=== PATIENT | male | born 1945 | race Caucasian/White ===

== ENCOUNTER 2021-02-21 12:27 | Outpatient (REF) | payer MEDICARE, SELFPAY ==
--- NOTE | 2021-02-21 15:31 | MHC.AU.ANR ---
Adult Audiological Evaluation Date of Visit: 02/21/21 Reason for Appointment: Audiological evaluation due to concern for decreased hearing. Mr. Combs states that he recently had a DOT physical and did not pass the hearing portion of the evaluation, during which the test had him repeat a whispered sentence. He feels that he hears well most of the time and hasn't had much concern for his hearing. 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 Upcoming shoulder surgery. Medication List: Gabapentin, Tamsulosin, Finasteride, Omeprazole, Lisinopril Otoscopy: Right Ear: Unremarkable Left Ear: Mostly occluding cerumen, unable to view tympanic membrane. Tympanometry: Tympanometry performed due to: To determine if cerumen blockage is fully occluding canal(s) Right Ear: Normal Middle Ear System (Type A) Left Ear: Normal Middle Ear System (Type A) Hearing Evaluation: Transducer(s) Used: Circumaural Headphones Method: Conventional Audiometry Stimuli Used: Pure Tones Right Ear: Description of Hearing: Normal hearing from 250-1000 Hz, sloping to a mild to moderately severe sensorineural hearing loss from 6795-5500 Hz. Left Ear: Description of Hearing: Normal hearing from 250-1000 Hz, sloping to a mild to severe sensorineural hearing loss from 5244-6398 Hz. Speech Recognition Threshold (SRT): Method Used: Monitored Live Voice Stimuli Used: Spondee Words Right Ear: 15 dBHL Left Ear: 10 dBHL Word Discrimination: Method: Recorded Lists Word Lists Used: NU-6 Right Ear: 88% at 60 dBHL Left Ear: 50% at 60 dBHL, 88% at 70 dBHL Recommendations: Audiological re-evaluation in one year. Trial with amplification is recommended. Binaural amplification is recommended based on his type and degree of hearing loss. Recommend trial of wejjygor-kr-dco-canal (SA[place]NA[place]) style hearing aids. Patient will contact his health insurance company to inquire about hearing aid benefits. He was welcomed to return for a hearing aid consultation if he decides he would like to pursue hearing aids through our clinic. Recommend use of earwax removal drops to clear the left ear. Diagnosis: Primary Diagnosis: H90.3 Bilateral Sensorineural Hearing Loss Secondary Diagnosis: H61.22 Impacted Cerumen, Left Ear Services Performed: Services Performed: Comprehensive Audiological Evaluation (CPT 81782) Tympanometry (CPT 07907) Signature: Provider: Son Fierro, CCC-A
== END 2021-02-21 12:28 | disposition home or self-care (01) ==
LOC: HO.SH 12:27
PROVIDERS: Visit Provider Nurse Practitioner Family
DX: H90.3 Sensorineural hearing loss, bilateral (principal); H61.22 Impacted cerumen, left ear
CPT/HCPCS: 92557; 92567

== ENCOUNTER 2021-03-20 06:15 | Outpatient (REF) | payer MEDICARE, SELFPAY ==
[2021-03-20 12:01] LABS: Alanine Aminotransferase 18 U/L (0-40); Albumin Level 4.1 g/dL (3.5-5.0); Alkaline Phosphatase 79 U/L (39-117); Anion Gap 14 (12-20); Aspartate Amino Transferase 16 U/L (5-37); Bilirubin Total 0.6 mg/dL (0.0-1.0); Blood Urea Nitrogen 12 mg/dL (9-16); Calcium 9.6 mg/dL (8.4-10.2); Carbon Dioxide 29 mmol/L (22-29); Chloride 103 mmol/L (96-108); Cholesterol 189 mg/dL; Estimated Glomerular Filt Rate > 60; Glucose Fasting 93 mg/dL (60-99); HDL Cholesterol 41 mg/dL; LDL Cholesterol Calculated 85 mg/dl; Potassium 3.7 mmol/L (3.3-5.1); Sodium 142 mmol/L (135-145); Total Protein 6.8 g/dL (6.5-8.0); Triglycerides 315 mg/dL
[2021-03-20 12:27] LABS: Prostate Specific Antigen Scr 0.86 ng/mL (<0.05-4.0); TSH reflex Free T4 1.59 uIU/mL (0.32-4.0)
== END 2021-03-20 06:16 | disposition home or self-care (01) ==
LOC: HO.HMGCLDS 06:15
PROVIDERS: PCP Nurse Practitioner Family; Visit Provider Nurse Practitioner Family
DX: I10 Essential (primary) hypertension (principal); Z12.5 Encounter for screening for malignant neoplasm of prostate
CPT/HCPCS: 36415; 80053; 80061; 84153; 84443

== ENCOUNTER 2021-08-12 11:22 | Outpatient (REF) | payer MEDICARE, SELFPAY ==
[2021-08-12 12:17] LABS: Influenza A PCR NEGATIVE (Negative); Influenza B PCR NEGATIVE (Negative); Resp Syncy Virus RNA Qual PCR NEGATIVE (Negative); SARS COV2 PCR INHOUSE NEGATIVE (Negative)
== END 2021-08-12 11:23 | disposition home or self-care (01) ==
LOC: HO.LNP 11:22
PROVIDERS: Visit Provider Internal Medicine
DX: R43.9 Unspecified disturbances of smell and taste (principal); Z20.822 Contact with and (suspected) exposure to COVID-19
CPT/HCPCS: 0241U

== ENCOUNTER 2022-07-25 14:09 | Outpatient (REF) | payer MEDICARE, SELFPAY ==
[2022-07-25 16:35] LABS: MANUAL DIFF FLAG NO
[2022-07-25 16:40] LABS: Basophils Absolute Auto 0.1 X10*3/uL (0.0-0.2); Basophils Percent Auto 0.9 % (0-2); Eosinophils Absolute Auto 0.1 X10*3/uL (0.0-0.4); Eosinophils Percent Auto 1.6 % (0-4); Hematocrit 44.9 % (42.0-52.0); Hemoglobin 15.1 g/dl (14.0-18.0); Imm Gran Abs Auto 0.04 X10*3/uL (0.00-0.03); Imm Gran Pct Auto 0.5 % (0.0-0.4); Lymphocytes Absolute Auto 1.1 X10*3/uL (1.2-4.9); Lymphocytes Percent Auto 15.4 % (20-40); Mean Corpuscular HGB Conc 33.6 g/dl (31.0-36.0); Mean Corpuscular Hemoglobin 31.2 pg (27.0-33.0); Mean Corpuscular Volume 92.8 fL (80.0-98.0); Mean Platelet Volume 9.5 fL (9.4-12.4); Monocytes Absolute Auto 0.6 X10*3/uL (0.1-1.2); Monocytes Percent Auto 7.6 % (2-11); Neutrophils Absolute Auto 5.5 x10*3/uL (2.0-8.3); Platelet Count 215 X10*3/uL (160-400); Red Blood Count 4.84 X10*6/uL (4.60-5.80); Red Cell Distribution Width 13.5 % (11.0-16.0); White Blood Count 7.4 X10*3/uL (4.8-10.8)
[2022-07-25 16:41] LABS: Appearance Urine Clear; Color Urine Yellow; Glucose Urine UA Negative (Negative); Leukocyte Esterase Urine Small (1+) (Negative); Nitrite Urine Negative (Negative); Specific Gravity - Urine 1.015 (1.005-1.025); UMIC TRIGGER UACC YES; Urine Blood Negative (Negative); Urine Ketones Negative (Negative); Urine Protein Negative (Neg-Trace)
[2022-07-25 17:10] LABS: Prostate Specific Antigen Scr 2.89 ng/mL (<0.05-4.0); TSH reflex Free T4 0.88 uIU/mL (0.32-4.0)
[2022-07-25 17:21] LABS: Bacteria Urine None Seen (None Seen); Hyaline Casts Urine 0-2 /LPF (0-2); RBC Urine 0-2 /HPF (0-2); Squamous Epithelial Cell Urine 0-2 /HPF (0-2); UACC Culture Trigger YES; WBC Urine 0-5 /HPF (0-5)
== END 2022-07-25 14:10 | disposition home or self-care (01) ==
LOC: HO.HMGCLDS 14:09
PROVIDERS: PCP Nurse Practitioner Family; Visit Provider Nurse Practitioner Family
DX: Z12.5 Encounter for screening for malignant neoplasm of prostate (principal); I10 Essential (primary) hypertension
CPT/HCPCS: 36415; 81001; 84153; 84443; 85025; 87086

== ENCOUNTER 2023-06-02 12:51 | Outpatient (AMB) | payer MEDICARE, SELFPAY ==
--- NOTE | 2023-06-02 13:06 | A.OFFVIS_ITS ---
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 Morales with complaints of left hip pain. Patient reports pain has been present for quite some time and is bow unable to fully bend down. He has hx of injections that provide him with relief but would like to discuss surgery. He did have an injection given into his right hip bursa approximately 2 months ago. He states he got fairly good relief from that injection. He wishes to hold off on total hip replacement surgery for as long as possible. He has tried Tylenol and anti-inflammatory medicines which gave him minimal relief. He has also done physical therapy exercises which aggravated his pain. Allergies No Known Allergies Allergy (Verified 06/02/23 13:14) Medication List - Last Reconciled 06/02/23 by Hernan Morales MD carbidopa-levodopa 25-100 mg 1 tab PO TID cetirizine 10 mg PO DAILY 30 days donepezil 5 mg PO DAILY finasteride 5 mg PO DAILY fluticasone propionate 50 mcg/actuation sprays intranasal gabapentin 900 mg (3 x 300 mg) PO BEDTIME 30 days lisinopril 5 mg PO DAILY omega-3 acid ethyl esters 1 cap PO BID 30 days omeprazole 20 mg PO DAILY 90 days oxybutynin chloride ER 5 mg PO DAILY tamsulosin 0.4 mg PO BID [facility] Medical History Arthritis of glenohumeral joint Dementia Enlarged prostate GERD (gastroesophageal reflux disease) Hypertension Impingement syndrome, shoulder Parkinsons disease Tendinopathy of right shoulder Surgical History H/O bilateral cataract extraction H/O blepharoplasty H/O cervical discectomy H/O colonoscopy H/O esophagogastroduodenoscopy History of total knee arthroplasty S/P right knee arthroscopy Family History Father No problems noted. Mother Oral cancer Social History Housing: House Alcohol intake: current Alcohol intake frequency: does not drink Patient Tobacco Use Status: Never used Tobacco e-Cigarette/Vaping Use: Never Used Second Hand Smoke Exposure: No service: No Current occupational status: employed and retired Current occupation: [employer] Current occupational exposures/hazards: No Cognitive needs: No Hearing needs: No Vision needs: No Physical Exam Vital Signs: BMI result Body Mass Index 21.2 Const Other: Well-nourished well-developed very friendly male awake alert and oriented x3 in no acute distress Extrem Other: Bilateral lower extremity examination shows good capillary refill, no skin lesions noted, normal sensation light touch Left hip examination shows decreased range of motion when compared to his right hip, pain with range of motion, tenderness over his bursa, no overlying skin lesions Office Procedures Joint Injection/Drain Joint Injection/Drain Details: Left hip greater trochanteric bursa Prep: site was prepped using aseptic technique Injected: 40 mg of, Kenalog and 1% plain lidocaine Procedure: The patient tolerated the procedure well Coding 79284 - Large joint Procedure code (CPT) selection complete Results Reviewed Results Reviewed: X-rays of the patient's left hip taken previously show joint space narrowing, subchondral sclerosis, no acute bony abnormalities Assessment & Plan Assessment & Plan (1) Trochanteric bursitis, left hip: Code(s): M70.62 - Trochanteric bursitis, left hip Plan Mr. Combs presents with left hip pain due to degenerative joint disease as well as greater trochanteric bursitis. I had a lengthy discussion with the patient regarding the treatment options. He wishes to hold off on surgery for as long as possible. I agree with his plan. I discussed the risks and benefits of a greater trochanteric bursa cortisone injection. The patient wished to proceed with the injection. He tolerated the injection well. He will continue with exercises as tolerated. He will follow up with me on an as-needed basis should his symptoms not plateau at an acceptable level over the next few months. If he fails continued non operative treatments we will further discuss the risks and benefits of total hip replacement surgery. Feel free to call me at any time should questions regarding his orthopedic management arise. I spent 22 minutes in reviewing the patient's records and imaging studies, seeing the patient and documenting in the medical record. Orders: Orders AMB Joint Injection/Aspiration Today M70.62 - Trochanteric bursitis, left hip Coding Level of Care Code Est Pt Level 2 (50553) Diagnoses Trochanteric bursitis, left hip M70.62 CPT Codes Coding - 50360 Large joint: 45325 - Large joint ([id number])
[2023-06-02 13:15] VITALS: BMI 21.2
== END 2023-06-02 15:00 | disposition home or self-care (01) ==
PROVIDERS: PCP Nurse Practitioner Family; Visit Provider Orthopaedic Surgery
DX: M70.62 Trochanteric bursitis, left hip (principal)
CPT/HCPCS: 20610; 99204; 99214

== ENCOUNTER → 2023-06-02 12:51 | Outpatient (BNVA) | payer MEDICARE, SELFPAY | PROVIDERS: PCP Nurse Practitioner Family; Visit Provider Orthopaedic Surgery | DX: M70.62 Trochanteric bursitis, left hip (principal) | CPT/HCPCS: 20610; J3301 ==

== ENCOUNTER 2023-07-09 07:28 | Outpatient (REF) | payer MEDICARE, SELFPAY ==
--- NOTE | ~2023-07-09 | XR_ITS ---
EXAMINATION: XR HIP, LEFT CLINICAL INFORMATION: Left hip pain COMPARISON: None available. TECHNIQUE: An AP view of the pelvis and hips and frog lateral view of the left hip. FINDINGS: Mineralization is normal. There is an essentially nondisplaced oblique fracture through the neck of the left femur extending from the subcapital region to the intertrochanteric region. There is no dislocation. There is moderate hip joint space narrowing with subchondral sclerosis, mild marginal osteophyte and mild remodeling of the femoral head and acetabulum. The periarticular soft tissues appear unremarkable. XR/XR hip LT min 2V IMPRESSION: Essentially nondisplaced fracture through the neck of the left femur. Degenerative breath right is in the left hip.
== END 2023-07-09 07:29 | disposition home or self-care (01) ==
LOC: HO.HOSX 07:28
PROVIDERS: Visit Provider Orthopaedic Surgery
DX: Z13.89 Encounter for screening for other disorder (principal)
CPT/HCPCS: 73502; 99212; J3301

== ENCOUNTER 2023-07-09 13:30 | Outpatient (AMB) | payer MEDICARE, SELFPAY ==
--- NOTE | 2023-07-09 13:42 | A.OFFVIS_ITS ---
Intake Vital Signs 07/09/23 14:04 Height 6 ft Weight 156 lb BMI 21.2 Intake Visit Reasons: Ov- left hip pain Intake Note: Sreedhar 77 yr old male presents today for follow-up of his left hip pain. The patient states that his left hip pain has gotten worse over the last few years in spite of continued non operative treatments. The patient states that he fell in the grass walking from his car to the office. He was helped to his feet by another individual. The patient was able to fully weightbear on his left lower extremity with a significant amount of discomfort. The patient states that most of his pain is located within his groin. He states that his current pain is similar to his chronic pain but more intense. The patient states that he would like a cortisone injections so that he is ?able to work this Thursday?. Allergies No Known Allergies Allergy (Verified 07/09/23 13:51) Medication List - Last Reconciled 07/09/23 by Hernan Morales MD carbidopa-levodopa 25-100 mg 1 tab PO TID cetirizine 10 mg PO DAILY 30 days donepezil 5 mg PO DAILY finasteride 5 mg PO DAILY fluticasone propionate 50 mcg/actuation sprays intranasal gabapentin 900 mg (3 x 300 mg) PO BEDTIME 30 days lisinopril 5 mg PO DAILY omega-3 acid ethyl esters 1 cap PO BID 30 days omeprazole 20 mg PO DAILY 90 days oxybutynin chloride ER 5 mg PO DAILY tamsulosin 0.4 mg PO BID tramadol 50 mg PO BID PRN tramadol 50 mg PO Q12H PRN PFSH Medical History Arthritis of glenohumeral joint Dementia Enlarged prostate GERD (gastroesophageal reflux disease) Hypertension Impingement syndrome, shoulder Parkinsons disease Tendinopathy of right shoulder Surgical History H/O bilateral cataract extraction H/O blepharoplasty H/O cervical discectomy H/O colonoscopy H/O esophagogastroduodenoscopy History of total knee arthroplasty S/P right knee arthroscopy Family History Father No problems noted. Mother Oral cancer Social History Household Members: Spouse Housing: House Do you presently have visiting nurse or other home services: No Alcohol intake: current Alcohol intake frequency: holidays/special occasions only Patient Tobacco Use Status: Never used Tobacco Smoked in Last 30 Days: No e-Cigarette/Vaping Use: Never Used Second Hand Smoke Exposure: No Use of substances other than those prescribed or required for medical reasons: No Have you been hit, kicked, punched, or otherwise hurt by someone within the past year? If so, by whom?: No Do you feel safe in your current relationship?: Yes Is there a partner from a previous relationship who is making you feel unsafe now?: No Are you made to feel afraid or neglected: No Advance Directives: No Advance Directives Information Provided: No Do you have thoughts of harming others: None Do you have a plan to hurt others: No Plan Recently lost weight without trying: No How much weight loss: Not applicable Eating poorly because of decreased appetite: No Nutrition screen score: 0 Nutrition Risks: No Nutritional Risk Poor oral hygiene: No service: No Current occupational status: employed and retired Current occupation: [employer] Current occupational exposures/hazards: No Cognitive needs: No Hearing needs: No Vision needs: No Physical Exam Vital Signs: BMI result Body Mass Index 21.2 Const Other: Well-nourished well-developed very friendly male awake alert and oriented x3 in no acute distress Extrem Other: Left hip examination shows tenderness over his greater trochanteric bursa, no overlying skin lesions, moderate pain with range of motion consistent with prior examinations Results Reviewed Results Reviewed: 07/09/23 13:48 Lidocaine HCl 2 % MPF [Xylocaine 2 % MPF] 5 ml .ROUTE .STK-MED ONE 07/09/23 13:49 Triamcinolone Acetonide [Kenalog-40] 40 mg .ROUTE .STK-MED ONE My initial reading of the patient's left hip x-rays taken after his fall showed moderate to severe degenerative joint disease with no obvious fractures After the patient tried to get out of his wheelchair to leave the office and go home I took another look at his x-ray which appears to show a nondisplaced fracture of the left femoral neck with extension into the intertrochanteric reg ion Assessment & Plan Assessment & Plan (1) Left hip pain: Code(s): M25.552 - Pain in left hip (2) Trochanteric bursitis, left hip: Code(s): M70.62 - Trochanteric bursitis, left hip Plan Mr. Combs presented for routine follow-up of his left hip pain. The patient did have a fall on the grass outside of the office when walking from his car to the office. In addition to increase of his chronic left hip pain the patient also had a superficial abrasion of his left elbow. The patient denies any other injuries. Upon initial evaluation I felt that the patient's pain was due to worsening of his left hip arthritis as well as greater trochanteric bursitis. I had a lengthy discussion with the patient regarding the treatment options. The patient wished for a cortisone injection into his left hip bursa which she has gotten good relief from in the past. Thus, a left hip greater trochanteric bursa cortisone injection was performed. Following the injection the patient still had difficulty fully weight-bearing on his left lower extremity. At this point I was concerned that there might indeed be a proximal femur fracture. Upon further review of the x-rays I felt that there was a nondisplaced fracture of the patient's left femoral neck with extension into the intertrochanteric region. Thus, the patient will be sent to the emergency room. I contacted the emergency room staff and recommended that the patient get a CT scan of his left hip for further evaluation of possible fracture. The plan was discussed at length with the patient. If the patient does indeed have a proximal femur fracture he will be admitted with the plan for surgical intervention likely tomorrow. Feel free to call me at any time should questions regarding his orthopedic management arise. I spent 22 minutes in reviewing the patient's records and imaging studies, seeing the patient and documenting in the medical record. Orders: Orders XR hip LT min 2V 07/09/23 M25.552 - Pain in left hip Medications: Discontinued gabapentin 900 mg (3 x 300 mg) PO BEDTIME 30 days 90 caps 3RF Coding Level of Care Code Est Pt Level 2 (50145) Diagnoses Left hip pain M25.552 Trochanteric bursitis, left hip M70.62
[2023-07-09 14:04] VITALS: BMI 21.2
== END 2023-07-09 14:24 | disposition home or self-care (01) ==
PROVIDERS: PCP Nurse Practitioner Family; Visit Provider Orthopaedic Surgery
DX: M25.552 Pain in left hip (principal); M70.62 Trochanteric bursitis, left hip
CPT/HCPCS: 99212

== ENCOUNTER 2023-07-09 14:16 | Inpatient (IN) | payer MEDICARE, SELFPAY ==
--- NOTE | ~2023-07-09 | XR_ITS ---
EXAMINATION: XR KNEE, LEFT CLINICAL INFORMATION: Pain status-post fall. COMPARISON: None available. TECHNIQUE: AP and lateral views of the left knee. FINDINGS: Bony alignment and mineralization are normal. The lateral and medial joint space compartments are well-maintained. There is chondrocalcinosis. There is marked narrowing of the patellofemoral compartment. A small joint effusion is suspected. Towards the posterior intercondylar region, a 2.0 x 1.2 x 1.3 cm calcific density is seen, possibly a bone island or an adherent loose body. There is no fracture or dislocation. No foreign body is seen. XR/XR knee LT 2V IMPRESSION: 1. There is marked degenerative change of the patellofemoral compartment. 2. A small joint effusion is suspected. 3. There is chondrocalcinosis, which can be associated with CPPD. 4. There is no fracture or dislocation. 5. At the posterior intercondylar region, a 2.0 cm calcified density is seen, possibly a bone island or adherent loose body.
--- NOTE | ~2023-07-09 | FL_ITS ---
EXAMINATION: XR FLUOROSCOPY WITH IMAGES CLINICAL INFORMATION: Left hip fracture COMPARISON: Previous x-ray from yesterday TECHNIQUE: Fluoroscopy Supervised By: Dr. Omega Acosta. Fluoroscopy Time: 0.6 minutes. Cumulative Dose: 12.8 mGy. DAP: 0.2 mgy/sq m Images: 5. FINDINGS: Images demonstrate an intramedullary anat and compression/lag screw and distal cortical screw transfixing the left femoral fracture. Alignment is anatomic. There is arthritis of the left hip joint. FL/FL guidance in OR IMPRESSION: Fluoroscopy guidance for ORIF of left hip fracture.
--- NOTE | ~2023-07-09 | CT_ITS ---
EXAMINATION: CT HIP WITHOUT CONTRAST, LEFT CLINICAL INFORMATION: Left hip pain. Question fracture. Fall. COMPARISON: CT dated 08/25/2017 TECHNIQUE: Multidetector volumetric imaging was obtained through the left hip without contrast material. Multiplanar reformatted images were submitted in coronal and sagittal planes. This CT examination was performed using dose optimization techniques as appropriate, variously including the following: *Automated exposure control *Adjustment of mA and/or kV according to patient size (this includes techniques or standardized protocols for targeted exams where dose is matched to indication/reason for exam; i.e. extremities or head) *Use of iterative reconstruction technique DLP: 186 mGy-cm FINDINGS: There is a mildly comminuted fracture at the left femoral neck which is primarily basicervical in location with extension into the intertrochanteric regions as well. The fracture line extends into the lesser trochanter, though the lesser trochanter remains appropriately situated relative to the remainder of the proximal femur. There is a nondisplaced trabecular component of the fracture extending into the greater trochanter without significant cortical breaks at the greater trochanter. There is impaction along the posterior cortex of the femoral neck in the basicervical region. A nondisplaced sagittally oriented fracture line extends through the medial cortex of the femoral neck. Slight apex anterior angulation is evident at the femoral neck component of the fracture. There is moderate to severe osteoarthritis the left hip with nonuniform cephalad joint space narrowing, talar cartilage loss, marginal osteophytes, and cortical irregularity. Mild osteoarthritis is also present in the left SI joint. Imaged portion of the left innominate bone is intact. The proximal femoral diaphysis is normal in appearance without fracture or osseous lesions. There is a small left hip joint effusion. Lipohemarthrosis extends into the iliopsoas bursa. Surrounding fat stranding is noted at the left hip. No significant hematomas are identified. Calcific atherosclerosis is present in the left iliac and femoral arteries. There is central gland hypertrophy at the prostate with dystrophic calcifications. Diverticulosis is present at the sigmoid. CT/CT hip LT wo IV con IMPRESSION: 1. Mildly comminuted, basicervical fracture of the left femoral neck with intertrochanteric extension. 2. Moderate to severe osteoarthritis in the left hip.
[2023-07-09 14:35] VITALS: BP 145/86; PULSE 66; RESP 16; TEMP 36.8; O2SAT 99; BMI 20.7
--- NOTE | 2023-07-09 14:38 | ED.GENADULT ---
HPI - General Adult General Chief complaint: Fall Stated complaint: fall Time Seen by Provider: 07/09/23 14:49 Source: patient Mode of arrival: wheelchair Limitations: no limitations History of Present Illness HPI narrative: 77 yo male with history of dementia, HTN, HLD, RBBB, PVC's, BPH, phimosis s/p elective circumcision in 2012, arthritis s/p right knee replacement, GERD, and Parkinson's disease who presents to the ER from Orthpedic office for evaluation and treatment of a hip fracture. He tripped and fell on his way into the office today. He was going for evaluation of ongoing pain in the left hip he thought was muscular. He was recently treated with a cortisone injection in the hip in May which helped his pain. He is a poor historian. He does not know his medical problems or which medications he takes. He denies any chest pain, dizziness, SOB before the fall today. He feels well at rest and has significant pain in the left hip and pelvis with any movement. MD complaint: left hip pain Onset (ago): week(s) Location: left and lower extremity Radiation: non-radiation Severity: moderate Pain Consistency: intermittent Relieving factors: immobilization and rest Exacerbating factors: movement Associated symptoms: denies other symptoms Treatments prior to arrival: none Related Data Home Medications Medication Instructions Recorded Confirmed tamsulosin 0.4 mg capsule 0.4 mg PO BID 03/18/21 07/09/23 carbidopa 25 mg-levodopa 100 mg 1 tab PO TID 06/19/21 07/09/23 tablet donepezil 5 mg tablet 5 mg PO DAILY 01/16/22 07/09/23 oxybutynin chloride 5 mg 5 mg PO DAILY 01/16/22 07/09/23 tablet,extended release 24 hr gabapentin 300 mg capsule 300 mg PO BEDTIME 07/09/23 Previous Rx's Medication Instructions Recorded lisinopril 5 mg tablet 5 mg PO DAILY #90 tabs 04/03/23 omeprazole 20 mg capsule,delayed 20 mg PO DAILY 90 days #90 caps 04/15/23 release tramadol 50 mg tablet 50 mg PO Q12H PRN pain #60 tabs 06/26/23 Allergies Allergy/AdvReac Type Severity Reaction Status Date / Time No Known Allergies Allergy Verified 07/09/23 13:51 Review of Systems Review of Systems: Yes all other systems are reviewed and are negative FORMERLY [facility], [facility] Past Medical History Medical History Arthritis of glenohumeral joint Dementia Enlarged prostate GERD (gastroesophageal reflux disease) Hypertension Impingement syndrome, shoulder Parkinsons disease Tendinopathy of right shoulder Surgical History H/O bilateral cataract extraction H/O blepharoplasty H/O cervical discectomy H/O colonoscopy H/O esophagogastroduodenoscopy History of total knee arthroplasty S/P right knee arthroscopy Family History Family History Father No problems noted. Mother Oral cancer Social History Social History Household Members: Spouse Housing: House Do you presently have visiting nurse or other home services: No Alcohol intake: current Alcohol intake frequency: does not drink Patient Tobacco Use Status: Never used Tobacco Smoked in Last 30 Days: No e-Cigarette/Vaping Use: Never Used Second Hand Smoke Exposure: No Use of substances other than those prescribed or required for medical reasons: No Currently Displaying Signs/Symptoms of Drug Intoxication Withdrawal: No Have you been hit, kicked, punched, or otherwise hurt by someone within the past year? If so, by whom?: No Do you feel safe in your current relationship?: Yes Is there a partner from a previous relationship who is making you feel unsafe now?: No Are you made to feel afraid or neglected: No Are you DNR?: No Advance Directives: No Advance Directives Information Provided: No Advance Directives on File: No Do you have thoughts of harming others: None Do you have a plan to hurt others: No Plan Recently lost weight without trying: No How much weight loss: Not applicable Eating poorly because of decreased appetite: No Nutrition screen score: 0 Nutrition Risks: No Nutritional Risk Poor oral hygiene: No service: No Current occupational status: employed and retired Current occupation: [employer] Current occupational exposures/hazards: No Cognitive needs: No Hearing needs: No Vision needs: No Physical Exam ED Vital Signs: Vital Signs - 24 hr 07/09/23 14:35 08/31/23 16:20 Temperature 98.3 F 98.1 F Pulse Rate 66 63 Respiratory Rate 16 12 Blood Pressure 145/86 H 153/74 H Pulse Oximetry 99 99 Oxygen Delivery Method Room Air Room Air BMI result Body Mass Index 20.7 Appearance: Alert. Oriented X3. No acute distress. Head: normocephalic, atraumatic. Eyes: Pupils equal, round and reactive to light. ENT: Pharynx normal. No tonsillar swelling or exudate. Neck: Normal inspection. Neck supple. CVS: Normal heart rate and rhythm. Pulses normal. Respiratory: No respiratory distress. Breath sounds normal. Abdomen: Soft and nontender. +BS x4 Skin: Skin warm and dry. Normal skin color. Normal skin turgor. No rashes. Extremities: Bilateral resting hand tremor. Superficial abrasion to the left forearm. Full ROM of the left elbow and shoulder. No lower extremity edema. Both legs in slightly flexion position at the hip and knees. left hip and groin are tender to palpation. no shortening or external rotation of the left leg. Neuro/psych: Oriented X 3. Tremulous. No motor deficit. No sensory deficit. CN II-XII intact. Normal speech Course Course Course Narrative: RME: 77 yold brought to the ED for evaluation of left hip possibel fracture. rafa fell on way near ortho clinic with no head trauma. Xray confimed left hip fracture as per CHELLY Whiting and recommend admission to medicine. Reevaluation(s) Reevaluation #1: pain improved w/ oxycodone awaiting CT scan to be admitted to medicine Time: 16:29 Medications Administered Generic Name Dose Route Start Last Admin Trade Name Priti PRN Reason Stop Dose Admin Acetaminophen 650 mg 07/09/23 17:14 07/13/23 16:32 Acetaminophen 325 Mg Tablet PO 325 mg Q6H PRN Administration Pain, Mild (Pain Scale 1-3) Carbidopa/Levodopa 1 tab 07/09/23 21:00 07/13/23 15:51 Carbidopa/Levodopa 25/100 Tablet PO 1 tab TID RICKIE Administration Docusate Sodium 100 mg 07/09/23 21:00 07/13/23 08:10 Docusate Sodium 100 Mg Capsule PO 100 mg BID RICKIE Administration Donepezil HCl 5 mg 07/10/23 09:00 07/13/23 08:09 Donepezil Hcl 5 Mg Tablet PO 5 mg DAILY RICKIE Administration Enoxaparin Sodium 40 mg 07/11/23 10:00 07/13/23 10:47 Enoxaparin Sodium 40 Mg/0.4 Ml Syringe SUBCUT 40 mg Q24H RICKIE Administration Fentanyl 50 mcg 07/10/23 13:41 07/10/23 17:03 Fentanyl Citrate/Pf 100 Mcg/2 Ml Vial IVPUSH 25 mcg Q5M PRN Administration Pain, Severe (Pain Scale 7-10) Protocol Lisinopril 5 mg 07/10/23 09:00 07/13/23 08:09 Lisinopril 5 Mg Tablet PO 5 mg DAILY RICKIE Administration Protocol Morphine Sulfate 2 mg 07/09/23 17:14 07/10/23 12:07 Morphine Sulfate 4 Mg/Ml Cartridge IVPUSH 2 mg Q4H PRN Administration Pain, Severe (Pain Scale 7-10) Protocol Omeprazole 20 mg 07/10/23 06:30 07/13/23 05:46 Omeprazole 20 Mg Capsule. PO 20 mg DAILY@0630 RICKIE Administration Oxybutynin Chloride 5 mg 07/10/23 09:00 07/13/23 08:09 Oxybutynin Chloride Er 5 Mg Tab.Er.24 PO 5 mg DAILY RICKIE Administration Oxycodone HCl 5 mg 07/09/23 17:14 07/13/23 16:31 Oxycodone Hcl Immed Release 5 Mg Tablet PO 5 mg Q6H PRN Administration Pain, Moderate(Pain Scale 4-6) Sodium Chloride 3 ml 07/10/23 00:00 07/13/23 19:46 0.9 % Sodium Chloride Flush 3 Ml Syringe IVFLUSH 3 ml QSHIFT RICKIE Administration Tamsulosin HCl 0.4 mg 07/09/23 21:00 07/13/23 08:09 Tamsulosin Hcl 0.4 Mg Capsule PO 0.4 mg BID RICKIE Administration Discontinued Medications Generic Name Dose Route Start Last Admin Trade Name Freq PRN Reason Stop Dose Admin Cefazolin Sodium/Dextrose 2 gm in 50 mls @ 100 mls/hr 07/10/23 09:00 07/10/23 14:00 Ancef IV 07/10/23 09:29 Not Given PREOP ONE Cefazolin Sodium/Dextrose 2 gm in 50 mls @ 100 mls/hr 07/10/23 21:00 07/10/23 22:26 Ancef IV 07/10/23 21:29 Infused ONCE@2100 RICKIE Infusion Sodium Chloride 1,000 mls @ 999 mls/hr 07/10/23 20:35 07/10/23 22:26 Ns IV 07/10/23 21:35 Infused .Q1H1M STA Infusion Oxycodone HCl 5 mg 07/09/23 14:55 07/09/23 15:21 Oxycodone Hcl Immed Release 5 Mg Tablet PO 07/09/23 14:56 5 mg ONCE ONE Administration Medical Decision Making Medical Decision Making [facility] Narrative: 77 yo male presenting for left hip pain s/p mechanical fall today outside the ortho office. XR as outpatient reviewed - Dr. Morales is recommending CT scan for further evaluation. Planning for OR tomorrow. Labs and EKG ordered for pre-op clearance and workup. Given his medical history orthopedics recommending medical admission Differential Diagnosis Differential Diagnoses: The differential diagnosis associated with the presentation includes left hip fracture, pelvic fracture, mechanical fall, cardiac arrythmia, syncope Admission/Observation Consideration of admission/observation: Escalation of care including admission/observation considered Consult Healthcare Provider Management of the patient was discussed with: Hospitalist and Regulatory Affairs Manager Angelica CRUZ from ortho Lab Data [facility] Lab Attestation statement: I reviewed the patient's lab results. 07/09/23 15:35 07/09/23 15:35 Labs: Lab Results 07/09/23 07/09/23 07/09/23 Range/Units 15:35 15:35 15:35 WBC 6.8 (4.8-10.8) X10*3/uL RBC 4.62 (4.60-5.80) X10*6/uL Hgb 14.7 (14.0-18.0) g/dl Hct 41.8 L (42.0-52.0) % MCV 90.5 (80.0-98.0) fL MCH 31.8 (27.0-33.0) pg MCHC 35.2 (31.0-36.0) g/dl RDW 13.8 (11.0-16.0) % Plt Count 248 (160-400) X10*3/uL MPV 9.0 L (9.4-12.4) fL Immature Gran % (Auto) 0.6 H (0.0-0.4) % Neut % (Auto) 78.1 H (45-73) % Lymph % (Auto) 13.2 L (20-40) % [place] % (Auto) 6.2 (2-11) % Eos % (Auto) 1.0 (0-4) % Baso % (Auto) 0.9 (0-2) % Lymph # (Auto) 0.9 L (1.2-4.9) X10*3/uL [place] # (Auto) 0.4 (0.1-1.2) X10*3/uL Eos # (Auto) 0.1 (0.0-0.4) X10*3/uL Baso # (Auto) 0.1 (0.0-0.2) X10*3/uL Abs Immat Gran (auto) 0.04 H (0.00-0.03) X10*3/uL Absolute Neuts (auto) 5.3 (2.0-8.3) x10*3/uL Absolute Nucleated RBC 0.000 (0.0-0.012) X10*3/uL Nucleated RBC % (auto) 0.0 (0.0-0.2) /100WBC PT 12.8 (11.1-13.3) SEC INR 1.1 (0.9-1.1) APTT 27.5 (26.0-36.4) SEC Sodium 139 (135-145) mmol/L Potassium 4.4 (3.3-5.1) mmol/L Chloride 105 (96-108) mmol/L Carbon Dioxide 26 (22-29) mmol/L Anion Gap 12 (12-20) BUN 16 (9-16) mg/dL Creatinine 0.79 (0.5-1.4) mg/dL Estim Creat Clear Calc 76.8 Estimated GFR > 60 Random Glucose 102 (60-115) mg/dL Calcium 9.7 (8.4-10.2) mg/dL Total Bilirubin 0.6 (0.0-1.0) mg/dL AST 20 (5-37) U/L ALT 22 (0-40) U/L Alkaline Phosphatase 69 (39-117) U/L Total Protein 6.7 (6.5-8.0) g/dL Albumin 3.9 (3.5-5.0) g/dL Independent Interpretation I performed an independent interpretation of an: Plain X-Ray Interpretation: probable fx of the left hip. no displacement or dislocation External Record Review External record reviewed: Office record, Outpatient record and Prior outpatient labs Prescription Management I considered prescription management with: Pain Medication Chronic Conditions Patient?s care impacted by: Hypertension and Other (dementia, parkinson's) Critical Care Time Critical Care Time Critical Care Time: Yes Total Critical Care Time: 35 Attestation: I have personally provided critical care time exclusive of time spent on separately billable procedures. Time includes review of lab data, radiology results, discussion with consultants, and monitoring for potential decompensation. Intervention performed as documented. Discharge Plan Discharge Clinical Impression: Closed fracture of left hip Patient Disposition: Admitted As Inpatient Interventions: Admission Worksheet (ED) Last Done: 07/09/23 18:46 Discharge Date/Time: 07/09/23 19:34
[2023-07-09] MEDS: oxyCODONE HCl Immed Release 5 MG TABLET PO ×2 (15:21→19:35)
--- NOTE | 2023-07-09 15:37 | PC.NURSE ---
This RN assumed care of patient at 1500, this RN placed 20g IV in RAC. Pt changed over into hospital gown and medicated per JAN. Per CHELLY Dominguez in ortho, patient should receive Ancef in post op, not in the ER
[2023-07-09 15:40] LABS: MANUAL DIFF FLAG NO
[2023-07-09 15:41] LABS: Basophils Absolute Auto 0.1 X10*3/uL (0.0-0.2); Basophils Percent Auto 0.9 % (0-2); Eosinophils Absolute Auto 0.1 X10*3/uL (0.0-0.4); Hematocrit 41.8 % (42.0-52.0); Hemoglobin 14.7 g/dl (14.0-18.0); Imm Gran Abs Auto 0.04 X10*3/uL (0.00-0.03); Imm Gran Pct Auto 0.6 % (0.0-0.4); Lymphocytes Absolute Auto 0.9 X10*3/uL (1.2-4.9); Lymphocytes Percent Auto 13.2 % (20-40); Mean Corpuscular HGB Conc 35.2 g/dl (31.0-36.0); Mean Corpuscular Hemoglobin 31.8 pg (27.0-33.0); Mean Corpuscular Volume 90.5 fL (80.0-98.0); Monocytes Absolute Auto 0.4 X10*3/uL (0.1-1.2); Monocytes Percent Auto 6.2 % (2-11); Neutrophils Absolute Auto 5.3 x10*3/uL (2.0-8.3); Neutrophils Percent Auto 78.1 % (45-73); Platelet Count 248 X10*3/uL (160-400); Red Blood Count 4.62 X10*6/uL (4.60-5.80); Red Cell Distribution Width 13.8 % (11.0-16.0); White Blood Count 6.8 X10*3/uL (4.8-10.8)
[2023-07-09 15:48] LABS: INTERNATIONAL NORM RATIO 1.1 (0.9-1.1); Prothrombin Time 12.8 SEC (11.1-13.3)
[2023-07-09 15:51] LABS: Partial Thromboplastin Time 27.5 SEC (26.0-36.4)
--- NOTE | 2023-07-09 16:05 | ECG_ITS ---
Test Reason : WEAKNESS Blood Pressure : / mmHG Vent. Rate : 067 BPM Atrial Rate : 069 BPM P-R Int : 142 ms QRS Dur : 090 ms QT Int : 390 ms P-R-T Axes : 050 -45 048 degrees QTc Int : 412 ms Normal sinus rhythm with sinus arrhythmia Left axis deviation Abnormal ECG When compared with ECG of 25-JUL-2020 09:20, Premature ventricular complexes are no longer Present Referred By: Noemi Key Electronically Signed By:NATE SHARIF
[2023-07-09 16:09] LABS: Alanine Aminotransferase 22 U/L (0-40); Albumin Level 3.9 g/dL (3.5-5.0); Alkaline Phosphatase 69 U/L (39-117); Anion Gap 12 (12-20); Aspartate Amino Transferase 20 U/L (5-37); Bilirubin Total 0.6 mg/dL (0.0-1.0); Blood Urea Nitrogen 16 mg/dL (9-16); Calcium 9.7 mg/dL (8.4-10.2); Carbon Dioxide 26 mmol/L (22-29); Chloride 105 mmol/L (96-108); Creatinine Clr Calc Pharmacy 76.8; Estimated Glomerular Filt Rate > 60; Glucose Random 102 mg/dL (60-115); Potassium 4.4 mmol/L (3.3-5.1); Sodium 139 mmol/L (135-145); Total Protein 6.7 g/dL (6.5-8.0)
[2023-07-09 16:20] VITALS: BP 153/74; PULSE 63; RESP 12; TEMP 36.7; O2SAT 99
--- NOTE | 2023-07-09 16:33 | PHA.MEDREC ---
Pharmacy Consult ? Medication Reconciliation Pharmacy has completed the medication reconciliation. Patient is a poor historian, confused with the medications. Patient reported he forgot his list. Called patient Meka, who was not confident in the medications either. I called pharmacy to confirmed last fill on some medications. Both reported patient is on carbidopa-levodaopa lst filled in February 2023. Patient states he takes 1 tablet of gabapentin instead of 3 however the is unsure, lasted fill september 2022. Both [facility] patient is on finasteride, called pharmacy who has no record of the medication. Patient had been filling tamsulosin instead. Rose Morales, KamranD
--- NOTE | 2023-07-09 16:44 | PM.IMHP ---
History of Present Illness Date of Service: 07/09/23 Attending physician on admission: Geoff Armando Chief Complaint: left hip pain This is a 77 yo male with history of dementia, HTN, HLD, RBBB, PVC's, BPH, arthritis s/p right knee replacement, GERD, and Parkinson's disease who presents to the ER from Orthpedic office for evaluation and treatment of a hip fracture. Patient was on his way into the office for a follow up appointment for hip pain. Unfortunately it seems he walked on the side of the walkway and tripped and fell. He denies any dizziness prior to his fall. He denies any head strike or loss of consciousness. He was able to get up and ambulate into the office with assistance. He had an outpatient x-ray which was concerning for a possible hip fracture and therefore he was sent to the emergency department for further evaluation. In the emergency department he underwent a CT scan of the left hip Review of Systems Review of Systems: Yes all other systems are reviewed and are negative Constitutional: Constitutional: Denies chills and Denies fever(s) ENT: Denies dizziness Cardiovascular: Cardiovascular: Denies chest pain Neurologic: Denies dizziness [facility] Medical History Arthritis of glenohumeral joint Dementia Enlarged prostate GERD (gastroesophageal reflux disease) Hypertension Impingement syndrome, shoulder Parkinsons disease Tendinopathy of right shoulder Family History Father No problems noted. Mother Oral cancer Surgical History H/O bilateral cataract extraction H/O blepharoplasty H/O cervical discectomy H/O colonoscopy H/O esophagogastroduodenoscopy History of total knee arthroplasty S/P right knee arthroscopy Social History Household Members: Spouse Housing: House Do you presently have visiting nurse or other home services: No Alcohol intake: current Alcohol intake frequency: does not drink Patient Tobacco Use Status: Never used Tobacco e-Cigarette/Vaping Use: Never Used Second Hand Smoke Exposure: No service: No Current occupational status: employed and retired Current occupation: [employer] Current occupational exposures/hazards: No Cognitive needs: No Hearing needs: No Vision needs: No Meds Allergies Allergy/AdvReac Type Severity Reaction Status Date / Time No Known Allergies Allergy Verified 07/09/23 13:51 Home Medications Medication Instructions Recorded Confirmed Last Taken Type tamsulosin 0.4 mg capsule 0.4 mg PO BID 03/18/21 07/09/23 Unknown History carbidopa 25 mg-levodopa 100 mg 1 tab PO TID 06/19/21 07/09/23 Unknown History tablet donepezil 5 mg tablet 5 mg PO DAILY 01/16/22 07/09/23 Unknown History oxybutynin chloride 5 mg 5 mg PO DAILY 01/16/22 07/09/23 Unknown History tablet,extended release 24 hr gabapentin 300 mg capsule 300 mg PO BEDTIME 07/09/23 Unknown History Physical Exam Vital Signs and Narrative: Vital Signs: Last Vital Signs Temp 98.1 F 07/09/23 16:20 Pulse 63 07/09/23 16:20 Resp 12 07/09/23 16:20 BP 153/74 H 07/09/23 16:20 Pulse Ox 99 07/09/23 16:20 O2 Del Method Room Air 07/09/23 16:20 BMI result Body Mass Index 20.7 Const: General: cooperative, comfortable, no acute distress, alert and awake Nutritional Appearance: average body habitus Resp: Effort & Inspection: normal respiratory effort, able to speak in complete sentences, no respiratory distress and no use of accessory muscles Cardio: Rate: regular rate Heart sounds: S1 normal heart sound present and S2 normal heart sound present GI: Inspection: No distended Palpation (GI): Soft to palpation Neuro: Other: upper extreity tremor Extrem: General: Yes no pedal edema Results Labs 07/11/23 05:30 07/11/23 05:30 Labs: Laboratory Results - last 24 hr 07/09/23 07/09/23 07/09/23 15:35 15:35 15:35 MCV 90.5 MCH 31.8 MCHC 35.2 RDW 13.8 Plt Count 248 MPV 9.0 L Immature Gran % (Auto) 0.6 H Neut % (Auto) 78.1 H Lymph % (Auto) 13.2 L [place] % (Auto) 6.2 Eos % (Auto) 1.0 Baso % (Auto) 0.9 Lymph # (Auto) 0.9 L [place] # (Auto) 0.4 Eos # (Auto) 0.1 Baso # (Auto) 0.1 Abs Immat Gran (auto) 0.04 H Absolute Neuts (auto) 5.3 Absolute Nucleated RBC 0.000 Nucleated RBC % (auto) 0.0 PT 12.8 INR 1.1 APTT 27.5 Anion Gap 12 Estim Creat Clear Calc 76.8 Estimated GFR > 60 Random Glucose 102 Calcium 9.7 Total Bilirubin 0.6 AST 20 ALT 22 Alkaline Phosphatase 69 Total Protein 6.7 Albumin 3.9 Assessment and Plan (1) Closed fracture of left hip: Status: Acute Plan this is a 77-year-old male with history of Parkinson's disease, dementia, BPH, HTN with sent by Ortho to the emergency room for evaluation of left hip pain found to have left hip fracture left hip fracture CT left hip with mildly comminuted, fracture of the left femoral neck with intertrochaneteric extension further management per orthopedic service pain control no history of ischemic heart disease or CHF but outpatient notes indicate plan for echo. no echo in system, will order echo parkinsons disease continue carbidopa-levadopa dementia, like r/t parkinsons continue donepezil HTN continue lisinopril bph/urgency continue tamsulosin, oxybutynin dvt ppx - mechanical until after procedure attending - dr. armando given acute fracture patient will likely require two midnight stay for surgical intervention Time Spent With Patient Time: Total time managing care of this patient today ____ minutes. Quality Stroke Does the patient have a stroke diagnosis?: No VTE Prior VTE?: No VTE Risk Level:: Medical - moderate - high VTE Device Contraindication: N/A - Device Ordered VTE Drug Contraindication: Treatment Not Indicated
[2023-07-09] MEDS: Morphine Sulfate 4 MG/ML CARTRIDGE 2 MG IVPUSH (17:46)
[2023-07-09 17:52] VITALS: BP 118/67; PULSE 73; RESP 15; TEMP 36.8; O2SAT 99
--- NOTE | 2023-07-09 18:03 | PC.NURSE ---
pt resting comfortably on stretcher at this time, respirations even and unlabored, skin pwd. Pt has 2, 1 inch skin tears on left elbow from fall. both cleaned and bandaged by NEVIN Ayala Pt offers no complaints to this RN at this time, provided with urinal This RN re-oriented patient to plan of care at this time. Pt requires frequent re-orientation to situation. Pt remembers that he fell but cannot remember that his hip is fractured and that he will be having surgery. Otherwise, patient is alert and oriented to person, place and time. Pt has left hip fx that is 6/10 pain at this time, medicated with 2mg morphine for pain
[2023-07-09 19:22] VITALS: BMI 19.7
[2023-07-09 19:27] VITALS: BP 137/82; PULSE 78; RESP 18; TEMP 36.4; O2SAT 99
[2023-07-09] MEDS: Tamsulosin HCL 0.4 MG CAPSULE PO (19:34)
[2023-07-09] MEDS: Docusate Sodium 100 MG CAPSULE PO (19:35)
[2023-07-09] MEDS: Carbidopa/Levodopa 25/100 TABLET 1 TAB PO (19:35)
[2023-07-09] MEDS: Acetaminophen 325 MG TABLET 650 MG PO (19:35)
[2023-07-09] MEDS: 0.9 % Sodium Chloride Flush 3 ML SYRINGE IVFLUSH (19:35)
[2023-07-09 20:55] VITALS: RESP 16
[2023-07-10] VITALS (22 sets, daily range): BP systolic 66–150; BP diastolic 49–79; PULSE 76–192; RESP 16–26; TEMP 36–37.5; O2SAT 94–100; BMI 19.7
--- NOTE | 2023-07-10 | ECG_ITS ---
Test Reason : tachycardia Blood Pressure : / mmHG Vent. Rate : 116 BPM Atrial Rate : 116 BPM P-R Int : 136 ms QRS Dur : 092 ms QT Int : 326 ms P-R-T Axes : 052 -65 071 degrees QTc Int : 453 ms Poor data quality, interpretation may be adversely affected Sinus tachycardia with Premature atrial complexes with Aberrant conduction Left anterior fascicular block Possible Lateral infarct , age undetermined Abnormal ECG When compared with ECG of 09-JUL-2023 16:34, Aberrant conduction is now Present Vent. rate has increased BY 49 BPM Borderline criteria for Lateral infarct are now Present Referred By: Zaid Wahl Electronically Signed By:
[2023-07-10] MEDS: oxyCODONE HCl Immed Release 5 MG TABLET PO ×3 (05:07→16:49)
[2023-07-10] MEDS: Omeprazole 20 MG CAPSULE.DR PO (05:08)
[2023-07-10 06:22] LABS: Hematocrit 44.2 % (42.0-52.0); Hemoglobin 15.1 g/dl (14.0-18.0); Mean Corpuscular HGB Conc 34.2 g/dl (31.0-36.0); Mean Corpuscular Hemoglobin 31.6 pg (27.0-33.0); Mean Corpuscular Volume 92.5 fL (80.0-98.0); Mean Platelet Volume 8.8 fL (9.4-12.4); Platelet Count 220 X10*3/uL (160-400); Red Blood Count 4.78 X10*6/uL (4.60-5.80); Red Cell Distribution Width 13.6 % (11.0-16.0); White Blood Count 7.1 X10*3/uL (4.8-10.8)
[2023-07-10 06:39] LABS: Anion Gap 16 (12-20); Blood Urea Nitrogen 12 mg/dL (9-16); Calcium 9.8 mg/dL (8.4-10.2); Carbon Dioxide 23 mmol/L (22-29); Chloride 102 mmol/L (96-108); Creatinine Clr Calc Pharmacy 78.9; Estimated Glomerular Filt Rate > 60; Glucose Random 101 mg/dL (60-115); Sodium 137 mmol/L (135-145)
--- NOTE | 2023-07-10 07:00 | CA_ITS ---
Transthoracic Echocardiogram Patient (Last, First, Middle): Sreedhar Combs E Gender: Male Date of : 1945 Age: 77 Procedure Date: 07/10/2023 Procedure Type: Transthoracic Echocardiogram Location: S3E Height: 182.88 cm Weight: 72.58 kg BSA: 1.94 m2 Heart Rate: bpm BP: 131 / 75 mmHg Plate Keeper: Referring MD: Fay SPAULDING Symptoms: preop eval- surgery planned for 07/10 Study Quality: Fair ECG Rhythm: Sinus Conclusions: - Normal left ventricular size and systolic function. There is mildly increased left ventricular wall thickness. The visually estimated ejection fraction is between 60-65%. - Mildly increased right ventricular cavity size. There is normal right ventricular systolic function. Findings Procedure Information Contrast agent, definity, is being given per protocol without apparent complications. Left Ventricle Normal left ventricular size and systolic function. There is mildly increased left ventricular wall thickness. The visually estimated ejection fraction is between 60-65%. There is no evidence of regional wall motion abnormalities. Diastolic function is indeterminate on the basis of available data. E/E prime ratio is between 8 and 15 consistent with indeterminate filling pressures. Right Ventricle Mildly increased right ventricular cavity size. There is normal right ventricular systolic function. Atria The left atrium was not well visualized. Aortic Valve The aortic valve was not well visualized. There is no aortic valve stenosis. There is no aortic valve regurgitation. Mitral Valve The mitral valve appears normal. There is no mitral valve regurgitation. There is no mitral valve stenosis. Pulmonic Valve The pulmonic valve is likely normal. Tricuspid Valve Normal tricuspid valve structure and function. Tricuspid regurgitation envelope is inadequate for calculation of right ventricular systolic pressure. Normal right atrial pressure. Great Vessels All visible segments of the aorta are normal in size. Venous The inferior vena cava is normal in size and collapses greater than 50% with inspiration. Pericardium/Pleural There is no evidence of pericardial effusion. Measurements 2D Linear Measurements IVSd: 1.07 0.6-0.9/0.6-1.0 cm LVIDd: 3.27 3.9-5.3/4.2-5.9 cm LVIDd Index: 1.69 2.4-3.2/2.2-3.1 cm/m2 LVIDs: 2.03 2.0-3.6 cm LVPWd: 1.16 0.7-1.1 cm Ao Root: 3.00 2.1-3.5 cm LA Diam: 4.20 2.7-3.8/3.0-4.0 cm LAIDs Index: 2.16 1.5-2.3 cm/m2 LV Mass: 136.67 67-162/88-224 g LV Mass Index: 70.45 43-95/49-115 g/m2 LVOT Diam: 2.00 3.0+(-)1.3 cm Mitral Valve MV Pk E: 0.72 MV PK A: 1.13 MV Decel Time: 206.00 E/A: 0.60 E'Lateral: 9.68 E'Medial: 6.53 E/E' Med: 11.00 E/E' Lat: 7.40 PHT: 60.00 MVA PHT: 3.67 Decel [place]: 3.48 Aortic Valve AoV Pk James: 1.55 AoV Mn James: 0.97 AoV VTI: 0.28 AoV Pk Grad: 10.00 Aov Mn Grad: 5.00 ADAM Cont.VTI: 2.66 LVOT LVOT Pk James: 1.00 LVOT Mn James: 0.66 LVOT VTI: 0.24 LVOT Pk Grad: 4.00 LVOT Mn Grad: 2.00 LVOT Diam: 2.00 LVOT Area: 3.14 Diastolic Function MV Pk E: 0.72 MV Pk A: 1.13 E/A: 0.60 E'Medial: 6.53 E/E' Med: 11.00 E' Laterial: 9.68 E/E' Lat: 7.40 Tricuspid Valve TR Pk James: 2.03 TR Pk Grad: 16.00 Great Vessels Aorta Ao Root-2D: 3.00 2.0-3.7 cm Ao Asc: 3.40 2.1-3.4 cm Updated in Other Vendor System with Status of Final Florentino Jones MD electronically signed on 07/11/2023 11:51:07 AM with status of Final
[2023-07-10] MEDS: Morphine Sulfate 4 MG/ML CARTRIDGE 2 MG IVPUSH ×2 (07:47→12:07)
[2023-07-10] MEDS: 0.9 % Sodium Chloride Flush 3 ML SYRINGE IVFLUSH ×3 (07:48→21:55)
[2023-07-10] MEDS: Donepezil HCl 5 MG TABLET PO (07:48)
[2023-07-10] MEDS: Tamsulosin HCL 0.4 MG CAPSULE PO (07:48)
[2023-07-10] MEDS: oxyBUTYnin chloride ER 5 MG TAB.ER.24 PO (07:48)
[2023-07-10] MEDS: Docusate Sodium 100 MG CAPSULE PO ×2 (07:48→21:53)
[2023-07-10] MEDS: Carbidopa/Levodopa 25/100 TABLET 1 TAB PO ×3 (07:48→21:52)
--- NOTE | 2023-07-10 11:40 | MHC.CM.PN ---
PT REPORTS HE LIVES ALONE AFTER HE AND HIS HE REPORTS HE IS INDEPENDENT WITH CARE, HAS NO DME AND NO SERVICES PT REPORTS HE DOES NOT HAVE A HCP, BUT WILL COMPLETE ONE NAMING HIS TOYA HIS AGENT PCP: [facility] DELIVERED DCP: STR-PT WOULD LIKE REHAB IN THE [place] OR [facility] REFERRALS ARE OUT, PT EVAL PENDING
--- NOTE | 2023-07-10 12:16 | HO.PM.IMPN ---
Subjective Subjective Date of Service: 07/10/23 Interval History: seen and examined this morning follow up for left hip fracture no overnight events forgetful plan for surgery today. no chest pain, sob. hip pain controlled Review of Systems Review of Systems: Yes all other systems are reviewed and are negative Constitutional Constitutional: Denies chills and Denies fever(s) ENT Ears, Nose, Mouth, and Throat: Denies dizziness Cardiovascular Cardiovascular: Denies chest pain, Denies palpitations and Denies dyspnea Respiratory Respiratory: Denies cough and Denies dyspnea Gastrointestinal Gastrointestinal: Denies abdominal pain Neurologic Neurologic: Denies dizziness Endocrine Endocrine: Denies palpitations Physical Exam Vital Signs: Vital Signs: Last Vital Signs Temp 97.2 F 07/10/23 07:19 Pulse 88 07/10/23 07:19 Resp 18 07/10/23 07:19 BP 131/75 07/10/23 07:19 Pulse Ox 100 07/10/23 07:19 O2 Del Method Room Air 07/10/23 07:19 BMI result Body Mass Index 19.7 Const: General: cooperative, comfortable, no acute distress, alert and awake Nutritional Appearance: average body habitus Resp: Effort & Inspection: normal respiratory effort, able to speak in complete sentences, no respiratory distress and no use of accessory muscles Cardio: Rate: regular rate Heart sounds: S1 normal heart sound present and S2 normal heart sound present GI: Inspection: No distended Palpation (GI): Soft to palpation Neuro: Other: upper extreity tremor Extrem: General: Yes no pedal edema Objective Data Active Medications Acetaminophen (Acetaminophen 325 Mg Tablet) 650 mg PO Q6H PRN PRN Reason: Pain, Mild (Pain Scale 1-3) Last Admin: 07/09/23 19:35 Dose: 650 mg Documented By: LIZETTEQC Carbidopa/Levodopa (Carbidopa/Levodopa 25/100 Tablet) 1 tab PO TID [facility] Last Admin: 07/10/23 07:48 Dose: 1 tab Documented By: RADHA Docusate Sodium (Docusate Sodium 100 Mg Capsule) 100 mg PO BID [facility] Last Admin: 07/10/23 07:48 Dose: 100 mg Documented By: RADHA Donepezil HCl (Donepezil Hcl 5 Mg Tablet) 5 mg PO DAILY [facility] Last Admin: 07/10/23 07:48 Dose: 5 mg Documented By: RADHA Lisinopril (Lisinopril 5 Mg Tablet) 5 mg PO DAILY [facility]; Protocol Last Admin: 07/10/23 07:45 Dose: Not Given Documented By: RADHA Non-Admin Reason: Off Unit: Surgery Morphine Sulfate (Morphine Sulfate 4 Mg/Ml Cartridge) 2 mg IVPUSH Q4H PRN; Protocol PRN Reason: Pain, Severe (Pain Scale 7-10) Last Admin: 07/10/23 12:07 Dose: 2 mg Documented By: RADHA Omeprazole (Omeprazole 20 Mg Capsule.Dr) 20 mg PO DAILY@0630 [facility] Last Admin: 07/10/23 05:08 Dose: 20 mg Documented By: OZORALB Ondansetron HCl (Ondansetron Hcl 4 Mg/2 Ml Vial) 4 mg IVPUSH Q8H PRN PRN Reason: Nausea and Vomiting Oxybutynin Chloride (Oxybutynin Chloride Er 5 Mg Tab.Er.24) 5 mg PO DAILY [facility] Last Admin: 07/10/23 07:48 Dose: 5 mg Documented By: RADHA Oxycodone HCl (Oxycodone Hcl Immed Release 5 Mg Tablet) 5 mg PO Q6H PRN PRN Reason: Pain, Moderate(Pain Scale 4-6) Last Admin: 07/10/23 11:04 Dose: 5 mg Documented By: RADHA Sodium Chloride (0.9 % Sodium Chloride Flush 3 Ml Syringe) 3 ml IVFLUSH QSHIFT [facility] Last Admin: 07/10/23 07:48 Dose: 3 ml Documented By: RADHA Tamsulosin HCl (Tamsulosin Hcl 0.4 Mg Capsule) 0.4 mg PO BID [facility] Last Admin: 07/10/23 07:48 Dose: 0.4 mg Documented By: RADHA Labs 07/10/23 06:11 07/10/23 06:11 Labs: Laboratory Results - last 24 hr 07/09/23 07/09/23 07/09/23 15:35 15:35 15:35 MCV 90.5 MCH 31.8 MCHC 35.2 RDW 13.8 Plt Count 248 MPV 9.0 L Immature Gran % (Auto) 0.6 H Neut % (Auto) 78.1 H Lymph % (Auto) 13.2 L [place] % (Auto) 6.2 Eos % (Auto) 1.0 Baso % (Auto) 0.9 Lymph # (Auto) 0.9 L [place] # (Auto) 0.4 Eos # (Auto) 0.1 Baso # (Auto) 0.1 Abs Immat Gran (auto) 0.04 H Absolute Neuts (auto) 5.3 Absolute Nucleated RBC 0.000 Nucleated RBC % (auto) 0.0 PT 12.8 INR 1.1 APTT 27.5 Anion Gap 12 Estim Creat Clear Calc 76.8 Estimated GFR > 60 Random Glucose 102 Calcium 9.7 Total Bilirubin 0.6 AST 20 ALT 22 Alkaline Phosphatase 69 Total Protein 6.7 Albumin 3.9 07/10/23 07/10/23 06:11 06:11 MCV 92.5 MCH 31.6 MCHC 34.2 RDW 13.6 Plt Count 220 MPV 8.8 L Immature Gran % (Auto) Neut % (Auto) Lymph % (Auto) R[place] % (Auto) Eos % (Auto) Baso % (Auto) Lymph # (Auto) [place] # (Auto) Eos # (Auto) Baso # (Auto) Abs Immat Gran (auto) Absolute Neuts (auto) Absolute Nucleated RBC 0.000 Nucleated RBC % (auto) 0.0 PT INR APTT Anion Gap 16 Estim Creat Clear Calc 78.9 Estimated GFR > 60 Random Glucose 101 Calcium 9.8 Total Bilirubin AST ALT Alkaline Phosphatase Total Protein Albumin Assessment and Plan (1) Closed fracture of left hip: Status: Acute Plan this is a 77-year-old male with history of Parkinson's disease, dementia, BPH, HTN with sent by Ortho to the emergency room for evaluation of left hip pain found to have left hip fracture left hip fracture CT left hip with mildly comminuted, fracture of the left femoral neck with intertrochaneteric extension further management per orthopedic service pain control no history of ischemic heart disease or CHF but outpatient notes indicate plan for echo - echo obtained, verbal report mild RV dilation. no further workup prior to planned procedure. final report pending left knee pain acute on chronic likely secondary to fall will obtain xray parkinsons disease continue carbidopa-levadopa dementia, like r/t parkinsons continue donepezil HTN blood pressure controlled continue lisinopril bph/urinary urgency continue tamsulosin, oxybutynin dvt ppx - mechanica, chemoprophylaxis after surgery attending - dr. armando given acute fracture patient will likely require two midnight stay for surgical intervention, safe disposition Time Spent With Patient Time: Total time managing care of this patient today ____ minutes. Quality Stroke Does the patient have a stroke diagnosis?: No VTE Prior VTE?: No VTE Risk Level:: Medical - moderate - high VTE Device Contraindication: N/A - Device Ordered VTE Drug Contraindication: Treatment Not Indicated
--- NOTE | 2023-07-10 13:39 | P.CONAN_ITS ---
HPI - Anesthesia Eval Consult details Narrative: Left femur fracture PMFSH Active Problems Active Problems: All Active Problems (Updated 07/09/23 @ 15:03 by CHELLY Pabon) Closed fracture of left hip (Acute) Left hip pain (Acute) Trochanteric bursitis, left hip (Acute) Screening PSA (prostate specific antigen) (Acute) PVC (premature ventricular contraction) (Acute) RBBB (Acute) Encounter for removal of sutures (Acute) Cut of hand (Acute) Upper respiratory tract infection (Acute) Discomfort of left ear (Acute) Middle ear effusion (Acute) Post-nasal drip (Acute) Left otitis media (Acute) Acute sinusitis (Acute) High triglycerides (Acute) HTN (hypertension) (Acute) Hearing loss (Acute) Short-term memory loss (Acute) Tremor of left hand (Acute) Phimosis (Acute) Past Medical History Medical History Arthritis of glenohumeral joint Dementia Enlarged prostate GERD (gastroesophageal reflux disease) Hypertension Impingement syndrome, shoulder Parkinsons disease Tendinopathy of right shoulder Family History Family History Father No problems noted. Mother Oral cancer Family history of problems with anesthesia: No Surgical History Surgical History H/O bilateral cataract extraction H/O blepharoplasty H/O cervical discectomy H/O colonoscopy H/O esophagogastroduodenoscopy History of total knee arthroplasty S/P right knee arthroscopy History of Problems with Anesthesia: No Social History Social History Household Members: Spouse Housing: House Do you presently have visiting nurse or other home services: No Alcohol intake: current Alcohol intake frequency: holidays/special occasions only Patient Tobacco Use Status: Never used Tobacco Smoked in Last 30 Days: No e-Cigarette/Vaping Use: Never Used Second Hand Smoke Exposure: No Use of substances other than those prescribed or required for medical reasons: No Currently Displaying Signs/Symptoms of Drug Intoxication Withdrawal: No Have you been hit, kicked, punched, or otherwise hurt by someone within the past year? If so, by whom?: No Do you feel safe in your current relationship?: Yes Is there a partner from a previous relationship who is making you feel unsafe now?: No Are you made to feel afraid or neglected: No Advance Directives: No Advance Directives Information Provided: No Do you have thoughts of harming others: None Do you have a plan to hurt others: No Plan Recently lost weight without trying: No How much weight loss: Not applicable Eating poorly because of decreased appetite: No Nutrition screen score: 0 Nutrition Risks: No Nutritional Risk Poor oral hygiene: No service: No Current occupational status: employed and retired Current occupation: [employer] Current occupational exposures/hazards: No Cognitive needs: No Hearing needs: No Vision needs: No Meds Allergies Allergy/AdvReac Type Severity Reaction Status Date / Time No Known Allergies Allergy Verified 07/09/23 13:51 Active Medications: Current Medications Acetaminophen (Acetaminophen 325 Mg Tablet) 650 mg PO Q6H PRN PRN Reason: Pain, Mild (Pain Scale 1-3) Last Admin: 07/09/23 19:35 Dose: 650 mg Carbidopa/Levodopa (Carbidopa/Levodopa 25/100 Tablet) 1 tab PO TID [facility] Last Admin: 07/10/23 07:48 Dose: 1 tab Docusate Sodium (Docusate Sodium 100 Mg Capsule) 100 mg PO BID [facility] Last Admin: 07/10/23 07:48 Dose: 100 mg Donepezil HCl (Donepezil Hcl 5 Mg Tablet) 5 mg PO DAILY [facility] Last Admin: 07/10/23 07:48 Dose: 5 mg Lisinopril (Lisinopril 5 Mg Tablet) 5 mg PO DAILY [facility]; Protocol Last Admin: 07/10/23 07:45 Dose: Not Given Morphine Sulfate (Morphine Sulfate 4 Mg/Ml Cartridge) 2 mg IVPUSH Q4H PRN; Protocol PRN Reason: Pain, Severe (Pain Scale 7-10) Last Admin: 07/10/23 12:07 Dose: 2 mg Omeprazole (Omeprazole 20 Mg Capsule.Dr) 20 mg PO DAILY@0630 [facility] Last Admin: 07/10/23 05:08 Dose: 20 mg Ondansetron HCl (Ondansetron Hcl 4 Mg/2 Ml Vial) 4 mg IVPUSH Q8H PRN PRN Reason: Nausea and Vomiting Oxybutynin Chloride (Oxybutynin Chloride Er 5 Mg Tab.Er.24) 5 mg PO DAILY [facility] Last Admin: 07/10/23 07:48 Dose: 5 mg Oxycodone HCl (Oxycodone Hcl Immed Release 5 Mg Tablet) 5 mg PO Q6H PRN PRN Reason: Pain, Moderate(Pain Scale 4-6) Last Admin: 07/10/23 11:04 Dose: 5 mg Sodium Chloride (0.9 % Sodium Chloride Flush 3 Ml Syringe) 3 ml IVFLUSH QSHIFT [facility] Last Admin: 07/10/23 07:48 Dose: 3 ml Tamsulosin HCl (Tamsulosin Hcl 0.4 Mg Capsule) 0.4 mg PO BID [facility] Last Admin: 07/10/23 07:48 Dose: 0.4 mg Home Medications Medication Instructions Recorded Confirmed Last Taken Type tamsulosin 0.4 mg capsule 0.4 mg PO BID 03/18/21 07/09/23 Unknown History carbidopa 25 mg-levodopa 100 mg 1 tab PO TID 06/19/21 07/09/23 Unknown History tablet donepezil 5 mg tablet 5 mg PO DAILY 01/16/22 07/09/23 Unknown History oxybutynin chloride 5 mg 5 mg PO DAILY 01/16/22 07/09/23 Unknown History tablet,extended release 24 hr gabapentin 300 mg capsule 300 mg PO BEDTIME 07/09/23 Unknown History Exam Exam Date and Time: July 10, 2023 1339 Height,Weight and Vital Signs: Height 6 ft Weight 65.9 kg Last Vital Signs Temp 97.2 F 07/10/23 07:19 Pulse 88 07/10/23 07:19 Resp 18 07/10/23 07:19 BP 131/75 07/10/23 07:19 Pulse Ox 100 07/10/23 07:19 O2 Del Method Room Air 07/10/23 07:19 Pertinent Lab Results Pertinent Lab Results: Laboratory Tests 07/09/23 07/09/23 07/09/23 15:35 15:35 15:35 WBC 6.8 RBC 4.62 Hgb 14.7 Hct 41.8 L MCV 90.5 MCH 31.8 MCHC 35.2 RDW 13.8 Plt Count 248 MPV 9.0 L Immature Gran % (Auto) 0.6 H Neut % (Auto) 78.1 H Lymph % (Auto) 13.2 L Brooks % (Auto) 6.2 Eos % (Auto) 1.0 Baso % (Auto) 0.9 Lymph # (Auto) 0.9 L Brooks # (Auto) 0.4 Eos # (Auto) 0.1 Baso # (Auto) 0.1 Abs Immat Gran (auto) 0.04 H Absolute Neuts (auto) 5.3 Absolute Nucleated RBC 0.000 Nucleated RBC % (auto) 0.0 PT 12.8 INR 1.1 APTT 27.5 Sodium 139 Potassium 4.4 Chloride 105 Carbon Dioxide 26 Anion Gap 12 BUN 16 Creatinine 0.79 Estim Creat Clear Calc 76.8 Estimated GFR > 60 Random Glucose 102 Calcium 9.7 Total Bilirubin 0.6 AST 20 ALT 22 Alkaline Phosphatase 69 Total Protein 6.7 Albumin 3.9 07/10/23 07/10/23 06:11 06:11 WBC 7.1 RBC 4.78 Hgb 15.1 Hct 44.2 MCV 92.5 MCH 31.6 MCHC 34.2 RDW 13.6 Plt Count 220 MPV 8.8 L Immature Gran % (Auto) Neut % (Auto) Lymph % (Auto) Brooks % (Auto) Eos % (Auto) Baso % (Auto) Lymph # (Auto) Brooks # (Auto) Eos # (Auto) Baso # (Auto) Abs Immat Gran (auto) Absolute Neuts (auto) Absolute Nucleated RBC 0.000 Nucleated RBC % (auto) 0.0 PT INR APTT Sodium 137 Potassium 4.0 Chloride 102 Carbon Dioxide 23 Anion Gap 16 BUN 12 Creatinine 0.73 Estim Creat Clear Calc 78.9 Estimated GFR > 60 Random Glucose 101 Calcium 9.8 Total Bilirubin AST ALT Alkaline Phosphatase Total Protein Albumin Airway Mallampati Class: II TM Dist: >3cm Neck ROM: Full Loose/Missing/Broken Teeth: No Heart: RRR Lungs: CTA Assessment and Plan Assessment Anesthesia Assessment: Anesthesia Plan Discussed and Chart Reviewed Final Anesthetic Review Family History of Problems with Anesthesia: No History of Problems with Anesthesia: No NPO: Yes ASA Class: III Final Preanesthetic Review: No Changes in Pt Med Stat, Meds/Allgs Chart Reviewed, Consent Obtained/Reviewed and Anes Risks/Benef Reviewed Patient Risk: Intermediate Procedure Risk: Intermediate Anesthetic Plan Anesthetic Plan: GA Disposition: Standard PACU
--- NOTE | 2023-07-10 14:40 | PC.NURSE ---
patient stated name and birthday, unable to state place, time or reason for being here. patient stated December 10, in a building and I'm playing hockey soon. Dr. Acosta and Dr. Saleem at bedside. surgical and anesthesia consent obtained by telephone from Meka Bunn-.
--- NOTE | 2023-07-10 16:07 | PM.OP ---
Brief Operative Note Date of Service: 07/10/23 Pre-op diagnosis: left hip fracture Post-op diagnosis: same Procedure: IMN left hip Implants: Styrkery [id number] 125 deg imn with 100 mm hip screw and 42.5 distal interlock Surgeon: Omega Acosta MD Anesthesia: GETA and local Was an Director [employer] used for this Procedure?: No Estimated blood loss (mL): 200 IV fluids (mL): 1,000 Pathology: none sent Condition: stable Disposition: PACU
--- NOTE | 2023-07-10 16:15 | PC.NURSE ---
Sequentials not used intraop--placed on pt upon arrival to PACU.
[2023-07-10] MEDS: fentaNYL citrate/PF 100 MCG/2 ML VIAL 50 MCG IVPUSH ×2 (16:51→17:03)
[2023-07-10] MEDS: 0.9 % Sodium Chloride 1,000 ML 999 ML IV (20:40)
--- NOTE | 2023-07-10 21:19 | PM.EVENT ---
Event Note Date of Service: 07/10/23 Event Note: Nurse reported that patient was hypotensive and tachycardic after left hip repair. Was mentating okay without any complaints. Administered 1 L normal saline bolus. Noted improvement in heart rate and blood pressure after crystalloid resuscitation. Obtained EKG. Continue to monitor. Time Spent With Patient Time: Total time managing care of this patient today ____ minutes.
[2023-07-10] MEDS: ceFAZolin Sodium/Dextrose,Iso 2 GM/50 ML PIGGYBACK IV (21:56)
[2023-07-11 04:00] VITALS: BP 121/70; PULSE 91; RESP 20; TEMP 36.9; O2SAT 98
[2023-07-11] MEDS: Omeprazole 20 MG CAPSULE.DR PO (05:38)
[2023-07-11] MEDS: Acetaminophen 325 MG TABLET 650 MG PO ×3 (05:38→20:25)
--- NOTE | 2023-07-11 05:48 | PC.NURSE ---
Approximately after 20:00, pt's STEEL DETAILER notified this RN about the pt's vital signs. Pt s/p L hip repair 07/10/23. Pt was hypotensive and tachycardia with BP 66/55, HR 180. Pt stated I'm tired during assessment with no other complaints. This RN notified the unit charge nurse and hospitalist MD Wahl of the pt's vital signs. MD Wahl came to pt's bedside. 1L of NS bolus and EKG was ordered per MD Wahl. MD Wahl told this RN to hold opioid pain medications & flomax. After the 1L of NS bolus, pt's vitals were: BP 102/61, HR 121. MD Wahl made aware of the new vitals. Will continue to monitor pt's vital signs.
[2023-07-11 06:24] LABS: Hematocrit 39.9 % (42.0-52.0); Hemoglobin 13.9 g/dl (14.0-18.0); Mean Corpuscular HGB Conc 34.8 g/dl (31.0-36.0); Mean Corpuscular Volume 91.7 fL (80.0-98.0); Mean Platelet Volume 9.3 fL (9.4-12.4); Platelet Count 216 X10*3/uL (160-400); Red Blood Count 4.35 X10*6/uL (4.60-5.80); Red Cell Distribution Width 13.4 % (11.0-16.0); White Blood Count 8.2 X10*3/uL (4.8-10.8)
[2023-07-11 06:35] LABS: Anion Gap 15 (12-20); Blood Urea Nitrogen 13 mg/dL (9-16); Calcium 9.1 mg/dL (8.4-10.2); Carbon Dioxide 23 mmol/L (22-29); Chloride 102 mmol/L (96-108); Creatinine Clr Calc Pharmacy 78.9; Estimated Glomerular Filt Rate > 60; Glucose Random 108 mg/dL (60-115); Potassium 4.3 mmol/L (3.3-5.1); Sodium 136 mmol/L (135-145)
[2023-07-11 07:41] VITALS: BP 125/67; PULSE 86; RESP 20; TEMP 36.2; O2SAT 97
--- NOTE | 2023-07-11 08:29 | HO.PM.IMPN ---
Subjective Subjective Date of Service: 07/11/23 Interval History: seen and examined this morning follow up for left hip fracture no overnight events forgetful Review of Systems Review of Systems: Yes all other systems are reviewed and are negative Constitutional Constitutional: Denies chills and Denies fever(s) ENT Ears, Nose, Mouth, and Throat: Denies dizziness Cardiovascular Cardiovascular: Denies chest pain, Denies palpitations and Denies dyspnea Respiratory Respiratory: Denies cough and Denies dyspnea Gastrointestinal Gastrointestinal: Denies abdominal pain Neurologic Neurologic: Denies dizziness Endocrine Endocrine: Denies palpitations Physical Exam Vital Signs: Vital Signs: Last Vital Signs Temp 97.2 F 07/11/23 07:41 Pulse 86 07/11/23 07:41 Resp 20 07/11/23 07:41 BP 125/67 07/11/23 07:41 Pulse Ox 97 07/11/23 07:41 O2 Del Method Room Air 07/11/23 07:41 O2 Flow Rate 2 07/10/23 21:50 BMI result Body Mass Index 19.7 Appearing in no acute distress lung sounds are clear to auscultation heart regular rate rhythm, clear S1, S2 positive bowel sounds, abdomen is soft, nontender neuro patient is alert x3, no focal deficits right hip surgical dressing intact Objective Data Active Medications Acetaminophen (Acetaminophen 325 Mg Tablet) 650 mg PO Q6H PRN PRN Reason: Pain, Mild (Pain Scale 1-3) Last Admin: 07/11/23 05:38 Dose: 650 mg Documented By: ELMER Carbidopa/Levodopa (Carbidopa/Levodopa 25/100 Tablet) 1 tab PO TID [facility] Last Admin: 07/10/23 21:52 Dose: 1 tab Documented By: ELMER Docusate Sodium (Docusate Sodium 100 Mg Capsule) 100 mg PO BID [facility] Last Admin: 07/10/23 21:53 Dose: 100 mg Documented By: ELMER Donepezil HCl (Donepezil Hcl 5 Mg Tablet) 5 mg PO DAILY [facility] Last Admin: 07/10/23 07:48 Dose: 5 mg Documented By: RADHA Fentanyl (Fentanyl Citrate/Pf 100 Mcg/2 Ml Vial) 50 mcg IVPUSH Q5M PRN; Protocol PRN Reason: Pain, Severe (Pain Scale 7-10) Last Admin: 07/10/23 17:03 Dose: 25 mcg Documented By: DEVIGELBrunilda Hydromorphone HCl (Hydromorphone Hcl 0.5 Mg/0.5 Ml Syringe) 0.5 mg IVPUSH Q5M PRN; Protocol PRN Reason: Pain, Severe (Pain Scale 7-10) Lisinopril (Lisinopril 5 Mg Tablet) 5 mg PO DAILY [facility]; Protocol Last Admin: 07/10/23 07:45 Dose: Not Given Documented By: RADHA Non-Admin Reason: Off Unit: Surgery Morphine Sulfate (Morphine Sulfate 4 Mg/Ml Cartridge) 2 mg IVPUSH Q4H PRN; Protocol PRN Reason: Pain, Severe (Pain Scale 7-10) Last Admin: 07/10/23 12:07 Dose: 2 mg Documented By: RADHA Omeprazole (Omeprazole 20 Mg Capsule.Dr) 20 mg PO DAILY@0630 [facility] Last Admin: 07/11/23 05:38 Dose: 20 mg Documented By: ELMER Ondansetron HCl (Ondansetron Hcl 4 Mg/2 Ml Vial) 4 mg IVPUSH Q8H PRN PRN Reason: Nausea and Vomiting Oxybutynin Chloride (Oxybutynin Chloride Er 5 Mg Tab.Er.24) 5 mg PO DAILY [facility] Last Admin: 07/10/23 07:48 Dose: 5 mg Documented By: RADHA Oxycodone HCl (Oxycodone Hcl Immed Release 5 Mg Tablet) 5 mg PO Q6H PRN PRN Reason: Pain, Moderate(Pain Scale 4-6) Last Admin: 07/10/23 16:49 Dose: 5 mg Documented By: JUAN Oxycodone HCl (Oxycodone Hcl Immed Release 5 Mg Tablet) 5 mg PO ONCE PRN PRN Reason: Pain, Severe (Pain Scale 7-10) Sodium Chloride (0.9 % Sodium Chloride Flush 3 Ml Syringe) 3 ml IVFLUSH QSHIFT [facility] Last Admin: 07/10/23 21:55 Dose: 3 ml Documented By: ELMER Tamsulosin HCl (Tamsulosin Hcl 0.4 Mg Capsule) 0.4 mg PO BID [facility] Last Admin: 07/10/23 21:53 Dose: Not Given Documented By: ELMER Non-Admin Reason: decreased BP, held med Labs 07/11/23 05:30 07/11/23 05:30 Labs: Laboratory Results - last 24 hr 07/11/23 07/11/23 05:30 05:30 MCV 91.7 MCH 32.0 MCHC 34.8 RDW 13.4 Plt Count 216 MPV 9.3 L Absolute Nucleated RBC 0.000 Nucleated RBC % (auto) 0.0 Anion Gap 15 Estim Creat Clear Calc 78.9 Estimated GFR > 60 Random Glucose 108 Calcium 9.1 D Assessment and Plan (1) Closed fracture of left hip: Status: Acute Plan 77-year-old male with history of Parkinson's disease, dementia, BPH, HTN with sent by Ortho to the emergency room for evaluation of left hip pain found to have left hip fracture Left hip fracture CT left hip with mildly comminuted, fracture of the left femoral neck with intertrochaneteric extension status post left IMN nailing Management as per Orthopedic surgery team Pain management left knee pain acute on chronic likely secondary to fall knee xray pending parkinsons disease continue carbidopa-levadopa dementia, like r/t parkinsons continue donepezil HTN blood pressure controlled continue lisinopril bph/urinary urgency continue tamsulosin, oxybutynin dvt ppx - mechanica, chemoprophylaxis after surgery attending - dr. Call continue hospitalization for treatment post hip surgery Time Spent With Patient Time: Total time managing care of this patient today ____ minutes. Quality Stroke Does the patient have a stroke diagnosis?: No VTE Prior VTE?: No VTE Risk Level:: Medical - moderate - high VTE Device Contraindication: N/A - Device Ordered VTE Drug Contraindication: Treatment Not Indicated
[2023-07-11] MEDS: 0.9 % Sodium Chloride Flush 3 ML SYRINGE IVFLUSH ×3 (09:03→23:08)
[2023-07-11] MEDS: Tamsulosin HCL 0.4 MG CAPSULE PO ×2 (09:04→20:25)
[2023-07-11] MEDS: lisinopriL 5 MG TABLET PO (09:04)
[2023-07-11] MEDS: Donepezil HCl 5 MG TABLET PO (09:04)
[2023-07-11] MEDS: Carbidopa/Levodopa 25/100 TABLET 1 TAB PO ×3 (09:04→20:25)
[2023-07-11] MEDS: oxyBUTYnin chloride ER 5 MG TAB.ER.24 PO (09:04)
[2023-07-11] MEDS: Docusate Sodium 100 MG CAPSULE PO ×2 (09:04→20:25)
[2023-07-11 09:21] VITALS: BP 125/67; PULSE 86; O2SAT 97
[2023-07-11] MEDS: Enoxaparin Sodium 40 MG/0.4 ML SYRINGE SUBCUT (10:24)
--- NOTE | 2023-07-11 10:41 | HO.POSTANES ---
Post Anesthesia Evaluation Post Anesthesia Evaluation Date of Service: 07/11/23 Vital Signs: Vital Signs Temp Pulse Resp BP Pulse Ox O2 Del Method 07/11/23 09:21 86 125/67 97 07/11/23 07:41 97.2 F 86 20 125/67 97 Room Air 07/11/23 04:00 98.4 F 91 20 121/70 98 Room Air 07/10/23 23:52 97.5 F 104 H 20 123/65 98 Room Air Anesthesia: General LMA Mental Status: Awake Pain Control: Satisfactory Nausea/Vomiting: None Hydration: Adequate Anesthesia-Related Issues: No Anes. Related Issues
[2023-07-11 13:03] VITALS: O2SAT 95
[2023-07-11] MEDS: oxyCODONE HCl Immed Release 5 MG TABLET PO ×2 (14:27→20:27)
[2023-07-11 20:00] VITALS: BP 114/62; PULSE 100; RESP 20; TEMP 36.7; O2SAT 98
--- NOTE | 2023-07-11 20:11 | P.PNOP_ITS ---
Subjective Subjective Date of Service: 07/11/23 Interval history: POD 1 s/p Lt hip IMN no overnight events resting in bed, no concerns denies cp , sob, palpitations Physical Exam Vital Signs: Vital Signs: Last Vital Signs Temp 97.2 F 07/11/23 07:41 Pulse 86 07/11/23 09:21 Resp 20 07/11/23 07:41 BP 125/67 07/11/23 09:21 Pulse Ox 95 07/11/23 13:03 O2 Del Method Room Air 07/11/23 13:03 O2 Flow Rate 2 07/10/23 21:50 BMI result Body Mass Index 19.7 Const: General: cooperative, healthy appearing and no acute distress Resp: Effort & Inspection: normal respiratory effort and able to speak in complete sentences Cardio: Rate: regular rate Peripheral pulses: Peripheral pulses 2+ throughout GI: Palpation (GI): Soft to palpation Skin: General skin exam: no rashes or lesions noted Extrem: Other: incision clean dry and intact. Valorie intact. No erythema or effusion. Calf supple nontender. Neurovascularly intact. Procedures Date of Service Date of Service: 07/11/23 Progress Note: A&P Assessment and plan (1) Closed fracture of left hip: Status: Acute Assessment and Plan: * Continue pain mgmnt * Begin lovenox for dvt ppx * begin PT /OT for LT hip IMN wbat * Dispo planning-Pending PT eval, pain mgmnt Time Spent With Patient Time: Total time managing care of this patient today ____ minutes. Quality Stroke Does the patient have a stroke diagnosis?: No VTE Prior VTE?: No VTE Risk Level:: Medical - moderate - high VTE Device Contraindication: N/A - Device Ordered VTE Drug Contraindication: Treatment Not Indicated
[2023-07-12] VITALS: BP 100/56; PULSE 89; RESP 20; TEMP 36.4; O2SAT 96
[2023-07-12 04:00] VITALS: BP 100/56; PULSE 89; RESP 20; TEMP 36.4; O2SAT 96
[2023-07-12] MEDS: Omeprazole 20 MG CAPSULE.DR PO (06:02)
[2023-07-12 07:34] VITALS: BP 111/62; PULSE 92; RESP 20; TEMP 36.5; O2SAT 99
[2023-07-12] MEDS: Enoxaparin Sodium 40 MG/0.4 ML SYRINGE SUBCUT (08:50)
[2023-07-12] MEDS: oxyBUTYnin chloride ER 5 MG TAB.ER.24 PO (08:51)
[2023-07-12] MEDS: Docusate Sodium 100 MG CAPSULE PO ×2 (08:51→21:21)
[2023-07-12] MEDS: Tamsulosin HCL 0.4 MG CAPSULE PO ×2 (08:51→21:21)
[2023-07-12] MEDS: oxyCODONE HCl Immed Release 5 MG TABLET PO (08:51)
[2023-07-12] MEDS: lisinopriL 5 MG TABLET PO (08:51)
[2023-07-12] MEDS: Carbidopa/Levodopa 25/100 TABLET 1 TAB PO ×3 (08:51→21:21)
[2023-07-12] MEDS: Donepezil HCl 5 MG TABLET PO (08:51)
[2023-07-12] MEDS: 0.9 % Sodium Chloride Flush 3 ML SYRINGE IVFLUSH ×3 (08:52→20:43)
--- NOTE | 2023-07-12 09:25 | HO.PM.IMPN ---
Subjective Subjective Date of Service: 07/12/23 Interval History: seen and examined this morning follow up for left hip fracture no overnight events forgetful Review of Systems Review of Systems: Yes all other systems are reviewed and are negative Constitutional Constitutional: Denies chills and Denies fever(s) ENT Ears, Nose, Mouth, and Throat: Denies dizziness Cardiovascular Cardiovascular: Denies chest pain, Denies palpitations and Denies dyspnea Respiratory Respiratory: Denies cough and Denies dyspnea Gastrointestinal Gastrointestinal: Denies abdominal pain Neurologic Neurologic: Denies dizziness Endocrine Endocrine: Denies palpitations Physical Exam Vital Signs: Vital Signs: Last Vital Signs Temp 97.7 F 07/12/23 07:34 Pulse 92 07/12/23 07:34 Resp 20 07/12/23 07:34 BP 111/62 07/12/23 07:34 Pulse Ox 99 07/12/23 07:34 O2 Del Method Room Air 07/12/23 07:34 O2 Flow Rate 2 07/10/23 21:50 BMI result Body Mass Index 19.7 Appearing in no acute distress lung sounds are clear to auscultation heart regular rate rhythm, clear S1, S2 positive bowel sounds, abdomen is soft, nontender neuro patient is alert x3, no focal deficits Left hip dsg intact Objective Data Active Medications Acetaminophen (Acetaminophen 325 Mg Tablet) 650 mg PO Q6H PRN PRN Reason: Pain, Mild (Pain Scale 1-3) Last Admin: 07/11/23 20:25 Dose: 650 mg Documented By: HARDY Carbidopa/Levodopa (Carbidopa/Levodopa 25/100 Tablet) 1 tab PO TID [facility] Last Admin: 07/12/23 08:51 Dose: 1 tab Documented By: LAILA Docusate Sodium (Docusate Sodium 100 Mg Capsule) 100 mg PO BID [facility] Last Admin: 07/12/23 08:51 Dose: 100 mg Documented By: LAILA Donepezil HCl (Donepezil Hcl 5 Mg Tablet) 5 mg PO DAILY [facility] Last Admin: 07/12/23 08:51 Dose: 5 mg Documented By: LAILA Enoxaparin Sodium (Enoxaparin Sodium 40 Mg/0.4 Ml Syringe) 40 mg SUBCUT Q24H [facility] Last Admin: 07/12/23 08:50 Dose: 40 mg Documented By: LAILA Fentanyl (Fentanyl Citrate/Pf 100 Mcg/2 Ml Vial) 50 mcg IVPUSH Q5M PRN; Protocol PRN Reason: Pain, Severe (Pain Scale 7-10) Last Admin: 07/10/23 17:03 Dose: 25 mcg Documented By: DANGELBrunilda Hydromorphone HCl (Hydromorphone Hcl 0.5 Mg/0.5 Ml Syringe) 0.5 mg IVPUSH Q5M PRN; Protocol PRN Reason: Pain, Severe (Pain Scale 7-10) Lisinopril (Lisinopril 5 Mg Tablet) 5 mg PO DAILY [facility]; Protocol Last Admin: 07/12/23 08:51 Dose: 5 mg Documented By: LAILA Morphine Sulfate (Morphine Sulfate 4 Mg/Ml Cartridge) 2 mg IVPUSH Q4H PRN; Protocol PRN Reason: Pain, Severe (Pain Scale 7-10) Last Admin: 07/10/23 12:07 Dose: 2 mg Documented By: RADHA Omeprazole (Omeprazole 20 Mg Capsule.Dr) 20 mg PO DAILY@0630 [facility] Last Admin: 07/12/23 06:02 Dose: 20 mg Documented By: HARDY Ondansetron HCl (Ondansetron Hcl 4 Mg/2 Ml Vial) 4 mg IVPUSH Q8H PRN PRN Reason: Nausea and Vomiting Oxybutynin Chloride (Oxybutynin Chloride Er 5 Mg Tab.Er.24) 5 mg PO DAILY [facility] Last Admin: 07/12/23 08:51 Dose: 5 mg Documented By: LAILA Oxycodone HCl (Oxycodone Hcl Immed Release 5 Mg Tablet) 5 mg PO Q6H PRN PRN Reason: Pain, Moderate(Pain Scale 4-6) Last Admin: 07/12/23 08:51 Dose: 5 mg Documented By: LAILA Oxycodone HCl (Oxycodone Hcl Immed Release 5 Mg Tablet) 5 mg PO ONCE PRN PRN Reason: Pain, Severe (Pain Scale 7-10) Sodium Chloride (0.9 % Sodium Chloride Flush 3 Ml Syringe) 3 ml IVFLUSH [facility] Last Admin: 07/12/23 08:52 Dose: 3 ml Documented By: LAILA Tamsulosin HCl (Tamsulosin Hcl 0.4 Mg Capsule) 0.4 mg PO BID [facility] Last Admin: 07/12/23 08:51 Dose: 0.4 mg Documented By: LAILA Labs 07/11/23 05:30 07/11/23 05:30 Assessment and Plan (1) Closed fracture of left hip: Status: Acute Plan 77-year-old male with history of Parkinson's disease, dementia, BPH, HTN with sent by Ortho to the emergency room for evaluation of left hip pain found to have left hip fracture Left hip fracture CT left hip with mildly comminuted, fracture of the left femoral neck with intertrochaneteric extension status post left IMN nailing Management as per Orthopedic surgery team Pain management PT rec STR left knee pain acute on chronic likely secondary to fall knee xray pending parkinsons disease continue carbidopa-levadopa dementia, like r/t parkinsons continue donepezil HTN blood pressure controlled continue lisinopril bph/urinary urgency continue tamsulosin, oxybutynin dvt ppx - mechanica, chemoprophylaxis after surgery attending - dr. Call continue hospitalization for treatment post hip surgery Time Spent With Patient Time: Total time managing care of this patient today ____ minutes. Quality Stroke Does the patient have a stroke diagnosis?: No VTE Prior VTE?: No VTE Risk Level:: Medical - moderate - high VTE Device Contraindication: N/A - Device Ordered VTE Drug Contraindication: Treatment Not Indicated
--- NOTE | 2023-07-12 10:47 | PM.PNORT ---
Subjective Subjective Date of Service: 07/12/23 Principal diagnosis: left hip fracture Interval history: No overnight events No complaints Physical Exam Vital Signs: Vital Signs: Last Vital Signs Temp 97.7 F 07/12/23 07:34 Pulse 92 07/12/23 07:34 Resp 20 07/12/23 07:34 BP 111/62 07/12/23 07:34 Pulse Ox 99 07/12/23 07:34 O2 Del Method Room Air 07/12/23 07:34 O2 Flow Rate 2 07/10/23 21:50 BMI result Body Mass Index 19.7 Extrem: Other: inc c/d/i Figin ehl/ta/gc Procedures Date of Service Date of Service: 07/12/23 Progress Note: A&P Assessment and plan (1) Closed fracture of left hip: Status: Acute Plan dvt chemo and mechanoprophylaxis po pain control PT-WBAT Dispo planning Time Spent With Patient Time: Total time managing care of this patient today _10___ minutes. Quality Stroke Does the patient have a stroke diagnosis?: No VTE Prior VTE?: No VTE Risk Level:: Medical - moderate - high VTE Device Contraindication: N/A - Device Ordered VTE Drug Contraindication: Treatment Not Indicated
[2023-07-12 15:52] VITALS: BP 107/56; PULSE 80; RESP 20; TEMP 36.2; O2SAT 99
[2023-07-12] MEDS: Acetaminophen 325 MG TABLET 650 MG PO (18:10)
[2023-07-12 20:00] VITALS: BP 103/55; PULSE 76; RESP 18; TEMP 36.6; O2SAT 97
[2023-07-12 23:31] VITALS: BP 108/54; PULSE 86; RESP 16; TEMP 36.2; O2SAT 97
[2023-07-13 03:33] VITALS: BP 118/56; PULSE 65; RESP 14; TEMP 36.3; O2SAT 99
[2023-07-13] MEDS: Omeprazole 20 MG CAPSULE.DR PO (05:46)
[2023-07-13 07:00] VITALS: BP 116/71; PULSE 73; RESP 18; TEMP 36.6; O2SAT 97
[2023-07-13] MEDS: Carbidopa/Levodopa 25/100 TABLET 1 TAB PO ×3 (08:08→21:11)
[2023-07-13] MEDS: Acetaminophen 325 MG TABLET 650 MG PO ×2 (08:08→16:32)
[2023-07-13] MEDS: lisinopriL 5 MG TABLET PO (08:09)
[2023-07-13] MEDS: oxyBUTYnin chloride ER 5 MG TAB.ER.24 PO (08:09)
[2023-07-13] MEDS: 0.9 % Sodium Chloride Flush 3 ML SYRINGE IVFLUSH ×3 (08:09→19:46)
[2023-07-13] MEDS: Tamsulosin HCL 0.4 MG CAPSULE PO ×2 (08:09→21:11)
[2023-07-13] MEDS: Donepezil HCl 5 MG TABLET PO (08:09)
[2023-07-13] MEDS: Docusate Sodium 100 MG CAPSULE PO ×2 (08:10→21:11)
[2023-07-13] MEDS: Enoxaparin Sodium 40 MG/0.4 ML SYRINGE SUBCUT (10:47)
--- NOTE | 2023-07-13 11:13 | MHC.CLN ---
F/U DIET=REGULAR-APPROPRIATE. INTAKE MOST MEALS 50-75%. DOES NOT TAKE NUTRITIONAL SUPPLEMENT AT HOME. NO NEW NUTRITION INTERVENTIONS AT THIS TIME. RD TO FOLLOW WEEKLY.
--- NOTE | 2023-07-13 11:34 | HO.PM.IMPN ---
Subjective Subjective Date of Service: 07/13/23 Interval History: seen and examined this morning follow up for left hip fracture no overnight events forgetful Review of Systems Review of Systems: Yes all other systems are reviewed and are negative Constitutional Constitutional: Denies chills and Denies fever(s) ENT Ears, Nose, Mouth, and Throat: Denies dizziness Cardiovascular Cardiovascular: Denies chest pain, Denies palpitations and Denies dyspnea Respiratory Respiratory: Denies cough and Denies dyspnea Gastrointestinal Gastrointestinal: Denies abdominal pain Neurologic Neurologic: Denies dizziness Endocrine Endocrine: Denies palpitations Physical Exam Vital Signs: Vital Signs: Last Vital Signs Temp 97.8 F 07/13/23 07:00 Pulse 73 07/13/23 07:00 Resp 18 07/13/23 07:00 BP 116/71 07/13/23 07:00 Pulse Ox 97 07/13/23 07:00 O2 Del Method Room Air 07/13/23 07:00 O2 Flow Rate 2 07/12/23 20:00 BMI result Body Mass Index 19.7 Appearing in no acute distress lung sounds are clear to auscultation heart regular rate rhythm, clear S1, S2 positive bowel sounds, abdomen is soft, nontender neuro patient is alert x3, no focal deficits Objective Data Active Medications Acetaminophen (Acetaminophen 325 Mg Tablet) 650 mg PO Q6H PRN PRN Reason: Pain, Mild (Pain Scale 1-3) Last Admin: 07/13/23 08:08 Dose: 650 mg Documented By: TROY Carbidopa/Levodopa (Carbidopa/Levodopa 25/100 Tablet) 1 tab PO TID [facility] Last Admin: 07/13/23 08:08 Dose: 1 tab Documented By: TROY Docusate Sodium (Docusate Sodium 100 Mg Capsule) 100 mg PO BID [facility] Last Admin: 07/13/23 08:10 Dose: 100 mg Documented By: TROY Donepezil HCl (Donepezil Hcl 5 Mg Tablet) 5 mg PO DAILY [facility] Last Admin: 07/13/23 08:09 Dose: 5 mg Documented By: TROY Enoxaparin Sodium (Enoxaparin Sodium 40 Mg/0.4 Ml Syringe) 40 mg SUBCUT Q24H [facility] Last Admin: 07/13/23 10:47 Dose: 40 mg Documented By: TROY Fentanyl (Fentanyl Citrate/Pf 100 Mcg/2 Ml Vial) 50 mcg IVPUSH Q5M PRN; Protocol PRN Reason: Pain, Severe (Pain Scale 7-10) Last Admin: 07/10/23 17:03 Dose: 25 mcg Documented By: DANGELL Hydromorphone HCl (Hydromorphone Hcl 0.5 Mg/0.5 Ml Syringe) 0.5 mg IVPUSH Q5M PRN; Protocol PRN Reason: Pain, Severe (Pain Scale 7-10) Lisinopril (Lisinopril 5 Mg Tablet) 5 mg PO DAILY [facility]; Protocol Last Admin: 07/13/23 08:09 Dose: 5 mg Documented By: TROY Morphine Sulfate (Morphine Sulfate 4 Mg/Ml Cartridge) 2 mg IVPUSH Q4H PRN; Protocol PRN Reason: Pain, Severe (Pain Scale 7-10) Last Admin: 07/10/23 12:07 Dose: 2 mg Documented By: RADHA Omeprazole (Omeprazole 20 Mg Capsule.Dr) 20 mg PO DAILY@0630 [facility] Last Admin: 07/13/23 05:46 Dose: 20 mg Documented By: PAIGE Ondansetron HCl (Ondansetron Hcl 4 Mg/2 Ml Vial) 4 mg IVPUSH Q8H PRN PRN Reason: Nausea and Vomiting Oxybutynin Chloride (Oxybutynin Chloride Er 5 Mg Tab.Er.24) 5 mg PO DAILY [facility] Last Admin: 07/13/23 08:09 Dose: 5 mg Documented By: TROY Oxycodone HCl (Oxycodone Hcl Immed Release 5 Mg Tablet) 5 mg PO Q6H PRN PRN Reason: Pain, Moderate(Pain Scale 4-6) Last Admin: 07/12/23 08:51 Dose: 5 mg Documented By: LAILA Oxycodone HCl (Oxycodone Hcl Immed Release 5 Mg Tablet) 5 mg PO ONCE PRN PRN Reason: Pain, Severe (Pain Scale 7-10) Sodium Chloride (0.9 % Sodium Chloride Flush 3 Ml Syringe) 3 ml IVFLUSH QSHIFT [facility] Last Admin: 07/13/23 08:09 Dose: 3 ml Documented By: TROY Tamsulosin HCl (Tamsulosin Hcl 0.4 Mg Capsule) 0.4 mg PO BID [facility] Last Admin: 07/13/23 08:09 Dose: 0.4 mg Documented By: TROY Labs 07/11/23 05:30 07/11/23 05:30 Assessment and Plan (1) Closed fracture of left hip: Status: Acute Plan 77-year-old male with history of Parkinson's disease, dementia, BPH, HTN with sent by Ortho to the emergency room for evaluation of left hip pain found to have left hip fracture Left hip fracture CT left hip with mildly comminuted, fracture of the left femoral neck with intertrochaneteric extension status post left IMN nailing Management as per Orthopedic surgery team Pain management PT rec STR left knee pain acute on chronic likely secondary to fall degenerative changes parkinsons disease continue carbidopa-levadopa dementia, like r/t parkinsons continue donepezil HTN blood pressure controlled continue lisinopril bph/urinary urgency continue tamsulosin, oxybutynin dvt ppx - mechanica, chemoprophylaxis after surgery attending - dr. Call DISPO plan for STR when bed available continue hospitalization for treatment post hip surgery Time Spent With Patient Time: Total time managing care of this patient today ____ minutes. Quality Stroke Does the patient have a stroke diagnosis?: No VTE Prior VTE?: No VTE Risk Level:: Medical - moderate - high VTE Device Contraindication: N/A - Device Ordered VTE Drug Contraindication: Treatment Not Indicated
[2023-07-13 12:00] VITALS: BP 90/51; PULSE 78; RESP 17; TEMP 36.1; O2SAT 99
--- NOTE | 2023-07-13 13:15 | MHC.CM.PN ---
Addendum entered by Lana Morris 07/13/23 16:12: IMM DELIVERED Original Note: [facility] IS OFFERING A BED FOR STR 07/14/23. PT/HCP ARE IN AGREEMENT WITH THIS PLAN. MADE AWARE. BLS TRANSPORT IS PRE-BOOKED FOR 11 AM 07/14/23 VIA [facility].
[2023-07-13 15:38] VITALS: BP 107/56; PULSE 75; RESP 20; TEMP 36.2; O2SAT 98
--- NOTE | 2023-07-13 16:22 | PM.PNORT ---
Subjective Subjective Date of Service: 07/13/23 Principal diagnosis: left hip fracture Interval history: No overnight evnts PT rec SNF Physical Exam Vital Signs: Vital Signs: Last Vital Signs Temp 97.2 F 07/13/23 15:38 Pulse 75 07/13/23 15:38 Resp 20 07/13/23 15:38 BP 107/56 L 07/13/23 15:38 Pulse Ox 98 07/13/23 15:38 O2 Del Method Room Air 07/13/23 15:38 O2 Flow Rate 2 07/12/23 20:00 BMI result Body Mass Index 19.7 Extrem: Other: inc c/d/i Firing ehl/ta/gc Procedures Date of Service Date of Service: 07/13/23 Progress Note: A&P Assessment and plan (1) Closed fracture of left hip: Status: Acute Assessment and Plan: Doing well s/p left hip IMN PT-WBAT Lovenox and SCDs SNF pending Time Spent With Patient Time: Total time managing care of this patient today __15__ minutes. Quality Stroke Does the patient have a stroke diagnosis?: No VTE Prior VTE?: No VTE Risk Level:: Medical - moderate - high VTE Device Contraindication: N/A - Device Ordered VTE Drug Contraindication: Treatment Not Indicated
[2023-07-13] MEDS: oxyCODONE HCl Immed Release 5 MG TABLET PO (16:31)
[2023-07-13 19:13] VITALS: BP 115/60; PULSE 88; RESP 18; TEMP 36.2; O2SAT 98
[2023-07-13 23:39] VITALS: BP 114/62; PULSE 83; RESP 16; TEMP 36.4; O2SAT 96
[2023-07-14] MEDS: Morphine Sulfate 4 MG/ML CARTRIDGE 2 MG IVPUSH
[2023-07-14 03:02] VITALS: BP 125/66; PULSE 61; RESP 14; TEMP 36.3; O2SAT 97
[2023-07-14] MEDS: Omeprazole 20 MG CAPSULE.DR PO (05:44)
[2023-07-14 06:50] VITALS: BP 131/63; PULSE 67; RESP 18; TEMP 36.6; O2SAT 98
[2023-07-14] MEDS: oxyBUTYnin chloride ER 5 MG TAB.ER.24 PO (07:47)
[2023-07-14] MEDS: Donepezil HCl 5 MG TABLET PO (07:47)
[2023-07-14] MEDS: Docusate Sodium 100 MG CAPSULE PO (07:47)
[2023-07-14] MEDS: Carbidopa/Levodopa 25/100 TABLET 1 TAB PO (07:48)
[2023-07-14] MEDS: 0.9 % Sodium Chloride Flush 3 ML SYRINGE IVFLUSH (07:48)
[2023-07-14] MEDS: Tamsulosin HCL 0.4 MG CAPSULE PO (07:48)
[2023-07-14] MEDS: lisinopriL 5 MG TABLET PO (07:48)
--- NOTE | 2023-07-14 08:29 | P.DS_ITS ---
DS: Providers Provider Date of Service: 07/14/23 Date of admission: 07/09/23 17:09 Primary care physician: JOSR Baptiste Consults: 07/09/23 17:52 Consult to Orthopedics Routine Consulting Provider: [facility] Reason for consultation: left hip fracture Has provider been notified: No DS: Diagnosis Discharge Diagnosis (1) Closed fracture of left hip: Status: Acute DS: Summary Hospital Course Hospital Course: This is a 77 yo male with history of dementia, HTN, HLD, RBBB, PVC's, BPH, arthritis s/p right knee replacement, GERD, and Parkinson's disease who presents to the ER from Orthpedic office for evaluation and treatment of a hip fracture. Patient was on his way into the office for a follow up appointment for hip pain. Unfortunately it seems he walked on the side of the walkway and tripped and fell. He denies any dizziness prior to his fall.? He denies any head strike or loss of consciousness.? He was able to get up and ambulate into the office with assistance.? He had an outpatient x-ray which was concerning for a possible hip fracture and therefore he was sent to the emergency department for further evaluation.? In the emergency department he underwent a CT scan of the left hip 77-year-old treated for left hip fracture is status post nailing after a fall. Surgery was unremarkable. Patient was started on Lovenox, total 4 weeks, end date August 08. Pain has been well controlled. Seen evaluated by Physical therapy with recommendation for short-term rehab. parkinsons disease continue carbidopa-levadopa dementia, like r/t parkinsons continue donepezil HTN stable blood pressures during admission. Continue lisinopril bph/urinary urgency continue tamsulosin, oxybutynin Time Spent with Patient Time attestation: Total time managing care of this patient today ____ minutes. Discharge coordination time: Greater than 30 minutes Quality: Safe Use of Opioids Does Pt have an Active Cancer Diagnosis on the Problem List?: No Quality: Stroke Does the patient have a stroke diagnosis?: No Physical Exam Vital Signs: Vital Signs: Last Vital Signs Temp 98 F 07/14/23 06:50 Pulse 67 07/14/23 06:50 Resp 18 07/14/23 06:50 BP 131/63 07/14/23 06:50 Pulse Ox 98 07/14/23 06:50 O2 Del Method Room Air 07/14/23 06:50 O2 Flow Rate 2 07/12/23 20:00 BMI result Body Mass Index 19.7 Appearing in no acute distress head is normocephalic atraumatic eyes pupils are PERRLA sclera is anicteric mouth throat mucous membranes are intact and moist neck is supple no lymphadenopathy, no JVD noted lung sounds are clear to auscultation heart regular rate rhythm, clear S1, S2 positive bowel sounds, abdomen is soft, nontender neuro patient is alert x3, no focal deficits, forgetfullness Discharge Plan Discharge Anticipated Discharge Date/Time: 07/14/23 07:08 Patient Disposition: Xfer Inpatient Rehab Fac Discharge Diagnosis: Left hip fracture IMN nailing Referrals: Declan Piedra, [employer] [Primary Care Provider] - 1 Week Discharge Medications: New enoxaparin 40 mg/0.4 mL Syringe 40 mg subcut Q24H Qty: 4 0RF oxycodone 5 mg Tablet 5 mg PO Q6H PRN (Reason: Pain, Moderate(Pain Scale 4-6)) Qty: 16 0RF Rx Instructions: Partial Fill upon patient request. Continued lisinopril 5 mg tablet 5 mg PO DAILY Qty: 90 0RF Rx Instructions: schedule next PCP appt for future refills omeprazole 20 mg capsule,delayed release(DR/EC) 20 mg PO DAILY 90 Days Qty: 90 0RF Rx Instructions: schedule PCP appt for future refills tramadol 50 mg tablet 50 mg PO Q12H PRN (Reason: pain) Qty: 60 0RF gabapentin 300 mg capsule 300 mg PO BEDTIME carbidopa-levodopa 25-100 mg tablet 1 tab PO TID tamsulosin 0.4 mg capsule 0.4 mg PO BID donepezil 5 mg tablet 5 mg PO DAILY oxybutynin chloride 5 mg tablet extended release 24hr 5 mg PO DAILY Discharge Orders: Discharge Order (Routine); Ordered 07/14/23 Ordered By: Georgina Jacob Diet: Advance to usual diet Activity on Discharge: As tolerated Stand Alone Forms: Patient Portal Discharge page Care Plan Goals: Physical therapy Health Concerns: Left hip fracture IMN nailing Plan of Treatment: Follow-up with primary care provider as needed Follow-up with Orthopedic surgery as needed Take all medications as prescribed Lovenox for total of 4 weeks, end date 08/08/2023 Assessment: See discharge summary
--- NOTE | 2023-07-14 08:51 | MHC.CM.PN ---
PT MEDICALLY CLEARED FOR D/C TO STR AT [facility] FOR BLS TRANSPORT
[2023-07-14] MEDS: Enoxaparin Sodium 40 MG/0.4 ML SYRINGE SUBCUT (10:54)
--- NOTE | 2023-07-14 16:09 | P.OP_ITS ---
Operative Note Operative Note Date of Service: 07/10/23 Narrative: Date of Service: 07/10/23 Pre-op diagnosis: left hip fracture Post-op diagnosis: same Procedure: IMN left hip Implants: [id number] 125 deg imn with 100 mm hip screw and 42.5 distal interlock Surgeon: Omega Acosta MD Anesthesia: GETA and local Was an Director Of Event Sales used for this Procedure?: No Estimated blood loss (mL): 200 IV fluids (mL): 1,000 Pathology: none sent Condition: stable Disposition: PACU Procedure in detail: Patient was brought to the operating room and prepped and draped in standard sterile fashion. Time-out was called to identify proper site procedure proper surgeon and IV antibiotics per weight were administered. She was positioned on the fracture table and a traction and slight internal rotation were performed and biplanar fluoroscopy confirmed maintained fracture reduction. I then made a stab incision proximal to the greater trochanter in using a guidewire made a entry point just lateral to the tip of the greater trochanter and placed a guidewire into the femoral metadiaphysis. I then over-reamed with 15 mm and elected to place a 180 x 11 mm nail. The nail was assembled on the back table. I then turned my attention to the hip screw where I used a guidewire and a tip apex distance of less than 1.5 measured my hip screw. I then pre drilled and placed a hip screw using biplanar fluoroscopy. Once I was satisfied with the position of the hip screw I turned my attention to the distal aspect of the nail. Using the guide a dynamic interlocking screw in standard AO technique. I then removed all I then tightened my set screw proximally and removed all extraneous instrumentation. Final biplanar radiographs were taken. I was satisfied with the position of the hardware and the fracture reduction. I think copiously irrigated closed with absorbable sutures cuate and injected 30 mL of into the area of the incisions. Traction was let down patient was placed in sterile dressing awakened from anesthesia brought to recovery room stable condition there were no known complications.
== END 2023-07-14 11:20 | DRG 482 ==
LOC: HO.ED 15:52 → HO.EDOVER 17:24 → HO.S3 18:12
PROVIDERS: Orthopaedic Surgery; Physician Assistant; Admitting Provider Physician Assistant Medical; Emergency Provider Emergency Medicine; PCP Nurse Practitioner Family; Visit Provider Nurse Practitioner Acute Care
PROC: 0QS736Z Reposition Left Upper Femur with Intramedullary Internal Fixation Device, Percutaneous Approach (ICD-10-PCS; principal; 2023-07-10 14:30)
DX: S72.092A Other fracture of head and neck of left femur, initial encounter for closed fracture (principal); W19.XXXA Unspecified fall, initial encounter; G20 Parkinson's disease; I10 Essential (primary) hypertension; F02.80 Dementia in other diseases classified elsewhere, unspecified severity, without behavioral disturbance, psychotic disturbance, mood disturbance, and anxiety; N40.1 Benign prostatic hyperplasia with lower urinary tract symptoms; R39.15 Urgency of urination; I95.81 Postprocedural hypotension; Z79.899 Other long term (current) drug therapy
CPT/HCPCS: 36415; 73502; 73560; 73700; 80048; 80053; 85025; 85027; 85610; 85730; 92950; 93005; 93306; 97116; 97163; 97166; 97530; 99212; 99285; C1713; J0131; J0690; J1650; J2250; J2270; J2405; J2795; J3010; J3301; Q9957

== ENCOUNTER 2023-07-09 17:09 | Outpatient (BNV) | payer MEDICARE, SELFPAY | END 2023-07-10 07:00 | PROVIDERS: Admitting Provider Physician Assistant Medical; Emergency Provider Emergency Medicine; PCP Nurse Practitioner Family; Visit Provider Internal Medicine Cardiovascular Disease | DX: Z01.818 Encounter for other preprocedural examination (principal); S72.002A Fracture of unspecified part of neck of left femur, initial encounter for closed fracture | CPT/HCPCS: 93306 ==

== ENCOUNTER → 2023-07-09 17:09 | Outpatient (BNV) | payer MEDICARE, SELFPAY | PROVIDERS: Admitting Provider Physician Assistant Medical; Emergency Provider Emergency Medicine; PCP Nurse Practitioner Family; Visit Provider Physician Assistant Medical | DX: S72.002A Fracture of unspecified part of neck of left femur, initial encounter for closed fracture (principal) | CPT/HCPCS: 99223; 99232; 99239 ==

== ENCOUNTER → 2023-07-09 17:09 | Outpatient (BNV) | payer MEDICARE, SELFPAY | PROVIDERS: Admitting Provider Physician Assistant Medical; Emergency Provider Emergency Medicine; PCP Nurse Practitioner Family; Visit Provider Orthopaedic Surgery | DX: S72.002A Fracture of unspecified part of neck of left femur, initial encounter for closed fracture (principal) | CPT/HCPCS: 27236; 99024 ==

== ENCOUNTER 2023-07-27 10:43 | Outpatient (REF) | payer MEDICARE, SELFPAY | END 2023-07-27 10:44 | disposition home or self-care (01) | LOC: HO.HOSX 10:43 | PROVIDERS: Visit Provider Physician Assistant | DX: Z13.89 Encounter for screening for other disorder (principal) ==

== ENCOUNTER 2023-08-06 06:03 | Outpatient (REF) | payer OTHER, MEDICARE, SELFPAY ==
--- NOTE | ~2023-08-06 | XR_ITS ---
EXAMINATION: XR HIP, LEFT WITH AP PELVIS CLINICAL INFORMATION: Pain. COMPARISON: Radiographs dated 07/09/2023. TECHNIQUE: AP and frog-leg lateral views of the left hip are submitted, together with a frontal view the pelvis. FINDINGS: There is mild bony demineralization. There is mild narrowing of the bilateral acetabular joint spaces medially. There is mild irregularity of the articular surfaces of the acetabular roofs, with subchondral sclerosis and tiny peripheral osteophytes. The femoral heads are smooth. There is intact orthopedic hardware applied to the proximal left femur, including an intramedullary anat, distal fixator screw and femoral neck compression screw. No acute fracture or dislocation is seen. The recent femoral neck fracture is now poorly visualized. The sacroiliac joints are symmetric, and the pubic symphysis is intact. The soft tissue planes are unremarkable. There are atherosclerotic calcifications. Lateral left hip skin cuate are noted. XR/XR hip LT w PEL1V IMPRESSION: 1. There is mild osteoarthritic change of the bilateral hips. 2. A recently demonstrated left femoral neck fracture is in excellent alignment and now poorly visualized. There is intact orthopedic hardware applied to the proximal left femur.
== END 2023-08-06 06:04 | disposition home or self-care (01) ==
LOC: HO.HOSX 06:03
PROVIDERS: Visit Provider Physician Assistant
DX: M70.62 Trochanteric bursitis, left hip (principal)
CPT/HCPCS: 73502

== ENCOUNTER 2023-08-06 09:12 | Outpatient (AMB) | payer MEDICARE, SELFPAY ==
--- NOTE | 2023-08-06 09:13 | A.OFFVIS_ITS ---
Intake Intake Visit Reasons: PO-s/p Lt hip IMN 07/10/23 NE Intake Note: Sreedhar a 77 year old male who presents today for a post operative left hip IMN, DOS 07/10/23 NE. Xrays updated in office. Patient reports he is doing well, he has some soreness. Allergies No Known Allergies Allergy (Verified 08/06/23 09:30) HPI PO-s/p Lt hip IMN 07/10/23 NE HPI Details 77-year-old male who returns to the [facility] today for post-op left hip IMN, 07/10/[address] Acosta. He states he has soreness in his hip but has improvement since the last visit. He is working with physical therapy as instructed. He is doing well otherwise and has no concerns today. [facility] Medical History Arthritis of glenohumeral joint Dementia Enlarged prostate GERD (gastroesophageal reflux disease) Hypertension Impingement syndrome, shoulder Parkinsons disease Tendinopathy of right shoulder Surgical History H/O cervical discectomy H/O bilateral cataract extraction History of total knee arthroplasty H/O blepharoplasty S/P right knee arthroscopy H/O esophagogastroduodenoscopy H/O colonoscopy Family History Father No problems noted. Mother Oral cancer Social History Household Members: Spouse Housing: House Do you presently have visiting nurse or other home services: No Alcohol intake: current Alcohol intake frequency: does not drink Patient Tobacco Use Status: Never used Tobacco e-Cigarette/Vaping Use: Never Used Second Hand Smoke Exposure: No service: No Current occupational status: employed and retired Current occupation: [employer] Current occupational exposures/hazards: No Cognitive needs: No Hearing needs: No Vision needs: No Review of Systems Const All systems reviewed & are unremarkable except as noted in HPI and below Physical Exam Extrem Other: Left hip: Incision clean, dry and intact. No erythema. He has no pain with ROM or hip flexion. NVI. Results Reviewed Results Reviewed: X-rays of the left hip obtained in the office today show intact intramedullary nail with stable fracture alignment. Assessment & Plan Assessment & Plan (1) Left hip pain: Code(s): M25.552 - Pain in left hip (2) Trochanteric bursitis, left hip: Code(s): M70.62 - Trochanteric bursitis, left hip Plan [place] removed today, steri strips applied. He will continue working with physical therapy and occupational therapy to regain his gait and strength along with ADLs. He will see us back in 4 weeks with new x-rays, sooner if needed. Orders: Orders XR hip LT w PEL1V Today M25.559 - Pain in unspecified hip Patient Instructions: Scribed for Karin Hood PA-C, by Hosea Leon medical records supervisor, on 08/06/2023 at 9:30 AM EST. IKarin PA-C, have personally reviewed and agree with the information entered by the scribe. Coding Level of Care Code Global (48493) Diagnoses Left hip pain M25.552 Trochanteric bursitis, left hip M70.62
== END 2023-08-06 10:08 | disposition home or self-care (01) ==
PROVIDERS: PCP Nurse Practitioner Family; Visit Provider Physician Assistant
DX: M25.552 Pain in left hip (principal); M70.62 Trochanteric bursitis, left hip
CPT/HCPCS: 99024

== ENCOUNTER 2023-09-02 12:08 | Outpatient (AMB) | payer MEDICARE, SELFPAY ==
--- NOTE | 2023-09-02 12:30 | A.OFFVIS_ITS ---
Intake Intake Visit Reasons: PO-LT hip IMn 07/10/23 w xrays Intake Note: Sreedhar a 77 year old male who presents today for a post operative left hip IMN, DOS 07/10/[address] Acosta. States he is not happy where he is doing his therapy. States he has pain and soreness in hip. Allergies No Known Allergies Allergy (Verified 09/02/23 12:37) HPI PO-LT hip IMn 07/10/23 w xrays HPI Details 77-year-old male who returns to the [facility] today for post-op left hip IMN, 07/10/23. He continues to have pain and soreness in his left hip. He states he had undergone physical therapy and is not happy with the facility as he goes for a session but the therapist is not with him the entire session. He is doing well otherwise and has no other concerns today. [facility] Medical History Arthritis of glenohumeral joint Dementia Enlarged prostate GERD (gastroesophageal reflux disease) Hypertension Impingement syndrome, shoulder Parkinsons disease Tendinopathy of right shoulder Surgical History H/O cervical discectomy H/O bilateral cataract extraction History of total knee arthroplasty H/O blepharoplasty S/P right knee arthroscopy H/O esophagogastroduodenoscopy H/O colonoscopy Family History Father No problems noted. Mother Oral cancer Social History Household Members: Spouse Housing: House Do you presently have visiting nurse or other home services: No Alcohol intake: current Alcohol intake frequency: does not drink Patient Tobacco Use Status: Never used Tobacco e-Cigarette/Vaping Use: Never Used Second Hand Smoke Exposure: No service: No Current occupational status: employed and retired Current occupation: [employer] Current occupational exposures/hazards: No Cognitive needs: No Hearing needs: No Vision needs: No Review of Systems Const All systems reviewed & are unremarkable except as noted in HPI and below Physical Exam Extrem Other: Left hip: Incision well healed. He has no pain with ROM of hip. No pain with hip flexion. NVI. Results Reviewed Results Reviewed: X-rays of the left hip obtained in the office today show intact intramedullary nail with stable fracture alignment. Assessment & Plan Assessment & Plan (1) Trochanteric bursitis, left hip: Code(s): M70.62 - Trochanteric bursitis, left hip Plan He is going to work on a home exercises program. He will increase activity as tolerated and see us back in 6 weeks with new x-rays, sooner if needed. Orders: Orders XR femur LT 2V Today M79.606 - Pain in leg, unspecified Patient Instructions: Scribed for Karin Hood PA-C, by Hosea Leon medical physics professor, on 09/02/2023 at 12:30 PM EST. IKarin PA-C, have personally reviewed and agree with the information entered by the scribe. Coding Level of Care Code Global (26756) Diagnoses Trochanteric bursitis, left hip M70.62
== END 2023-09-02 12:54 | disposition home or self-care (01) ==
PROVIDERS: PCP Nurse Practitioner Family; Visit Provider Physician Assistant
DX: M70.62 Trochanteric bursitis, left hip (principal)
CPT/HCPCS: 99024

== ENCOUNTER 2023-09-02 12:56 | Outpatient (REF) | payer MEDICARE, SELFPAY ==
--- NOTE | ~2023-09-02 | XR_ITS ---
EXAMINATION: XR FEMUR, LEFT CLINICAL INFORMATION: Pain. COMPARISON: Prior radiographs, most recently 07/29/2023; CT left hip dated 07/09/2023. TECHNIQUE: AP and lateral views of the left femur were obtained. FINDINGS: Bony alignment and mineralization are normal. There is moderate narrowing of the left acetabular joint space. There is subchondral sclerosis of the left acetabular roof. An intact intramedullary anat, fixator screw and compression screw are applied to the proximal left femur. The previously noted left femoral neck fracture is faintly redemonstrated. No hardware failure or loosening seen. There is no focal soft tissue swelling, gas or foreign body. There is right knee chondrocalcinosis. There is degenerative change of the patellofemoral compartment. A loose body is again suggested in the posterior joint space. XR/XR femur LT 2V IMPRESSION: A healing fracture is noted of the proximal left femur, in stable alignment. No hardware failure or loosening is seen.
== END 2023-09-02 12:57 | disposition home or self-care (01) ==
LOC: HO.HOSX 12:56
PROVIDERS: Visit Provider Physician Assistant
DX: Z47.89 Encounter for other orthopedic aftercare (principal); M70.62 Trochanteric bursitis, left hip
CPT/HCPCS: 73552; 99212

== ENCOUNTER 2023-09-16 12:42 | Outpatient (AMB) | payer MEDICARE, SELFPAY ==
--- NOTE | 2023-09-16 13:01 | A.OFFVIS_ITS ---
Intake Intake Visit Reasons: NewProb- LT knee pain Intake Note: Sreedhar is a 77 year old male who presents today for a evaluation of his left knee pain. Patient describes his pain as sharp in nature. He denies any fevers or chills. He has taken Tylenol and anti-inflammatory medicines which gave him only mild relief. He has had cortisone injections in the past which gave him fairly good relief. He wishes to hold off on surgery for as long as possible. Allergies No Known Allergies Allergy (Verified 09/16/23 13:16) Medication List - Last Reconciled 09/16/23 by Hernan Morales MD carbidopa-levodopa 25-100 mg 1 tab PO TID donepezil 5 mg PO DAILY enoxaparin 40 mg (0.4 mL) subcut Q24H gabapentin 300 mg PO BEDTIME levofloxacin 750 mg PO DAILY lisinopril 5 mg PO DAILY nitrofurantoin monohyd/m-cryst 100 mg (Macrobid) 100 mg PO BID omeprazole 20 mg PO DAILY 90 days oxybutynin chloride ER 5 mg PO DAILY oxycodone 5 mg PO Q6H PRN tamsulosin 0.4 mg PO BID tramadol 50 mg PO Q12H PRN PFSH Medical History Arthritis of glenohumeral joint Dementia Enlarged prostate GERD (gastroesophageal reflux disease) Hypertension Impingement syndrome, shoulder Parkinsons disease Tendinopathy of right shoulder Surgical History H/O cervical discectomy H/O bilateral cataract extraction History of total knee arthroplasty H/O blepharoplasty S/P right knee arthroscopy H/O esophagogastroduodenoscopy H/O colonoscopy Family History Father No problems noted. Mother Oral cancer Social History Household Members: Spouse Housing: House Do you presently have visiting nurse or other home services: No Alcohol intake: current Alcohol intake frequency: does not drink Patient Tobacco Use Status: Never used Tobacco e-Cigarette/Vaping Use: Never Used Second Hand Smoke Exposure: No service: No Current occupational status: employed and retired Current occupation: [employer] Current occupational exposures/hazards: No Cognitive needs: No Hearing needs: No Vision needs: No Physical Exam Const Other: Well-nourished well-developed very friendly male awake alert and oriented x3 in no acute distress Extrem Other: Bilateral lower extremity examination shows good capillary refill, no skin lesions noted, normal sensation light touch Left knee examination shows a mild effusion, crepitus with range of motion, pain with range of motion, no instability Office Procedures Joint Injection/Drain Joint Injection/Drain Primary Site: left knee Prep: site was prepped using aseptic technique Injected: 40 mg of, Kenalog and 1% plain lidocaine Procedure: The patient tolerated the procedure well Coding - Large joint Procedure code (CPT) selection complete Results Reviewed Results Reviewed: 09/16/23 13:15 Lidocaine HCl 2 % MPF [Xylocaine 2 % MPF] 5 ml .ROUTE .STK-MED ONE Triamcinolone Acetonide [Kenalog-40] 40 mg .ROUTE .STK-MED ONE X-rays of the patient's left knee show moderate to severe degenerative joint disease most significant in the patellofemoral joint, no acute bony abnormalities Assessment & Plan Assessment & Plan (1) Arthritis of left knee: Code(s): M17.12 - Unilateral primary osteoarthritis, left knee Plan: Mr. Combs presents with left knee pain due to degenerative joint disease. I had a lengthy discussion with the patient regarding the treatment options. The patient wishes to hold off on surgery for as long as possible. I agree with this plan. The risks and benefits of a left knee cortisone injection were discussed at length with the patient. The patient wished to proceed. He tolera yodit the injection well. He will continue with his home exercise program. He will follow up with me on an as-needed basis should his symptoms not plateau at an unacceptable level over the next few months. Feel free to call me at any time should questions regarding his orthopedic management arise. I spent 22 minutes in reviewing the patient's records and imaging studies, seeing the patient and documenting in the medical record. Orders: Orders AMB Joint Injection/Aspiration 09/16/23 M17.12 - Unilateral primary osteoarthritis, left knee Coding Level of Care Code Est Pt Level 2 (40894) Diagnoses Arthritis of left knee M17.12 CPT Codes Coding - 16951 Large joint: 79820 - Large joint ([id number])
== END 2023-09-16 13:39 | disposition home or self-care (01) ==
PROVIDERS: PCP Nurse Practitioner Family; Visit Provider Orthopaedic Surgery
DX: M17.12 Unilateral primary osteoarthritis, left knee (principal)
CPT/HCPCS: 20610; 99213

== ENCOUNTER → 2023-09-16 12:42 | Outpatient (BNVA) | payer MEDICARE, SELFPAY | PROVIDERS: PCP Nurse Practitioner Family; Visit Provider Orthopaedic Surgery | DX: M17.12 Unilateral primary osteoarthritis, left knee (principal) | CPT/HCPCS: 20610; 99212; J3301 ==

== ENCOUNTER 2023-09-30 11:56 | Outpatient (AMB) | payer MEDICARE, SELFPAY ==
--- NOTE | 2023-09-30 12:05 | A.OFFVIS_ITS ---
Intake Intake Visit Reasons: Right knee pain Intake Note: Sreedhar is a 77 year old male who presents today with complaints of progressively worsening right knee pain. Patient describes his pain as sharp and severe in nature. He has had cortisone injections given into both of his knees in the past. The most recent injection gave him fairly good relief in his left knee but no relief in his right knee. He has had viscosupplementation injections which gave him fairly good relief. He has tried Tylenol and anti- inflammatory medicines which gave him only mild relief. He wishes to hold off on surgery for as long as possible. He has done physical therapy which aggravated his pain. Allergies No Known Allergies Allergy (Verified 09/30/23 12:05) Medication List - Last Reconciled 09/30/23 by Hernan Morales MD carbidopa-levodopa 25-100 mg 1 tab PO TID donepezil 5 mg PO DAILY enoxaparin 40 mg (0.4 mL) subcut Q24H gabapentin 300 mg PO BEDTIME levofloxacin 750 mg PO DAILY lisinopril 5 mg PO DAILY nitrofurantoin monohyd/m-cryst 100 mg (Macrobid) 100 mg PO BID omeprazole 20 mg PO DAILY 90 days oxybutynin chloride ER 5 mg PO DAILY oxycodone 5 mg PO Q6H PRN tamsulosin 0.4 mg PO BID tramadol 50 mg PO Q12H PRN PFSH Medical History Closed fracture of left hip Impingement syndrome, shoulder Arthritis of glenohumeral joint Dementia Parkinsons disease Tendinopathy of right shoulder Hypertension GERD (gastroesophageal reflux disease) Enlarged prostate Surgical History H/O cervical discectomy H/O bilateral cataract extraction History of total knee arthroplasty H/O blepharoplasty S/P right knee arthroscopy H/O esophagogastroduodenoscopy H/O colonoscopy Family History Father No problems noted. Mother Oral cancer Household Members: Spouse Housing: House Do you presently have visiting nurse or other home services: No Alcohol intake: current Alcohol intake frequency: does not drink Patient Tobacco Use Status: Never used Tobacco e-Cigarette/Vaping Use: Never Used Second Hand Smoke Exposure: No service: No Current occupational status: employed and retired Current occupation: [employer] Current occupational exposures/hazards: No Cognitive needs: No Hearing needs: No Vision needs: No Physical Exam Const Other: Well-nourished well-developed very friendly male awake alert and oriented x3 in no acute distress Extrem Other: Bilateral lower extremity examination shows good capillary refill, no skin lesions noted, normal sensation light touch Right knee examination shows a minimal effusion, palpable crepitus with range of motion, pain with range of motion, range of motion from -3 degrees to 115 degrees, no instability Results Reviewed Results Reviewed: X-rays of the patient's right knee show joint space narrowing, subchondral sclerosis, no acute bony abnormalities Assessment & Plan Assessment & Plan (1) Arthritis of right knee: Code(s): M17.11 - Unilateral primary osteoarthritis, right knee (2) Right knee pain: Code(s): M25.561 - Pain in right knee Plan Mr. Combs presents with right knee pain due to degenerative joint disease. I had a lengthy discussion with the patient regarding the treatment options. He wishes to hold off on surgery for as long as possible. I agree with this plan. He has not gotten good relief from cortisone injections in the past. Thus, I will see whether not his insurance company will cover a viscosupplementation injection for his right knee. I will see him back once the injection is available. Feel free to call me at any time should questions regarding his orthopedic management arise. I spent 22 minutes in reviewing the patient's records and imaging studies, seeing the patient and documenting in the medical record. Coding Level of Care Code Est Pt Level 2 (59132) Diagnoses Arthritis of right knee M17.11 Right knee pain M25.561
== END 2023-09-30 13:18 | disposition home or self-care (01) ==
PROVIDERS: PCP Nurse Practitioner Family; Visit Provider Orthopaedic Surgery
DX: M17.11 Unilateral primary osteoarthritis, right knee (principal); M25.561 Pain in right knee
CPT/HCPCS: 99213

== ENCOUNTER → 2023-09-30 11:56 | Outpatient (BNVA) | payer MEDICARE, SELFPAY | PROVIDERS: PCP Nurse Practitioner Family; Visit Provider Orthopaedic Surgery | DX: M17.11 Unilateral primary osteoarthritis, right knee (principal); M25.561 Pain in right knee | CPT/HCPCS: 99212 ==

== ENCOUNTER 2023-10-11 08:58 | Emergency (ER) | payer MEDICARE, SELFPAY ==
--- NOTE | ~2023-10-11 | CT_ITS ---
Indication: Pain no injury EXAMINATION: CT brain, CT cervical spine. Axial imaging with coronal and sagittal reformatted images. Comparison is made to previous dated 07/25/2020. This CT examination was performed using dose optimization techniques as appropriate, variously including the following: *Automated exposure control *Adjustment of mA and/or kV according to patient size (this includes techniques or standardized protocols for targeted exams where dose is matched to indication/reason for exam; i.e. extremities or head) *Use of iterative reconstruction technique. Radiation dose 435 and 644. Findings; CT brain; There is no midline shift. There is no mass effect. There is no hemorrhage. The basal cisterns appear patent. The posterior fossa is grossly within normal limits. No extra-axial collection. Note is made of White matter ischemic changes and atrophy. Mild sinus disease is noted. Cervical spine; Plate and screws anterior bridging C4-C5-C6. No evidence for hardware failure. There is no acute fracture or dislocation. Degenerative changes are noted. CT/CT head/brain wo IV con IMPRESSION: Negative acute noncontrast CT of the brain. White matter ischemic change and atrophy are noted. No intrathecal contrast is given for the cervical exam. Therefore cannot adequately evaluate disc material or nerve roots or cord or canal No acute bony finding in the cervical spine. Hardware in place and there is degenerative change. If further evaluation is warranted given the history of no injury recommendation is MRI
--- NOTE | ~2023-10-11 | CT_ITS ---
Indication: Pain no injury EXAMINATION: CT brain, CT cervical spine. Axial imaging with coronal and sagittal reformatted images. Comparison is made to previous dated 07/25/2020. This CT examination was performed using dose optimization techniques as appropriate, variously including the following: *Automated exposure control *Adjustment of mA and/or kV according to patient size (this includes techniques or standardized protocols for targeted exams where dose is matched to indication/reason for exam; i.e. extremities or head) *Use of iterative reconstruction technique. Radiation dose 435 and 644. Findings; CT brain; There is no midline shift. There is no mass effect. There is no hemorrhage. The basal cisterns appear patent. The posterior fossa is grossly within normal limits. No extra-axial collection. Note is made of White matter ischemic changes and atrophy. Mild sinus disease is noted. Cervical spine; Plate and screws anterior bridging C4-C5-C6. No evidence for hardware failure. There is no acute fracture or dislocation. Degenerative changes are noted. CT/CT cervical spine wo IV con IMPRESSION: Negative acute noncontrast CT of the brain. White matter ischemic change and atrophy are noted. No intrathecal contrast is given for the cervical exam. Therefore cannot adequately evaluate disc material or nerve roots or cord or canal No acute bony finding in the cervical spine. Hardware in place and there is degenerative change. If further evaluation is warranted given the history of no injury recommendation is MRI
[2023-10-11 09:06] VITALS: BP 158/81; PULSE 74; RESP 18; TEMP 36.6; O2SAT 98; BMI 20.3
--- NOTE | 2023-10-11 09:17 | PC.NURSE ---
patient presentsw with neck pain, unable to remember how many years ago the fall was. patient states the pain is chronic and started to get worse last night.
--- NOTE | 2023-10-11 09:57 | ED_ITS ---
HPI - Neck Pain/Injury General Chief Complaint: Neck Pain/Injury Stated Complaint: Neck pain Time Seen by Provider: 10/11/23 09:10 Source: patient Mode of arrival: ambulatory Limitations: no limitations History of Present Illness HPI Narrative: This is a 78 yo male with history of parkinsons disease, ?mild memory impairment (per chart review) who presents to the ER with complaints of neck pain/stiffness worsening since yesterday. When asked how long this has been going on for the patient states 9 . After further discussion patient believes it started 09/17 with no injury or trauma. He may have had a surgery on his neck but cannot recall what surgery, when it was, or who performed it. He believes he may have had cortisone injections in his neck. He does see orthopedics but cannot recall why he has seen them or when he last saw them but he has an appt ?tomorrow. On review of the chart he has an appt 10/14 for x-rays. Patient states he drives and lives alone. He tells me has a girlfriend he eats chips with but they do not live together and he cannot recall her name. He cannot recall any of his regular medications or if he is taking anything over the counter for his neck pain. He denies any headache, fevers, chills, UE weakness/numbness/tingling. Related Data Home Medications Medication Instructions Recorded Confirmed tamsulosin 0.4 mg capsule 0.4 mg PO BID 03/18/21 09/30/23 carbidopa 25 mg-levodopa 100 mg 1 tab PO TID 06/19/21 09/30/23 tablet donepezil 5 mg tablet 5 mg PO DAILY 01/16/22 09/30/23 oxybutynin chloride 5 mg 5 mg PO DAILY 01/16/22 09/30/23 tablet,extended release 24 hr gabapentin 300 mg capsule 300 mg PO BEDTIME 07/09/23 09/30/23 levofloxacin 750 mg tablet 750 mg PO DAILY 08/06/23 09/30/23 nitrofurantoin 100 mg PO BID 08/06/23 09/30/23 monohydrate/macrocrystals 100 mg capsule (Macrobid) oxycodone 5 mg capsule 5 mg PO Q6H PRN 08/06/23 09/30/23 Previous Rx's Medication Instructions Recorded lisinopril 5 mg tablet 5 mg PO DAILY #90 tabs 04/03/23 omeprazole 20 mg capsule,delayed 20 mg PO DAILY 90 days #90 caps 04/15/23 release tramadol 50 mg tablet 50 mg PO Q12H PRN pain #60 tabs 06/26/23 enoxaparin 40 mg/0.4 mL 40 mg (0.4 mL) subcut Q24H #4 mL 07/14/23 subcutaneous syringe Allergies Allergy/AdvReac Type Severity Reaction Status Date / Time No Known Allergies Allergy Verified 10/11/23 09:05 Review of Systems 2 Review of Systems: Yes all other systems are reviewed and are negative Constitutional: Constitutional: Reports no additional constitutional complaints, Denies body ache(s), Denies chills, Denies fever(s), Denies headache(s) and Denies weakness Eyes: Eyes: Reports no additional eye complaints and Denies change in vision ENT: Reports system reviewed and no additional complaints, except as documented, Denies dizziness, Denies headache(s), Denies nasal congestion, Denies nasal discharge and Reports neck pain Cardiovascular: Cardiovascular: Reports no additional cardiovascular complaints, Denies chest pain, Denies leg edema and Denies dyspnea Respiratory: Respiratory: Reports no additional respiratory complaints, Denies cough and Denies dyspnea Gastrointestinal: Gastrointestinal: Reports no additional gastrointestinal complaints, Denies abdominal pain, Denies diarrhea, Denies nausea and Denies vomiting Genitourinary: Genitourinary: Denies urinary incontinence Musculoskeletal: Musculoskeletal: Reports no additional musculoskeletal complaints, Denies back pain, Denies arthralgias, Denies joint swelling, Reports neck pain, Denies numbness and Denies tingling Integumentary/Breasts: Skin/Breast: Reports system reviewed and no additional complaints, except as docu and Denies rash Neurologic: Reports system reviewed and no additional complaints, except as documented, Denies Abnormal speech present, Denies dizziness, Denies headache(s), Denies numbness, Denies tingling and Denies weakness PMFSH Past Medical History Attestation statement: The following information was validated with the patient. Source: old records reviewed and nursing notes reviewed Medical History Closed fracture of left hip Impingement syndrome, shoulder Arthritis of glenohumeral joint Dementia Parkinsons disease Tendinopathy of right shoulder Hypertension GERD (gastroesophageal reflux disease) Enlarged prostate Surgical History H/O cervical discectomy H/O bilateral cataract extraction History of total knee arthroplasty H/O blepharoplasty S/P right knee arthroscopy H/O esophagogastroduodenoscopy H/O colonoscopy Family History Family History Father No problems noted. Mother Oral cancer Social History Social History Household Members: Spouse Housing: House Do you presently have visiting nurse or other home services: No Alcohol intake: current Alcohol intake frequency: does not drink Patient Tobacco Use Status: Never used Tobacco Smoked in Last 30 Days: No e-Cigarette/Vaping Use: Never Used Second Hand Smoke Exposure: No Use of substances other than those prescribed or required for medical reasons: No Advance Directives: No Advance Directives Information Provided: No service: No Current occupational status: employed and retired Current occupation: [employer] Current occupational exposures/hazards: No Cognitive needs: No Hearing needs: No Vision needs: No Physical Exam 2 Vital Signs: Vital Signs: Last Vital Signs Temp 98 F 10/11/23 09:06 Pulse 74 10/11/23 09:06 Resp 18 10/11/23 09:06 BP 158/81 H 10/11/23 09:06 Pulse Ox 98 10/11/23 09:06 O2 Del Method Room Air 10/11/23 09:06 BMI result Body Mass Index 20.3 Const: General: cooperative, healthy appearing, comfortable and no acute distress Orientation/consciousness: patient oriented x3 Limitations: no limitations HEENT: Head: Yes normal to inspection Ears: hearing grossly normal bilaterally General nose exam: Normal external nose present Face and sinus: Yes normal facial exam Mouth: Normal oral and palatal mucosa present Throat: Yes posterior oropharynx normal Eyes: General: appearance normal, both eyes and all related structures P upils: Equal, round and reactive pupils present Neck: Other: Limited rotation of neck d/t pain/stiffness +TTP to bilateral soft tissue and midlin e cervical spine with no step offs or deformities Neck: Yes normal visual inspection Chest: Chest palpation & inspection: normal inspection of the chest Resp: Effort & Inspection: normal respiratory effort Auscultation: clear to auscultation bilaterally Cardio: Rate: regular rate Rhythm: regular rhythm Peripheral pulses: P eripheral pulses 2+ throughout GI: Inspection: Yes normal to inspection Palpation (GI): Soft to palpation and nontender Auscultation: normal bowel sounds Back/Spine/Pelvis: Thoracic/Lumbar Spine: thoracic and lumbar spine normal to inspection Skin: General skin exam: no rashes or lesions noted Neuro: General: patient oriented x3, moves all extremities, no focal motor deficits and normal sensation to monofilament Cranial nerves: Yes CN's II-XII intact bilaterally, Yes Equal, round and reactive pupils present, Yes Bilaterally intact EOM present, Yes Nystagmus not present, Yes Normal facial strength present and Yes Midline tongue present Cognition (Neuro): normal cognition Speech: No Abnormal speech present Gait exam (Neuro): Normal gait present Motor exam (neuro): 5/5 motor strength present throughout S ensory Exam: Normal double simultaneous stimulation for sensation Extrem: General: Yes normal to inspection Course Course Course Narrative: 1245-Placed in physician obs pending psych evaluation and disposition plan. Medications Administered Discontinued Medications Generic Name Dose Route Start Last Admin Trade Name Freq PRN Reason Stop Dose Admin Ketorolac Tromethamine 15 mg 10/11/23 09:55 10/11/23 10:32 Ketorolac Tromethamine 15 Mg/Ml Vial IM 10/11/23 09:56 15 mg ONCE ONE Administration Medical Decision Making Medical Decision Making [facility] Narrative: This is a 78 yo male with history of parkinsons disease, ?mild memory impairment (per chart review) who presents to the ER with complaints of neck pain/stiffness worsening since yesterday. When asked how long this has been going on for the patient states 9 . After further discussion patient believes it started 09/17 with no injury or trauma. He may have had a surgery on his neck but cannot recall what surgery, when it was, or who performed it. He believes he may have had cortisone injections in his neck. He does see orthopedics but cannot recall why he has seen them or when he last saw them but he has an appt ?tomorrow. On review of the chart he has an appt 10/14 for x-rays. Patient states he drives and lives alone. He tells me has a girlfriend he eats chips with but they do not live together and he cannot recall her name. He cannot recall any of his regular medications or if he is taking anything over the counter for his neck pain. He denies any headache, fevers, chills, UE weakness/numbness/tingling. While patient answers orientation questions appropriately he is quite confused and I am concerned that he is living alone and driving at this point. I am unsure if he has capacity to make his own medical decisions. I will attempt to contact his listed emergency contact to get more information but there was no answer so I left a voicemail with a call back number Will obtain labs, UA, CT head/brain. Provide analgesia Will likely need CM, may need psych for capacity determination and collateral information from family Differential Diagnosis Differential Diagnoses: The differential diagnosis associated with the presentation includes torticollis, cervical sprain/strain Low concern for cord compression, fx, malignancy dementia Admission/Observation Consideration of admission/observation: Escalation of care including admission/observation considered Patient lives alone, quite confused, has been driving, I do not feel he has capacity-plan for psychiatry evaluation to determine capacity. Consult Healthcare Provider Management of the patient was discussed with: Relief Manager Spoke to CM 10/11, 1029-pending medical eval, she will also attempt to speak to family Lab Data MDM Lab Attestation statement: I reviewed the patient's lab results. 10/11/23 10:33 10/11/23 10:33 Labs: Lab Results 10/11/23 Range/Units 10:33 WBC 8.2 (4.8-10.8) X10*3/uL RBC 4.84 (4.60-5.80) X10*6/uL Hgb 15.2 (14.0-18.0) g/dl Hct 43.9 (42.0-52.0) % MCV 90.7 (80.0-98.0) fL MCH 31.4 (27.0-33.0) pg MCHC 34.6 (31.0-36.0) g/dl RDW 13.2 (11.0-16.0) % Plt Count 179 (160-400) X10*3/uL MPV 8.9 L (9.4-12.4) fL Immature Gran % (Auto) 0.5 H (0.0-0.4) % Neut % (Auto) 77.0 H (45-73) % Lymph % (Auto) 12.9 L (20-40) % [place] % (Auto) 8.3 (2-11) % Eos % (Auto) 0.7 (0-4) % Baso % (Auto) 0.6 (0-2) % Lymph # (Auto) 1.1 L (1.2-4.9) X10*3/uL [place] # (Auto) 0.7 (0.1-1.2) X10*3/uL Eos # (Auto) 0.1 (0.0-0.4) X10*3/uL Baso # (Auto) 0.1 (0.0-0.2) X10*3/uL Abs Immat Gran (auto) 0.04 H (0.00-0.03) X10*3/uL Absolute Neuts (auto) 6.3 (2.0-8.3) x10*3/uL Absolute Nucleated RBC 0.000 (0.0-0.012) X10*3/uL Nucleated RBC % (auto) 0.0 (0.0-0.2) /100WBC Sodium 141 (135-145) mmol/L Potassium 4.0 (3.3-5.1) mmol/L Chloride 106 (96-108) mmol/L Carbon Dioxide 26 (22-29) mmol/L Anion Gap 13 (12-20) BUN 10 (9-16) mg/dL Creatinine 0.71 (0.5-1.4) mg/dL Estim Creat Clear Calc 82.5 Estimated GFR > 60 Random Glucose 100 (60-115) mg/dL Calcium 9.4 (8.4-10.2) mg/dL Total Bilirubin 0.7 (0.0-1.0) mg/dL Direct Bilirubin 0.3 (0.0-0.5) mg/dL AST 14 (5-37) U/L ALT < 5 (0-40) U/L Alkaline Phosphatase 86 (39-117) U/L Total Protein 6.6 (6.5-8.0) g/dL Albumin 3.9 (3.5-5.0) g/dL Independent Interpretation I performed an independent interpretation of an: CT Scan Interpretation: I independently reviewed the CT scan of the head and cervical spine and agree with Radiology report. Low concern of cord compression so I do not feel that patient needs an emergent MRI Radiology Impression Discussion of test interpretation with radiology: I have reviewed the radiologist's reading. Radiologist Impression: [id number] [place] [address] CT Scan Report Signed Patient: Sreedhar Combs MR#: [id number] : 1945 Acct:[id number] Age/Sex: 78 / M ADM Date: 10/11/23 Loc: HO.ED Attending Dr: Ordering Physician: Abimbola Ruiz NP Date of Service: 10/11/23 Procedure(s): CT head/brain wo IV con Accession Number(s): [id number] cc: Declan Piedra [employer]-; Abimbola Ruiz NP~ Indication: Pain no injury EXAMINATION: CT brain, CT cervical spine. Axial imaging with coronal and sagittal reformatted images. Comparison is made to previous dated 07/25/2020. This CT examination was performed using dose optimization techniques as appropriate, variously including the following: *Automated exposure control *Adjustment of mA and/or kV according to patient size (this includes techniques or standardized protocols for targeted exams where dose is matched to indication/reason for exam; i.e. extremities or head) *Use of iterative reconstruction technique. Radiation dose 435 and 644. Findings; CT brain; There is no midline shift. There is no mass effect. There is no hemorrhage. The basal cisterns appear patent. The posterior fossa is grossly within normal limits. No extra-axial collection. Note is made of White matter ischemic changes and atrophy. Mild sinus disease is noted. Cervical spine; Plate and screws anterior bridging C4-C5-C6. No evidence for hardware failure. There is no acute fracture or dislocation. Degenerative changes are noted. CT/CT head/brain wo IV con IMPRESSION: Negative acute noncontrast CT of the brain. White matter ischemic change and atrophy are noted. No intrathecal contrast is given for the cervical exam. Therefore cannot adequately evaluate disc material or nerve roots or cord or canal No acute bony finding in the cervical spine. Hardware in place and there is degenerative change. If further evaluation is warranted given the history of no injury recommendation is MRI Independent Historian Clinical information obtained from an independent historian. History obtained from or confirmed by: Other I spoke to the patient's healthcare proxy (Meka Bunn)-She reports he does live alone, she is a ex spouse but is the patients HCP. I explained that I do not feel the patient at this time has capacity to make his own medical decisions. I did explain that concerned in regards to his confusion. She shares is concerned does not feel the patient should return to his home. Therefore we will order a psych eval to determine capacity. External Record Review External record reviewed: Outpatient record Prescription Management I considered prescription management with: Pain Medication Social Determinants Patient?s care significantly limited by Social Determinants of Health including: Other Social Determinant of Health Discharge Plan Discharge Clinical Impression: Torticollis, Dementia Patient Disposition: Still a Patient Prescriptions: No Action lisinopril 5 mg tablet 5 mg PO DAILY Qty: 90 0RF Rx Instructions: schedule next PCP appt for future refills omeprazole 20 mg capsule,delayed release(DR/EC) 20 mg PO DAILY 90 Days Qty: 90 0RF Rx Instructions: schedule PCP appt for future refills tramadol 50 mg tablet 50 mg PO Q12H PRN (Reason: pain) Qty: 60 0RF gabapentin 300 mg capsule 300 mg PO BEDTIME enoxaparin 40 mg/0.4 mL Syringe 40 mg subcut Q24H Qty: 4 0RF carbidopa-levodopa 25-100 mg tablet 1 tab PO TID tamsulosin 0.4 mg capsule 0.4 mg PO BID donepezil 5 mg tablet 5 mg PO DAILY oxybutynin chloride 5 mg tablet extended release 24hr 5 mg PO DAILY levofloxacin 750 mg tablet 750 mg PO DAILY nitrofurantoin monohyd/m-cryst [Macrobid] 100 mg capsule 100 mg PO BID Rx Instructions: must administer with a meal/food oxycodone 5 mg capsule 5 mg PO Q6H PRN
[2023-10-11] MEDS: Ketorolac Tromethamine 15 MG/ML VIAL IM (10:32)
[2023-10-11 10:36] LABS: MANUAL DIFF FLAG NO
--- NOTE | 2023-10-11 10:38 | PC.NURSE ---
patient presents to ED with neck pain, patient is poor historian unable to tell us when his injury happened, all he states is 9 . patient states he lives alone, and drove to the ER today.
[2023-10-11 10:40] LABS: Basophils Absolute Auto 0.1 X10*3/uL (0.0-0.2); Basophils Percent Auto 0.6 % (0-2); Eosinophils Absolute Auto 0.1 X10*3/uL (0.0-0.4); Eosinophils Percent Auto 0.7 % (0-4); Hematocrit 43.9 % (42.0-52.0); Hemoglobin 15.2 g/dl (14.0-18.0); Imm Gran Abs Auto 0.04 X10*3/uL (0.00-0.03); Imm Gran Pct Auto 0.5 % (0.0-0.4); Lymphocytes Absolute Auto 1.1 X10*3/uL (1.2-4.9); Lymphocytes Percent Auto 12.9 % (20-40); Mean Corpuscular HGB Conc 34.6 g/dl (31.0-36.0); Mean Corpuscular Hemoglobin 31.4 pg (27.0-33.0); Mean Corpuscular Volume 90.7 fL (80.0-98.0); Mean Platelet Volume 8.9 fL (9.4-12.4); Monocytes Absolute Auto 0.7 X10*3/uL (0.1-1.2); Monocytes Percent Auto 8.3 % (2-11); Neutrophils Absolute Auto 6.3 x10*3/uL (2.0-8.3); Platelet Count 179 X10*3/uL (160-400); Red Blood Count 4.84 X10*6/uL (4.60-5.80); Red Cell Distribution Width 13.2 % (11.0-16.0); White Blood Count 8.2 X10*3/uL (4.8-10.8)
[2023-10-11 11:12] LABS: Alanine Aminotransferase < 5 U/L (0-40); Albumin Level 3.9 g/dL (3.5-5.0); Alkaline Phosphatase 86 U/L (39-117); Anion Gap 13 (12-20); Aspartate Amino Transferase 14 U/L (5-37); Bilirubin Direct 0.3 mg/dL (0.0-0.5); Bilirubin Total 0.7 mg/dL (0.0-1.0); Blood Urea Nitrogen 10 mg/dL (9-16); Calcium 9.4 mg/dL (8.4-10.2); Carbon Dioxide 26 mmol/L (22-29); Chloride 106 mmol/L (96-108); Creatinine Clr Calc Pharmacy 82.5; Estimated Glomerular Filt Rate > 60; Glucose Random 100 mg/dL (60-115); Sodium 141 mmol/L (135-145); Total Protein 6.6 g/dL (6.5-8.0)
--- NOTE | 2023-10-11 11:57 | MHC.CM.PN ---
CM CONSULT RECEIVED FROM ED PROVIDER. PT LIVES ALONE. PT IS QUITE CONFUSED WITH DIRECT QUESTION. TOLD STAFF HE DROVE HERE. HCP TOYA LUA WAS ABLE TO ASSIST WITH ASSESSMENT ([phone]) PT WAS HOSPITALIZED FOR A HIP REPAIR END OF AND SPENT TIME AT REHAB AT [facility]. HE HAS [facility] SERVICES AT HOME BUT HCP IS UNSURE IF HE HAS A VNA. PT IS CONFUSED AT TIMES AT BASELINE BUT PER HCP, NOT LIKE THIS. PROVIDER WILL CONSULT PSYCH FOR CAPACITY. +HCP ON FILE. PCP SATISH SPAULDING. CM WILL CONTINUE TO FOLLOW FOR ANY CHANGE IN PLAN OF CARE/NEEDS.
--- NOTE | 2023-10-11 15:11 | PC.NURSE ---
patient notified that he was spending the night in the ER for case management related to confusion. patient became upset stating he wanted to go home., patient educated on how driving while confused is dangerous and he has to stay the night. patient unable to remember what kind of car he drives or if he has his keys on him. patient in wheelchair being transported to overflow unit by school transportation supervisor.
--- NOTE | 2023-10-11 19:38 | PC.NURSE ---
This nurse assumed care of pt. around 15:30. Pt is lying in hospital bed, alert and disoriented. Denies pain on arrival. This nurse completed belongings list with aid Sena at bedside, requested security to collect items for safe holding (has money and wallet and car keys at bedside)- as of this time security has not collected belongings. Resting comfortably at current. Denies any other needs at this time, will continue to monitor for changes. Call davis within reach.
[2023-10-11 20:00] VITALS: BP 134/67; PULSE 108; RESP 20; TEMP 36.3; O2SAT 96
--- NOTE | 2023-10-11 21:48 | PC.NURSE ---
Assumed care of the pt at 1900. Pt is able to ambulate independently to the bathroom. Pt reporting some pain in his neck. Pt is A&Ox4, GCS 15 with warm, dry skin. Pt waiting for followup xrays.
--- NOTE | 2023-10-11 23:20 | MHC.EDTECH ---
This tech assumed care for this patient @2300. He appeared to be asleep, without distress. Rest Resp 16.
[2023-10-12 06:00] VITALS: BP 154/89; PULSE 78; RESP 17; TEMP 36.6; O2SAT 94
--- NOTE | 2023-10-12 09:41 | PHA.MEDREC ---
Pharmacy Consult ? Medication Reconciliation Pharmacy has completed the medication reconciliation.MED REC DONE FROM CLAIM HISTORY DUE TO PT MENTAL STATUS. CLAIMS ARE OLDER AND FOR SMALL AMOUNTS OF MEDICATIONS BUT PT COMPLIANCE IS QUESTIONABLE.
--- NOTE | 2023-10-12 13:47 | P.CNPS_ITS ---
History of Present Illness Date of Service: 10/12/23 Chief Complaint: Neck pain Requesting physician: Gricel Velez Discussed with referring provider: Yes Sources of Information: patient interviewed, chart reviewed and crisis/core team assessment reviewed Additional Sources of Information: Discussed with case management Darcy POE Narrative: Patient is a 78-year-old male with history of Parkinson's disease, cognitive impairment, recent hip replacement who presents to the emergency room for stiff neck. Head/neck CT unremarkable and patient medically cleared. Psychiatry consulted since patient has appeared confused and question is does he have capacity to decide to return home on his own. Patient has a healthcare proxy Munira Bunn who reports that patient is confused at baseline but seemed a little worse here in the hospital. Reportedly patient had a VNA it was coming to his house however this was discontinued for some reason about a month ago. He says that his healthcare proxy, and helps him shop for food. During this ED admission patient has been calm, friendly, cooperative and in good behavioral and impulse control. His behavior is organized and he appropriately and independently attends to ADLs. He is appropriately dressed and groomed, including a well manicured mustache. Patient says he would like to return home. He is oriented to himself, date, knows where he lives, month and date (but not the year or president). If you ask him where he is, he is able to say, describing the type of building by construction materials, but he knows he came here for stiff neck... Which he says is getting better. He says he takes his medications at home; he denies any drug or alcohol use. Patient said he is aware that he is forgetful and says he played a lot a hockey and took a number of pucks to the head. Although behaviors are organized, his thought process is tangential and will start talking about irrelevant topics. Past Psychiatric History: unknown Medical Evaluation Reviewed: Yes [facility] Medical History (Updated 10/12/23 @ 14:42 by Levi Dennison MD) Closed fracture of left hip Impingement syndrome, shoulder Arthritis of glenohumeral joint Dementia Parkinsons disease Tendinopathy of right shoulder Hypertension GERD (gastroesophageal reflux disease) Enlarged prostate Surgical History H/O cervical discectomy H/O bilateral cataract extraction History of total knee arthroplasty H/O blepharoplasty S/P right knee arthroscopy H/O esophagogastroduodenoscopy H/O colonoscopy Diagnostics Vital Signs (24Hr): Vital Signs - 24 hr 10/11/23 20:00 10/12/23 06:00 Temperature 97.3 F 97.8 F Pulse Rate 108 H 78 Respiratory Rate 20 17 Blood Pressure 134/67 154/89 H Pulse Oximetry 96 94 Oxygen Delivery Method Room Air Room Air BMI result Body Mass Index 20.3 Labs 10/11/23 10:33 10/11/23 10:33 Labs: Laboratory Results - last 48 hr 10/11/23 10:33 WBC 8.2 RBC 4.84 Hgb 15.2 Hct 43.9 MCV 90.7 MCH 31.4 MCHC 34.6 RDW 13.2 Plt Count 179 MPV 8.9 L Immature Gran % (Auto) 0.5 H Neut % (Auto) 77.0 H Lymph % (Auto) 12.9 L Hardin % (Auto) 8.3 Eos % (Auto) 0.7 Baso % (Auto) 0.6 Lymph # (Auto) 1.1 L Hardin # (Auto) 0.7 Eos # (Auto) 0.1 Baso # (Auto) 0.1 Abs Immat Gran (auto) 0.04 H Absolute Neuts (auto) 6.3 Absolute Nucleated RBC 0.000 Nucleated RBC % (auto) 0.0 Sodium 141 Potassium 4.0 Chloride 106 Carbon Dioxide 26 Anion Gap 13 BUN 10 Creatinine 0.71 Estim Creat Clear Calc 82.5 Estimated GFR > 60 Random Glucose 100 Calcium 9.4 Total Bilirubin 0.7 Direct Bilirubin 0.3 AST 14 ALT < 5 Alkaline Phosphatase 86 Total Protein 6.6 Albumin 3.9 Imaging Radiology Impressions: ITS Impressions Cervical Spine CT 10/11/23 10:10 IMPRESSION: Negative acute noncontrast CT of the brain. White matter ischemic change and atrophy are noted. No intrathecal contrast is given for the cervical exam. Therefore cannot adequately evaluate disc material or nerve roots or cord or canal No acute bony finding in the cervical spine. Hardware in place and there is degenerative change. If further evaluation is warranted given the history of no injury recommendation is MRI Head CT 10/11/23 10:10 IMPRESSION: Negative acute noncontrast CT of the brain. White matter ischemic change and atrophy are noted. No intrathecal contrast is given for the cervical exam. Therefore cannot adequately evaluate disc material or nerve roots or cord or canal No acute bony finding in the cervical spine. Hardware in place and there is degenerative change. If further evaluation is warranted given the history of no injury recommendation is MRI Mental Status Exam Mental Status Exam Narrative: Pt is alert to self; partially to situation; behavior is cooperative, friendly, calm and appropriate; patient is not in distress; dressed in casual attire, adequately groomed with well manicured mustache; mood is described as good and affect congruent; eye contact appropriate; bilateral hand tremor, however no shuffling gait observed. Speech is normal rate, volume and prosody and not pressured; no psychomotor agitation/retardation present; thought process can be goal directed but is disorganized/tangential; Thought content is on discharge home; otherwise on irrelevant past events; no paranoid or delusional ideations expressed. Patients insight and judgment impaired but per HCP close to baseline. Medications Allergies Allergies Allergy/AdvReac Type Severity Reaction Status Date / Time No Known Allergies Allergy Verified 10/11/23 09:05 Assessment & Plan Assessment & Plan (1) Parkinsons disease: Status: Acute Code(s): G20 - Parkinson's disease (2) Dementia: Status: Acute Code(s): F03.90 - Unspecified dementia, unspecified severity, without behavioral disturbance, psychotic disturbance, mood disturbance, and anxiety Assessment and Plan: r/o delirium Plan HPI: Patient is a 78-year-old male with history of Parkinson's disease, cognitive impairment, recent hip replacement who presents to the emergency room for stiff neck. Head/neck CT unremarkable and patient medically cleared. Psychiatry consulted since patient has appeared confused and question is does he have capacity to decide to return home on his own. Patient has a healthcare proxy Munira Bunn who reports that patient is confused at baseline but seemed a little worse here in the hospital. Reportedly patient had a VNA it was coming to his house however this was discontinued for some reason about a month ago. He says that his healthcare proxy, and helps him shop for food. During this ED admission patient has been calm, friendly, cooperative and in good behavioral and impulse control. His behavior is organized and he appropriately and independently attends to ADLs. He is appropriately dressed and groomed, including a well manicured mustache. Patient says he would like to return home. He is oriented to himself, date, knows where he lives, month and date (but not the year or president). If you ask him where he is, he is able to say, describing the type of building by construction materials, but he knows he came here for stiff neck. He says he takes his medications at home; he denies any drug or alcohol use. Patient said he is aware that he is forgetful and says he played a lot a hockey and took a number of pucks to the head. Although behaviors are organized, his thought process is tangential and will start talking about irrelevant topics. Impression: At this time telegraphic typewriter operator cannot say patient lacks capacity to make that decision to return home where he lives on his own. So far, from what has been communicated to telegraphic typewriter operator's via the chart and case management, patient has baseline cognitive impairment but yet has been able to live alone on his own without problem. During his time in the emergency room, patient has been calm, friendly, cooperative and in good behavioral and impulse control; is appropriately dressed and groomed even with a well manicured mustache; his behavior is organized and he appropriately and independently attends to ADLs. He is oriented to himself, date, knows where he lives. Patient clearly expresses a desire to discharge and go back to live at home. Although patient clearly has cognitive impairment, this is a part of his baseline and to telegraphic typewriter operator's knowledge it has not been a barrier to living independently. Recommend some additional workup to further rule out delirium and for case management to follow up with healthcare proxy; however pending negative results and confirmed report that patient has been able to live safely on his own, it is telegraphic typewriter operator's impression that patient retains capacity to make his own decision about returning home. PLAN: For now Assembler Fitter recommends some additional workup to rule out any delirium; that said, patient does not seem to be demonstrate any waxing/waning of attention/arousal Recommend for case management to further discuss this with patient's healthcare proxy to better understand patient's ability to live at home; also to reestablish VNA. Regarding stiff neck: -head/neck CT unremarkable -it is possible patient may have some medication side-effect as donepezil can cause muscle spasm Cognitive impairment: -at baseline he has Parkinson's disease and cognitive impairment at baseline -labs collected, including electrolytes WNL -telegraphic typewriter operator recommends to further rule out any possible delirium since healthcare proxy says patient does seem a little more confused than usual -would add ammonia level and try again to obtain UA -otherwise case management will work on reestablishing VNA to which telegraphic typewriter operator agrees it is important part of patient being able to live independently -discussed case with case management who will follow-up with healthcare proxy to better understand patient's baseline functioning at home. Total time managing care of this patient today ____ minutes. Patient educated on: diagnosis and medical condition Informed Consent: understands, does not understand and further education needed
[2023-10-12 14:00] VITALS: BP 148/89; PULSE 81; RESP 24; TEMP 36.9; O2SAT 98
--- NOTE | 2023-10-12 14:19 | MHC.CM.ED ---
Addendum entered by Darcy Ang 10/12/23 16:25: Received return telephone call from Meka. He is a friend and HCP to patient. Patient lives alone and still drives. Patient told Meka he would no longer be driving. Per Dr Ware, if medically cleared, VNA is arranged and HCP feels patient can return home, then patient has the capacity to return home. UA and ammonia level are currently pending. [facility] has been arranged for med assistance. Patient, Stephany Ackerman RN and Gricel SPAULDING aware patient will not d/c tonight. Original Note: Patient remains in ER overflow. Psych consult is pending. T/W attempted to speak with patient's HCP, Meka, via telephone at [phone]. Left message requesting return telephone call. Continue to monitor for d/c needs.
[2023-10-12 16:16] VITALS: BP 161/84; PULSE 84; RESP 16
[2023-10-12 16:34] LABS: Ammonia 28 umol/L (13-55)
[2023-10-12 18:18] VITALS: BP 127/81; PULSE 85; RESP 20; TEMP 36.2; O2SAT 95
[2023-10-12] MEDS: Gabapentin 300 MG CAPSULE PO (20:43)
[2023-10-12] MEDS: Tamsulosin HCL 0.4 MG CAPSULE PO (20:43)
[2023-10-12] MEDS: Carbidopa/Levodopa 25/100 TABLET 1 TAB PO (20:43)
[2023-10-12] MEDS: Lidocaine 4 % Patch ADH..PATCH 2 PATCH TRANSDERMA (21:07)
[2023-10-13 00:56] LABS: Appearance Urine Clear; Color Urine Yellow; Glucose Urine UA Negative (Negative); Leukocyte Esterase Urine Negative (Negative); Nitrite Urine Negative (Negative); Urine Blood Negative (Negative); Urine Ketones Negative (Negative); Urine Protein Negative (Neg-Trace)
[2023-10-13 00:57] LABS: Bacteria Urine None Seen (None Seen); Hyaline Casts Urine 0-2 /LPF (0-2); RBC Urine 0-2 /HPF (0-2); Squamous Epithelial Cell Urine 0-2 /HPF (0-2); WBC Urine 0-5 /HPF (0-5)
[2023-10-13 01:41] VITALS: BP 131/72; PULSE 62; RESP 16; TEMP 36.6; O2SAT 97
[2023-10-13 01:49] LABS: COVID-19 Test Negative (Negative); IDNOW Serial# 08D9AD1C
--- NOTE | 2023-10-13 05:47 | PC.NURSE ---
Assumed care of PT at 2300. PT sleeping quietly throughout shift with even, unlabored respirations noted. PT assisted to use urinal at 0545. Bed alarm on, bed locked in lowest position, call davis within reach. Plan of care ongoing
[2023-10-13 07:57] VITALS: BP 113/66; PULSE 82; RESP 18; TEMP 36.7; O2SAT 96
[2023-10-13] MEDS: oxyBUTYnin chloride ER 5 MG TAB.ER.24 PO (08:59)
[2023-10-13] MEDS: Tamsulosin HCL 0.4 MG CAPSULE PO (08:59)
[2023-10-13] MEDS: Carbidopa/Levodopa 25/100 TABLET 1 TAB PO (08:59)
[2023-10-13] MEDS: Donepezil HCl 5 MG TABLET PO (08:59)
--- NOTE | 2023-10-13 09:05 | PC.NURSE ---
patient awake/alert to baseline, vss, pt c/o neck discomfort, pt medicated per order, pt ate breakfast, pharmacy called for missing med, call davis within reach, will continue to monitor
[2023-10-13] MEDS: lisinopriL 5 MG TABLET PO (10:05)
--- NOTE | 2023-10-13 10:44 | MHC.CM.ED ---
Patient remains in ER overflow. UA & ammonia are negative. [facility] has been arranged for patient. Meka, patient's friend/HCP will be on site at 11am to transport patient home. Patient, Jami HAMLIN and Gricel SPAULDING aware. [facility] has been arranged for medication administration assistance. Continue to monitor for d/c needs.
--- NOTE | 2023-10-13 10:45 | PC.NURSE ---
patient alert & oriented x2, pt oob sitting in chair, ambulated with stby assist to bathroom, pt currently refusing to wear soft neck brace, call davis within reach, will continue to monitor
== END 2023-10-13 11:20 | disposition home or self-care (01) ==
PROVIDERS: Nurse Practitioner Family; Physician Assistant; Psychiatry & Neurology Psychiatry; Emergency Provider Emergency Medicine; PCP Nurse Practitioner Family
DX: M43.6 Torticollis (principal); F03.90 Unspecified dementia, unspecified severity, without behavioral disturbance, psychotic disturbance, mood disturbance, and anxiety; M54.2 Cervicalgia; I10 Essential (primary) hypertension; G20.A1 Parkinson's disease without dyskinesia, without mention of fluctuations; Z11.52 Encounter for screening for COVID-19; Z79.899 Other long term (current) drug therapy
CPT/HCPCS: 36415; 70450; 72125; 80048; 80076; 81001; 82140; 85025; 87635; 96372; 99285; J1885

== ENCOUNTER → 2023-10-11 09:13 | Outpatient (BNV) | payer MEDICARE, SELFPAY | PROVIDERS: Emergency Provider Emergency Medicine; PCP Nurse Practitioner Family; Visit Provider Psychiatry & Neurology Psychiatry | DX: F03.90 Unspecified dementia, unspecified severity, without behavioral disturbance, psychotic disturbance, mood disturbance, and anxiety (principal); G20.A1 Parkinson's disease without dyskinesia, without mention of fluctuations | CPT/HCPCS: 99283 ==

== ENCOUNTER 2023-10-29 09:21 | Outpatient (REF) | payer MEDICARE, SELFPAY | END 2023-10-29 09:22 | disposition home or self-care (01) | LOC: HO.HOSX 09:21 | PROVIDERS: PCP Nurse Practitioner Family; Visit Provider Orthopaedic Surgery | DX: S72.002D Fracture of unspecified part of neck of left femur, subsequent encounter for closed fracture with routine healing (principal); M70.62 Trochanteric bursitis, left hip; M25.561 Pain in right knee; X58.XXXD Exposure to other specified factors, subsequent encounter; Z98.890 Other specified postprocedural states; Z96.651 Presence of right artificial knee joint | CPT/HCPCS: 20610; 73502; 73562; 99212; J7318 ==

== ENCOUNTER → 2023-10-29 09:21 | Outpatient (AMB) | payer MEDICARE, SELFPAY ==
--- NOTE | 2023-10-29 09:24 | A.OFFVIS_ITS ---
Intake Intake Visit Reasons: Right knee pain Intake Note: Mr. Combs presents with complaints of intermittent discomfort in his right knee. The patient stated at his last visit that he had had cortisone injections given into his right knee. He was interested in getting a viscosupplementation injection. Upon further questioning the patient is states that he underwent right total knee replacement surgery by an orthopedic surgeon in [place] approximately 20 years ago. He does not remember that surgeon's name. He denies any fevers or chills. The patient did undergo a left knee cortisone injection approximately 1 month ago. He reports minimal discomfort in his left knee today. Allergies No Known Allergies Allergy (Verified 10/29/23 09:24) [facility] Medical History Closed fracture of left hip Impingement syndrome, shoulder Arthritis of glenohumeral joint Dementia Parkinsons disease Tendinopathy of right shoulder Hypertension GERD (gastroesophageal reflux disease) Enlarged prostate Surgical History H/O cervical discectomy H/O bilateral cataract extraction History of total knee arthroplasty H/O blepharoplasty S/P right knee arthroscopy H/O esophagogastroduodenoscopy H/O colonoscopy Family History Father No problems noted. Mother Oral cancer Social History Household Members: Spouse Housing: House Do you presently have visiting nurse or other home services: No Alcohol intake: current Alcohol intake frequency: does not drink Patient Tobacco Use Status: Never used Tobacco e-Cigarette/Vaping Use: Never Used Second Hand Smoke Exposure: No service: No Current occupational status: employed and retired Current occupation: [employer] Current occupational exposures/hazards: No Cognitive needs: No Hearing needs: No Vision needs: No Physical Exam Extrem Other: Right knee examination shows a midline incision which is well healed, no erythema, range of motion from -3 degrees to 120 degrees, his patella tracks well Results Reviewed Results Reviewed: X-rays of the patient's right knee taken today show a total knee arthroplasty in good position with no signs of loosening, no acute bony abnormalities Assessment & Plan Assessment & Plan (1) Right knee pain: Code(s): M25.561 - Pain in right knee Plan: Mr. Combs is doing well after undergoing a left knee cortisone injection 1 month ago. The patient was requesting a Durolane viscosupplementation injection to be given into his right knee because of intermittent discomfort. He has gotten good relief from viscosupplementation injections given into his left knee in the past. I discussed with the patient the fact that because of the total knee arthroplasty on his right side that he is not a candidate for an injection of any sort. The patient understands this. He will continue with his home ex ercise program. He will follow up with me on an as-needed basis should his left knee discomfort worsen in any way. Feel free to call me at any time should questions regarding his orthopedic management arise. (2) Right knee pain: Code(s): M25.561 - Pain in right knee Plan I spent 20 minutes in reviewing the patient's records and imaging studies, seeing the patient and documenting in the medical record. Orders: Orders XR knee RT 3V Today M25.561 - Pain in right knee Coding Level of Care Code Est Pt Level 2 (90089) Diagnoses Right knee pain M25.561
== END ==
PROVIDERS: PCP Nurse Practitioner Family; Visit Provider Orthopaedic Surgery
DX: M25.561 Pain in right knee (principal)
CPT/HCPCS: 99213

== ENCOUNTER 2023-10-29 09:51 | Outpatient (AMB) | payer MEDICARE, SELFPAY ==
--- NOTE | 2023-10-29 09:53 | A.OFFVIS_ITS ---
Intake Intake Visit Reasons: PO - Left hip IMN 07/10/23 [place] Intake Note: Sreedhar mcnair 78 year old male presents today for a post operative left hip IMN, DOS 07/10/23 NE. Xrays updated. Allergies No Known Allergies Allergy (Verified 10/29/23 09:24) HPI PO - Left hip IMN 07/10/23 NE HPI Details 78-year-old male who returns to the [facility] today for post-op left hip IMN, 07/10/[address] Acosta. He states he has no pain and is doing well overall. He has no other concerns today. [facility] Medical History Closed fracture of left hip Impingement syndrome, shoulder Arthritis of glenohumeral joint Dementia Parkinsons disease Tendinopathy of right shoulder Hypertension GERD (gastroesophageal reflux disease) Enlarged prostate Surgical History H/O cervical discectomy H/O bilateral cataract extraction History of total knee arthroplasty H/O blepharoplasty S/P right knee arthroscopy H/O esophagogastroduodenoscopy H/O colonoscopy Family History Father No problems noted. Mother Oral cancer Social History Household Members: Spouse Housing: House Do you presently have visiting nurse or other home services: No Alcohol intake: current Alcohol intake frequency: does not drink Patient Tobacco Use Status: Never used Tobacco e-Cigarette/Vaping Use: Never Used Second Hand Smoke Exposure: No service: No Current occupational status: employed and retired Current occupation: [employer] Current occupational exposures/hazards: No Cognitive needs: No Hearing needs: No Vision needs: No Review of Systems Const All systems reviewed & are unremarkable except as noted in HPI and below Physical Exam Extrem Other: Left hip: Incision well healed. He has no pain with ROM of hip. No pain with hip flexion. NVI. Results Reviewed Results Reviewed: X-rays of the left hip obtained in the office today show intact intramedullary nail with stable fracture alignment. Assessment & Plan Assessment & Plan (1) Trochanteric bursitis, left hip: Code(s): M70.62 - Trochanteric bursitis, left hip Plan He is going to continue working with increasing activity as tolerated. If he develops any pain or has any concerns he will contact the office, otherwise follow-up as needed. Orders: Orders XR hip LT w [id number] Today M25.559 - Pain in unspecified hip Patient Instructions: Scribed for Karin Hood PA-C, by Hosea Leon director of medical education, on 10/29/2023 at 10:00 AM EST. I, Karin Hood PA-C, have personally reviewed and agree with the information entered by the scribe. Coding Level of Care Code Global (55398) Diagnoses Trochanteric bursitis, left hip M70.62
== END 2023-10-29 11:07 | disposition home or self-care (01) ==
LOC: HO.HOS 09:51
PROVIDERS: PCP Nurse Practitioner Family; Visit Provider Physician Assistant
DX: S72.002D Fracture of unspecified part of neck of left femur, subsequent encounter for closed fracture with routine healing (principal); M25.561 Pain in right knee
CPT/HCPCS: 20610

== ENCOUNTER 2024-01-18 13:12 | Outpatient (AMB) | payer MEDICARE, SELFPAY ==
--- NOTE | 2024-01-18 13:28 | MHC.PC.OV ---
Vital Signs 01/18/24 13:34 Height 6 ft Weight 150 lb BMI 20.3 BP 128/80 Blood Pressure Location Lt brachial Position Sitting Pulse 80 Pulse Source Pulse Oximeter Pulse Oximetry (%) 95 Intake Visit Reasons: follow up resched Intake Note: pt is here for follow up Allergies No Known Allergies Allergy (Verified 01/18/24 13:36) Tobacco use date assessed: 01/18/24 Fall risk assessment: No Falls in past year Last assessed Fall Risk: 01/18/24 Dental Screening Dental Screen Date: 01/18/24 Did you have a dental visit in the last 12 months?: Yes Did you have a dental problem in the last 6 months where you did not have access to dental care?: No Was dental information given to patient?: Patient has dentist HPI follow up resched HPI Details HTN: Blood pressure is stable, managed with lisinopril 5mg. Will order labs. Denies chest pain, shortness of breath, headache, dizziness, and blurred vision. Cyst: small to left lower glute/proximal LLE. Will send cephalexin and doxy. denies any fevers, chills, drainage, spreading erythema. Pt knows to go to the walk-in with any worsening symptoms. [facility] Medical History Closed fracture of left hip Impingement syndrome, shoulder Arthritis of glenohumeral joint Dementia Parkinsons disease Tendinopathy of right shoulder Hypertension GERD (gastroesophageal reflux disease) Enlarged prostate Surgical History H/O cervical discectomy H/O bilateral cataract extraction History of total knee arthroplasty H/O blepharoplasty S/P right knee arthroscopy H/O esophagogastroduodenoscopy H/O colonoscopy Family History Father No problems noted. Mother Oral cancer Social History Household Members: Spouse Housing: House Do you presently have visiting nurse or other home services: No Alcohol intake: current Alcohol intake frequency: does not drink Patient Tobacco Use Status: Never used Tobacco e-Cigarette/Vaping Use: Never Used Second Hand Smoke Exposure: No service: No Current occupational status: employed and retired Current occupation: [employer] Current occupational exposures/hazards: No Cognitive needs: No Hearing needs: No Vision needs: No Questionnaire PHQ-9 Over the last 2 weeks, how often have you been bothered by any of the following problems? 1. Little interest or pleasure in doing things: not at all 2. Feeling down, depressed, or hopeless: not at all 3. Trouble falling or staying asleep, or sleeping too much: not at all 4. Feeling tired or having little energy: not at all 5. Poor appetite or overeating: several days 6. Feeling bad about yourself - or that you are a failure or have let yourself or your family down: not at all 7. Trouble concentrating on things, such as reading the newspaper or watching television: not at all 8. Moving or speaking so slowly that other people could have noticed. Or the opposite - being so fidgety or restless that you have been moving around a lot more than usual: not at all 9. Thoughts that you would be better off or of hurting yourself in some way: not at all Total score: 1 Depression Screening Interpretation: Negative Depression Screening Done: Yes 76109 - PHQ-9 Billing: Yes Source: Developed by Drs. Sandoval Raines, Ashley Malone, Isidro Jacobson and colleagues, with an educational earl from [employer]. Thrive Questionnaire Date Thrive assessed: 01/18/24 I am a: Patient What is your living situation today?: I have a steady place to live Within the past 12 months, did the food you bought not last and you didn't have the money to get more?: Never true Within the past 12 months, did you worry whether your food would run out before you got money to buy more?: Never true Do you have trouble paying for medicines?: No Do you have trouble getting transportation to medical appointments?: No Do you have trouble paying your heating and electricity bill?: No Do you have trouble taking care of your child, family member or friend?: No Do you have trouble with day-to-day activities such as bathing, preparing meals, shopping, managing finances, etc.?: No Are you currently unemployed and looking for a job?: No Are you interested in more education?: No Please select the resources that you would like help with: None Currently or been in a relationship where the following occur: no concerns reported THRIVE Score: 0 AUDIT C Alcohol Use Questionnaire (AUDIT-C) 1. How often do you have a drink containing alcohol?: Never 3. How often do you have six or more drinks on one occasion?: Never Total Score: 0 Score Reviewed/Action Taken: Yes YANY-7 AMB Questionnaire YANY-7 Date YANY - 7 assessed: 01/18/24 Feeling nervous, anxious, or on edge: 0 = Not at all Not being able to stop or control worryin = Not at all Worrying too much about different things: 0 = Not at all Trouble relaxin = Not at all Being so restless that it is hard to sit still: 0 = Not at all Becoming easily annoyed or irritable: 0 = Not at all Feeling afraid as if something awful might happen: 0 = Not at all Total YANY-7 score (0-4 normal; 5-9 mild; 10-14 moderate; 15-21 severe): 0 Source: Developed by Drs. Sandoval Raines, Ashley Malone, Isidro Jacobson and colleagues, with an educational earl from [employer]. YANY-7 Assessment Billing YANY-7 Assessment Tool: YANY-7 Assessment 76071 Review of Systems Const Reports as per [facility] Physical exam (Primary Care) Vital Signs: Last Vital Signs Pulse 80 01/18/24 13:34 BP 128/80 01/18/24 13:34 Pulse Ox 95 01/18/24 13:34 BMI result Body Mass Index 20.3 Tobacco/Smoking Status: Tobacco use Status Tobacco use date assessed 01/18/24 01/18/24 13:39 Patient Tobacco Use Status Never used Tobacco 01/18/24 13:30 e-Cigarette/Vaping Use Never Used 01/18/24 13:30 PHQ-9: PHQ-9 Score PHQ-9: Total score 1 01/18/24 13:53 Depression Screening Interpretation: Negative Thrive Assessment: Date of Thrive Assessment Date Thrive assessed 01/18/24 01/18/24 13:41 Currently or been in a relationship where the following occur: no concerns reported Const General: cooperative Orientation/consciousness: patient oriented x3 Resp Effort & Inspection: normal respiratory effort Auscultation: clear to auscultation bilaterally Cardio Rate: regular rate Rhythm: regular rhythm Heart sounds: S1 normal heart sound present and S2 normal heart sound present Skin Other: left lower buttocks/proximal left leg with slight induration and erythema, not warm to touch, slightly tender to touch. Neuro Other: LUE tremor, doll eyes, difficulty finding words, but does eventually grasp and communicate what he is trying to say General: patient oriented x3 Psych Other: slow to speak, scattered thoughts Appearance: grossly normal Affect: normal affect Attitude: cooperative Assessment and Plan Assessment & Plan (1) HTN (hypertension): Code(s): I10 - Essential (primary) hypertension Plan: Stable, labs ordered (2) Abscess: Code(s): L02.91 - Cutaneous abscess, unspecified Plan: Cephalexin and doxy sent (3) Screening PSA (prostate specific antigen): Code(s): Z12.5 - Encounter for screening for malignant neoplasm of prostate Plan The patient agreed to the use of a medical records secretary for this encounter. Scribed for EBONIE Min-BC by Marva Chavez medical records secretary, on 01/18/2024 at 13:45 EST. Orders: Orders Comprehensive [place]. Panel Fast Today I10 - Essential (primary) hypertension TSH reflex Free T4 Today I10 - Essential (primary) hypertension Lipid Panel Today I10 - Essential (primary) hypertension Complete Blood Count Auto Diff Today I10 - Essential (primary) hypertension UA CC w/rflx Micro + Cult Today I10 - Essential (primary) hypertension Prostate Specific Antigen Scr Today Z12.5 - Encounter for screening for malignant neoplasm of prostate Medications: New cephalexin 500 mg PO BID 14 caps 0RF 7 days doxycycline hyclate 100 mg PO BID 20 caps 0RF 10 days Coding Level of Care Code Est Pt Level 3 (94437) Diagnoses HTN (hypertension) I10 Abscess L02.91 Screening PSA (prostate specific antigen) Z12.5 Additional Codes YANY-7 Assessment Billing - YANY-7 Assessment Tool: YANY-7 Assessment 27092 ([id number])
[2024-01-18 13:34] VITALS: BP 128/80; PULSE 80; O2SAT 95; BMI 20.3
== END 2024-01-18 16:59 | disposition home or self-care (01) ==
PROVIDERS: PCP Nurse Practitioner Family; Visit Provider Nurse Practitioner Family
DX: I10 Essential (primary) hypertension (principal); L02.91 Cutaneous abscess, unspecified; Z12.5 Encounter for screening for malignant neoplasm of prostate
CPT/HCPCS: 99213

== ENCOUNTER 2024-04-06 07:57 | Outpatient (AMB) | payer MEDICARE, SELFPAY ==
[2024-04-06 08:06] VITALS: BMI 20.3
--- NOTE | 2024-04-06 08:06 | MHC.OFFVIS ---
Vital Signs 04/06/24 08:06 Height 6 ft Weight 150 lb BMI 20.3 Intake Visit Reasons: Newprob-Right hip pain, neck pain Intake Note: Sreedhar is a 78 year old male who presents with progressively worsening neck pain which radiates into his left arm as well as discomfort along the lateral aspect of his right hip. His neck pain has gotten worse over the last few years in spite of continued non operative treatments. He also reports weakness in his left upper extremity. He has done physical therapy which aggravated his pain. Has failed the last 6 weeks of conservative treatment. He does take Tylenol and ibuprofen which gave him minimal relief. He denies any right groin pain. Allergies No Known Allergies Allergy (Verified 04/06/24 08:15) Medication List - Last Reconciled 04/06/24 by Hernan Morales MD carbidopa-levodopa 25-100 mg 1 tab PO TID cephalexin 500 mg PO BID 7 days donepezil 5 mg PO DAILY doxycycline hyclate 100 mg PO BID 10 days gabapentin 300 mg PO BEDTIME lisinopril 5 mg PO DAILY oxybutynin chloride ER 5 mg PO DAILY tamsulosin 0.4 mg PO BID tramadol 50 mg PO BID PRN PFSH Medical History Closed fracture of left hip Impingement syndrome, shoulder Arthritis of glenohumeral joint Dementia Parkinsons disease Tendinopathy of right shoulder Hypertension GERD (gastroesophageal reflux disease) Enlarged prostate Surgical History H/O cervical discectomy H/O bilateral cataract extraction History of total knee arthroplasty H/O blepharoplasty S/P right knee arthroscopy H/O esophagogastroduodenoscopy H/O colonoscopy Family History Father No problems noted. Mother Oral cancer Social History Household Members: Spouse Housing: House Do you presently have visiting nurse or other home services: No Alcohol intake: current Alcohol intake frequency: does not drink Patient Tobacco Use Status: Never used Tobacco e-Cigarette/Vaping Use: Never Used Second Hand Smoke Exposure: No service: No Current occupational status: employed and retired Current occupation: [employer] Current occupational exposures/hazards: No Cognitive needs: No Hearing needs: No Vision needs: No Physical Exam Vital Signs: BMI result Body Mass Index 20.3 Const Other: Well-nourished well-developed very friendly male awake alert and oriented x3 in no acute distress Neck Other: Cervical spine examination shows limited rotation with turning to his left, full rotation when turning to his right, positive Spurling's test, pain with range of motion, left-sided paraspinal muscle tenderness, 4/5 strength with testing of his left biceps and wrist extensors when compared to 5/5 strength on his right side Extrem Other: Right hip examination shows slightly decreased range of motion when compared to his left hip, mild discomfort with range of motion, tenderness over his bursa, no overlying skin lesions Assessment & Plan Assessment & Plan (1) Neck pain: Code(s): M54.2 - Cervicalgia Category: Medical Plan Mr. Combs presents with right hip discomfort most likely due to greater trochanteric bursitis. At this point his right hip discomfort is tolerable to him. We will hold off on a cortisone injection. Sats progressively worsening cervical pain which radiates into his left arm as well as associated left arm weakness possibly due to cervical stenosis or a disc herniation thus, I will send the patient for an MRI of his cervical spine for further evaluation. I will see him back once the MRI is completed to discuss the findings and treatment options. Feel free to call me at any time should questions regarding his orthopedic management arise. I spent 21 minutes in reviewing the patient's records and imaging studies, seeing the patient and documenting in the medical record. Orders: Orders MR cervical spine wo con 04/06/24 M54.2 - Cervicalgia Coding Level of Care Code Est Pt Level 3 (14112) Diagnoses Neck pain M54.2
== END 2024-04-06 08:35 | disposition home or self-care (01) ==
PROVIDERS: PCP Nurse Practitioner Family; Visit Provider Orthopaedic Surgery
DX: M54.2 Cervicalgia (principal); M25.551 Pain in right hip
CPT/HCPCS: 99214

== ENCOUNTER → 2024-04-06 07:57 | Outpatient (BNVA) | payer MEDICARE, SELFPAY | PROVIDERS: PCP Nurse Practitioner Family; Visit Provider Orthopaedic Surgery | DX: M54.2 Cervicalgia (principal) | CPT/HCPCS: 99212 ==

== ENCOUNTER 2024-04-20 13:35 | Outpatient (AMB) | payer MEDICARE, SELFPAY ==
[2024-04-20 13:36] VITALS: BP 110/70; PULSE 73; TEMP 36.5; O2SAT 96; BMI 22.0
--- NOTE | 2024-04-20 13:36 | AM.OFFWIN_ITS ---
Intake Vital Signs 04/20/24 13:36 Height 6 ft Weight 162 lb BMI 22.0 BP 110/70 Blood Pressure Location Lt brachial Position Sitting Pulse 73 Pulse Source Pulse Oximeter Temp 97.7 F Temp Source Temporal Artery Scan Pulse Oximetry (%) 96 Oxygen Delivery Method Room Air Intake Visit Reasons: EP Glass in hand/cut Intake Note: pt is here today for glass in hand started today Patient Tobacco Use Status: Never used Tobacco Allergies No Known Allergies Allergy (Verified 04/20/24 13:39) Do you need a note to return to daycare/school/sports/work: No HPI HPI Comments History of Present Illness Details Patient is a 78-year-old male who states he got something in his right base of his thumb this morning. He states he has not sure what it is, it could be glass but he did get a new hockey-stick that he was messing around with so it could be debris from the hockey-stick. He does not recall his last tetanus shot. He states the area is irritated and he can feel a bump under the skin. [facility] Medical History Closed fracture of left hip Impingement syndrome, shoulder Arthritis of glenohumeral joint Dementia Parkinsons disease Tendinopathy of right shoulder Hypertension GERD (gastroesophageal reflux disease) Enlarged prostate Surgical History H/O cervical discectomy H/O bilateral cataract extraction History of total knee arthroplasty H/O blepharoplasty S/P right knee arthroscopy H/O esophagogastroduodenoscopy H/O colonoscopy Family History Father No problems noted. Mother Oral cancer Social History Household Members: Spouse Housing: House Do you presently have visiting nurse or other home services: No Alcohol intake: current Alcohol intake frequency: does not drink Patient Tobacco Use Status: Never used Tobacco e-Cigarette/Vaping Use: Never Used Second Hand Smoke Exposure: No service: No Current occupational status: employed and retired Current occupation: [employer] Current occupational exposures/hazards: No Cognitive needs: No Hearing needs: No Vision needs: No Review of Systems Const All systems reviewed & are unremarkable except as noted in HPI and below Physical Exam Vital Signs: Last Vital Signs Temp 97.7 F 04/20/24 13:36 Pulse 73 04/20/24 13:36 BP 110/70 04/20/24 13:36 Pulse Ox 96 04/20/24 13:36 Oxygen Delivery Method Room Air 04/20/24 13:36 BMI result Body Mass Index 22.0 Const General: cooperative, healthy appearing, comfortable, no acute distress and well developed Orientation/consciousness: patient oriented x3 Limitations: no limitations HEENT Head: Yes normal to inspection Eyes General: appearance normal, both eyes and all related structures Neck Neck: Yes normal visual inspection and Yes full ROM Neuro General: patient oriented x3 Extrem Right upper extremity: Extremity exam: right hand (thenar area/base of thumb, pinpoint puncture wound w/palpable pinpoint bump) Details: normal capillary refill, neuromotor exam normal, tendon exam normal, tenderness Location: of the thumb Location: at the thenar eminence and foreign body (not visible); no unusual warmth, no swelling, no abrasions and no ecchymosis Assessment & Plan Assessment & Plan (1) Puncture wound: Code(s): T14.8XXA - Other injury of unspecified body region, initial encounter Plan: Irrigated area, attempted to remove foreign body using sterile supplies/procedure but unable to remove, cleaned and applied bandage, small amount of bleeding controlled, Gave Tdap in office, x-ray showed no foreign body. Advised in severity small bump and if there is something in there, it will likely work its way out, in the meanwhile I will send a referral to Orthopedics for the hand surgeon. He can cancel if he does not need it/object works its way out. Plan see above Orders: Orders TDaP Immunization Today T14.8XXA - Other injury of unspecified body region, initial encounter XR hand RT 2V Today T14.8XXA - Other injury of unspecified body region, initial encounter Referrals Orthopedics Referral T14.8XXA - Other injury of unspecified body region, initial encounter Coding Level of Care Code Est Pt Level 4 (69603) Diagnoses Puncture wound T14.8XXA
== END 2024-04-20 15:22 | disposition home or self-care (01) ==
PROVIDERS: PCP Nurse Practitioner Family; Visit Provider Physician Assistant
DX: T14.8XXA Other injury of unspecified body region, initial encounter (principal)
CPT/HCPCS: 90471; 90715; 99214

== ENCOUNTER 2024-04-20 14:07 | Outpatient (REF) | payer MEDICARE, SELFPAY ==
--- NOTE | ~2024-04-20 | XR_ITS ---
EXAMINATION: XR HAND, RIGHT CLINICAL INFORMATION: T14.8XXA - Other injury of unspecified body region, initial encounter COMPARISON: None available. TECHNIQUE: PA, lateral, and oblique views of the right hand. FINDINGS: Status post second, third, and fourth MCP arthroplasty with lucent components. No periprosthetic fractures or significant loosening. There is mild to moderate osteoarthritis of the thumb MCP and interphalangeal joints with nonuniform joint space narrowing and marginal osteophytes. Additional multifocal osteoarthritis is present in the interphalangeal joints, most pronounced at the small finger PIP joint. More mild osteoarthritis is present at the first CMC and triscaphe joints. No erosions. No fracture or malalignment. Bone mineralization is normal. Atherosclerotic calcifications are noted at the wrist. XR/XR hand RT 2V IMPRESSION: 1. Status post second, third, and fourth MCP arthroplasty without evidence of complications. 2. 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 3. No acute fracture or malalignment.
== END 2024-04-20 14:08 | disposition home or self-care (01) ==
LOC: HO.HMGCX 14:07
PROVIDERS: PCP Nurse Practitioner Family; Visit Provider Physician Assistant
DX: T14.8XXA Other injury of unspecified body region, initial encounter (principal)
CPT/HCPCS: 73120

== ENCOUNTER 2024-04-22 10:06 | Outpatient (AMB) | payer MEDICARE, SELFPAY ==
[2024-04-22 10:07] VITALS: BP 110/66; PULSE 70; TEMP 36.5; O2SAT 98; BMI 22.0
--- NOTE | 2024-04-22 10:07 | MHC.OFFWIV ---
Intake Vital Signs 04/22/24 10:07 Height 6 ft Weight 162 lb BMI 22.0 BP 110/66 Blood Pressure Location Lt brachial Position Sitting Pulse 70 Pulse Source Pulse Oximeter Temp 97.7 F Temp Source Temporal Artery Scan Pulse Oximetry (%) 98 Oxygen Delivery Method Room Air Intake Visit Reasons: Right Ear Pain Intake Note: pt is her today for rt ear pin started yesterday Patient Tobacco Use Status: Never used Tobacco Allergies No Known Allergies Allergy (Verified 04/22/24 10:10) Do you need a note to return to daycare/school/sports/work: No HPI HPI Comments History of Present Illness Details This is a 78-year-old male who presented to the walk-in clinic complaining of right-sided neck stiffness for the past 9 months. Patient states he slipped and fell approximately 9 ago and has been right-sided neck pain/stiffness since then. He denies any numbness/weakness/paresthesias of his right upper extremity. He otherwise feels well. [facility] Medical History Closed fracture of left hip Impingement syndrome, shoulder Arthritis of glenohumeral joint Dementia Parkinsons disease Tendinopathy of right shoulder Hypertension GERD (gastroesophageal reflux disease) Enlarged prostate Surgical History H/O cervical discectomy H/O bilateral cataract extraction History of total knee arthroplasty H/O blepharoplasty S/P right knee arthroscopy H/O esophagogastroduodenoscopy H/O colonoscopy Family History Father No problems noted. Mother Oral cancer Social History Household Members: Spouse Housing: House Do you presently have visiting nurse or other home services: No Alcohol intake: current Alcohol intake frequency: does not drink Patient Tobacco Use Status: Never used Tobacco e-Cigarette/Vaping Use: Never Used Second Hand Smoke Exposure: No service: No Current occupational status: employed and retired Current occupation: [employer] Current occupational exposures/hazards: No Cognitive needs: No Hearing needs: No Vision needs: No Review of Systems Const All systems reviewed & are unremarkable except as noted in HPI and below Reports no additional complaints Eyes Reports no additional complaints ENT Reports no additional complaints Card Reports no additional complaints Resp Reports no additional complaints GI Reports no additional complaints Reports no additional complaints Musc Reports no additional complaints Skin/Breast Reports system reviewed and no additional complaints, except as documented Neuro Reports no additional complaints Psych Reports no additional complaints Endo Reports no additional complaints Rich/Lymph Reports no additional complaints Aller/Immun Reports no additional complaints Physical Exam Vital Signs: Last Vital Signs Temp 97.7 F 04/22/24 10:07 Pulse 70 04/22/24 10:07 BP 110/66 04/22/24 10:07 Pulse Ox 98 04/22/24 10:07 Oxygen Delivery Method Room Air 04/22/24 10:07 BMI result Body Mass Index 22.0 Const Other: Vital signs reviewed. Constitutional: Non-toxic appearing. No acute distress. Well-developed and well-nourished. HEENT: Normocephalic and atraumatic. Decreased range of motion of the neck with lateral rotation to the left/right as well as flexion/extension. No cervical spinous process tenderness to palpation. Skin: Warm and dry. No rashes or lesions noted. Neck: Full and painless range of motion. No cervical lymphadenopathy. Cardio: Regular rate. No lower extremity edema. Pulmonary: No respiratory distress. No accessory muscle usage. Musculoskeletal: Normal range of motion in joints throughout the body. No deformity or other signs of injury. Neuro: Alert and oriented x4. Cranial nerves 2-12 grossly intact. No focal deficits appreciated. Psych: Normal mood and affect. Assessment & Plan Assessment & Plan (1) Neck pain: Code(s): M54.2 - Cervicalgia Plan This is a 78-year-old male who presented to the walk-in clinic complaining of persistent right-sided neck pain/stiffness following a fall that occurred 9 months ago. History and physical most consistent with cervicalgia. No signs or symptoms of cervical radiculopathy. No red flag symptoms. Patient was given a referral for physical therapy. He was also given a prescription for p.o. methocarbamol 500 mg at bedtime as needed for muscle spasms. Recommended supportive management such as acetaminophen/ibuprofen as long as he has no medical contraindications as well as [id number] lidocaine patches and heat to the area. Patient was advised to follow-up here or proceed to the emergency room if he were to develop radicular symptoms. Patient verbalizes understanding and he is in agreement with the plan. Orders: Orders PT Evaluation and Treatment Today S13.9XXA - Sprain of joints and ligaments of unspecified parts of neck, initial encounter Medications: New methocarbamol 500 mg PO BEDTIME PRN 10 tabs 0RF muscle spasm Coding Level of Care Code Est Pt Level 3 (85341) Diagnoses Neck pain M54.2
== END 2024-04-22 10:57 | disposition home or self-care (01) ==
PROVIDERS: PCP Nurse Practitioner Family; Visit Provider Physician Assistant Medical
DX: M54.2 Cervicalgia (principal)
CPT/HCPCS: 99213

== ENCOUNTER 2024-05-03 11:46 | Outpatient (AMB) | payer MEDICARE, SELFPAY ==
--- NOTE | 2024-05-03 11:51 | AM.OFFWIN_ITS ---
Intake Vital Signs 05/03/24 11:52 Height 6 ft Weight 159 lb BMI 21.6 BP 110/80 Blood Pressure Location Lt brachial Position Sitting Pulse 68 Pulse Source Pulse Oximeter Pulse Oximetry (%) 98 Oxygen Delivery Method Room Air Intake Visit Reasons: EP Back injury due to fall at a game Intake Note: Patient here for lower back pain due to a fall at a game. Patient Tobacco Use Status: Never used Tobacco Allergies No Known Allergies Allergy (Verified 05/03/24 14:17) Do you need a note to return to daycare/school/sports/work: No HPI HPI Comments History of Present Illness Details 78-year-old male who presents today comp laining of right-sided low back pain. He states he was playing ice hockey this morning and fell and hurt his back. The patient was disoriented of time and place. Interview of the patient revealed flight of ideas, confabulation and continued disorientation. He has had ER visits in the past for dementia. [facility] Medical History Closed fracture of left hip Impingement syndrome, shoulder Arthritis of glenohumeral joint Dementia Parkinsons disease Tendinopathy of right shoulder Hypertension GERD (gastroesophageal reflux disease) Enlarged prostate Surgical History H/O cervical discectomy H/O bilateral cataract extraction History of total knee arthroplasty H/O blepharoplasty S/P right knee arthroscopy H/O esophagogastroduodenoscopy H/O colonoscopy Family History Father No problems noted. Mother Oral cancer Social History Household Members: Spouse Housing: House Do you presently have visiting nurse or other home services: No Alcohol intake: current Alcohol intake frequency: does not drink Patient Tobacco Use Status: Never used Tobacco e-Cigarette/Vaping Use: Never Used Second Hand Smoke Exposure: No Advance Directives: Yes Advance Directives on File: Yes Advance Directives Date on File: 07/15/23 Do you have a plan to hurt others: No Plan service: No Current occupational status: employed and retired Current occupation: [employer] Current occupational exposures/hazards: No Cognitive needs: No Hearing needs: No Vision needs: No Review of Systems Musc Reports back pain Physical Exam Vital Signs: Last Vital Signs Pulse 68 05/03/24 11:52 BP 110/80 05/03/24 11:52 Pulse Ox 98 05/03/24 11:52 Oxygen Delivery Method Room Air 05/03/24 11:52 BMI result Body Mass Index 21.6 Back/Spine/Pelvis Thoracic/Lumbar Spine: thoracic and lumbar spine normal to inspection, bend over test abnormal and paraspinal muscle tenderness Psych Appearance: well kempt Mental Status: other (Disoriented to time and place) Speech and movement: Normal speech and movement present and Psychomotor agitation in speech present Affect: Anxious affect present Thought process: Circumstantial thought process present, Confabulating thought process present, Flight of ideas present, Illogical thought process present, Loose association thought process present and Perseverating thought process present Insight: Poor insight present (Psych) Judgement: Poor judgement present (Psych) Results AMB Urinalysis, Automated UA Leukoctes 15 Dejon/uL Last Edit by Adalid Pedraza [facility] on 05/03/24 13:0 1 UA Nitrite Negative Last Edit by Adalid Pedraza [facility] on 05/03/24 13:01 UA Urobilinogen 1 mg/dL Last Edit by Adalid Pedraza [facility] on 05/03/24 13: 01 UA Protein 15 mg/dL Last Edit by Adalid Pedraza [facility] on 05/03/24 13:01 UA pH 5.5 Last Edit by Adalid Pedraza [facility] on 05/03/24 13:01 UA Blood 0 Kunal/uL Last Edit by Adalid Pedraza [facility] on 05/03/24 13:01 UA Specific Jeffrey 1.030 Last Edit by Adalid Pedraza [facility] on 05/03/24 13:01 UA Ketone Positive Last Edit by Adalid Pedraza [facility] on 05/03/24 13:01 UA Bilirubin 2 mg/dL Last Edit by Adalid Pedraza [facility] on 05/03/24 13:01 UA Glucose 0 mg/dL Last Edit by Adalid Pedraza [facility] on 05/03/24 13:01 Results Reviewed Results Reviewed: Laboratory Last Values Urine pH (Auto) 5.5 05/03/24 13:00 Specific Jeffrey (Auto) 1.030 05/03/24 13:00 Urine Protein (Auto) 15 mg/dL 05/03/24 13:00 Glucose (UA)(Auto) 0 mg/dL 05/03/24 13:00 Urine Ketones (Auto) Positive 05/03/24 13:00 Urine Blood (Auto) 0 Kunal/uL 05/03/24 13:00 Urine Nitrite (Auto) Negative 05/03/24 13:00 Urine Bilirubin (Auto) 2 mg/dL 05/03/24 13:00 Urine Urobilinogen (Auto) 1 mg/dL 05/03/24 13:00 Leukocyte Esterase (Auto) 15 Dejon/uL 05/03/24 13:00 Assessment & Plan Assessment & Plan (1) Back pain: Code(s): M54.9 - Dorsalgia, unspecified (2) Disorientation: Code(s): R41.0 - Disorientation, unspecified Plan: The patient was sent via EMS to the emergency room for evaluation of his disor ientation. He was refusing to go and paperwork for section 12 was filled out to bring him to the hospital. This patient was discussed with Dr. Fields who is in full agreement of the evaluation and plan. Plan See plan Orders: Orders XR lumbar spine 2-3V 05/03/24 M54.9 - Dorsalgia, unspecified AMB Urinalysis Automated 05/03/24 Z13.9 - Encounter for screening, unspecified Coding Level of Care Code Est Pt Level 4 (91429) Diagnoses Back pain M54.9 Disorientation R41.0 Time Spent (min) 60
[2024-05-03 11:52] VITALS: BP 110/80; PULSE 68; O2SAT 98; BMI 21.6
== END 2024-05-03 13:38 | disposition home or self-care (01) ==
PROVIDERS: PCP Nurse Practitioner Family; Visit Provider Physician Assistant Medical
DX: M54.9 Dorsalgia, unspecified (principal)
CPT/HCPCS: 81003; 99214

== ENCOUNTER 2024-05-03 12:11 | Outpatient (REF) | payer MEDICARE, SELFPAY ==
--- NOTE | ~2024-05-03 | XR_ITS ---
EXAMINATION: XR LUMBOSACRAL SPINE CLINICAL INFORMATION: Low back pain COMPARISON: Radiographs 04/27/2009. Lumbar spine MRI 07/28/2016 TECHNIQUE: Three views of the lumbosacral spine. 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 Prominent facet arthrosis of L5-S1. Normal alignment and lumbar lordosis with slight scoliotic curvature of the thoracolumbar junction. Mild to moderate multilevel degenerative disc disease which has progressed since the MRI, particularly at L3-L4. No acute osseous abnormality. XR/XR lumbar spine 2-3V IMPRESSION: 1. 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 2. Mild to moderate multilevel degenerative disc disease which has progressed since the MRI in 2015. No acute osseous abnormality.
== END 2024-05-03 12:12 | disposition home or self-care (01) ==
LOC: HO.HMGCX 12:11
PROVIDERS: PCP Nurse Practitioner Family; Visit Provider Physician Assistant Medical
DX: Z13.89 Encounter for screening for other disorder (principal)
CPT/HCPCS: 72100

== ENCOUNTER 2024-05-03 13:49 | Inpatient (IN) | payer MEDICARE, SELFPAY ==
--- NOTE | ~2024-05-03 | CT_ITS ---
EXAMINATION: CT HEAD WITHOUT CONTRAST CLINICAL INFORMATION: Altered mental status COMPARISON: CT head from 10/11/2023 TECHNIQUE: Contiguous axial imaging was performed from the skull base to vertex without intravenous administration of contrast. This CT examination was performed using dose optimization techniques as appropriate, variously including the following: *Automated exposure control *Adjustment of mA and/or kV according to patient size (this includes techniques or standardized protocols for targeted exams where dose is matched to indication/reason for exam; i.e. extremities or head) *Use of iterative reconstruction technique DLP: 597 mGy-cm FINDINGS: There is no evidence of acute intracranial hemorrhage or territorial infarction. Chronic white matter small vessel ischemic changes. Cerebral atrophy. No abnormal mass effect or midline shift is seen. Modi to white matter differentiation is well preserved. No extra-axial fluid collections are identified. The ventricles are normal in size. There is no abnormal attenuation within the brain parenchyma. The osseous structures and soft tissues are normal. The mastoid air cells and visualized portions of the paranasal sinuses are well aerated. CT/CT head/brain wo IV con IMPRESSION: 1. No acute intracranial pathology. 2. Chronic white matter small vessel ischemic changes.
--- NOTE | ~2024-05-03 | XR_ITS ---
EXAMINATION: XR ABDOMEN KUB CLINICAL INDICATION: Abd pain, anorexia COMPARISON: None available. TECHNIQUE: AP view of the abdomen. FINDINGS: The bowel gas pattern is normal with no evidence of ileus or obstruction. No unusual soft tissue calcifications are noted. Degenerative disease in the lumbar spine. Bilateral degenerative disease of the hips. Left femoral fixation. XR/XR KUB IMPRESSION: Nonobstructive bowel gas pattern. Electronically signed by: Jailene Bassett MD 07/10/2024 02:05 PM EDT
--- NOTE | ~2024-05-03 | XR_ITS ---
EXAMINATION: XR CHEST CLINICAL INFORMATION: Anorexia COMPARISON: Chest x-ray on 05/03/2024 TECHNIQUE: Frontal view of the chest was obtained. FINDINGS: The cardiac silhouette is normal. There is mild diffuse bronchial wall thickening. There are no areas of consolidation. There are no pleural effusions or pneumothoraces. The bones and soft tissues are unremarkable for the patient's age. XR/XR chest 1V IMPRESSION: Bronchial wall thickening may be infectious and/or inflammatory in etiology. Electronically signed by: Jailene Bassett MD 07/10/2024 02:22 PM EDT
--- NOTE | ~2024-05-03 | XR_ITS ---
EXAMINATION: XR CHEST CLINICAL INFORMATION: Altered mental status COMPARISON: 05/31/2008 TECHNIQUE: Frontal view of the chest was obtained. FINDINGS: Heart, mediastinum and vascularity within normal limits. Low lung volumes with mild basilar atelectasis. Sclerotic density left humeral head likely bone island. XR/XR chest 1V IMPRESSION: Low lung volumes with atelectasis.
[2024-05-03 13:53] VITALS: BP 132/70; PULSE 85; O2SAT 96
--- NOTE | 2024-05-03 14:06 | ED_ITS ---
HPI - Altered Mental Status General Chief Complaint: Altered Mental Status Stated Complaint: FALL,BACK PAIN,SEC 12 FOR AMS PER EMS Time Seen by Provider: 05/03/24 14:05 Source: patient Mode of arrival: ambulatory Limitations: no limitations History of Present Illness ED Provider: Teagan Perales PA-C HPI narrative: This is a 78-year-old male, with a history of dementia, Parkinson's disease, RBBB, hypertension, who presents emergency department from [facility] on section 12 as patient refused to come via EMS. Per EMS note, patient drove to the office for an appointment after playing hockey this morning for right low back pain. The staff there reports patient with increased altered mental status. Upon my initial assessment, patient with word salad thought process with tangential speech, stating accidental hockey, and how a place. He is alert and oriented to self only, and eventually was able to report that he is currently at [facility]. He has no current pain or complaints and would like to be discharged. HPI otherwise limited secondary to clinical status. Unclear what his baseline mentation is. MD complaint: altered mental status and confusion Related Data Home Medications ?Medication ?Instructions ?Recorded ?Confirmed donepezil 5 mg tablet 5 mg PO BEDTIME 01/16/22 05/04/24 Previous Rx's ?Medication ?Instructions ?Recorded lisinopril 5 mg tablet 5 mg PO DAILY #90 tabs 03/28/24 Allergies Allergy/AdvReac Type Severity Reaction Status Date / Time No Known Allergies Allergy Verified 05/03/24 14:17 Review of Systems 2 Review of Systems: Yes all other systems are reviewed and are negative Constitutional: Constitutional: Reports as per HPI COUNT INCLUDES THE [facility] Past Medical History Attestation statement: The following information was validated with the patient. Medical History Closed fracture of left hip Impingement syndrome, shoulder Arthritis of glenohumeral joint Dementia Parkinsons disease Tendinopathy of right shoulder Hypertension GERD (gastroesophageal reflux disease) Enlarged prostate Surgical History H/O cervical discectomy H/O bilateral cataract extraction History of total knee arthroplasty H/O blepharoplasty S/P right knee arthroscopy H/O esophagogastroduodenoscopy H/O colonoscopy Family History Family History Father No problems noted. Mother Oral cancer Social History Social History Household Members: Spouse Housing: House Do you presently have visiting nurse or other home services: No Alcohol intake: current Alcohol intake frequency: does not drink Patient Tobacco Use Status: Never used Tobacco e-Cigarette/Vaping Use: Never Used Second Hand Smoke Exposure: No Advance Directives: Yes Advance Directives on File: Yes Advance Directives Date on File: 07/15/23 Do you have a plan to hurt others: No Plan service: No Current occupational status: employed and retired Current occupation: [employer] Current occupational exposures/hazards: No Cognitive needs: No Hearing needs: No Vision needs: No Physical Exam ED Vital Signs: Vital Signs - 24 hr 05/03/24 17:17 05/03/24 18:31 05/03/24 21:36 Temperature 97.5 F Pulse Rate 58 58 60 Respiratory Rate 16 12 17 Blood Pressure 151/87 H 162/83 H 141/71 H Pulse Oximetry 98 97 98 Oxygen Delivery Method Room Air Room Air Room Air 05/04/24 05:16 05/04/24 08:40 05/04/24 09:01 Temperature 98.7 F Pulse Rate 58 61 Respiratory Rate 17 Blood Pressure 140/90 H 157/83 H Pulse Oximetry 99 Oxygen Delivery Method Room Air 05/04/24 14:00 Temperature 98.6 F Pulse Rate 86 Respiratory Rate 17 Blood Pressure 150/90 H Pulse Oximetry 95 Oxygen Delivery Method Room Air BMI result Body Mass Index 25.0 Const General: cooperative, comfortable and no acute distress Orientation/consciousness: oriented to person and oriented to place Limitations: no limitations HENPA Head: Yes normal to inspection, Yes normocephalic and Yes atraumatic Ears: hearing grossly normal bilaterally General nose exam: Normal external nose present Face and sinus: Yes normal facial exam Mouth: Normal oral and palatal mucosa present, oropharynx normal and moist mucous membranes Throat: Yes posterior oropharynx normal Eyes General: appearance normal, both eyes and all related structures Eyelids: Yes eyelids normal Conjunctivae: conjunctivae normal Sclerae: sclerae normal EOM: EOMs intact bilaterally Neck Neck: Yes normal visual inspection, Yes full ROM, Yes no lymphadenopathy and Yes no meningeal signs Lymphatic: no lymphadenopathy noted Chest Chest palpation & inspection: normal inspection of the chest Resp Effort & Inspection: normal respiratory effort and able to speak in complete sentences Auscultation: clear to auscultation bilaterally, no crackles, no rales, no rhonchi and no wheezes Cardio Rate: regular rate Rhythm: regular rhythm Heart sounds: S1 normal heart sound present and S2 normal heart sound present GI Inspection: Yes normal to inspection Skin General skin exam: no rashes or lesions noted Trauma: no lacerations or abrasions Wounds: no wounds Neuro General: oriented to person, oriented to place, no meningeal signs and no focal motor deficits Cranial nerves: Yes CN's II-XII intact bilaterally Motor exam (neuro): 5/5 motor strength present throughout, Pronator motor function not present and Tremors during motor activity present Extrem General: Yes normal to inspection Right upper extremity: normal to inspection Left upper extremity: normal to inspection Right lower extremity: normal to inspection Left lower extremity: normal to inspection Psych Appearance: well kempt Speech and movement: Normal speech and movement present Affect: normal affect Attitude: cooperative Thought process: Confabulating thought process present, Flight of ideas present, Loose association thought process present, Tangential thought process present and Word salad present (speech) Thought content: Normal thought content present Insight: Poor insight present (Psych) Judgement: Poor judgement present (Psych) NIH Stroke Scale Internal: Initial- Upon Arrival Time: 13:05 Level of Consciousness: Alert Level of Consciousness Questions: Answers both questions correctly Level of Consciousness Commands: Performs both tasks correctly Best Gaze: Normal Visual: No visual loss Facial Palsy: Normal Motor Arm (Right): No drift Motor Arm (Left): No drift Motor Leg (Right): No drift Motor Leg (Left): No drift Limb Ataxia: Absent Sensory: Normal Best Language: No aphasia Dysarthia: Normal Extinction and Inattention: No abnormality Score: 0 Course Reevaluation(s) Reevaluation #1: CT head shows chronic white matter small-vessel ischemic changes, no acute intracranial pathology. Urine with trace leuk esterases, does not appear to be profoundly infected. Awaiting chest x-ray. It is unclear what his mental status baseline is therefore I called his healthcare proxy, left voicemail to return phone call to obtain more information regarding patient. Chest x-ray showing bilateral atelectasis and low volumes, no consolidation seen. Time: 16:45 Reevaluation #2: Spoke to Meka Bunn, friend, who states that she has not been in contact with him for over 3 months. She states that he does have episodes where he does have good days and bad days, stating that there is some days he is very confused and other times that he is not so confused. She states that this is an ongoing issue for him but states that she has not spoke with him in over 3 months in his unsure if he has more confused than his baseline. And states that patient does not have any friends or family nearby, and lives alone. Given that patient does not have a support system locally without any individuals to check in on him I believe it is appropriate to repeat a psychiatric evaluation for capacity. Sign-out given to my colleague, Mac Stafford DNP, pending psych consult, PT/CM. Time: 17:01 Reevaluation #3: 05/04/2024 1634 - physician observation continued. Pending psychiatric consult for ? Capacity. Case management following patient. Patient not requiring any physical therapy services at this time. We will continue to closely monitor pending disposition Medications Administered Generic Name Dose Route Start Last Admin Trade Name Freq PRN Reason Stop Dose Admin Lisinopril 5 mg 05/04/24 09:00 05/04/24 09:01 Lisinopril 5 Mg Tablet PO 5 mg DAILY RICKIE Administration Protocol Medical Decision Making Medical Decision Making [facility] Narrative: This is a 78-year-old male, with a history of dementia, who presents emergency department from [facility] on section 12 due to refusal of EMS transport, with concerns of altered mental status. On arrival, vital signs within normal limits. He is nontoxic-appearing. He is alert and oriented times 2. It did take him several moments to figure out where he was however was able to state [place] emergency room. Patient is feeling well and is confused why he is here. During my assessment, patient is confused, unable to have normal thought process, persevering on hockey. He is pleasantly confused. No focal deficits on examination. NIH score of 0. Upon chart review, patient presented in October this similar presentation, on the noted says that patient is forgetful and has played a lot of hockey, behaviors are organized however his thought process is tangential and will start talking about irrelevant topics. This is similar to the presentation that he is having today. During the assessment by Psychiatry he has a desire to be discharged back home, and it has not been a barrier to living independently with all of his cognitive impairments. Plan: Labs, EKG, chest x-ray, UA Differential Diagnosis Differential Diagnoses: The differential diagnosis associated with the presentation includes Delirium, UTI, encephalopathy, pneumonia, viral syndrome, electrolyte derangement Admission/Observation Consideration of admission/observation: Escalation of care including admission/observation considered Lab Data MDM Lab Attestation statement: I reviewed the patient's lab results. Patient has no leukocytosis, H&H within normal limits, chemistry within normal limits. Negative viral panel 05/03/24 14:42 05/03/24 14:42 Labs: Lab Results 05/03/24 05/03/24 05/03/24 Range/Units 14:42 14:43 15:37 WBC 7.4 (4.8-10.8) X10*3/uL RBC 5.09 (4.60-5.80) X10*6/uL Hgb 15.8 (14.0-18.0) g/dl Hct 44.5 (42.0-52.0) % MCV 87.4 (80.0-98.0) fL MCH 31.0 (27.0-33.0) pg MCHC 35.5 (31.0-36.0) g/dl RDW 13.4 (11.0-16.0) % Plt Count 228 D (160-400) X10*3/uL MPV 8.6 L (9.4-12.4) fL Immature Gran % (Auto) 0.4 (0.0-0.4) % Neut % (Auto) 78.1 H (45-73) % Lymph % (Auto) 12.7 L (20-40) % Jasper % (Auto) 6.9 (2-11) % Eos % (Auto) 1.1 (0-4) % Baso % (Auto) 0.8 (0-2) % Lymph # (Auto) 0.9 L (1.2-4.9) X10*3/uL Jasper # (Auto) 0.5 (0.1-1.2) X10*3/uL Eos # (Auto) 0.1 (0.0-0.4) X10*3/uL Baso # (Auto) 0.1 (0.0-0.2) X10*3/uL Abs Immat Gran (auto) 0.03 (0.00-0.03) X10*3/uL Absolute Neuts (auto) 5.8 (2.0-8.3) x10*3/uL Absolute Nucleated RBC 0.000 (0.0-0.012) X10*3/uL Nucleated RBC % (auto) 0.0 (0.0-0.2) /100WBC PT 13.6 H (11.1-13.3) SEC INR 1.1 (0.9-1.1) APTT 30.5 (26.0-36.8) SEC Sodium 143 (135-145) mmol/L Potassium 3.8 (3.3-5.1) mmol/L Chloride 106 (96-108) mmol/L Carbon Dioxide 29 (22-29) mmol/L Anion Gap 12 (12-20) BUN 12 (9-16) mg/dL Creatinine 0.84 (0.5-1.4) mg/dL Estim Creat Clear Calc 70.1 Estimated GFR > 60 Random Glucose 104 (60-115) mg/dL Lactic Acid 0.7 (0.5-2.0) mmol/L Calcium 9.7 (8.4-10.2) mg/dL Magnesium 2.0 (1.6-2.6) mg/dL Total Bilirubin 1.0 (0.0-1.0) mg/dL Direct Bilirubin 0.4 (0.0-0.5) mg/dL AST 18 (5-37) U/L ALT 7 (0-40) U/L Alkaline Phosphatase 108 (39-117) U/L Troponin I High Sens 5.8 (<3.5-35.0) ng/L Total Protein 7.1 (6.5-8.0) g/dL Albumin 4.1 (3.5-5.0) g/dL Lipase 25 (8-78) U/L Urine Color Dark Yellow Urine Appearance Clear Urine pH 5.5 (5.0-9.0) Ur Specific [place] >= 1.030 H (1.005-1.025) Urine Protein Trace (Neg-Trace) mg/dL Urine Glucose (UA) Negative (Negative) mg/dL Urine Ketones 15 (Negative) mg/dL Urine Blood Negative (Negative) Urine Nitrite Negative (Negative) Ur Leukocyte Esterase Trace H (Negative) Urine RBC 0-2 (0-2) /HPF Urine WBC 0-5 (0-5) /HPF Ur Squamous Epith Cells 0-2 (0-2) /HPF Urine Bacteria None Seen (None Seen) Hyaline Casts 0-2 (0-2) /LPF Ethyl Alcohol < 10 mg/dL Influenza Type A (PCR) NEGATIVE (Negative) Influenza Type B (PCR) NEGATIVE (Negative) RSV RNA Qual (PCR) NEGATIVE (Negative) SARS-CoV-2 RNA (RT-PCR) NEGATIVE (Negative) Independent Interpretation I performed an independent interpretation of an: EKG Interpretation: Normal sinus rhythm at a ventricular rate of 66 beats per minute, [place] interval 154, QT QTC 402/421, no ST elevation or depression. Radiology Impression Discussion of test interpretation with radiology: I have reviewed the radiologist's reading. Radiologist Impression: XR/XR chest 1V IMPRESSION: Low lung volumes with atelectasis. Dictated By: Kavita Sandoval MD CT/CT head/brain wo IV con IMPRESSION: 1. No acute intracranial pathology. 2. Chronic white matter small vessel ischemic changes. External Record Review External record reviewed: Outpatient record and Primary care record Of recent primary care visits, it was noted that patient was alert and oriented x3. Chronic Conditions Patient?s care impacted by: Other (Dementia) Discharge Plan Discharge Clinical Impression: Dementia Prescriptions: No Action lisinopril 5 mg tablet 5 mg PO DAILY Qty: 90 1RF donepezil 5 mg tablet 5 mg PO BEDTIME Print Language: [place]ese
[2024-05-03 14:13] VITALS: BP 136/69; PULSE 72; RESP 16; TEMP 36.6; O2SAT 98; BMI 25.1
--- NOTE | 2024-05-03 14:24 | ECG_ITS ---
Test Reason : AMS Blood Pressure : / mmHG Vent. Rate : 066 BPM Atrial Rate : 066 BPM P-R Int : 154 ms QRS Dur : 102 ms QT Int : 402 ms P-R-T Axes : 037 -46 027 degrees QTc Int : 421 ms Normal sinus rhythm Left axis deviation Abnormal ECG When compared with ECG of 10-JUL-2023 21:06, Premature ventricular complexes are no longer Present Vent. rate has decreased BY 50 BPM Borderline criteria for Lateral infarct are no longer Present Referred By: Teagan Perales Electronically Signed By:ALEXIS BOSS MD
[2024-05-03 14:47] VITALS: BMI 25.0
[2024-05-03 14:49] LABS: MANUAL DIFF FLAG NO
[2024-05-03 14:50] LABS: Basophils Absolute Auto 0.1 X10*3/uL (0.0-0.2); Basophils Percent Auto 0.8 % (0-2); Eosinophils Absolute Auto 0.1 X10*3/uL (0.0-0.4); Eosinophils Percent Auto 1.1 % (0-4); Hematocrit 44.5 % (42.0-52.0); Hemoglobin 15.8 g/dl (14.0-18.0); Imm Gran Abs Auto 0.03 X10*3/uL (0.00-0.03); Imm Gran Pct Auto 0.4 % (0.0-0.4); Lymphocytes Absolute Auto 0.9 X10*3/uL (1.2-4.9); Lymphocytes Percent Auto 12.7 % (20-40); Mean Corpuscular HGB Conc 35.5 g/dl (31.0-36.0); Mean Corpuscular Volume 87.4 fL (80.0-98.0); Mean Platelet Volume 8.6 fL (9.4-12.4); Monocytes Absolute Auto 0.5 X10*3/uL (0.1-1.2); Monocytes Percent Auto 6.9 % (2-11); Neutrophils Absolute Auto 5.8 x10*3/uL (2.0-8.3); Neutrophils Percent Auto 78.1 % (45-73); Platelet Count 228 X10*3/uL (160-400); Red Blood Count 5.09 X10*6/uL (4.60-5.80); Red Cell Distribution Width 13.4 % (11.0-16.0); White Blood Count 7.4 X10*3/uL (4.8-10.8)
[2024-05-03 14:57] LABS: INTERNATIONAL NORM RATIO 1.1 (0.9-1.1); Prothrombin Time 13.6 SEC (11.1-13.3)
[2024-05-03 15:00] LABS: Partial Thromboplastin Time 30.5 SEC (26.0-36.8)
[2024-05-03 15:02] LABS: Lactic Acid 0.7 mmol/L (0.5-2.0)
[2024-05-03 15:04] LABS: Ethanol < 10 mg/dL
[2024-05-03 15:06] LABS: Alanine Aminotransferase 7 U/L (0-40); Albumin Level 4.1 g/dL (3.5-5.0); Alkaline Phosphatase 108 U/L (39-117); Anion Gap 12 (12-20); Aspartate Amino Transferase 18 U/L (5-37); Bilirubin Direct 0.4 mg/dL (0.0-0.5); Blood Urea Nitrogen 12 mg/dL (9-16); Calcium 9.7 mg/dL (8.4-10.2); Carbon Dioxide 29 mmol/L (22-29); Chloride 106 mmol/L (96-108); Creatinine Clr Calc Pharmacy 70.1; Estimated Glomerular Filt Rate > 60; Glucose Random 104 mg/dL (60-115); Lipase 25 U/L (8-78); Potassium 3.8 mmol/L (3.3-5.1); Sodium 143 mmol/L (135-145); Total Protein 7.1 g/dL (6.5-8.0)
[2024-05-03 15:13] LABS: Troponin-I High Sensitivity 5.8 ng/L (<3.5-35.0)
[2024-05-03 15:48] LABS: Influenza A PCR NEGATIVE (Negative); Influenza B PCR NEGATIVE (Negative); Resp Syncy Virus RNA Qual PCR NEGATIVE (Negative); SARS COV2 PCR INHOUSE NEGATIVE (Negative)
[2024-05-03 15:50] LABS: Appearance Urine Clear; Color Urine Dark Yellow; Glucose Urine UA Negative (Negative); Leukocyte Esterase Urine Trace (Negative); Nitrite Urine Negative (Negative); PH 5.5 (5.0-9.0); Specific Gravity - Urine >= 1.030 (1.005-1.025); UMIC TRIGGER UACC YES; Urine Blood Negative (Negative); Urine Ketones 15 mg/dL (Negative); Urine Protein Trace mg/dL (Neg-Trace)
[2024-05-03 15:59] LABS: Bacteria Urine None Seen (None Seen); Hyaline Casts Urine 0-2 /LPF (0-2); RBC Urine 0-2 /HPF (0-2); Squamous Epithelial Cell Urine 0-2 /HPF (0-2); WBC Urine 0-5 /HPF (0-5)
--- NOTE | 2024-05-03 16:13 | PC.NURSE ---
HCP Meka called/ no answer / message with call back number left.
[2024-05-03 17:17] VITALS: BP 151/87; PULSE 58; RESP 16; O2SAT 98
--- NOTE | 2024-05-03 18:24 | MHC.CM.ED ---
CM met with patient at the request of Teagan SPAULDING. Pt lives alone. Uses no DME/services. Drives. Feels that he is independent. Knows his address and his doctor. HCP is on file. Ex- Meka Bunn is his HCP([phone]). According to CHELLY, she has not had contact with him in over 3 months. According to notes, patient has good and bad days. Pt is insistant that he plays hockey, cannot tell me the name of the hockey rink or who he plays with. Doubt that patient is currently playing hockey. Pt has parkinsons, dementia, hypertension, GERD, RBBB and enlarged prostate. Pt is very pleasant and chatty. Speaking with random speech, word searching, very confused at times. Word salad. Pt feels he is very independent and feels safe at home. Pt still drives, but admits he probably should not, because of how others drive, not his driving ability. PT and psych consults pending. CM will follow for discharge planning once pending consults are completed.
[2024-05-03 18:31] VITALS: BP 162/83; PULSE 58; RESP 12; O2SAT 97
[2024-05-03 21:36] VITALS: BP 141/71; PULSE 60; RESP 17; TEMP 36.4; O2SAT 98
--- NOTE | 2024-05-04 02:30 | PC.NURSE ---
Dr. Tavarez informed of patient's heart rate 45-50 while asleep, back to 60-70 when awake, no new orders at this time.
--- NOTE | 2024-05-04 02:50 | PC.NURSE ---
Assumed care of patient at 23:00. Patient resting comfortably in a stretcher bed, eyes closed, RR 16, even chest wall rise and fall. Plan of care ongoing.
[2024-05-04 05:16] VITALS: BP 140/90; PULSE 58; RESP 17; TEMP 37.1; O2SAT 99
--- NOTE | 2024-05-04 06:06 | PC.NURSE ---
Patient is awake, oriented to self only, calm and cooperative. Patient denies any pain at present. VSS, HR 67. Patient resting in a hospital bed, watching TV, call davis in reach, plan of care ongoing.
[2024-05-04 08:40] VITALS: PULSE 61
--- NOTE | 2024-05-04 08:40 | PC.NURSE ---
med rec completed off of pharmacy last filled, provider notified.
[2024-05-04 09:01] VITALS: BP 157/83
[2024-05-04] MEDS: lisinopriL 5 MG TABLET PO (09:01)
--- NOTE | 2024-05-04 09:11 | PC.NURSE ---
RN-RN report given to Overflow, plan to transport pt when room is clean and available.
--- NOTE | 2024-05-04 10:13 | MHC.CM.ED ---
Patient remains in ER. Physical therapy eval completed. No skills indicated. Psych consult for capacity is still pending. Continue to monitor for d/c needs.
--- NOTE | 2024-05-04 13:07 | MHC.EDTECH ---
Patient states he wants to go home. Patient also refusing any food and liquids.
--- NOTE | 2024-05-04 13:59 | MHC.CLN ---
Assisted patient to the bathroom. Patient was quite unsteady but did well when I held his arm. Pt reported left knee pain; Inez bear.
[2024-05-04 14:00] VITALS: BP 150/90; PULSE 86; RESP 17; TEMP 37; O2SAT 95
[2024-05-04 19:30] VITALS: BP 142/72; PULSE 72; RESP 16; TEMP 36.9; O2SAT 98
[2024-05-04] MEDS: Donepezil HCl 5 MG TABLET PO (20:42)
--- NOTE | 2024-05-04 23:43 | PC.NURSE ---
Assumed care of patient at 1900. Patient is alert to himself only. vss, assisted patient oob, pt used bedside urinal. Bedtime medication administered per jan. Patient reported some pain to left knee and requested an ice pack. Ice provided to patient. No additional complaints at this time. Call davis within reach.
[2024-05-05 06:16] VITALS: BP 127/58; PULSE 70; RESP 17; TEMP 36.8; O2SAT 98
--- NOTE | 2024-05-05 06:42 | PC.NURSE ---
patient Ax1 (self only), expressed confusion to time, place and situation many times, speech is clear but not not concise. reports pain to the knee, given ice pack which he reports relieves symptoms. awaiting psych and PT consults.
--- NOTE | 2024-05-05 06:45 | PC.NURSE ---
Addendum entered by Jonnathan Rodriguez RN 05/05/24 06:47: note charted for the incorrect patient, disregard... see previous note from CB for proper documentation on patient. Original Note: Ax1-2, BP elevated, all other vitals stable, slept through the nigh. when woken for vitals and med pass patient expressed no pain and was cooperative with care.
[2024-05-05 08:53] VITALS: BP 127/56
[2024-05-05] MEDS: lisinopriL 5 MG TABLET PO (08:53)
--- NOTE | 2024-05-05 12:41 | MHC.CM.ED ---
Patient remains in ER overflow. Psych consult for capacity is still pending. Continue to monitor for d/c needs.
[2024-05-05 14:00] VITALS: BP 126/68; PULSE 78; RESP 12; TEMP 37.5; O2SAT 96
--- NOTE | 2024-05-05 16:56 | PM.PSYCN ---
History of Present Illness Date of Service: 05/05/24 Chief Complaint: FALL,BACK PAIN,SEC 12 FOR AMS PER EMS Reason for Consult: capacity Discussed with referring provider: Yes Sources of Information: patient interviewed, chart reviewed and crisis/core team assessment reviewed HPI Narrative: Mr. Combs is a 78 year-old male with hx of dementia who was brought via EMS after he presented to one of his providers stating that he was playing hockey. Pt lives alone and has minimal supports in the community. In the ED, cbc without leukocytosis. CMP without electrolytes abnormalities. BUN 12, Cr. 0.84, creatinine clearace 70.1. UA dark urine, elevated specific gravity, trace of leukocytosis. no culture done. Head CT no acute finding but atrophy and microvascular changes. In the ED, pt presents as pleasant. He is constantly asking staff that he has to go to a hockey game. He is pleasant on approach. He is not able to tell where he is. He does not know the year or the month. His speech is notable for expressive and receptive aphasia. He denies any concerns. He thanks this typewriter assembly and parts inspector for coming again- we have never met before. He is unable to tell this typewriter assembly and parts inspector his medical conditions nor what medications he is on. No overt psychosis or delusional content. But he is to some extend confabulating. Past Psychiatric History: unknown [facility] Medical History Closed fracture of left hip Impingement syndrome, shoulder Arthritis of glenohumeral joint Dementia Parkinsons disease Tendinopathy of right shoulder Hypertension GERD (gastroesophageal reflux disease) Enlarged prostate Surgical History H/O cervical discectomy H/O bilateral cataract extraction History of total knee arthroplasty H/O blepharoplasty S/P right knee arthroscopy H/O esophagogastroduodenoscopy H/O colonoscopy Diagnostics Vital Signs (24Hr): Vital Signs - 24 hr 05/04/24 19:30 05/05/24 06:16 05/05/24 08:53 Temperature 98.4 F 98.2 F Pulse Rate 72 70 Respiratory Rate 16 17 Blood Pressure 142/72 H 127/58 L 127/56 L Pulse Oximetry 98 98 Oxygen Delivery Method Room Air Room Air 05/05/24 14:00 Temperature 99.5 F Pulse Rate 78 Respiratory Rate 12 Blood Pressure 126/68 Pulse Oximetry 96 Oxygen Delivery Method Room Air BMI result Body Mass Index 25.0 Labs 05/03/24 14:42 05/03/24 14:42 Imaging Radiology Impressions: ITS Impressions Head CT 05/03/24 15:19 IMPRESSION: 1. No acute intracranial pathology. 2. Chronic white matter small vessel ischemic changes. Chest X-Ray 05/03/24 15:27 IMPRESSION: Low lung volumes with atelectasis. Mental Status Exam Mental Status Exam Narrative: Appearance: wearing hospital gown, fair hygiene, in NAD behavior: pleasant Psychomotor: no agitation or retardation noted Speech: mumbles at times, regular rate/rhythm, spontaneous TP: severe expressive and receptive aphasia TC: wanting to go play hockey Mood: good Affect: congruent SI: no signs HI: no signs VH/AH: no overt signs Delusions: no overt signs Insight/judgment: severely impaired x 2. Memory/cog: alert, not oriented to place, month, situation, year. severe cognitive impairments. 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 Combs is a 78 year-old male with a hx of dementia. He was sent after he presented to a provider in the community reporting he was playing hockey. In the ED, pt not oriented to place, situation, month, year. Medical work up mostly unremarkable. His attention is fair- but suspect his impairments in orientation, language, ability to retain information are related to his advancing dementia and not an acute and transit change in mental status. Based on the pattern of cognitive and memory impairments that he presents with- most remarkably his severe receptive and expressive aphasia along with severe impairments in orientation, that he has Alzheimer. But also note that his head CT shows atrophy and microvascular changes which he could have combination of AD and vascular type. Pt does not show understanding of his medical conditions, not ability to appreciate risks versus benefits of accepting or rejecting treatment. He does NOT have capacity to make medical decisions and his capacity is NOT expected to be regained. PLAN 1. Pt does not have capacity to make medical decisions- recommend MD invoke HCP. Total time managing care of this patient today ____ minutes.
--- NOTE | 2024-05-05 19:38 | PC.NURSE ---
Addendum entered by Jocelyn Billingsley RN 05/05/24 21:03: Patient is alert, oriented only to self. Confused, impulsive at times. In-room camera and bed alarm, safety measures in place. Speech is clear but pt is vague, pt responds with inappropriate answers to assessment questions or rambles about unrelated topics. MAEE. +perrla. Follows basic commands. Patient reoriented, repositioned, and blanket provided. Per report patient seen by psych; awaiting formal psych note re: pt capacity at this time. VSS. +pp/cms. Breathing is even and unlabored without distress. Tolerated med without issue. Urinal at bedside, staff assists with. Call davis within reach and educated on use. Hourly purposeful rounding enacted. Original Note: Assumed care of patient at 19:00. Patient remains in ED overflow. Pharmacy notified of scheduled donepezil not stocked in pyxis, comic writer requested to be delivered.
[2024-05-05 19:52] VITALS: BP 142/66; PULSE 107; RESP 17; TEMP 37.2; O2SAT 98
[2024-05-05] MEDS: Donepezil HCl 5 MG TABLET PO (20:06)
[2024-05-05 20:34] VITALS: PULSE 67
[2024-05-05 23:55] VITALS: RESP 14
--- NOTE | 2024-05-06 04:20 | MHC.EDTECH ---
pt was assisted with the urinal and voided 100ml
[2024-05-06 04:49] VITALS: BP 157/70; PULSE 70; RESP 17; TEMP 37; O2SAT 98
[2024-05-06 08:47] VITALS: BP 157/70
[2024-05-06] MEDS: lisinopriL 5 MG TABLET PO (08:47)
--- NOTE | 2024-05-06 13:50 | MHC.CM.ED ---
wildlife conservation officer Echo Jacobs evaluated patient for capacity. Pt does NOT have capacity to make medical decisions and requested provider invoke the HCP. Dr Mathews aware and has invoked the HCP. CM spoke with HCP, ex- Meka Bunn ([phone]) and she is willing to be the invoked HCP and make medical decisions. She does not want to make and financial decisions. Meka is aware that the hospital will petition the court for a conservator to handle financial matters and that that person will apply for . She is aware that the patient will need to pay for LTC. Meka does not think the patient has funds, however he owns his home and a car. Meka is aware that this is a process that can take a month or more. Kendra Maradiaga- [employer]er aware. No LTC referrals made at this time pending MH application completion. AGUSTO met with Juan Antonio to discuss psych evaluation. Juan Antonio does not appear to understand that he does not have capacity to make medical decisions. He is aware that Meka will be making decisions and that he cannot go home. He is aware that he will need to live in a LTC facility, as his dementia has progressed to the level that he can not care for himself. Juan Antonio responded by talking about his car and a car dealership. He is very confused.
[2024-05-06 14:00] VITALS: BP 159/85; PULSE 77; RESP 17; TEMP 36.2; O2SAT 98
--- NOTE | 2024-05-06 18:37 | MHC.EDTECH ---
pt ate 75% of his dinner
[2024-05-06] MEDS: Donepezil HCl 5 MG TABLET PO (20:52)
[2024-05-06 21:40] VITALS: BP 106/63; PULSE 78; RESP 16; TEMP 36.2; O2SAT 95
--- NOTE | 2024-05-07 03:50 | PC.NURSE ---
Assumed care of patient at 1900. Patient A&O to self only. Confused but redirectable. Patient able to take pills whole. Resting comfortably at present time. Safety measures in place, bed alarm on , telesitter at bedside.
[2024-05-07 06:00] VITALS: BP 117/69; PULSE 75; RESP 17; TEMP 36.8; O2SAT 97
[2024-05-07 08:28] VITALS: BP 124/70; PULSE 76; RESP 14; TEMP 37; O2SAT 97
[2024-05-07] MEDS: lisinopriL 5 MG TABLET PO (08:32)
--- NOTE | 2024-05-07 09:16 | PC.NURSE ---
Addendum entered by Randa Anand RN 05/07/24 17:19: Pt had two bites of dinner and refused rest of meal, stated he ate enough at lunch. Addendum entered by Randa Anand RN 05/07/24 14:50: Pt required 2 person assist to bedside commode to have BM. Very unsteady on feet. Significant weakness to left leg. Original Note: Assumed care of pt at approx 0700. Alert, oriented to self only. Confused and impulsive at times. Pt reoriented as needed, Medicated pt per JAN, med compliant. Refused breakfast, stated he wasn't hungry. Pt c/o neck pain - hot pack applied to area, pt states improvement. Pt MAYER independently, although tremulous at baseline and requires assistance with urinal. Pt repositioned for comfort. VSS. Call davis within reach, safety measures in place.
[2024-05-07 12:44] VITALS: BP 108/66; PULSE 96; RESP 14; TEMP 36.8; O2SAT 98
[2024-05-07 20:40] VITALS: BP 108/60; PULSE 86; RESP 16; TEMP 37.1; O2SAT 95
[2024-05-07] MEDS: Donepezil HCl 5 MG TABLET PO (20:54)
--- NOTE | 2024-05-08 04:35 | PC.NURSE ---
Pt alert to self. He can be impulsive though he is redirectable. 1:1 sitter bedside. He uses the urinal w/1 assist. He did have some c/o pain in his left knee and/or neck. He was given ice and warm packs and stated they helped. Call davis withing reach. Safety maintained throughout shift.
[2024-05-08 05:02] VITALS: BP 159/80; PULSE 94; RESP 18; TEMP 36; O2SAT 96
[2024-05-08 07:38] VITALS: BP 128/67; PULSE 73; RESP 16; O2SAT 97
--- NOTE | 2024-05-08 08:02 | MHC.EDTECH ---
07:55 Pt was cleaned up and boosted in bed and breakfast was given.
[2024-05-08] MEDS: lisinopriL 5 MG TABLET PO (08:22)
[2024-05-08 12:00] VITALS: BP 137/63; PULSE 76; RESP 16; TEMP 37.1; O2SAT 98
[2024-05-08] MEDS: Acetaminophen 325 MG TABLET 650 MG PO (13:07)
--- NOTE | 2024-05-08 13:08 | PC.NURSE ---
patient medicated with prn tylenol fr headache, patient takes meds whole with water
--- NOTE | 2024-05-08 16:00 | MHC.EDTECH ---
This pct assumed care of patient at 1500 ,Patient was assisted with urinal void 300 ml .
[2024-05-08 19:14] VITALS: BP 105/63; PULSE 76; RESP 16; TEMP 36.5; O2SAT 97
--- NOTE | 2024-05-08 19:18 | MHC.EDTECH ---
Patient was set up with dinner ,ate 10 % of meal drank 120 ml juice ,After dinner Patient was assisted to bedside commode with 2 asst ,had small bowel movement ,sponge bath given , clean gown on ,and bedding change ,warm blanket and vitals taken ,Patient resting quietly in bed .
[2024-05-08] MEDS: Donepezil HCl 5 MG TABLET PO (20:20)
[2024-05-09 06:00] VITALS: BP 129/77; PULSE 76; RESP 17; TEMP 36.4; O2SAT 94
--- NOTE | 2024-05-09 08:52 | MHC.CM.PN ---
PT AWAITING CONSERVATOR FOR [facility] APPLICATION HCP INVOKED. REFERRALS WILL BE MADE ONCE MH IS PENDING
[2024-05-09] MEDS: lisinopriL 5 MG TABLET PO (09:17)
--- NOTE | 2024-05-09 10:13 | PC.NURSE ---
this RN resumed care of pt at 0645. pt alert and oriented to self only. pt seems to be pleasantly confused. pt unaware on why he's here. pt hyperfixated on the fact that he was playing hockey prior to coming into ED. pt telling this staff writer that he needs to leave soon because he has a hockey game in [place]. attempts to reorient pt were made. morning medication administered whole w/ water. no difficulties in swallowing noted. pt able to use urinal independently in bed. ate 75% of breakfast. pt calm/cooperative throughout this staff writer's shift. 1:1 sitter bedside/camera in place/bed alarm turned on for safety precautions. pt turned/repositioned. resting comfortably in no apparent distress. no sob/wob noted. respirations even/unlabored. per psych notes - HCP invoked. guardianship pending. plan of care ongoing. call davis placed within reach.
--- NOTE | 2024-05-09 12:17 | PC.NURSE ---
Assumed care of this patient at 1100, patient continues to be confused, easily redirectable, 2A to stand to commode w/ walker, unsteady on feet.
[2024-05-09 14:00] VITALS: BP 126/84; PULSE 79; RESP 17; TEMP 36.8; O2SAT 97
--- NOTE | 2024-05-09 16:47 | PC.NURSE ---
Attempted to get patient up to wash up with sitter and EDT, patient adamantly refused. Will attempt again later.
[2024-05-09 21:00] VITALS: BP 127/68; PULSE 85; RESP 18; TEMP 37.1; O2SAT 97
--- NOTE | 2024-05-09 21:36 | PC.NURSE ---
Patient continues in ED overflow as pt/cm/phys obs. VSS. Pt has hx dementia, A&Ox1. Speaks clearly but most verbal responses are inappropriate for questions being asked. Does know his name and states he was born on the but unable to state month. Attempts made to reorient. Patient remains impulsive, making frequent attempts to get OOB. 1:1 [address] in place. Breathing is even and unlabored without distress. VSS. Denies pain. Assisted with urinal, cyu. Has hx BPH. Pt's scheduled donepezil is not stocked in the unit pyxis; requested from pharmacy x2. Will administer when delivered. Patient is resting in bed watching TV at this time. No distress noted. Bed alarm on and safety measures continue.
[2024-05-09] MEDS: Donepezil HCl 5 MG TABLET PO (22:37)
[2024-05-10 05:01] VITALS: BP 126/70; PULSE 78; RESP 18; TEMP 36.4; O2SAT 97
--- NOTE | 2024-05-10 07:17 | PC.NURSE ---
Assumed care at 0700, pt sleeping at this time. 1:1 sitter at bedside. Pt allowed to sleep. Breathing even and unlabored.
[2024-05-10 08:57] VITALS: BP 107/55
[2024-05-10] MEDS: lisinopriL 5 MG TABLET PO (08:57)
--- NOTE | 2024-05-10 09:30 | PC.NURSE ---
Pt alert and oriented to self, breathing even and unlabored. Denies pain when asked, rambles. 1:[address], needs redirection at times. Tolerated morning meds, no issues swallowing. Ate little breakfast.
--- NOTE | 2024-05-10 12:27 | PC.NURSE ---
Pt ate his entire lunch. Had a BM at this time on commode.
--- NOTE | 2024-05-10 13:10 | MHC.CM.ED ---
Patient remains in ER overflow. HCP has been invoked. Will need conservator for [facility] application. Per AGUSTO Gardner Digital Product Specialist, paperwork sent to hospital patternmaker all around to start process. Continue to monitor for d/c needs.
[2024-05-10 14:00] VITALS: BP 126/63; PULSE 71; RESP 17; TEMP 36; O2SAT 98
[2024-05-10] MEDS: Acetaminophen 325 MG TABLET 650 MG PO (20:05)
[2024-05-10] MEDS: Donepezil HCl 5 MG TABLET PO (20:06)
--- NOTE | 2024-05-10 20:48 | PC.NURSE ---
Addendum entered by Jocelyn Morton RN 05/11/24 05:37: patient awake to use urinal, voided 150cc with RN assistance - patient has a large hoop piercing through scrotum. call davis within reach. Addendum entered by Jocelyn Morton RN 05/11/24 02:36: patient sleeping, did not disturb. call davis at bedside. sitter remains at bedside- provider still has not read tigerconnect or reached out. Addendum entered by Jocelyn Morton RN 05/11/24 00:13: RN still has not heard back from covering Provider. Patient remains asleep, did not wake for vital signs as patient was agitated and aggressive earlier in shift. call davis within reach, sitter remains at bedside. Addendum entered by Jocelyn Morton RN 05/10/24 23:06: continued to not hear back from provider. provider notified that patient is now asleep and to disregard message. Addendum entered by Jocelyn Morton RN 05/10/24 22:42: two hours and still no response from overflow covering provider, Nata Stafford. confirmed with ED Charge that this was provider covering the shift. patient is now asleep and has calmed down for now. sitter remains at bedside with VMT camera. call davis in reach. Addendum entered by Jocelyn Morton RN 05/10/24 21:49: One hour- still no response from Provider. Addendum entered by Jocelyn Morton RN 05/10/24 21:26: see head to toe assessment. still no response from Provider, Nata Stafford. Patient continues with agitation/aggression. Call davis in reach. Addendum entered by Jocelyn Morton RN 05/10/24 21:19: patient continues to be agitated/aggressive with staff. Patient redirectable at times. No response from Provider, Nata Stafford. Original Note: pt becoming agitated and aggressive, getting in staff (sitter) face. Provider Nata Stafford notified [facility] at 20:48 that patient is becoming agitated and aggressive with staff. RN requesting a PRN to help calm the patient. Awaiting new orders/response from provider at this time.
--- NOTE | 2024-05-10 20:51 | MHC.EDTECH ---
at this time thew pt became slightly agitated, cursing and attempted to get out of bed without assistance, and verbally abusive towards BOUBACAR cochran aware, video monitoring continues to be active
--- NOTE | 2024-05-10 22:19 | MHC.EDTECH ---
at this time did not complete 2200 VS r/t pt sleeping and previously having an episode of agitation 1 hour prior to falling asleep.
[2024-05-10 23:51] VITALS: RESP 16
--- NOTE | 2024-05-10 23:54 | MHC.EDTECH ---
This tech took over care of patient at 2300,hourly rounds completed,vitals per RN will be taken when patient wakes up,camera in place and a 1-1 sitter at bedside for safety.
[2024-05-11 01:27] VITALS: BP 132/68; PULSE 83; RESP 18; TEMP 36.8; O2SAT 97
--- NOTE | 2024-05-11 01:28 | MHC.EDTECH ---
Patient used the urinal,250MLS of yellow urine,patient was incot. of a small amount of urine,rojas-care given and bed linen changed,warm blanket given, vitals were taken,call davis in reach,camera in place and 1-1 sitter at bedside for safety.
--- NOTE | 2024-05-11 03:47 | MHC.EDTECH ---
Hourly rounds completed,patient is resting comfortably,camera in place and 1-1 sitter at bedside for safety
[2024-05-11 05:58] VITALS: BP 116/64; PULSE 63; RESP 18; TEMP 36.7; O2SAT 96
--- NOTE | 2024-05-11 06:00 | MHC.EDTECH ---
Hourly rounds and vitals completed,patient in bed watching TV,1:1 sitter/camera at bedside for safety.
--- NOTE | 2024-05-11 06:50 | MHC.EDTECH ---
Patient urinated 200MLS in urinal,patient spilled the urinal,rojas-care and linen was changed.
--- NOTE | 2024-05-11 08:03 | MHC.EDTECH ---
Patient given breakfast. ate 70% of his breakfast.
[2024-05-11 09:30] VITALS: BP 126/66
[2024-05-11] MEDS: lisinopriL 5 MG TABLET PO (09:30)
[2024-05-11 09:34] VITALS: BP 126/66; PULSE 77; RESP 16; TEMP 36.4; O2SAT 96
[2024-05-11] MEDS: Acetaminophen 325 MG TABLET 650 MG PO ×2 (09:36→18:36)
--- NOTE | 2024-05-11 12:06 | MHC.EDTECH ---
patient given lunch. eating at this time.
--- NOTE | 2024-05-11 16:49 | MHC.CM.ED ---
Pt has been approved for social admission by Yousif Ackerman. Remote from discharge. Needs conservator and LTC. HCP invoked. HCP is Meka Bunn ([phone]). She is his ex-.Primary RN and provider aware. Dr. Sanchez is the hospitalist.
--- NOTE | 2024-05-11 17:38 | P.HPHOSP_ITS ---
History of Present Illness Date of Service: 05/11/24 Attending physician on admission: Elvis Sanchez Chief Complaint: ams 78-year-old male, with a history of dementia, Parkinson's disease, RBBB, hypertension presented to [facility] via EMS after presening to [facility] confused on section (he had refused transport) has been boarding in overflow while awaiting LTC placement and will be admitted to hospitalist service for social admit. On exam, the patient demonstrates tangential speech and flight of ideas, talking of cars and then playing hockey, not making much sense nor following commands consistently. He is not answering questions appropriately but does deny complaints. He is sitting in recliner watching television. There does not appear to be any acute medical concerns. On arrival on 05/03, hematology studies and chemistries unremarkable. UA unremarkable, CXR unremarkable except for low lung volumes and atelectasis. Head CT negative for acute intracranial abnormality, but shows chronic small vessel ischemic changes. Health care proxy (, Meka) has been invoked and patient needs conservator and LTC. Review of Systems 2 Review of Systems: Yes Unobtainable due to mental status [facility] Medical History Closed fracture of left hip Impingement syndrome, shoulder Arthritis of glenohumeral joint Dementia Parkinsons disease Tendinopathy of right shoulder Hypertension GERD (gastroesophageal reflux disease) Enlarged prostate Family History Father No problems noted. Mother Oral cancer Surgical History H/O cervical discectomy H/O bilateral cataract extraction History of total knee arthroplasty H/O blepharoplasty S/P right knee arthroscopy H/O esophagogastroduodenoscopy H/O colonoscopy Social History Household Members: Spouse Housing: House Do you presently have visiting nurse or other home services: No Alcohol intake: current Alcohol intake frequency: does not drink Patient Tobacco Use Status: Never used Tobacco e-Cigarette/Vaping Use: Never Used Second Hand Smoke Exposure: No Advance Directives: Yes Advance Directives on File: Yes Advance Directives Date on File: 07/15/23 Do you have a plan to hurt others: No Plan service: No Current occupational status: employed and retired Current occupation: [employer] Current occupational exposures/hazards: No Cognitive needs: No Hearing needs: No Vision needs: No Meds Allergies Allergy/AdvReac Type Severity Reaction Status Date / Time No Known Allergies Allergy Verified 05/03/24 14:17 Active Medications: Current Medications Acetaminophen (Acetaminophen 325 Mg Tablet) 650 mg PO Q4H PRN PRN Reason: Pain, Mild (Pain Scale 1-3) Last Admin: 05/11/24 09:36 Dose: 650 mg Donepezil HCl (Donepezil Hcl 5 Mg Tablet) 5 mg PO BEDTIME [facility] Last Admin: 05/10/24 20:06 Dose: 5 mg Lisinopril (Lisinopril 5 Mg Tablet) 5 mg PO DAILY [facility]ICK[facility]; Protocol Last Admin: 05/11/24 09:30 Dose: 5 mg Home Medications ?Medication ?Instructions ?Recorded ?Confirmed ?Last Taken ?Type donepezil 5 mg tablet 5 mg PO BEDTIME 01/16/22 05/04/24 Unknown History Physical Exam 2 Vital Signs and Narrative: Vital Signs: Last Vital Signs Temp 97.6 F 05/11/24 09:34 Pulse 77 05/11/24 09:34 Resp 16 05/11/24 09:34 BP 126/66 05/11/24 09:34 Pulse Ox 96 05/11/24 09:34 O2 Del Method Room Air 05/11/24 09:34 BMI result Body Mass Index 25.0 Constitutional - Awake and Alert, No apparent distress Eyes - PERRLA, EOMI Cardiovascular - S1S2, RRR, No edema Respiratory - Normal lung expansion, Normal respiratory effort, No respiratory distress, CTA bilaterally Gastrointestinal - NT / ND; +BS; No rebound or guarding Extremities - no calf tenderness bilaterally, no swelling Skin - Warm/Dry Neurological - Alert & oriented to self only, tangential thought process/flight of ideas, difficulty following commands but CN II-XII in tact with multiple redirection attempts, 5/5 strength BUE and BLE Results Labs 05/03/24 14:42 05/03/24 14:42 Assessment and Plan (1) 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: Status: Acute Plan 78-year-old male, with a history of dementia, Parkinson's disease, RBBB, hypertension presented to [facility] via EMS after presening to [facility] confused on section (he had refused transport) has been boarding in overflow while awaiting LTC placement and will be admitted to hospitalist service for social admit. #Alzheimers dementia/Parkinsons -no acute medical issues. Social admit while awaiting conservator and LTC placement -HCP invoked- ex- Meka Bunn [phone] (aware of admission). Confirmed DNR/DNI- will need MOST form completed -continue donepazil -regular diet #HTN -continue lisinopril No acute medical issues at this time. Recommend checking labs every few days. CBC and BMP ordered for tomorrow DVT prophylaxis- lovenox DNR/DNI Need for inpt stay at least 2 midnights- Awaiting placement to LTC and conservator- social admit Quality Stroke Does the patient have a stroke diagnosis?: No VTE Prior VTE?: No VTE Risk Level:: Medical - moderate - high VTE Device Contraindication: Treatment Not Indicated VTE Drug Contraindication: N/A - Med Ordered
[2024-05-11 18:11] VITALS: BP 107/70; PULSE 84; RESP 20; TEMP 36.7; O2SAT 97
--- NOTE | 2024-05-11 18:20 | PC.NURSE ---
assumed care of patient at 11am. Pt alert and oriented to self, vaguely to [place]. VSS, He needs frequent redirection. Pt c/o mild H/A this evening and asked for APAP. awaiting new wristband. Pt ambulated several times with walker and 1 assist/chair behind. No s/s distress. awaiting admission, plan of care progressing.
[2024-05-11] MEDS: Enoxaparin Sodium 40 MG/0.4 ML SYRINGE SUBCUT (18:36)
--- NOTE | 2024-05-11 19:12 | MHC.EDTECH ---
Patient walked 4 times with walker and 1 assist
--- NOTE | 2024-05-11 19:13 | MHC.EDTECH ---
Patient had total bed change
--- NOTE | 2024-05-11 19:15 | PHA.MEDREC ---
Pharmacy Consult ? Medication Reconciliation Pharmacy has reviewed the medication reconciliation completed by Yuly.
[2024-05-11] MEDS: Melatonin 3 MG TABLET 6 MG PO (20:08)
[2024-05-11] MEDS: Donepezil HCl 5 MG TABLET PO (20:08)
[2024-05-11 20:11] VITALS: BP 107/70; PULSE 84; RESP 16; TEMP 36.5; O2SAT 97
[2024-05-12 00:05] VITALS: BMI 24.4
[2024-05-12 00:06] VITALS: BP 122/70; PULSE 74; RESP 14; TEMP 36.4; O2SAT 95
--- NOTE | 2024-05-12 00:21 | PC.NURSE ---
pt arrived from overflow pretending asleep, pt refusing to answer questions/talk or move at this time. assessment completed with mostly pt unable/refusing or with report from previous rn or sitter at bed side from overflow. bed alarm placed, sitter at bed side, camera in room, will cont to monitor
[2024-05-12 06:13] LABS: MANUAL DIFF FLAG NO
[2024-05-12 06:17] LABS: Basophils Absolute Auto 0.1 X10*3/uL (0.0-0.2); Basophils Percent Auto 1.4 % (0-2); Eosinophils Absolute Auto 0.2 X10*3/uL (0.0-0.4); Eosinophils Percent Auto 2.7 % (0-4); Hematocrit 45.1 % (42.0-52.0); Hemoglobin 15.5 g/dl (14.0-18.0); Imm Gran Abs Auto 0.04 X10*3/uL (0.00-0.03); Imm Gran Pct Auto 0.6 % (0.0-0.4); Lymphocytes Absolute Auto 1.6 X10*3/uL (1.2-4.9); Lymphocytes Percent Auto 25.1 % (20-40); Mean Corpuscular HGB Conc 34.4 g/dl (31.0-36.0); Mean Corpuscular Hemoglobin 30.5 pg (27.0-33.0); Mean Corpuscular Volume 88.6 fL (80.0-98.0); Mean Platelet Volume 8.7 fL (9.4-12.4); Monocytes Absolute Auto 0.5 X10*3/uL (0.1-1.2); Monocytes Percent Auto 7.2 % (2-11); Neutrophils Absolute Auto 3.9 x10*3/uL (2.0-8.3); Platelet Count 415 X10*3/uL (160-400); Red Blood Count 5.09 X10*6/uL (4.60-5.80); Red Cell Distribution Width 12.7 % (11.0-16.0); White Blood Count 6.2 X10*3/uL (4.8-10.8)
[2024-05-12 06:28] LABS: Anion Gap 14 (12-20); Blood Urea Nitrogen 17 mg/dL (9-16); Calcium 10.2 mg/dL (8.4-10.2); Carbon Dioxide 27 mmol/L (22-29); Chloride 103 mmol/L (96-108); Creatinine Clr Calc Pharmacy 81.8; Estimated Glomerular Filt Rate > 60; Glucose Random 107 mg/dL (60-115); Potassium 3.9 mmol/L (3.3-5.1); Sodium 140 mmol/L (135-145)
[2024-05-12 08:00] VITALS: BP 118/74; PULSE 62; RESP 16; TEMP 36.1; O2SAT 96
[2024-05-12] MEDS: lisinopriL 5 MG TABLET PO (08:08)
--- NOTE | 2024-05-12 09:39 | HO.PM.IMPN ---
Subjective Subjective Date of Service: 05/12/24 Interval History: confused but no physical complaints Review of Systems Review of Systems: Yes Unobtainable due to mental status Physical Exam Vital Signs: Vital Signs: Last Vital Signs Temp 97 F 05/12/24 08:00 Pulse 62 05/12/24 08:00 Resp 16 05/12/24 08:00 BP 118/74 05/12/24 08:00 Pulse Ox 96 05/12/24 08:00 O2 Del Method Room Air 05/12/24 08:00 BMI result Body Mass Index 24.4 Gen: in no acute distress HEENT: sclera anicteric, moist mucus membranes Neck: supple Lungs: clear to auscultation bilaterally Heart: regular rate and rhythm, no murmurs Abd: soft, non-tender, non-distended Ext: no edema Skin: warm/well-perfused Neuro: alert and oriented to self/place but not date or situation Psych: impaired insight Objective Data Active Medications Acetaminophen (Acetaminophen 325 Mg Tablet) 650 mg PO Q4H PRN PRN Reason: Pain, Mild (Pain Scale 1-3) Last Admin: 05/11/24 18:36 Dose: 650 mg Documented By: SONA Calcium Carbonate (Calcium Carbonate 750 Mg Tab.Chew) 750 mg PO Q4H PRN PRN Reason: Heartburn Donepezil HCl (Donepezil Hcl 5 Mg Tablet) 5 mg PO BEDTIME [facility] Last Admin: 05/11/24 20:08 Dose: 5 mg Documented By: TIMOTHY Enoxaparin Sodium (Enoxaparin Sodium 40 Mg/0.4 Ml Syringe) 40 mg SUBCUT Q24H [facility] Last Admin: 05/11/24 18:36 Dose: 40 mg Documented By: SONA Lisinopril (Lisinopril 5 Mg Tablet) 5 mg PO DAILY [facility]; Protocol Last Admin: 05/12/24 08:08 Dose: 5 mg Documented By: COTEMA Magnesium Hydroxide (Milk Of Magnesia 30 Ml Oral.Susp) 30 ml PO DAILY PRN PRN Reason: Constipation Melatonin (Melatonin 3 Mg Tablet) 6 mg PO BEDTIME PRN PRN Reason: Insomnia Last Admin: 05/11/24 20:08 Dose: 6 mg Documented By: TIMOTHY Labs 05/12/24 06:00 05/12/24 06:00 Labs: Laboratory Results - last 24 hr 05/12/24 06:00 MCV 88.6 MCH 30.5 MCHC 34.4 RDW 12.7 Plt Count 415 H D MPV 8.7 L Immature Gran % (Auto) 0.6 H Neut % (Auto) 63.0 Lymph % (Auto) 25.1 [place] % (Auto) 7.2 Eos % (Auto) 2.7 Baso % (Auto) 1.4 Lymph # (Auto) 1.6 [place] # (Auto) 0.5 Eos # (Auto) 0.2 Baso # (Auto) 0.1 Abs Immat Gran (auto) 0.04 H Absolute Neuts (auto) 3.9 Absolute Nucleated RBC 0.000 Nucleated RBC % (auto) 0.0 Anion Gap 14 Estim Creat Clear Calc 81.8 Estimated GFR > 60 Random Glucose 107 Calcium 10.2 Assessment and Plan (1) 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: Status: Acute Assessment and Plan: d2 78yo M with dementia, Parkinson disease, RBBB, HTN sent in from [facility] due to confusion, sent in to [facility] ED on Section 12 on 05/03/24, was awaiting LTC placement in ED overflow then admitted to hospitalist service 05/12/24 to facilitate placement Alzheimer + Parkinson dementia - continue donepezil - HCP invoked [ex- Meka Bunn [phone]], DNR/DNI HTN - continue lisinopril VTE ppx - LMWH Total time managing care of this patient today: 25 minutes. Quality Stroke Does the patient have a stroke diagnosis?: No VTE Prior VTE?: No VTE Risk Level:: Medical - moderate - high VTE Device Contraindication: Treatment Not Indicated VTE Drug Contraindication: N/A - Med Ordered
--- NOTE | 2024-05-12 10:11 | MHC.CM.PN ---
Patient made I/P and moved to room 385. HCP Meka aware. IMM verbally delivered to HCP via telephone @ [phone]. Copy left at bedside per request. Patient w/ dx dementia, determined to NOT have capacity. HCP invoked 05/05. Continue to await court hearing for conservatorship. Will need [facility] and LTC placement. Per previous notes patient may own a home and a car. CM will continue to follow.
[2024-05-12 15:33] VITALS: BP 125/67; PULSE 77; RESP 18; TEMP 37; O2SAT 96
[2024-05-12] MEDS: Enoxaparin Sodium 40 MG/0.4 ML SYRINGE SUBCUT (18:01)
[2024-05-12] MEDS: Melatonin 3 MG TABLET 6 MG PO (19:24)
[2024-05-12] MEDS: Acetaminophen 325 MG TABLET 650 MG PO (19:24)
[2024-05-12] MEDS: Donepezil HCl 5 MG TABLET PO (19:24)
[2024-05-12 19:50] VITALS: BP 147/75; PULSE 82; RESP 18; TEMP 36.5; O2SAT 97
[2024-05-13] MEDS: OLANZapine 10 MG VIAL 5 MG IM (00:56)
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
[2024-05-13 07:24] VITALS: BP 165/77; PULSE 65; RESP 17; TEMP 36; O2SAT 98
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
[2024-05-13] MEDS: Acetaminophen 325 MG TABLET 650 MG PO ×2 (11:28→21:14)
--- NOTE | 2024-05-13 11:33 | MHC.CM.PN ---
PT AWAITING CONSERVATOR APPOINTMENT FOR [employer] [facility] AND SUBSEQUENT LTC PLACEMENT
[2024-05-13 16:00] VITALS: BP 121/62; PULSE 73; RESP 18; TEMP 36.6; O2SAT 96
--- NOTE | 2024-05-13 16:19 | PM.PSYCN ---
History of Present Illness Date of Service: 05/13/2024 Chief Complaint: Social admit,awaiting LTC placement Reason for Consult: overnight was violent/running down halls/got IM Zyprexa Requesting physician: Elvis Sanchez Discussed with referring provider: Yes Sources of Information: patient interviewed and chart reviewed HPI Narrative: Patient is a 78 year old male with hx of dementia, Parkinson disease, RBBB, HTN; sent in from [facility] due to confusion, sent in to [facility] on Section 12 on 05/03/24, was awaiting LTC placement in ED overflow then admitted to hospitalist service 05/12/24 to facilitate placement. Psychiatric consult placed for: overnight was violent/running down halls/got IM Zyprexa. Consulted for medication management. During psychiatric assessment, pt is alert but not oriented to time, place or situation. Pt is unable to maintain logical conversation and answers questions inappropriately. He denies any concerns. No overt psychosis or delusional content. Patient presented pleasant during assessment, however nursing staff reported pt become irritable during the night and threatened staff. Past Psychiatric History: unknown Medical Evaluation Reviewed: Yes Review of Systems Constitutional: Reports as per HPI Eyes: Reports as per HPI Reports as per HPI Cardiovascular: Reports as per HPI Respiratory: Reports as per HPI Gastrointestinal: Reports as per HPI Genitourinary: Reports as per HPI Musculoskeletal: Reports as per HPI Skin/Breast: Reports as per HPI Reports as per HPI Psychiatric: Reports as per HPI Endocrine: Reports as per HPI Hematologic/Lymphatic: Reports as per HPI Allergic/Immunologic: Reports as per HPI [facility] Medical History Closed fracture of left hip Impingement syndrome, shoulder Arthritis of glenohumeral joint Dementia Parkinsons disease Tendinopathy of right shoulder Hypertension GERD (gastroesophageal reflux disease) Enlarged prostate Surgical History H/O cervical discectomy H/O bilateral cataract extraction History of total knee arthroplasty H/O blepharoplasty S/P right knee arthroscopy H/O esophagogastroduodenoscopy H/O colonoscopy Family History: unknown Substance History: unknown Trauma History: unknown Diagnostics Vital Signs (24Hr): Vital Signs - 24 hr 05/12/24 19:50 05/13/24 07:24 05/13/24 16:00 Temperature 97.7 F 96.8 F 97.9 F Pulse Rate 82 65 73 Respiratory Rate 18 17 18 Blood Pressure 147/75 H 165/77 H 121/62 Pulse Oximetry 97 98 96 Oxygen Delivery Method Room Air Room Air Room Air BMI result Body Mass Index 24.4 Labs 05/12/24 06:00 05/12/24 06:00 Labs: Laboratory Results - last 48 hr 05/12/24 06:00 WBC 6.2 RBC 5.09 Hgb 15.5 Hct 45.1 MCV 88.6 MCH 30.5 MCHC 34.4 RDW 12.7 Plt Count 415 H D MPV 8.7 L Immature Gran % (Auto) 0.6 H Neut % (Auto) 63.0 Lymph % (Auto) 25.1 [place] % (Auto) 7.2 Eos % (Auto) 2.7 Baso % (Auto) 1.4 Lymph # (Auto) 1.6 [place] # (Auto) 0.5 Eos # (Auto) 0.2 Baso # (Auto) 0.1 Abs Immat Gran (auto) 0.04 H Absolute Neuts (auto) 3.9 Absolute Nucleated RBC 0.000 Nucleated RBC % (auto) 0.0 Sodium 140 Potassium 3.9 Chloride 103 Carbon Dioxide 27 Anion Gap 14 BUN 17 H Creatinine 0.72 Estim Creat Clear Calc 81.8 Estimated GFR > 60 Random Glucose 107 Calcium 10.2 Imaging Radiology Impressions: ITS Impressions Head CT 05/03/24 15:19 IMPRESSION: 1. No acute intracranial pathology. 2. Chronic white matter small vessel ischemic changes. Chest X-Ray 05/03/24 15:27 IMPRESSION: Low lung volumes with atelectasis. Mental Status Exam Mental Status Exam Patient Appearance: Appropriate Patient Orientation: Person Level of Consciousness: Awake and Alert Patient Behavior: Cooperative and Confused Mood Description: Calm Affect Description: Calm Speech Pattern: Mumbled Hallucinations: None Thought Process: Confusion Judgement: Poor Medications Medications Current Medications Acetaminophen (Acetaminophen 325 Mg Tablet) 650 mg PO Q4H PRN PRN Reason: Pain, Mild (Pain Scale 1-3) Last Admin: 05/13/24 11:28 Dose: 650 mg Calcium Carbonate (Calcium Carbonate 750 Mg Tab.Chew) 750 mg PO Q4H PRN PRN Reason: Heartburn Donepezil HCl (Donepezil Hcl 5 Mg Tablet) 5 mg PO BEDTIME [facility] Last Admin: 05/12/24 19:24 Dose: 5 mg Enoxaparin Sodium (Enoxaparin Sodium 40 Mg/0.4 Ml Syringe) 40 mg SUBCUT Q24H [facility] Last Admin: 05/12/24 18:01 Dose: 40 mg Lisinopril (Lisinopril 5 Mg Tablet) 5 mg PO DAILY [facility]; Protocol Last Admin: 05/13/24 08:50 Dose: Not Given Lorazepam (Lorazepam 2 Mg/Ml Vial) 1 mg IVPUSH ONCE PRN PRN Reason: anxiety/restlessness Magnesium Hydroxide (Milk Of Magnesia 30 Ml Oral.Susp) 30 ml PO DAILY PRN PRN Reason: Constipation Melatonin (Melatonin 3 Mg Tablet) 6 mg PO BEDTIME PRN PRN Reason: Insomnia Last Admin: 05/12/24 19:24 Dose: 6 mg Allergies Allergies Allergy/AdvReac Type Severity Reaction Status Date / Time No Known Allergies Allergy Verified 05/03/24 14:17 Assessment & Plan Assessment & Plan (1) Dementia: Status: Acute Code(s): F03.90 - Unspecified dementia, unspecified severity, without behavioral disturbance, psychotic disturbance, mood disturbance, and anxiety Plan Patient is a 78 year old male with hx of dementia, Parkinson disease, RBBB, HTN; sent in from [facility] due to confusion, sent in to [facility] on Section 12 on 05/03/24, was awaiting LTC placement in ED overflow then admitted to hospitalist service 05/12/24 to facilitate placement. Consulted for medication management. During psychiatric assessment, pt is alert but not oriented to time, place or situation. Pt is unable to maintain logical conversation and answers questions inappropriately. He denies any concerns. No overt psychosis or delusional content. Patient presented pleasant during assessment, however nursing staff reported pt become irritable during the night and threatened staff. Recommendation: Start: Zyprexa 2.5mg PO 1700 Zyprexa 2.5 PO bedtime Total time managing care of this patient today _30___ minutes. Patient educated on: other (unable d/t mental status)
[2024-05-13] MEDS: OLANZapine 2.5 MG TABLET PO ×2 (17:48→21:15)
--- NOTE | 2024-05-13 17:53 | PC.NURSE ---
Patient alert and oriented to self only. Patient calm and cooperative today. Takes medication whole with water. Patient gets out of bed without ringing call davis and set off alarms but patient has been easily redirectable back to bed. Walks to the bathroom with walker. Patient ate dinner without difficulty. Chair alarm on, camera in room. No sitter at bedside.
[2024-05-13 20:00] VITALS: BP 105/57; PULSE 66; RESP 16; TEMP 36.7; O2SAT 95
[2024-05-13] MEDS: Melatonin 3 MG TABLET 6 MG PO (21:14)
[2024-05-13] MEDS: Donepezil HCl 5 MG TABLET PO (21:15)
[2024-05-14 03:56] VITALS: BP 118/73; PULSE 76; RESP 18; TEMP 36.2; O2SAT 98
[2024-05-14 07:51] VITALS: BP 138/66; PULSE 61; RESP 16; TEMP 36.1; O2SAT 99
[2024-05-14] MEDS: lisinopriL 5 MG TABLET PO (08:10)
--- NOTE | 2024-05-14 09:56 | HO.PM.IMPN ---
Subjective Subjective Date of Service: 05/14/24 Interval History: no behavioral issues overnight Review of Systems Review of Systems: Yes Unobtainable due to mental status Physical Exam Vital Signs: Vital Signs: Last Vital Signs Temp 96.9 F 05/14/24 07:51 Pulse 61 05/14/24 07:51 Resp 16 05/14/24 07:51 BP 138/66 05/14/24 07:51 Pulse Ox 99 05/14/24 07:51 O2 Del Method Room Air 05/14/24 07:51 BMI result Body Mass Index 24.4 Gen: in no acute distress HEENT: sclera anicteric, moist mucus membranes Neck: supple Lungs: clear to auscultation bilaterally Heart: regular rate and rhythm, no murmurs Abd: soft, non-tender, non-distended Ext: no edema Skin: warm/well-perfused Neuro: alert, oriented to self, rest tremor, tangential/irrelevant speech Psych: impaired insight Objective Data Active Medications Acetaminophen (Acetaminophen 325 Mg Tablet) 650 mg PO Q4H PRN PRN Reason: Pain, Mild (Pain Scale 1-3) Last Admin: 05/13/24 21:14 Dose: 650 mg Documented By: ELMER Calcium Carbonate (Calcium Carbonate 750 Mg Tab.Chew) 750 mg PO Q4H PRN PRN Reason: Heartburn Donepezil HCl (Donepezil Hcl 5 Mg Tablet) 5 mg PO BEDTIME [facility] Last Admin: 05/13/24 21:15 Dose: 5 mg Documented By: ELMER Enoxaparin Sodium (Enoxaparin Sodium 40 Mg/0.4 Ml Syringe) 40 mg SUBCUT Q24H [facility] Last Admin: 05/13/24 17:08 Dose: Not Given Documented By: COTNEO Non-Admin Reason: Patient Refused Lisinopril (Lisinopril 5 Mg Tablet) 5 mg PO DAILY [facility]; Protocol Last Admin: 05/14/24 08:10 Dose: 5 mg Documented By: RANJIT Lorazepam (Lorazepam 2 Mg/Ml Vial) 1 mg IVPUSH ONCE PRN PRN Reason: anxiety/restlessness Magnesium Hydroxide (Milk Of Magnesia 30 Ml Oral.Susp) 30 ml PO DAILY PRN PRN Reason: Constipation Melatonin (Melatonin 3 Mg Tablet) 6 mg PO BEDTIME PRN PRN Reason: Insomnia Last Admin: 05/13/24 21:14 Dose: 6 mg Documented By: ELMER Olanzapine (Olanzapine 2.5 Mg Tablet) 2.5 mg PO BEDTIME [facility] Last Admin: 05/13/24 21:15 Dose: 2.5 mg Documented By: ELMER Olanzapine (Olanzapine 2.5 Mg Tablet) 2.5 mg PO DAILY@1700 [facility] Last Admin: 05/13/24 17:48 Dose: 2.5 mg Documented By: ADALID Labs 05/12/24 06:00 05/12/24 06:00 Assessment and Plan (1) 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: Status: Acute Assessment and Plan: d4 78yo M with dementia, Parkinson disease, RBBB, HTN sent in from [facility] due to confusion, sent in to [facility] ED on Section 12 on 05/03/24, was awaiting LTC placement in ED overflow then admitted to hospitalist service 05/12/24 to facilitate placement 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 Quality Stroke Does the patient have a stroke diagnosis?: No VTE Prior VTE?: No VTE Risk Level:: Medical - moderate - high VTE Device Contraindication: Treatment Not Indicated VTE Drug Contraindication: N/A - Med Ordered
[2024-05-14] MEDS: OLANZapine 2.5 MG TABLET PO ×2 (16:18→20:28)
[2024-05-14 19:52] VITALS: BP 133/63; PULSE 75; RESP 18; TEMP 36.7; O2SAT 94
[2024-05-14] MEDS: Donepezil HCl 5 MG TABLET PO (20:28)
[2024-05-15 03:38] VITALS: BP 163/75; PULSE 54; RESP 16; TEMP 36.1; O2SAT 98
[2024-05-15 07:54] VITALS: BP 145/70; PULSE 60; RESP 16; TEMP 36.3; O2SAT 98
[2024-05-15] MEDS: lisinopriL 5 MG TABLET PO (08:42)
--- NOTE | 2024-05-15 09:04 | HO.PM.IMPN ---
Subjective Subjective Date of Service: 05/15/24 Interval History: no behavioral issues Review of Systems Review of Systems: Yes all other systems are reviewed and are negative Physical Exam Vital Signs: Vital Signs: Last Vital Signs Temp 97.3 F 05/15/24 07:54 Pulse 60 05/15/24 07:54 Resp 16 05/15/24 07:54 BP 145/70 H 05/15/24 07:54 Pulse Ox 98 05/15/24 07:54 O2 Del Method Room Air 05/15/24 07:54 BMI result Body Mass Index 24.4 Gen: in no acute distress HEENT: sclera anicteric, moist mucus membranes Neck: supple Lungs: clear to auscultation bilaterally Heart: regular rate and rhythm, no murmurs Abd: soft, non-tender, non-distended Ext: no edema Skin: warm/well-perfused Neuro: alert, oriented to self, rest tremor, tangential/irrelevant speech Psych: impaired insight Objective Data Active Medications Acetaminophen (Acetaminophen 325 Mg Tablet) 650 mg PO Q4H PRN PRN Reason: Pain, Mild (Pain Scale 1-3) Last Admin: 05/13/24 21:14 Dose: 650 mg Documented By: ELMER Calcium Carbonate (Calcium Carbonate 750 Mg Tab.Chew) 750 mg PO Q4H PRN PRN Reason: Heartburn Donepezil HCl (Donepezil Hcl 5 Mg Tablet) 5 mg PO BEDTIME [facility] Last Admin: 05/14/24 20:28 Dose: 5 mg Documented By: GEOVANNY Enoxaparin Sodium (Enoxaparin Sodium 40 Mg/0.4 Ml Syringe) 40 mg SUBCUT Q24H [facility] Last Admin: 05/14/24 17:37 Dose: Not Given Documented By: RANJIT Non-Admin Reason: Patient Refused Lisinopril (Lisinopril 5 Mg Tablet) 5 mg PO DAILY [facility]; Protocol Last Admin: 05/15/24 08:42 Dose: 5 mg Documented By: RANJIT Lorazepam (Lorazepam 2 Mg/Ml Vial) 1 mg IVPUSH ONCE PRN PRN Reason: anxiety/restlessness Magnesium Hydroxide (Milk Of Magnesia 30 Ml Oral.Susp) 30 ml PO DAILY PRN PRN Reason: Constipation Melatonin (Melatonin 3 Mg Tablet) 6 mg PO BEDTIME PRN PRN Reason: Insomnia Last Admin: 05/13/24 21:14 Dose: 6 mg Documented By: ELMER Olanzapine (Olanzapine 2.5 Mg Tablet) 2.5 mg PO BEDTIME [facility] Last Admin: 05/14/24 20:28 Dose: 2.5 mg Documented By: GEOVANNY Olanzapine (Olanzapine 2.5 Mg Tablet) 2.5 mg PO DAILY@1700 [facility] Last Admin: 05/14/24 16:18 Dose: 2.5 mg Documented By: RANJIT Labs 05/12/24 06:00 05/12/24 06:00 Assessment and Plan (1) 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: Status: Acute Assessment and Plan: d5 78yo M with dementia, Parkinson disease, RBBB, HTN sent in from [facility] due to confusion, sent in to [facility] ED on Section 12 on 05/03/24, was awaiting LTC placement in ED overflow then admitted to hospitalist service 05/12/24 to facilitate placement 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 Quality Stroke Does the patient have a stroke diagnosis?: No VTE Prior VTE?: No VTE Risk Level:: Medical - moderate - high VTE Device Contraindication: Treatment Not Indicated VTE Drug Contraindication: N/A - Med Ordered
[2024-05-15 15:21] VITALS: BP 102/60; PULSE 64; RESP 16; TEMP 36.5; O2SAT 96
[2024-05-15] MEDS: OLANZapine 2.5 MG TABLET PO ×2 (16:54→20:00)
[2024-05-15 18:56] VITALS: BP 135/80; PULSE 70; RESP 16; TEMP 36.2; O2SAT 98
[2024-05-15] MEDS: Melatonin 3 MG TABLET 6 MG PO (20:00)
[2024-05-15] MEDS: Donepezil HCl 5 MG TABLET PO (20:00)
--- NOTE | 2024-05-16 03:21 | PC.NURSE ---
0400 vital signs not done, patient calm and asleep and resting after period of restlessness, did not disturb.
[2024-05-16] MEDS: Acetaminophen 325 MG TABLET 650 MG PO (05:37)
[2024-05-16 07:51] VITALS: BP 167/74; PULSE 54; RESP 16; TEMP 36.5; O2SAT 100
[2024-05-16 09:39] VITALS: BP 167/74
[2024-05-16] MEDS: lisinopriL 5 MG TABLET PO (09:39)
--- NOTE | 2024-05-16 12:56 | P.PNIM_ITS ---
Subjective Subjective Date of Service: 05/16/24 Interval History: Being followed for placement, no acute issues overnight. Patient offers no complaints. Review of Systems All other system reviewed and negative. Physical Exam 2 Vital Signs: Vital Signs: Last Vital Signs Temp 97.7 F 05/16/24 07:51 Pulse 54 05/16/24 07:51 Resp 16 05/16/24 07:51 BP 167/74 H 05/16/24 09:39 Pulse Ox 100 05/16/24 07:51 O2 Del Method Room Air 05/16/24 07:51 BMI result Body Mass Index 24.4 Const: Other: Gen: in no acute distress HEENT: sclera anicteric, No JVD Lungs: clear to auscultation bilaterally Heart: regular rate and rhythm, no murmurs Abd: soft, non-tender, non-distended Ext: no edema Skin: warm/well-perfused Neuro: alert, oriented to self,irrelevant speech Psych: impaired insight Objective Data Active Medications Acetaminophen (Acetaminophen 325 Mg Tablet) 650 mg PO Q4H PRN PRN Reason: Pain, Mild (Pain Scale 1-3) Last Admin: 05/16/24 05:37 Dose: 650 mg Documented By: GEOVANNY Calcium Carbonate (Calcium Carbonate 750 Mg Tab.Chew) 750 mg PO Q4H PRN PRN Reason: Heartburn Donepezil HCl (Donepezil Hcl 5 Mg Tablet) 5 mg PO BEDTIME [facility] Last Admin: 05/15/24 20:00 Dose: 5 mg Documented By: GEOVANNY Enoxaparin Sodium (Enoxaparin Sodium 40 Mg/0.4 Ml Syringe) 40 mg SUBCUT Q24H [facility] Last Admin: 05/15/24 17:57 Dose: Not Given Documented By: RANJIT Non-Admin Reason: Patient Refused Lisinopril (Lisinopril 5 Mg Tablet) 5 mg PO DAILY [facility]; Protocol Last Admin: 05/16/24 09:39 Dose: 5 mg Documented By: TROY Lorazepam (Lorazepam 2 Mg/Ml Vial) 1 mg IVPUSH ONCE PRN PRN Reason: anxiety/restlessness Magnesium Hydroxide (Milk Of Magnesia 30 Ml Oral.Susp) 30 ml PO DAILY PRN PRN Reason: Constipation Melatonin (Melatonin 3 Mg Tablet) 6 mg PO BEDTIME PRN PRN Reason: Insomnia Last Admin: 05/15/24 20:00 Dose: 6 mg Documented By: GEOVANNY Olanzapine (Olanzapine 2.5 Mg Tablet) 2.5 mg PO BEDTIME [facility] Last Admin: 05/15/24 20:00 Dose: 2.5 mg Documented By: GEOVANNY Olanzapine (Olanzapine 2.5 Mg Tablet) 2.5 mg PO DAILY@1700 [facility] Last Admin: 05/15/24 16:54 Dose: 2.5 mg Documented By: RANJIT Labs 05/12/24 06:00 05/12/24 06:00 Assessment and Plan (1) 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: Status: Acute Assessment and Plan: 78yo M with dementia, Parkinson disease, RBBB, HTN sent in from [facility] due to confusion, sent in to [facility] ED on Section 12 on 05/03/24, was awaiting LTC placement in ED overflow then admitted to hospitalist service 05/12/24 to facilitate placement 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 Quality Stroke Does the patient have a stroke diagnosis?: No VTE Prior VTE?: No VTE Risk Level:: Medical - moderate - high VTE Device Contraindication: Treatment Not Indicated VTE Drug Contraindication: N/A - Med Ordered
--- NOTE | 2024-05-16 13:49 | MHC.CM.PN ---
EMR REVIEWED, PT W/DEMENTIA, HCP INVOKED AND IS EX- TOYA [phone], PER CM DIRECTOR AWAITING FOR CHAWLA FROM PROPOSED CONSERVATOR LUCY CASTRO ESQ, CM WILL NEED LTC PLACEMENT, CM WLL CONT TO FOLLOW.
[2024-05-16 15:31] VITALS: BP 104/59; PULSE 67; RESP 18; TEMP 36.4; O2SAT 95
[2024-05-16] MEDS: OLANZapine 2.5 MG TABLET PO ×2 (16:55→22:12)
[2024-05-16] MEDS: Enoxaparin Sodium 40 MG/0.4 ML SYRINGE SUBCUT (16:56)
[2024-05-16 19:09] VITALS: BP 113/56; PULSE 73; RESP 18; TEMP 36.2; O2SAT 95
[2024-05-16] MEDS: Melatonin 3 MG TABLET 6 MG PO (22:12)
[2024-05-16] MEDS: Donepezil HCl 5 MG TABLET PO (22:12)
[2024-05-17 03:32] VITALS: BP 118/68; PULSE 64; RESP 18; TEMP 35.9; O2SAT 97
[2024-05-17 07:50] VITALS: BP 159/77; PULSE 81; RESP 16; O2SAT 95
[2024-05-17] MEDS: lisinopriL 5 MG TABLET PO (08:38)
--- NOTE | 2024-05-17 13:33 | P.PNIM_ITS ---
Subjective Subjective Date of Service: 05/17/24 Interval History: Being followed for placement. No acute events overnight, no behavioral issues , tolerating diet. Review of Systems All other system are reviewed and are negative Physical Exam 2 Vital Signs: Vital Signs: Last Vital Signs Temp 96.6 F L 05/17/24 03:32 Pulse 81 05/17/24 07:50 Resp 16 05/17/24 07:50 BP 159/77 H 05/17/24 07:50 Pulse Ox 95 05/17/24 07:50 O2 Del Method Room Air 05/17/24 07:50 BMI result Body Mass Index 24.4 Const: Other: Gen: in no acute distress HEENT: sclera anicteric, moist mucus membranes Neck: supple Lungs: clear to auscultation bilaterally Heart: regular rate and rhythm, no murmurs Abd: soft, non-tender, non-distended Ext: no edema Skin: warm/well-perfused Neuro: alert, oriented to self, rest tremor, tangential/irrelevant speech Psych: impaired insight Objective Data Active Medications Acetaminophen (Acetaminophen 325 Mg Tablet) 650 mg PO Q4H PRN PRN Reason: Pain, Mild (Pain Scale 1-3) Last Admin: 05/16/24 05:37 Dose: 650 mg Documented By: GEOVANNY Calcium Carbonate (Calcium Carbonate 750 Mg Tab.Chew) 750 mg PO Q4H PRN PRN Reason: Heartburn Donepezil HCl (Donepezil Hcl 5 Mg Tablet) 5 mg PO BEDTIME [facility] Last Admin: 05/16/24 22:12 Dose: 5 mg Documented By: MAYITO Enoxaparin Sodium (Enoxaparin Sodium 40 Mg/0.4 Ml Syringe) 40 mg SUBCUT Q24H [facility] Last Admin: 05/16/24 16:56 Dose: 40 mg Documented By: TROY Lisinopril (Lisinopril 5 Mg Tablet) 5 mg PO DAILY [facility]; Protocol Last Admin: 05/17/24 08:38 Dose: 5 mg Documented By: CHRISTINA Lorazepam (Lorazepam 2 Mg/Ml Vial) 1 mg IVPUSH ONCE PRN PRN Reason: anxiety/restlessness Magnesium Hydroxide (Milk Of Magnesia 30 Ml Oral.Susp) 30 ml PO DAILY PRN PRN Reason: Constipation Melatonin (Melatonin 3 Mg Tablet) 6 mg PO BEDTIME PRN PRN Reason: Insomnia Last Admin: 05/16/24 22:12 Dose: 6 mg Documented By: MAYITO Olanzapine (Olanzapine 2.5 Mg Tablet) 2.5 mg PO BEDTIME [facility] Last Admin: 05/16/24 22:12 Dose: 2.5 mg Documented By: MAYITO Olanzapine (Olanzapine 2.5 Mg Tablet) 2.5 mg PO DAILY@1700 [facility] Last Admin: 05/16/24 16:55 Dose: 2.5 mg Documented By: TROY Labs 05/12/24 06:00 05/12/24 06:00 Assessment and Plan (1) 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: Status: Acute Assessment and Plan: 78yo M with dementia, Parkinson disease, RBBB, HTN sent in from [facility] due to confusion, sent in to [facility] ED on Section 12 on 05/03/24, was awaiting LTC placement in ED overflow then admitted to hospitalist service 05/12/24 to facilitate placement 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 Quality Stroke Does the patient have a stroke diagnosis?: No VTE Prior VTE?: No VTE Risk Level:: Medical - moderate - high VTE Device Contraindication: Treatment Not Indicated VTE Drug Contraindication: N/A - Med Ordered
[2024-05-17 15:59] VITALS: BP 111/56; PULSE 68; RESP 14; TEMP 36.7; O2SAT 96
[2024-05-17] MEDS: Enoxaparin Sodium 40 MG/0.4 ML SYRINGE SUBCUT (16:15)
[2024-05-17] MEDS: OLANZapine 2.5 MG TABLET PO ×2 (16:15→20:06)
[2024-05-17 19:03] VITALS: BP 104/57; PULSE 73; RESP 18; TEMP 36.4; O2SAT 95
[2024-05-17] MEDS: Donepezil HCl 5 MG TABLET PO (20:05)
[2024-05-17] MEDS: Melatonin 3 MG TABLET 6 MG PO (21:45)
[2024-05-18 04:00] VITALS: BP 109/59; PULSE 56; RESP 18; TEMP 36.2; O2SAT 96
[2024-05-18 07:59] VITALS: BP 136/62; PULSE 50; RESP 16; TEMP 36.8; O2SAT 98
[2024-05-18] MEDS: lisinopriL 5 MG TABLET PO (08:17)
--- NOTE | 2024-05-18 09:24 | MHC.CM.PN ---
Patient from home alone DX Dementia. HCP invoked, X- Meka. Patient will need a [facility] application and LTC placement. The court date for conservator hearing is still pending. CM will follow for placement.
--- NOTE | 2024-05-18 11:28 | HO.PM.IMPN ---
Subjective Subjective Date of Service: 05/18/24 Interval History: Being followed for placement. No acute events overnight, patient offers no acute complaints tolerating diet verbalizing but not making sense. Review of Systems All other system are reviewed and are negative. Physical Exam Vital Signs: Vital Signs: Last Vital Signs Temp 98.2 F 05/18/24 07:59 Pulse 50 05/18/24 07:59 Resp 16 05/18/24 07:59 BP 136/62 05/18/24 07:59 Pulse Ox 98 05/18/24 07:59 O2 Del Method Room Air 05/18/24 07:59 BMI result Body Mass Index 24.4 Const: Other: Gen: in no acute distress HEENT: sclera anicteric, moist mucus membranes Neck: supple Lungs: clear to auscultation bilaterally Heart: regular rate and rhythm, no murmurs Abd: soft, non-tender, non-distended Ext: no edema Skin: warm/well-perfused Neuro: alert, oriented to self, rest tremor, tangential/irrelevant speech Psych: impaired insight Objective Data Active Medications Acetaminophen (Acetaminophen 325 Mg Tablet) 650 mg PO Q4H PRN PRN Reason: Pain, Mild (Pain Scale 1-3) Last Admin: 05/16/24 05:37 Dose: 650 mg Documented By: GEOVANNY Calcium Carbonate (Calcium Carbonate 750 Mg Tab.Chew) 750 mg PO Q4H PRN PRN Reason: Heartburn Donepezil HCl (Donepezil Hcl 5 Mg Tablet) 5 mg PO BEDTIME REPLACED BY [facility] Last Admin: 05/17/24 20:05 Dose: 5 mg Documented By: MAYITO Enoxaparin Sodium (Enoxaparin Sodium 40 Mg/0.4 Ml Syringe) 40 mg SUBCUT Q24H [facility]PL[facility] Last Admin: 05/17/24 16:15 Dose: 40 mg Documented By: CHRISTINA Lisinopril (Lisinopril 5 Mg Tablet) 5 mg PO DAILY [facility]; Protocol Last Admin: 05/18/24 08:17 Dose: 5 mg Documented By: COTEMA Magnesium Hydroxide (Milk Of Magnesia 30 Ml Oral.Susp) 30 ml PO DAILY PRN PRN Reason: Constipation Melatonin (Melatonin 3 Mg Tablet) 6 mg PO BEDTIME PRN PRN Reason: Insomnia Last Admin: 05/17/24 21:45 Dose: 6 mg Documented By: MAYITO Olanzapine (Olanzapine 2.5 Mg Tablet) 2.5 mg PO BEDTIME [facility] Last Admin: 05/17/24 20:06 Dose: 2.5 mg Documented By: MAYITO Olanzapine (Olanzapine 2.5 Mg Tablet) 2.5 mg PO DAILY@1700 [facility] Last Admin: 05/17/24 16:15 Dose: 2.5 mg Documented By: BASSAMIT Labs 05/12/24 06:00 05/12/24 06:00 Assessment and Plan (1) 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: Status: Acute Assessment and Plan: 78yo M with dementia, Parkinson disease, RBBB, HTN sent in from [facility] due to confusion, sent in to [facility] ED on Section 12 on 05/03/24, was awaiting LTC placement in ED overflow then admitted to hospitalist service 05/12/24 to facilitate placement 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 Quality Stroke Does the patient have a stroke diagnosis?: No VTE Prior VTE?: No VTE Risk Level:: Medical - moderate - high VTE Device Contraindication: Treatment Not Indicated VTE Drug Contraindication: N/A - Med Ordered
[2024-05-18 15:33] VITALS: BP 99/61; PULSE 77; RESP 18; TEMP 36.8; O2SAT 97
[2024-05-18] MEDS: Enoxaparin Sodium 40 MG/0.4 ML SYRINGE SUBCUT (16:59)
[2024-05-18] MEDS: OLANZapine 2.5 MG TABLET PO ×2 (16:59→20:13)
[2024-05-18 19:50] VITALS: BP 116/56; PULSE 87; RESP 16; TEMP 36.6; O2SAT 97
[2024-05-18] MEDS: Donepezil HCl 5 MG TABLET PO (20:13)
[2024-05-19 03:42] VITALS: BP 167/72; PULSE 64; RESP 18; TEMP 36.7; O2SAT 95
[2024-05-19 08:00] VITALS: BP 155/72; PULSE 62; RESP 16; TEMP 36.7; O2SAT 99
[2024-05-19] MEDS: lisinopriL 5 MG TABLET PO (08:32)
--- NOTE | 2024-05-19 12:56 | HO.PM.IMPN ---
Subjective Subjective Date of Service: 05/19/24 Interval History: Being followed for placement Offers no acute complaints, tolerating diet, no behavioral issues. Review of Systems All other system reviewed and are negative. Physical Exam Vital Signs: Vital Signs: Last Vital Signs Temp 98.0 F 05/19/24 08:00 Pulse 62 05/19/24 08:00 Resp 16 05/19/24 08:00 BP 155/72 H 05/19/24 08:00 Pulse Ox 99 05/19/24 08:00 O2 Del Method Room Air 05/19/24 08:00 BMI result Body Mass Index 24.4 Const: Other: Gen: in no acute distress HEENT: sclera anicteric, moist mucus membranes Neck: supple Lungs: clear to auscultation bilaterally Heart: regular rate and rhythm, no murmurs Abd: soft, non-tender, non-distended Ext: no edema Skin: warm/well-perfused Neuro: alert, oriented to self, tangential/irrelevant speech Psych: impaired insight Objective Data Active Medications Acetaminophen (Acetaminophen 325 Mg Tablet) 650 mg PO Q4H PRN PRN Reason: Pain, Mild (Pain Scale 1-3) Last Admin: 05/16/24 05:37 Dose: 650 mg Documented By: GEOVANNY Calcium Carbonate (Calcium Carbonate 750 Mg Tab.Chew) 750 mg PO Q4H PRN PRN Reason: Heartburn Donepezil HCl (Donepezil Hcl 5 Mg Tablet) 5 mg PO BEDTIME [facility] Last Admin: 05/18/24 20:13 Dose: 5 mg Documented By: BECK Enoxaparin Sodium (Enoxaparin Sodium 40 Mg/0.4 Ml Syringe) 40 mg SUBCUT Q24H [facility] Last Admin: 05/18/24 16:59 Dose: 40 mg Documented By: COTEMA Lisinopril (Lisinopril 5 Mg Tablet) 5 mg PO DAILY [facility]; Protocol Last Admin: 05/19/24 08:32 Dose: 5 mg Documented By: FISH Magnesium Hydroxide (Milk Of Magnesia 30 Ml Oral.Susp) 30 ml PO DAILY PRN PRN Reason: Constipation Melatonin (Melatonin 3 Mg Tablet) 6 mg PO BEDTIME PRN PRN Reason: Insomnia Last Admin: 05/17/24 21:45 Dose: 6 mg Documented By: LYSZ Olanzapine (Olanzapine 2.5 Mg Tablet) 2.5 mg PO BEDTIME [facility] Last Admin: 05/18/24 20:13 Dose: 2.5 mg Documented By: BECK Olanzapine (Olanzapine 2.5 Mg Tablet) 2.5 mg PO DAILY@1700 [facility] Last Admin: 05/18/24 16:59 Dose: 2.5 mg Documented By: ADALID Labs 05/12/24 06:00 05/12/24 06:00 Assessment and Plan (1) 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: Status: Acute Assessment and Plan: 78yo M with dementia, Parkinson disease, RBBB, HTN sent in from [facility] due to confusion, sent in to [facility] ED on Section 12 on 05/03/24, was awaiting LTC placement in ED overflow then admitted to hospitalist service 05/12/24 to facilitate placement 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 Quality Stroke Does the patient have a stroke diagnosis?: No VTE Prior VTE?: No VTE Risk Level:: Medical - moderate - high VTE Device Contraindication: Treatment Not Indicated VTE Drug Contraindication: N/A - Med Ordered
[2024-05-19 15:11] VITALS: BP 118/66; PULSE 70; RESP 18; TEMP 36.8; O2SAT 97
[2024-05-19] MEDS: OLANZapine 2.5 MG TABLET PO ×2 (16:54→20:25)
[2024-05-19] MEDS: Enoxaparin Sodium 40 MG/0.4 ML SYRINGE SUBCUT (16:54)
--- NOTE | 2024-05-19 17:18 | PC.NURSE ---
Pt calm and cooperative today, 1 assit with adls, no c/o pain, pt awaiting placement. Continue to assist with needs and safety.
[2024-05-19 19:09] VITALS: BP 126/91; PULSE 82; RESP 18; TEMP 37.1; O2SAT 96
[2024-05-19] MEDS: Donepezil HCl 5 MG TABLET PO (20:25)
[2024-05-20 03:49] VITALS: BP 114/63; PULSE 53; RESP 16; TEMP 36.4; O2SAT 96
[2024-05-20] MEDS: lisinopriL 5 MG TABLET PO (08:31)
[2024-05-20 09:15] VITALS: BP 130/64; PULSE 77; RESP 18; TEMP 36.4; O2SAT 98
--- NOTE | 2024-05-20 11:09 | MHC.CM.PN ---
Awaiting conservator hearing, no court date scheduled at this time. CM will continue to follow.
--- NOTE | 2024-05-20 12:02 | P.PNIM_ITS ---
Subjective Subjective Date of Service: 05/20/24 Interval History: Being followed for placement, offers no acute complaints tolerating diet no acute events overnight. Review of Systems All other system reviewed and are negative. Physical Exam 2 Vital Signs: Vital Signs: Last Vital Signs Temp 97.6 F 05/20/24 09:15 Pulse 77 05/20/24 09:15 Resp 18 05/20/24 09:15 BP 130/64 05/20/24 09:15 Pulse Ox 98 05/20/24 09:15 O2 Del Method Room Air 05/20/24 09:15 BMI result Body Mass Index 24.4 Const: Other: Gen: in no acute distress HEENT: sclera anicteric, moist mucus membranes Neck: supple Lungs: clear to auscultation bilaterally Heart: regular rate and rhythm, no murmurs Abd: soft, non-tender, non-distended Ext: no edema Skin: warm/well-perfused Neuro: alert, oriented to self, tangential/irrelevant speech Psych: impaired insight Objective Data Active Medications Acetaminophen (Acetaminophen 325 Mg Tablet) 650 mg PO Q4H PRN PRN Reason: Pain, Mild (Pain Scale 1-3) Last Admin: 05/16/24 05:37 Dose: 650 mg Documented By: GEOVANNY Calcium Carbonate (Calcium Carbonate 750 Mg Tab.Chew) 750 mg PO Q4H PRN PRN Reason: Heartburn Donepezil HCl (Donepezil Hcl 5 Mg Tablet) 5 mg PO BEDTIME [facility] Last Admin: 05/19/24 20:25 Dose: 5 mg Documented By: BECK Enoxaparin Sodium (Enoxaparin Sodium 40 Mg/0.4 Ml Syringe) 40 mg SUBCUT Q24H [facility] Last Admin: 05/19/24 16:54 Dose: 40 mg Documented By: FISH Lisinopril (Lisinopril 5 Mg Tablet) 5 mg PO DAILY [facility]; Protocol Last Admin: 05/20/24 08:31 Dose: 5 mg Documented By: GRAZIC Magnesium Hydroxide (Milk Of Magnesia 30 Ml Oral.Susp) 30 ml PO DAILY PRN PRN Reason: Constipation Melatonin (Melatonin 3 Mg Tablet) 6 mg PO BEDTIME PRN PRN Reason: Insomnia Last Admin: 05/17/24 21:45 Dose: 6 mg Documented By: LYSZ Olanzapine (Olanzapine 2.5 Mg Tablet) 2.5 mg PO BEDTIME [facility] Last Admin: 05/19/24 20:25 Dose: 2.5 mg Documented By: BECK Olanzapine (Olanzapine 2.5 Mg Tablet) 2.5 mg PO DAILY@1700 [facility] Last Admin: 05/19/24 16:54 Dose: 2.5 mg Documented By: FISH Labs 05/12/24 06:00 05/12/24 06:00 Assessment and Plan (1) 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: Status: Acute Assessment and Plan: 78yo M with dementia, Parkinson disease, RBBB, HTN sent in from [facility] due to confusion, sent in [place] [facility] [place] Section 12 on 05/03/24, was awaiting LTC placement in ED overflow then admitted to hospitalist service 05/12/24 to facilitate placement 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 Quality Stroke Does the patient have a stroke diagnosis?: No VTE Prior VTE?: No VTE Risk Level:: Medical - moderate - high VTE Device Contraindication: Treatment Not Indicated VTE Drug Contraindication: N/A - Med Ordered
[2024-05-20 15:12] VITALS: BP 141/68; PULSE 75; RESP 18; TEMP 37.1; O2SAT 98
[2024-05-20] MEDS: Enoxaparin Sodium 40 MG/0.4 ML SYRINGE SUBCUT (17:12)
[2024-05-20] MEDS: OLANZapine 2.5 MG TABLET PO ×2 (17:12→20:37)
[2024-05-20 19:17] VITALS: BP 124/70; PULSE 71; RESP 18; TEMP 36.9; O2SAT 96
[2024-05-20] MEDS: Melatonin 3 MG TABLET 6 MG PO (20:37)
[2024-05-20] MEDS: Acetaminophen 325 MG TABLET 650 MG PO (20:37)
[2024-05-20] MEDS: Donepezil HCl 5 MG TABLET PO (20:37)
[2024-05-21 04:00] VITALS: BP 156/72; PULSE 50; RESP 14; TEMP 36.4; O2SAT 99
[2024-05-21 07:37] VITALS: BP 160/67; PULSE 57; RESP 18; TEMP 36.5; O2SAT 97
[2024-05-21] MEDS: lisinopriL 5 MG TABLET PO (08:09)
--- NOTE | 2024-05-21 11:54 | HO.PM.IMPN ---
Subjective Subjective Date of Service: 05/21/24 Interval History: Seen and examined this morning Follow-up for placement No overnight events No specific complaints Review of Systems Review of Systems: Yes all other systems are reviewed and are negative Cardiovascular Cardiovascular: Denies chest pain Physical Exam Vital Signs: Vital Signs: Last Vital Signs Temp 97.7 F 05/21/24 07:37 Pulse 57 05/21/24 07:37 Resp 18 05/21/24 07:37 BP 160/67 H 05/21/24 07:37 Pulse Ox 97 05/21/24 07:37 O2 Del Method Room Air 05/21/24 07:37 BMI result Body Mass Index 24.4 Const: General: cooperative, comfortable, no acute distress, alert and awake Nutritional Appearance: average body habitus Orientation/consciousness: oriented to person Resp: Effort & Inspection: normal respiratory effort, able to speak in complete sentences, no respiratory distress and no use of accessory muscles GI: Palpation (GI): Soft to palpation Neuro: General: oriented to person Extrem: Other: LUE resting tremor Psych: Other: impair insight Objective Data Active Medications Acetaminophen (Acetaminophen 325 Mg Tablet) 650 mg PO Q4H PRN PRN Reason: Pain, Mild (Pain Scale 1-3) Last Admin: 05/20/24 20:37 Dose: 650 mg Documented By: MAYITO Calcium Carbonate (Calcium Carbonate 750 Mg Tab.Chew) 750 mg PO Q4H PRN PRN Reason: Heartburn Donepezil HCl (Donepezil Hcl 5 Mg Tablet) 5 mg PO BEDTIME [facility] Last Admin: 05/20/24 20:37 Dose: 5 mg Documented By: MAYITO Enoxaparin Sodium (Enoxaparin Sodium 40 Mg/0.4 Ml Syringe) 40 mg SUBCUT Q24H [facility] Last Admin: 05/20/24 17:12 Dose: 40 mg Documented By: JARETT Lisinopril (Lisinopril 5 Mg Tablet) 5 mg PO DAILY [facility]; Protocol Last Admin: 05/21/24 08:09 Dose: 5 mg Documented By: RAI Magnesium Hydroxide (Milk Of Magnesia 30 Ml Oral.Susp) 30 ml PO DAILY PRN PRN Reason: Constipation Melatonin (Melatonin 3 Mg Tablet) 6 mg PO BEDTIME PRN PRN Reason: Insomnia Last Admin: 05/20/24 20:37 Dose: 6 mg Documented By: MAYITO Olanzapine (Olanzapine 2.5 Mg Tablet) 2.5 mg PO BEDTIME [facility] Last Admin: 05/20/24 20:37 Dose: 2.5 mg Documented By: MAYITO Olanzapine (Olanzapine 2.5 Mg Tablet) 2.5 mg PO DAILY@1700 [facility] Last Admin: 05/20/24 17:12 Dose: 2.5 mg Documented By: NICKIC Labs 05/12/24 06:00 05/12/24 06:00 Assessment and Plan (1) 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: Status: Acute Assessment and Plan: 78yo M with dementia, Parkinson disease, RBBB, HTN sent in from [facility] due to confusion, sent [place] [facility] [place] Section 12 on 05/03/24, was awaiting LTC placement in ED overflow then admitted to hospitalist service 05/12/24 to facilitate placement 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
[2024-05-21 15:24] VITALS: BP 115/56; PULSE 80; RESP 18; TEMP 37; O2SAT 96
[2024-05-21] MEDS: OLANZapine 2.5 MG TABLET PO ×2 (17:02→21:34)
[2024-05-21] MEDS: Enoxaparin Sodium 40 MG/0.4 ML SYRINGE SUBCUT (17:02)
[2024-05-21 19:32] VITALS: BP 125/64; PULSE 76; RESP 18; TEMP 36.6; O2SAT 96
[2024-05-21] MEDS: Melatonin 3 MG TABLET 6 MG PO (21:34)
[2024-05-21] MEDS: Donepezil HCl 5 MG TABLET PO (21:34)
[2024-05-22 03:48] VITALS: BP 101/63; PULSE 55; RESP 18; O2SAT 96
[2024-05-22 07:24] VITALS: BP 154/64; PULSE 52; RESP 16; TEMP 36.6; O2SAT 99
[2024-05-22] MEDS: lisinopriL 5 MG TABLET PO (07:47)
--- NOTE | 2024-05-22 12:40 | P.PNIM_ITS ---
Subjective Subjective Date of Service: 05/22/24 Interval History: Seen and examined this morning Follow-up for placement No overnight events No specific complaints this morning, patient observed sitting up in chair eating breakfast. Review of Systems Review of Systems: Yes all other systems are reviewed and are negative Cardiovascular Cardiovascular: Denies chest pain and Denies dyspnea Respiratory Respiratory: Denies dyspnea Physical Exam 2 Vital Signs: Vital Signs: Last Vital Signs Temp 97.9 F 05/22/24 07:24 Pulse 52 05/22/24 07:24 Resp 16 05/22/24 07:24 BP 154/64 H 05/22/24 07:24 Pulse Ox 99 05/22/24 07:24 O2 Del Method Room Air 05/22/24 07:24 BMI result Body Mass Index 24.4 Const: General: cooperative, comfortable, no acute distress, alert and awake Nutritional Appearance: average body habitus Orientation/consciousness: o riented to person Resp: Effort & Inspection: normal respiratory effort, able to speak in complete sentences, no respiratory distress and no use of accessory muscles GI: Palpation (GI): Soft to palpation Neuro: General: oriented to person Extrem: Other: LUE resting tremor Psych: Other: impair insight Objective Data Active Medications Acetaminophen (Acetaminophen 325 Mg Tablet) 650 mg PO Q4H PRN PRN Reason: Pain, Mild (Pain Scale 1-3) Last Admin: 05/20/24 20:37 Dose: 650 mg Documented By: MAYITO Calcium Carbonate (Calcium Carbonate 750 Mg Tab.Chew) 750 mg PO Q4H PRN PRN Reason: Heartburn Donepezil HCl (Donepezil Hcl 5 Mg Tablet) 5 mg PO BEDTIME [facility] Last Admin: 05/21/24 21:34 Dose: 5 mg Documented By: PERLA Enoxaparin Sodium (Enoxaparin Sodium 40 Mg/0.4 Ml Syringe) 40 mg SUBCUT Q24H [facility] Last Admin: 05/21/24 17:02 Dose: 40 mg Documented By: RAI Lisinopril (Lisinopril 5 Mg Tablet) 5 mg PO DAILY [facility]; Protocol Last Admin: 05/22/24 07:47 Dose: 5 mg Documented By: COTEMA Magnesium Hydroxide (Milk Of Magnesia 30 Ml Oral.Susp) 30 ml PO DAILY PRN PRN Reason: Constipation Melatonin (Melatonin 3 Mg Tablet) 6 mg PO BEDTIME PRN PRN Reason: Insomnia Last Admin: 05/21/24 21:34 Dose: 6 mg Documented By: PERLA Olanzapine (Olanzapine 2.5 Mg Tablet) 2.5 mg PO BEDTIME [facility] Last Admin: 05/21/24 21:34 Dose: 2.5 mg Documented By: PERLA Olanzapine (Olanzapine 2.5 Mg Tablet) 2.5 mg PO DAILY@1700 [facility] Last Admin: 05/21/24 17:02 Dose: 2.5 mg Documented By: RAI Labs 05/12/24 06:00 05/12/24 06:00 Assessment and Plan (1) 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
[2024-05-22 15:14] VITALS: BP 110/64; PULSE 80; RESP 18; TEMP 36.6; O2SAT 97
[2024-05-22] MEDS: Enoxaparin Sodium 40 MG/0.4 ML SYRINGE SUBCUT (17:23)
[2024-05-22] MEDS: OLANZapine 2.5 MG TABLET PO ×2 (17:23→20:43)
[2024-05-22 19:03] VITALS: BP 109/59; PULSE 79; RESP 18; TEMP 36.8; O2SAT 96
[2024-05-22] MEDS: Donepezil HCl 5 MG TABLET PO (20:42)
[2024-05-23 03:07] VITALS: BP 118/63; PULSE 59; RESP 16; TEMP 36.9; O2SAT 98
[2024-05-23 07:27] VITALS: BP 124/60; PULSE 74; RESP 16; TEMP 36.3; O2SAT 97
[2024-05-23] MEDS: lisinopriL 5 MG TABLET PO (08:17)
[2024-05-23 08:57] LABS: Hematocrit 44.9 % (42.0-52.0); Hemoglobin 15.1 g/dl (14.0-18.0); Mean Corpuscular HGB Conc 33.6 g/dl (31.0-36.0); Mean Corpuscular Hemoglobin 30.5 pg (27.0-33.0); Mean Corpuscular Volume 90.7 fL (80.0-98.0); Mean Platelet Volume 9.1 fL (9.4-12.4); Platelet Count 285 X10*3/uL (160-400); Red Blood Count 4.95 X10*6/uL (4.60-5.80); Red Cell Distribution Width 13.2 % (11.0-16.0)
[2024-05-23 09:10] LABS: Anion Gap 14 (12-20); Blood Urea Nitrogen 11 mg/dL (9-16); Calcium 9.2 mg/dL (8.4-10.2); Carbon Dioxide 23 mmol/L (22-29); Chloride 107 mmol/L (96-108); Creatinine Clr Calc Pharmacy 85.3; Estimated Glomerular Filt Rate > 60; Glucose Random 97 mg/dL (60-115); Potassium 4.3 mmol/L (3.3-5.1); Sodium 140 mmol/L (135-145)
--- NOTE | 2024-05-23 09:19 | HO.PM.IMPN ---
Subjective Subjective Date of Service: 05/23/24 Interval History: Seen and examined this morning Follow-up for placement No overnight events No specific complaints this morning, patient observed sitting up in chair eating breakfast. Review of Systems Review of Systems: Yes all other systems are reviewed and are negative Cardiovascular Cardiovascular: Denies chest pain and Denies dyspnea Respiratory Respiratory: Denies dyspnea Physical Exam Vital Signs: Vital Signs: Last Vital Signs Temp 97.3 F 05/23/24 07:27 Pulse 74 05/23/24 07:27 Resp 16 05/23/24 07:27 BP 124/60 05/23/24 07:27 Pulse Ox 97 05/23/24 07:27 O2 Del Method Room Air 05/23/24 07:27 BMI result Body Mass Index 24.4 Appearing in no acute distress lung sounds are clear to auscultation heart regular rate rhythm, clear S1, S2 positive bowel sounds, abdomen is soft, nontender neuro patient is alert, confused Objective Data Active Medications Acetaminophen (Acetaminophen 325 Mg Tablet) 650 mg PO Q4H PRN PRN Reason: Pain, Mild (Pain Scale 1-3) Last Admin: 05/20/24 20:37 Dose: 650 mg Documented By: MAYITO Calcium Carbonate (Calcium Carbonate 750 Mg Tab.Chew) 750 mg PO Q4H PRN PRN Reason: Heartburn Donepezil HCl (Donepezil Hcl 5 Mg Tablet) 5 mg PO BEDTIME [facility] Last Admin: 05/22/24 20:42 Dose: 5 mg Documented By: HOWARD Enoxaparin Sodium (Enoxaparin Sodium 40 Mg/0.4 Ml Syringe) 40 mg SUBCUT Q24H [facility] Last Admin: 05/22/24 17:23 Dose: 40 mg Documented By: TESSY Lisinopril (Lisinopril 5 Mg Tablet) 5 mg PO DAILY [facility]; Protocol Last Admin: 05/23/24 08:17 Dose: 5 mg Documented By: GRAZSANIA Magnesium Hydroxide (Milk Of Magnesia 30 Ml Oral.Susp) 30 ml PO DAILY PRN PRN Reason: Constipation Melatonin (Melatonin 3 Mg Tablet) 6 mg PO BEDTIME PRN PRN Reason: Insomnia Last Admin: 05/21/24 21:34 Dose: 6 mg Documented By: NAUMOC Olanzapine (Olanzapine 2.5 Mg Tablet) 2.5 mg PO BEDTIME [facility] Last Admin: 05/22/24 20:43 Dose: 2.5 mg Documented By: HOWARD Olanzapine (Olanzapine 2.5 Mg Tablet) 2.5 mg PO DAILY@1700 [facility] Last Admin: 05/22/24 17:23 Dose: 2.5 mg Documented By: MARCINM Labs 05/23/24 08:03 05/23/24 08:03 Labs: Laboratory Results - last 24 hr 05/23/24 08:03 MCV 90.7 MCH 30.5 MCHC 33.6 RDW 13.2 Plt Count 285 D MPV 9.1 L Absolute Nucleated RBC 0.000 Nucleated RBC % (auto) 0.0 Anion Gap 14 Estim Creat Clear Calc 85.3 Estimated GFR > 60 Random Glucose 97 Calcium 9.2 D Assessment and Plan (1) 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: Status: Acute Assessment and Plan: 78yo M with dementia, Parkinson disease, RBBB, HTN sent in from [facility] due to confusion, sent in to [facility] ED on Section 12 on 05/03/24, was awaiting LTC placement in ED overflow then admitted to hospitalist service 05/12/24 to facilitate placement 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 Govea Quality Stroke Does the patient have a stroke diagnosis?: No VTE Prior VTE?: No VTE Risk Level:: Medical - moderate - high VTE Device Contraindication: Treatment Not Indicated VTE Drug Contraindication: N/A - Med Ordered
--- NOTE | 2024-05-23 14:59 | MHC.CM.PN ---
dc plan pending court date for a conservator plan remains ltc
[2024-05-23 15:19] VITALS: BP 114/74; PULSE 84; RESP 17; TEMP 36.4; O2SAT 97
[2024-05-23] MEDS: OLANZapine 2.5 MG TABLET PO ×2 (17:00→19:55)
[2024-05-23] MEDS: Enoxaparin Sodium 40 MG/0.4 ML SYRINGE SUBCUT (17:00)
[2024-05-23 19:10] VITALS: BP 127/67; PULSE 81; RESP 18; TEMP 36.6; O2SAT 97
[2024-05-23] MEDS: Donepezil HCl 5 MG TABLET PO (19:55)
[2024-05-24] MEDS: Acetaminophen 325 MG TABLET 650 MG PO (02:00)
[2024-05-24 03:01] VITALS: BP 114/68; PULSE 89; RESP 16; TEMP 36.7; O2SAT 94
[2024-05-24 06:53] VITALS: BP 152/74; PULSE 72; RESP 18; TEMP 36.6; O2SAT 98
--- NOTE | 2024-05-24 09:10 | P.PNIM_ITS ---
Subjective Subjective Date of Service: 05/24/24 Interval History: Seen and examined this morning Follow-up for placement No overnight events No specific complaints this morning, patient observed sitting up in chair eating breakfast. Review of Systems Review of Systems: Yes all other systems are reviewed and are negative Cardiovascular Cardiovascular: Denies chest pain and Denies dyspnea Respiratory Respiratory: Denies dyspnea Physical Exam 2 Vital Signs: Vital Signs: Last Vital Signs Temp 97.9 F 05/24/24 06:53 Pulse 72 05/24/24 06:53 Resp 18 05/24/24 06:53 BP 152/74 H 05/24/24 06:53 Pulse Ox 98 05/24/24 06:53 O2 Del Method Room Air 05/24/24 06:53 BMI result Body Mass Index 24.4 Appearing in no acute distress lung sounds are clear to auscultation heart regular rate rhythm, clear S1, S2 positive bowel sounds, abdomen is soft, nontender neuro patient is alert, confused Objective Data Active Medications Acetaminophen (Acetaminophen 325 Mg Tablet) 650 mg PO Q4H PRN PRN Reason: Pain, Mild (Pain Scale 1-3) Last Admin: 05/24/24 02:00 Dose: 650 mg Documented By: BECK Calcium Carbonate (Calcium Carbonate 750 Mg Tab.Chew) 750 mg PO Q4H PRN PRN Reason: Heartburn Donepezil HCl (Donepezil Hcl 5 Mg Tablet) 5 mg PO BEDTIME [facility] Last Admin: 05/23/24 19:55 Dose: 5 mg Documented By: BECK Enoxaparin Sodium (Enoxaparin Sodium 40 Mg/0.4 Ml Syringe) 40 mg SUBCUT Q24H [facility] Last Admin: 05/23/24 17:00 Dose: 40 mg Documented By: JARETT Lisinopril (Lisinopril 5 Mg Tablet) 5 mg PO DAILY [facility]; Protocol Last Admin: 05/23/24 08:17 Dose: 5 mg Documented By: JARETT Magnesium Hydroxide (Milk Of Magnesia 30 Ml Oral.Susp) 30 ml PO DAILY PRN PRN Reason: Constipation Melatonin (Melatonin 3 Mg Tablet) 6 mg PO BEDTIME PRN PRN Reason: Insomnia Last Admin: 05/21/24 21:34 Dose: 6 mg Documented By: PERLA Olanzapine (Olanzapine 2.5 Mg Tablet) 2.5 mg PO BEDTIME [facility] Last Admin: 05/23/24 19:55 Dose: 2.5 mg Documented By: BECK Olanzapine (Olanzapine 2.5 Mg Tablet) 2.5 mg PO DAILY@1700 [facility] Last Admin: 05/23/24 17:00 Dose: 2.5 mg Documented By: JARETT Labs 05/23/24 08:03 05/23/24 08:03 Labs: Laboratory Results - last 24 hr 05/23/24 08:03 Anion Gap 14 Estim Creat Clear Calc 85.3 Estimated GFR > 60 Random Glucose 97 Calcium 9.2 D Assessment and Plan (1) 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 Govea Placement Quality Stroke Does the patient have a stroke diagnosis?: No VTE Prior VTE?: No VTE Risk Level:: Medical - moderate - high VTE Device Contraindication: Treatment Not Indicated VTE Drug Contraindication: N/A - Med Ordered
[2024-05-24] MEDS: lisinopriL 5 MG TABLET PO (09:27)
--- NOTE | 2024-05-24 11:39 | MHC.CM.PN ---
PT SERVED W/COURT DOCUMENTS FOR [facility] 05/27/24 AT 8:30AM, CM WILL CONT TO FOLLOW FOR MH JORJE/LTC PLACEMENT.
[2024-05-24 15:50] VITALS: BP 88/50; PULSE 83; RESP 18; TEMP 36.6; O2SAT 96
[2024-05-24] MEDS: Enoxaparin Sodium 40 MG/0.4 ML SYRINGE SUBCUT (17:21)
[2024-05-24] MEDS: OLANZapine 2.5 MG TABLET PO ×2 (17:23→21:17)
[2024-05-24 17:25] VITALS: BP 102/63; RESP 89
--- NOTE | 2024-05-24 17:47 | PC.NURSE ---
Pt with cloudy urine in toilet. Pt with no c/o burning and afebrile. Dr. Call notified. Nursing asked to monitor pt. No new orders at this time.
[2024-05-24 19:46] VITALS: BP 120/60; PULSE 93; RESP 18; TEMP 37; O2SAT 96
[2024-05-24] MEDS: Donepezil HCl 5 MG TABLET PO (21:17)
[2024-05-24] MEDS: Melatonin 3 MG TABLET 6 MG PO (21:17)
[2024-05-25 03:30] VITALS: BP 101/55; PULSE 69; RESP 16; TEMP 36.5; O2SAT 97
[2024-05-25 06:49] VITALS: BP 116/59; PULSE 57; RESP 16; TEMP 36.6; O2SAT 98
[2024-05-25] MEDS: lisinopriL 5 MG TABLET PO (08:56)
--- NOTE | 2024-05-25 10:29 | MHC.CM.PN ---
PLAN REMAINS 05/27/24 [facility]. PATIENT WILL NEED LTC PLACEMENT THAT IS POTENTIAL FOR LTC FUNDING THROUGH . CASE MANAGEMENT FOLLOWING FOR APPROPRIATE TIME TO START THE REFERRAL PROCESS.
--- NOTE | 2024-05-25 11:36 | HO.PM.IMPN ---
Subjective Subjective Date of Service: 05/25/24 Interval History: Being followed for placement No acute complaints, tolerating diet, no behavioral issues. Review of Systems All other system are reviewed and are negative Physical Exam Vital Signs: Vital Signs: Last Vital Signs Temp 98 F 05/25/24 06:49 Pulse 57 05/25/24 06:49 Resp 16 05/25/24 06:49 BP 116/59 L 05/25/24 06:49 Pulse Ox 98 05/25/24 06:49 O2 Del Method Room Air 05/25/24 06:49 BMI result Body Mass Index 24.4 Const: Other: Gen: in no acute distress HEENT: sclera anicteric, moist mucus membranes Neck: supple Lungs: clear to auscultation bilaterally Heart: regular rate and rhythm, no murmurs Abd: soft, non-tender, non-distended Ext: no edema Skin: warm/well-perfused Neuro: alert, oriented to self, tangential/irrelevant speech Psych: impaired insight Objective Data Active Medications Acetaminophen (Acetaminophen 325 Mg Tablet) 650 mg PO Q4H PRN PRN Reason: Pain, Mild (Pain Scale 1-3) Last Admin: 05/24/24 02:00 Dose: 650 mg Documented By: BECK Calcium Carbonate (Calcium Carbonate 750 Mg Tab.Chew) 750 mg PO Q4H PRN PRN Reason: Heartburn Donepezil HCl (Donepezil Hcl 5 Mg Tablet) 5 mg PO BEDTIME [facility] Last Admin: 05/24/24 21:17 Dose: 5 mg Documented By: GEOVANNY Enoxaparin Sodium (Enoxaparin Sodium 40 Mg/0.4 Ml Syringe) 40 mg SUBCUT Q24H [facility] Last Admin: 05/24/24 17:21 Dose: 40 mg Documented By: JARETT Lisinopril (Lisinopril 5 Mg Tablet) 5 mg PO DAILY [facility]; Protocol Last Admin: 05/25/24 08:56 Dose: 5 mg Documented By: BOOM Magnesium Hydroxide (Milk Of Magnesia 30 Ml Oral.Susp) 30 ml PO DAILY PRN PRN Reason: Constipation Melatonin (Melatonin 3 Mg Tablet) 6 mg PO BEDTIME PRN PRN Reason: Insomnia Last Admin: 05/24/24 21:17 Dose: 6 mg Documented By: GEOVANNY Olanzapine (Olanzapine 2.5 Mg Tablet) 2.5 mg PO BEDTIME [facility] Last Admin: 05/24/24 21:17 Dose: 2.5 mg Documented By: GEOVANNY Olanzapine (Olanzapine 2.5 Mg Tablet) 2.5 mg PO DAILY@1700 [facility] Last Admin: 05/24/24 17:23 Dose: 2.5 mg Documented By: JARETT Labs 05/23/24 08:03 05/23/24 08:03 Assessment and Plan (1) 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: Status: Acute Assessment and Plan: 78yo M with dementia, Parkinson disease, RBBB, HTN sent in from [facility] due to confusion, sent in to [facility] [place] on Section 12 on 05/03/24, was awaiting LTC placement in ED overflow then admitted to hospitalist service 05/12/24 to facilitate placement 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
[2024-05-25 15:40] VITALS: BP 107/57; PULSE 75; RESP 18; TEMP 37; O2SAT 98
[2024-05-25] MEDS: Enoxaparin Sodium 40 MG/0.4 ML SYRINGE SUBCUT (17:41)
[2024-05-25] MEDS: OLANZapine 2.5 MG TABLET PO ×2 (17:41→19:25)
[2024-05-25 19:13] VITALS: BP 121/66; PULSE 92; RESP 18; TEMP 37.2; O2SAT 92
[2024-05-25] MEDS: Melatonin 3 MG TABLET 6 MG PO (19:25)
[2024-05-25] MEDS: Donepezil HCl 5 MG TABLET PO (19:25)
[2024-05-25] MEDS: Acetaminophen 325 MG TABLET 650 MG PO (19:26)
[2024-05-26 02:24] VITALS: BP 122/59; PULSE 73; RESP 18; TEMP 36.8; O2SAT 96
[2024-05-26 07:20] VITALS: BP 92/51; PULSE 54; RESP 14; TEMP 36.8; O2SAT 96
[2024-05-26] MEDS: lisinopriL 5 MG TABLET PO (08:44)
[2024-05-26 08:45] VITALS: BP 110/60
--- NOTE | 2024-05-26 11:21 | P.PNIM_ITS ---
Subjective Subjective Date of Service: 05/26/24 Interval History: Being followed for placement. Resting comfortably, no complaints, no acute events overnight. Review of Systems All other system reviewed and are negative Physical Exam 2 Vital Signs: Vital Signs: Last Vital Signs Temp 98.2 F 05/26/24 07:20 Pulse 54 05/26/24 07:20 Resp 14 05/26/24 07:20 BP 110/60 05/26/24 08:45 Pulse Ox 96 05/26/24 07:20 O2 Del Method Room Air 05/26/24 07:20 O2 Flow Rate 94 05/25/24 19:13 BMI result Body Mass Index 24.4 Const: Other: Gen: in no acute distress Neck: No JVD Lungs: clear to auscultation bilaterally Heart: regular rate and rhythm, no murmurs Abd: soft, non-tender, non-distended Ext: no edema Skin: warm/well-perfused Neuro: alert, oriented to self, tangential/irrelevant speech Psych: impaired insight Objective Data Active Medications Acetaminophen (Acetaminophen 325 Mg Tablet) 650 mg PO Q4H PRN PRN Reason: Pain, Mild (Pain Scale 1-3) Last Admin: 05/25/24 19:26 Dose: 650 mg Documented By: VERA Calcium Carbonate (Calcium Carbonate 750 Mg Tab.Chew) 750 mg PO Q4H PRN PRN Reason: Heartburn Donepezil HCl (Donepezil Hcl 5 Mg Tablet) 5 mg PO BEDTIME [facility] Last Admin: 05/25/24 19:25 Dose: 5 mg Documented By: VERA Enoxaparin Sodium (Enoxaparin Sodium 40 Mg/0.4 Ml Syringe) 40 mg SUBCUT Q24H [facility] Last Admin: 05/25/24 17:41 Dose: 40 mg Documented By: BOOM Lisinopril (Lisinopril 5 Mg Tablet) 5 mg PO DAILY [facility]; Protocol Last Admin: 05/26/24 08:44 Dose: 5 mg Documented By: GUANAKO Magnesium Hydroxide (Milk Of Magnesia 30 Ml Oral.Susp) 30 ml PO DAILY PRN PRN Reason: Constipation Melatonin (Melatonin 3 Mg Tablet) 6 mg PO BEDTIME PRN PRN Reason: Insomnia Last Admin: 05/25/24 19:25 Dose: 6 mg Documented By: VERA Olanzapine (Olanzapine 2.5 Mg Tablet) 2.5 mg PO BEDTIME [facility] Last Admin: 05/25/24 19:25 Dose: 2.5 mg Documented By: VERA Olanzapine (Olanzapine 2.5 Mg Tablet) 2.5 mg PO DAILY@1700 [facility] Last Admin: 05/25/24 17:41 Dose: 2.5 mg Documented By: BOOM Labs 05/23/24 08:03 05/23/24 08:03 Assessment and Plan (1) 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: Status: Acute Assessment and Plan: 78yo M with dementia, Parkinson disease, RBBB, HTN sent in from [facility] due to confusion, sent in to [facility] ED on Section 12 on 05/03/24, was awaiting LTC placement in ED overflow then admitted to hospitalist service 05/12/24 to facilitate placement 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
[2024-05-26 15:01] VITALS: BP 121/59; PULSE 99; RESP 18; TEMP 36.1; O2SAT 96
[2024-05-26] MEDS: OLANZapine 2.5 MG TABLET PO ×2 (17:12→19:37)
[2024-05-26] MEDS: Enoxaparin Sodium 40 MG/0.4 ML SYRINGE SUBCUT (17:13)
[2024-05-26 19:36] VITALS: BP 115/56; PULSE 74; RESP 18; TEMP 36.2; O2SAT 97
[2024-05-26] MEDS: Melatonin 3 MG TABLET 6 MG PO (19:36)
[2024-05-26] MEDS: Acetaminophen 325 MG TABLET 650 MG PO (19:36)
[2024-05-26] MEDS: Donepezil HCl 5 MG TABLET PO (19:37)
[2024-05-27 03:16] VITALS: BP 114/61; PULSE 58; RESP 16; TEMP 36.2; O2SAT 97
[2024-05-27 08:00] VITALS: BP 130/69; PULSE 59; RESP 16; TEMP 36.4; O2SAT 99
[2024-05-27] MEDS: lisinopriL 5 MG TABLET PO (08:20)
--- NOTE | 2024-05-27 08:39 | MHC.CM.PN ---
PT AWAITING LTC PLACEMENT [facility] SCHEDULED FOR TODAY REFERRALS WILL BE BROADCAST ONCE CONSERVATOR IS IN PLACE
[2024-05-27] MEDS: Acetaminophen 325 MG TABLET 650 MG PO ×2 (11:48→20:09)
--- NOTE | 2024-05-27 11:49 | P.PNIM_ITS ---
Subjective Subjective Date of Service: 05/27/24 Interval History: Being followed for placement. Patient offers no acute complaints, tolerating diet, no behavioral issues. No acute events overnight Review of Systems All other systems are reviewed and are negative. Physical Exam 2 Vital Signs: Vital Signs: Last Vital Signs Temp 97.5 F 05/27/24 08:00 Pulse 59 05/27/24 08:00 Resp 16 05/27/24 08:00 BP 130/69 05/27/24 08:00 Pulse Ox 99 05/27/24 08:00 O2 Del Method Room Air 05/27/24 08:00 O2 Flow Rate 94 05/25/24 19:13 BMI result Body Mass Index 24.4 Const: Other: Gen: in no acute distress Neck: No JVD Lungs: clear to auscultation bilaterally Heart: regular rate and rhythm, no murmurs Abd: soft, non-tender, non-distended Ext: no edema Skin: warm/well-perfused Neuro: alert, oriented to self, tangential/irrelevant speech Psych: impaired insight Objective Data Active Medications Acetaminophen (Acetaminophen 325 Mg Tablet) 650 mg PO Q4H PRN PRN Reason: Pain, Mild (Pain Scale 1-3) Last Admin: 05/27/24 11:48 Dose: 650 mg Documented By: COTEMA Calcium Carbonate (Calcium Carbonate 750 Mg Tab.Chew) 750 mg PO Q4H PRN PRN Reason: Heartburn Donepezil HCl (Donepezil Hcl 5 Mg Tablet) 5 mg PO BEDTIME [facility] Last Admin: 05/26/24 19:37 Dose: 5 mg Documented By: VERA Enoxaparin Sodium (Enoxaparin Sodium 40 Mg/0.4 Ml Syringe) 40 mg SUBCUT Q24H [facility] Last Admin: 05/26/24 17:13 Dose: 40 mg Documented By: DABGina Lisinopril (Lisinopril 5 Mg Tablet) 5 mg PO DAILY [facility]; Protocol Last Admin: 05/27/24 08:20 Dose: 5 mg Documented By: ARDHA Magnesium Hydroxide (Milk Of Magnesia 30 Ml Oral.Susp) 30 ml PO DAILY PRN PRN Reason: Constipation Melatonin (Melatonin 3 Mg Tablet) 6 mg PO BEDTIME PRN PRN Reason: Insomnia Last Admin: 05/26/24 19:36 Dose: 6 mg Documented By: VERA Olanzapine (Olanzapine 2.5 Mg Tablet) 2.5 mg PO BEDTIME [facility] Last Admin: 05/26/24 19:37 Dose: 2.5 mg Documented By: VERA Olanzapine (Olanzapine 2.5 Mg Tablet) 2.5 mg PO DAILY@1700 [facility] Last Admin: 05/26/24 17:12 Dose: 2.5 mg Documented By: GUANAKO Labs 05/23/24 08:03 05/23/24 08:03 Assessment and Plan (1) 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: Status: Acute Assessment and Plan: 78yo M with dementia, Parkinson disease, RBBB, HTN sent in from [facility] due to confusion, sent in to [facility] ED on Section 12 on 05/03/24, was awaiting LTC placement in ED overflow then admitted to hospitalist service 05/12/24 to facilitate placement 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
[2024-05-27 15:22] VITALS: BP 118/59; PULSE 69; RESP 18; TEMP 36.4; O2SAT 93
[2024-05-27] MEDS: Enoxaparin Sodium 40 MG/0.4 ML SYRINGE SUBCUT (16:47)
[2024-05-27] MEDS: OLANZapine 2.5 MG TABLET PO ×2 (16:47→20:09)
[2024-05-27 19:03] VITALS: BP 131/61; PULSE 85; RESP 18; TEMP 36.2; O2SAT 100
[2024-05-27] MEDS: Melatonin 3 MG TABLET 6 MG PO (20:09)
[2024-05-27] MEDS: Donepezil HCl 5 MG TABLET PO (20:09)
[2024-05-28 03:32] VITALS: BP 111/59; PULSE 67; RESP 18; TEMP 36.5; O2SAT 99
[2024-05-28 08:00] VITALS: BP 116/58; PULSE 70; RESP 18; TEMP 36.4; O2SAT 99
[2024-05-28 09:08] VITALS: BP 137/64
[2024-05-28] MEDS: lisinopriL 5 MG TABLET PO (09:08)
--- NOTE | 2024-05-28 09:35 | HO.PM.IMPN ---
Subjective Subjective Date of Service: 05/28/24 Interval History: Being followed for placement No acute events overnight, no behavioral issues, tolerating diet, offers no acute complaints. Review of Systems All other system reviewed and are negative. Physical Exam Vital Signs: Vital Signs: Last Vital Signs Temp 97.6 F 05/28/24 08:00 Pulse 70 05/28/24 08:00 Resp 18 05/28/24 08:00 BP 137/64 05/28/24 09:08 Pulse Ox 99 05/28/24 08:00 O2 Del Method Room Air 05/28/24 08:00 O2 Flow Rate 94 05/25/24 19:13 BMI result Body Mass Index 24.4 Const: Other: Gen: in no acute distress Neck: No JVD Lungs: clear to auscultation bilaterally Heart: regular rate and rhythm, no murmurs Abd: soft, non-tender, non-distended Ext: no edema Skin: warm/well-perfused Neuro: alert, oriented to self, tangential/irrelevant speech Psych: impaired insight Objective Data Active Medications Acetaminophen (Acetaminophen 325 Mg Tablet) 650 mg PO Q4H PRN PRN Reason: Pain, Mild (Pain Scale 1-3) Last Admin: 05/27/24 20:09 Dose: 650 mg Documented By: ADALID Calcium Carbonate (Calcium Carbonate 750 Mg Tab.Chew) 750 mg PO Q4H PRN PRN Reason: Heartburn Donepezil HCl (Donepezil Hcl 5 Mg Tablet) 5 mg PO BEDTIME [facility] Last Admin: 05/27/24 20:09 Dose: 5 mg Documented By: ADALID Enoxaparin Sodium (Enoxaparin Sodium 40 Mg/0.4 Ml Syringe) 40 mg SUBCUT Q24H [facility] Last Admin: 05/27/24 16:47 Dose: 40 mg Documented By: RADHA Lisinopril (Lisinopril 5 Mg Tablet) 5 mg PO DAILY [facility]; Protocol Last Admin: 05/28/24 09:08 Dose: 5 mg Documented By: CAROLYN Magnesium Hydroxide (Milk Of Magnesia 30 Ml Oral.Susp) 30 ml PO DAILY PRN PRN Reason: Constipation Melatonin (Melatonin 3 Mg Tablet) 6 mg PO BEDTIME PRN PRN Reason: Insomnia Last Admin: 05/27/24 20:09 Dose: 6 mg Documented By: HO.COTEMA Olanzapine (Olanzapine 2.5 Mg Tablet) 2.5 mg PO BEDTIME [facility] Last Admin: 05/27/24 20:09 Dose: 2.5 mg Documented By: COTEMA Olanzapine (Olanzapine 2.5 Mg Tablet) 2.5 mg PO DAILY@1700 [facility] Last Admin: 05/27/24 16:47 Dose: 2.5 mg Documented By: NEALOS Labs 05/23/24 08:03 05/23/24 08:03 Assessment and Plan (1) 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: Status: Acute Assessment and Plan: 78yo M with dementia, Parkinson disease, RBBB, HTN sent in from [facility] due to confusion, sent in to [facility] ED on Section 12 on 05/03/24, was awaiting LTC placement in ED overflow then admitted to hospitalist service 05/12/24 to facilitate placement 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
[2024-05-28 15:58] VITALS: BP 106/22; PULSE 82; RESP 16; TEMP 36.5; O2SAT 96
[2024-05-28] MEDS: OLANZapine 2.5 MG TABLET PO ×2 (17:36→19:14)
[2024-05-28] MEDS: Enoxaparin Sodium 40 MG/0.4 ML SYRINGE SUBCUT (17:36)
[2024-05-28 19:13] VITALS: BP 124/76; PULSE 93; RESP 18; TEMP 36.5; O2SAT 97
[2024-05-28] MEDS: Donepezil HCl 5 MG TABLET PO (19:13)
[2024-05-28] MEDS: Melatonin 3 MG TABLET 6 MG PO (19:14)
[2024-05-29 02:54] VITALS: BP 135/71; PULSE 65; RESP 17; TEMP 36.8; O2SAT 98
[2024-05-29 07:23] VITALS: BP 137/64; PULSE 61; RESP 16; TEMP 36.4; O2SAT 99
[2024-05-29] MEDS: lisinopriL 5 MG TABLET PO (08:00)
--- NOTE | 2024-05-29 08:59 | P.PNIM_ITS ---
Subjective Subjective Date of Service: 05/29/24 Interval History: Being followed for placement. Offers no acute complaints, tolerating diet vital stable no acute issues overnight. Review of Systems All other systems are reviewed and are negative. Physical Exam 2 Vital Signs: Vital Signs: Last Vital Signs Temp 97.5 F 05/29/24 07:23 Pulse 61 05/29/24 07:23 Resp 16 05/29/24 07:23 BP 137/64 05/29/24 07:23 Pulse Ox 99 05/29/24 07:23 O2 Del Method Room Air 05/29/24 07:23 O2 Flow Rate 94 05/25/24 19:13 BMI result Body Mass Index 24.4 Const: Other: Gen: in no acute distress Neck: No JVD Lungs: clear to auscultation bilaterally Heart: regular rate and rhythm, no murmurs Abd: soft, non-tender, non-distended Ext: no edema Skin: warm/well-perfused Neuro: alert, oriented to self, tangential/irrelevant speech Psych: impaired insight Objective Data Active Medications Acetaminophen (Acetaminophen 325 Mg Tablet) 650 mg PO Q4H PRN PRN Reason: Pain, Mild (Pain Scale 1-3) Last Admin: 05/27/24 20:09 Dose: 650 mg Documented By: COTNEO Calcium Carbonate (Calcium Carbonate 750 Mg Tab.Chew) 750 mg PO Q4H PRN PRN Reason: Heartburn Donepezil HCl (Donepezil Hcl 5 Mg Tablet) 5 mg PO BEDTIME [facility] Last Admin: 05/28/24 19:13 Dose: 5 mg Documented By: VERA Enoxaparin Sodium (Enoxaparin Sodium 40 Mg/0.4 Ml Syringe) 40 mg SUBCUT Q24H [facility] Last Admin: 05/28/24 17:36 Dose: 40 mg Documented By: CAROLYN Lisinopril (Lisinopril 5 Mg Tablet) 5 mg PO DAILY [facility]; Protocol Last Admin: 05/29/24 08:00 Dose: 5 mg Documented By: CAROLYN Magnesium Hydroxide (Milk Of Magnesia 30 Ml Oral.Susp) 30 ml PO DAILY PRN PRN Reason: Constipation Melatonin (Melatonin 3 Mg Tablet) 6 mg PO BEDTIME PRN PRN Reason: Insomnia Last Admin: 05/28/24 19:14 Dose: 6 mg Documented By: VERA Olanzapine (Olanzapine 2.5 Mg Tablet) 2.5 mg PO BEDTIME [facility] Last Admin: 05/28/24 19:14 Dose: 2.5 mg Documented By: VERA Olanzapine (Olanzapine 2.5 Mg Tablet) 2.5 mg PO DAILY@1700 [facility] Last Admin: 05/28/24 17:36 Dose: 2.5 mg Documented By: CAROLYN Labs 05/23/24 08:03 05/23/24 08:03 Assessment and Plan (1) 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: Status: Acute Assessment and Plan: 78yo M with dementia, Parkinson disease, RBBB, HTN sent in from 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
[2024-05-29] MEDS: Acetaminophen 325 MG TABLET 650 MG PO (12:44)
[2024-05-29 15:37] VITALS: BP 112/60; PULSE 85; RESP 18; TEMP 36.8; O2SAT 99
[2024-05-29] MEDS: Enoxaparin Sodium 40 MG/0.4 ML SYRINGE SUBCUT (17:15)
[2024-05-29] MEDS: OLANZapine 2.5 MG TABLET PO ×2 (17:15→19:32)
[2024-05-29 19:16] VITALS: BP 141/65; PULSE 87; RESP 18; TEMP 36.9; O2SAT 99
[2024-05-29] MEDS: Donepezil HCl 5 MG TABLET PO (19:32)
[2024-05-29] MEDS: Melatonin 3 MG TABLET 6 MG PO (19:32)
[2024-05-30 04:00] VITALS: BP 139/67; PULSE 56; RESP 16; TEMP 36; O2SAT 99
[2024-05-30 07:37] VITALS: BP 143/67; PULSE 52; RESP 16; TEMP 36.4; O2SAT 99
[2024-05-30] MEDS: lisinopriL 5 MG TABLET PO (08:27)
--- NOTE | 2024-05-30 09:19 | HO.PM.IMPN ---
Subjective Subjective Date of Service: 05/30/24 Interval History: Being followed for placement No acute complaints, tolerating diet, no behavioral issues. Review of Systems All other system are reviewed and are negative Physical Exam Vital Signs: Vital Signs: Last Vital Signs Temp 97.6 F 05/30/24 07:37 Pulse 52 05/30/24 07:37 Resp 16 05/30/24 07:37 BP 143/67 H 05/30/24 07:37 Pulse Ox 99 05/30/24 07:37 O2 Del Method Room Air 05/30/24 07:37 O2 Flow Rate 94 05/25/24 19:13 BMI result Body Mass Index 24.4 Const: Other: Gen: in no acute distress Neck: No JVD Lungs: clear to auscultation bilaterally Heart: regular rate and rhythm, no murmurs Abd: soft, non-tender, non-distended Ext: no edema Skin: warm/well-perfused Neuro: alert, oriented to self, tangential/irrelevant speech Psych: impaired insight Objective Data Active Medications Acetaminophen (Acetaminophen 325 Mg Tablet) 650 mg PO Q4H PRN PRN Reason: Pain, Mild (Pain Scale 1-3) Last Admin: 05/29/24 12:44 Dose: 650 mg Documented By: CAROLYN Calcium Carbonate (Calcium Carbonate 750 Mg Tab.Chew) 750 mg PO Q4H PRN PRN Reason: Heartburn Donepezil HCl (Donepezil Hcl 5 Mg Tablet) 5 mg PO BEDTIME [facility] Last Admin: 05/29/24 19:32 Dose: 5 mg Documented By: BECKIE Enoxaparin Sodium (Enoxaparin Sodium 40 Mg/0.4 Ml Syringe) 40 mg SUBCUT Q24H [facility] Last Admin: 05/29/24 17:15 Dose: 40 mg Documented By: CAROLYN Lisinopril (Lisinopril 5 Mg Tablet) 5 mg PO DAILY [facility]; Protocol Last Admin: 05/30/24 08:27 Dose: 5 mg Documented By: ROBERTO Magnesium Hydroxide (Milk Of Magnesia 30 Ml Oral.Susp) 30 ml PO DAILY PRN PRN Reason: Constipation Melatonin (Melatonin 3 Mg Tablet) 6 mg PO BEDTIME PRN PRN Reason: Insomnia Last Admin: 05/29/24 19:32 Dose: 6 mg Documented By: HO.CASTILM Olanzapine (Olanzapine 2.5 Mg Tablet) 2.5 mg PO BEDTIME [facility] Last Admin: 05/29/24 19:32 Dose: 2.5 mg Documented By: AIDENILShai Olanzapine (Olanzapine 2.5 Mg Tablet) 2.5 mg PO DAILY@1700 [facility] Last Admin: 05/29/24 17:15 Dose: 2.5 mg Documented By: CAROLYN Labs 05/23/24 08:03 05/23/24 08:03 Assessment and Plan (1) 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: Status: Acute Assessment and Plan: 78yo M with dementia, Parkinson disease, RBBB, HTN sent in from [facility] due to confusion, sent in to [facility] ED on Section 12 on 05/03/24, was awaiting LTC placement in ED overflow then admitted to hospitalist service 05/12/24 to facilitate placement 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
--- NOTE | 2024-05-30 10:22 | MHC.CM.PN ---
PT AWAITING [facility] FOR LTC PLACEMENT BROAD REFERRAL PLACED, AWAITING BED OFFERS
[2024-05-30 15:32] VITALS: BP 109/59; PULSE 68; RESP 18; TEMP 37.1; O2SAT 97
[2024-05-30] MEDS: Enoxaparin Sodium 40 MG/0.4 ML SYRINGE SUBCUT (17:28)
[2024-05-30] MEDS: OLANZapine 2.5 MG TABLET PO ×2 (17:29→19:26)
[2024-05-30 18:50] VITALS: BP 122/58; PULSE 72; RESP 18; TEMP 36.8; O2SAT 98
[2024-05-30] MEDS: Donepezil HCl 5 MG TABLET PO (19:25)
[2024-05-30] MEDS: Acetaminophen 325 MG TABLET 650 MG PO (19:25)
[2024-05-30] MEDS: Melatonin 3 MG TABLET 6 MG PO (19:25)
[2024-05-31 03:32] VITALS: BP 118/58; PULSE 72; RESP 16; TEMP 36.2; O2SAT 99
[2024-05-31 07:47] VITALS: BP 134/65; PULSE 51; RESP 12; TEMP 37; O2SAT 98
--- NOTE | 2024-05-31 08:42 | HO.PM.IMPN ---
Subjective Subjective Date of Service: 05/31/24 Interval History: Being followed for placement. Offers no acute complaints, tolerating diet, no behavioral issues, no acute events. Review of Systems All other systems are reviewed and are negative. Physical Exam Vital Signs: Vital Signs: Last Vital Signs Temp 98.6 F 05/31/24 07:47 Pulse 51 05/31/24 07:47 Resp 12 05/31/24 07:47 BP 134/65 05/31/24 07:47 Pulse Ox 98 05/31/24 07:47 O2 Del Method Room Air 05/31/24 07:47 O2 Flow Rate 94 05/25/24 19:13 BMI result Body Mass Index 24.4 Const: Other: Gen: in no acute distress Neck: No JVD Lungs: clear to auscultation bilaterally Heart: regular rate and rhythm, no murmurs Abd: soft, non-tender, non-distended Ext: no edema Skin: warm/well-perfused Neuro: alert, oriented to self, tangential/irrelevant speech Psych: impaired insight Objective Data Active Medications Acetaminophen (Acetaminophen 325 Mg Tablet) 650 mg PO Q4H PRN PRN Reason: Pain, Mild (Pain Scale 1-3) Last Admin: 05/30/24 19:25 Dose: 650 mg Documented By: VERA Calcium Carbonate (Calcium Carbonate 750 Mg Tab.Chew) 750 mg PO Q4H PRN PRN Reason: Heartburn Donepezil HCl (Donepezil Hcl 5 Mg Tablet) 5 mg PO BEDTIME [facility] Last Admin: 05/30/24 19:25 Dose: 5 mg Documented By: VERA Enoxaparin Sodium (Enoxaparin Sodium 40 Mg/0.4 Ml Syringe) 40 mg SUBCUT Q24H [facility] Last Admin: 05/30/24 17:28 Dose: 40 mg Documented By: ROBERTO Lisinopril (Lisinopril 5 Mg Tablet) 5 mg PO DAILY [facility]; Protocol Last Admin: 05/30/24 08:27 Dose: 5 mg Documented By: ROBERTO Magnesium Hydroxide (Milk Of Magnesia 30 Ml Oral.Susp) 30 ml PO DAILY PRN PRN Reason: Constipation Melatonin (Melatonin 3 Mg Tablet) 6 mg PO BEDTIME PRN PRN Reason: Insomnia Last Admin: 05/30/24 19:25 Dose: 6 mg Documented By: VERA Olanzapine (Olanzapine 2.5 Mg Tablet) 2.5 mg PO BEDTIME [facility] Last Admin: 05/30/24 19:26 Dose: 2.5 mg Documented By: VERA Olanzapine (Olanzapine 2.5 Mg Tablet) 2.5 mg PO DAILY@1700 [facility] Last Admin: 05/30/24 17:29 Dose: 2.5 mg Documented By: ROBERTO Labs 05/23/24 08:03 05/23/24 08:03 Assessment and Plan (1) 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: Status: Acute Assessment and Plan: 78yo M with dementia, Parkinson disease, RBBB, HTN sent in from [facility] due to confusion, sent in to [facility] ED on Section 12 on 05/03/24, was awaiting LTC placement in ED overflow then admitted to hospitalist service 05/12/24 to facilitate placement 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
[2024-05-31] MEDS: lisinopriL 5 MG TABLET PO (09:03)
[2024-05-31 15:31] VITALS: BP 106/61; PULSE 71; RESP 16; TEMP 36.7; O2SAT 99
[2024-05-31] MEDS: Enoxaparin Sodium 40 MG/0.4 ML SYRINGE SUBCUT (17:17)
[2024-05-31] MEDS: OLANZapine 2.5 MG TABLET PO ×2 (17:17→21:17)
[2024-05-31 19:15] VITALS: BP 118/66; PULSE 65; RESP 16; TEMP 36.7; O2SAT 97
[2024-05-31] MEDS: Donepezil HCl 5 MG TABLET PO (21:17)
[2024-06-01 04:00] VITALS: BP 117/56; PULSE 54; RESP 16; TEMP 36; O2SAT 97
[2024-06-01 08:31] VITALS: BP 145/78; PULSE 61; RESP 12; TEMP 36.4; O2SAT 97
[2024-06-01] MEDS: lisinopriL 5 MG TABLET PO (08:57)
--- NOTE | 2024-06-01 14:53 | MHC.CM.PN ---
AWAITING [facility]SERV[facility]OR[facility]/FINANCIALS THEN LTC PLACEMENT. CM WILL CONTINUE TO FOLLOW FOR PLAN
[2024-06-01 16:30] VITALS: BP 142/87; PULSE 83; RESP 18; TEMP 36.6; O2SAT 96
--- NOTE | 2024-06-01 16:36 | P.PNIM_ITS ---
Subjective Subjective Date of Service: 06/01/24 Interval History: Being followed for placement. Review of Systems Offers no acute complaints, tolerating diet, no behavioral issues, no acute events. no other c/o. Physical Exam 2 Vital Signs: Vital Signs: Last Vital Signs Temp 97.8 F 06/01/24 16:30 Pulse 83 06/01/24 16:30 Resp 18 06/01/24 16:30 BP 142/87 H 06/01/24 16:30 Pulse Ox 96 06/01/24 16:30 O2 Del Method Room Air 06/01/24 16:30 O2 Flow Rate 94 05/25/24 19:13 BMI result Body Mass Index 24.4 Gen: in no acute distress Lungs: clear to auscultation bilaterally Heart: regular rate and rhythm. Abd: soft, non-tender, non-distended Ext: no edema Skin: warm/well-perfused Neuro: alert, oriented to self. Psych: impaired insight Objective Data Active Medications Acetaminophen (Acetaminophen 325 Mg Tablet) 650 mg PO Q4H PRN PRN Reason: Pain, Mild (Pain Scale 1-3) Last Admin: 05/30/24 19:25 Dose: 650 mg Documented By: VERA Calcium Carbonate (Calcium Carbonate 750 Mg Tab.Chew) 750 mg PO Q4H PRN PRN Reason: Heartburn Donepezil HCl (Donepezil Hcl 5 Mg Tablet) 5 mg PO BEDTIME [facility] Last Admin: 05/31/24 21:17 Dose: 5 mg Documented By: BROShahbaz Enoxaparin Sodium (Enoxaparin Sodium 40 Mg/0.4 Ml Syringe) 40 mg SUBCUT Q24H [facility] Last Admin: 05/31/24 17:17 Dose: 40 mg Documented By: PRINCE Lisinopril (Lisinopril 5 Mg Tablet) 5 mg PO DAILY [facility]; Protocol Last Admin: 06/01/24 08:57 Dose: 5 mg Documented By: CAROLYN Magnesium Hydroxide (Milk Of Magnesia 30 Ml Oral.Susp) 30 ml PO DAILY PRN PRN Reason: Constipation Melatonin (Melatonin 3 Mg Tablet) 6 mg PO BEDTIME PRN PRN Reason: Insomnia Last Admin: 05/30/24 19:25 Dose: 6 mg Documented By: VERA Olanzapine (Olanzapine 2.5 Mg Tablet) 2.5 mg PO BEDTIME [facility] Last Admin: 05/31/24 21:17 Dose: 2.5 mg Documented By: PRINCE Olanzapine (Olanzapine 2.5 Mg Tablet) 2.5 mg PO DAILY@1700 [facility] Last Admin: 05/31/24 17:17 Dose: 2.5 mg Documented By: PRINCE Labs 05/23/24 08:03 05/23/24 08:03 Assessment and Plan (1) 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: Status: Acute Plan 78yo M with dementia, Parkinson disease, RBBB, HTN sent in from [facility] due to confusion, sent in to [facility] ED on Section 12 on 05/03/24, was awaiting LTC placement in ED overflow then admitted to hospitalist service 05/12/24 to facilitate placement 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
[2024-06-01] MEDS: OLANZapine 2.5 MG TABLET PO ×2 (17:37→20:10)
[2024-06-01] MEDS: Enoxaparin Sodium 40 MG/0.4 ML SYRINGE SUBCUT (17:39)
[2024-06-01] MEDS: Milk of Magnesia 30 ML ORAL.SUSP PO (17:47)
[2024-06-01 19:47] VITALS: BP 111/79; PULSE 66; RESP 16; TEMP 36.3; O2SAT 96
[2024-06-01] MEDS: Donepezil HCl 5 MG TABLET PO (20:11)
[2024-06-02 04:00] VITALS: BP 131/96; PULSE 55; RESP 16; TEMP 36.1; O2SAT 99
[2024-06-02 08:00] VITALS: BP 125/87; PULSE 80; RESP 14; TEMP 36.2; O2SAT 100
[2024-06-02] MEDS: lisinopriL 5 MG TABLET PO (08:59)
--- NOTE | 2024-06-02 13:24 | HO.PM.IMPN ---
Subjective Subjective Date of Service: 06/02/24 Interval History: followed for placement. Review of Systems Offers no acute complaints, tolerating diet, no behavioral issues, no acute events. no other c/o. Physical Exam Vital Signs: Vital Signs: Last Vital Signs Temp 97.2 F 06/02/24 08:00 Pulse 80 06/02/24 08:00 Resp 14 06/02/24 08:00 BP 125/87 06/02/24 08:00 Pulse Ox 100 06/02/24 08:00 O2 Del Method Room Air 06/02/24 08:00 O2 Flow Rate 94 05/25/24 19:13 BMI result Body Mass Index 24.4 Gen: in no acute distress Lungs: clear to auscultation bilaterally Heart: regular rate and rhythm. Abd: soft, non-tender, non-distended Ext: no edema Skin: warm/well-perfused Neuro: alert, oriented to self. Psych: impaired insight Objective Data Active Medications Acetaminophen (Acetaminophen 325 Mg Tablet) 650 mg PO Q4H PRN PRN Reason: Pain, Mild (Pain Scale 1-3) Last Admin: 05/30/24 19:25 Dose: 650 mg Documented By: VERA Calcium Carbonate (Calcium Carbonate 750 Mg Tab.Chew) 750 mg PO Q4H PRN PRN Reason: Heartburn Donepezil HCl (Donepezil Hcl 5 Mg Tablet) 5 mg PO BEDTIME [facility] Last Admin: 06/01/24 20:11 Dose: 5 mg Documented By: BECK Enoxaparin Sodium (Enoxaparin Sodium 40 Mg/0.4 Ml Syringe) 40 mg SUBCUT Q24H [facility] Last Admin: 06/01/24 17:39 Dose: 40 mg Documented By: ADALID Lisinopril (Lisinopril 5 Mg Tablet) 5 mg PO DAILY [facility]; Protocol Last Admin: 06/02/24 08:59 Dose: 5 mg Documented By: BOOM Magnesium Hydroxide (Milk Of Magnesia 30 Ml Oral.Susp) 30 ml PO DAILY PRN PRN Reason: Constipation Last Admin: 06/01/24 17:47 Dose: 30 ml Documented By: ADALID Melatonin (Melatonin 3 Mg Tablet) 6 mg PO BEDTIME PRN PRN Reason: Insomnia Last Admin: 05/30/24 19:25 Dose: 6 mg Documented By: VERA Olanzapine (Olanzapine 2.5 Mg Tablet) 2.5 mg PO BEDTIME [facility] Last Admin: 06/01/24 20:10 Dose: 2.5 mg Documented By: BECK Olanzapine (Olanzapine 2.5 Mg Tablet) 2.5 mg PO DAILY@1700 [facility] Last Admin: 06/01/24 17:37 Dose: 2.5 mg Documented By: ADALID Labs 05/23/24 08:03 05/23/24 08:03 Assessment and Plan (1) 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: Status: Acute Plan 78yo M with dementia, Parkinson disease, RBBB, HTN sent in from [facility] due to confusion, sent in to [facility] ED on Section 12 on 05/03/24, was awaiting LTC placement in ED overflow then admitted to hospitalist service 05/12/24 to facilitate placement 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
[2024-06-02 16:00] VITALS: BP 126/65; PULSE 60; RESP 12; TEMP 36.3; O2SAT 98
[2024-06-02] MEDS: Enoxaparin Sodium 40 MG/0.4 ML SYRINGE SUBCUT (17:14)
[2024-06-02] MEDS: OLANZapine 2.5 MG TABLET PO ×2 (17:14→20:17)
[2024-06-02 19:15] VITALS: BP 109/65; PULSE 69; RESP 18; TEMP 36.6; O2SAT 97
[2024-06-02] MEDS: Donepezil HCl 5 MG TABLET PO (20:16)
[2024-06-03 03:10] VITALS: BP 122/65; PULSE 51; RESP 16; TEMP 36.1; O2SAT 99
[2024-06-03 07:37] VITALS: BP 129/71; PULSE 65; RESP 14; TEMP 36.3; O2SAT 99
[2024-06-03 08:49] VITALS: BP 129/71
[2024-06-03] MEDS: lisinopriL 5 MG TABLET PO (08:49)
--- NOTE | 2024-06-03 14:16 | MHC.CM.PN ---
EMR REVIEWED, PT AWAITING MH/LTC PLACEMENT, [facility] HEARING 05/27, CM AWAITING COURT DOCUMENT, NO DC AT THIS TIME, CM WILL CONT TO FOLLOW DC NEEDS.
[2024-06-03 15:41] VITALS: BP 126/62; PULSE 75; RESP 12; TEMP 36.3; O2SAT 96
--- NOTE | 2024-06-03 15:48 | HO.PM.IMPN ---
Subjective Subjective Date of Service: 06/03/24 Interval History: followed for placement. Review of Systems no acute complaints, tolerating diet, no behavioral issues, no acute events. no other c/o. Physical Exam Vital Signs: Vital Signs: Last Vital Signs Temp 97.3 F 06/03/24 15:41 Pulse 75 06/03/24 15:41 Resp 12 06/03/24 15:41 BP 126/62 06/03/24 15:41 Pulse Ox 96 06/03/24 15:41 O2 Del Method Room Air 06/03/24 15:41 O2 Flow Rate 94 05/25/24 19:13 BMI result Body Mass Index 24.4 Gen: in no acute distress Lungs: clear to auscultation bilaterally Heart: regular rate and rhythm. Abd: soft, non-tender, non-distended Ext: no edema Skin: warm/well-perfused Neuro: alert, oriented to self. Psych: impaired insight Objective Data Active Medications Acetaminophen (Acetaminophen 325 Mg Tablet) 650 mg PO Q4H PRN PRN Reason: Pain, Mild (Pain Scale 1-3) Last Admin: 05/30/24 19:25 Dose: 650 mg Documented By: VERA Calcium Carbonate (Calcium Carbonate 750 Mg Tab.Chew) 750 mg PO Q4H PRN PRN Reason: Heartburn Donepezil HCl (Donepezil Hcl 5 Mg Tablet) 5 mg PO BEDTIME [facility] Last Admin: 06/02/24 20:16 Dose: 5 mg Documented By: BECK Enoxaparin Sodium (Enoxaparin Sodium 40 Mg/0.4 Ml Syringe) 40 mg SUBCUT Q24H [facility] Last Admin: 06/02/24 17:14 Dose: 40 mg Documented By: BOOM Lisinopril (Lisinopril 5 Mg Tablet) 5 mg PO DAILY [facility]; Protocol Last Admin: 06/03/24 08:49 Dose: 5 mg Documented By: BOOM Magnesium Hydroxide (Milk Of Magnesia 30 Ml Oral.Susp) 30 ml PO DAILY PRN PRN Reason: Constipation Last Admin: 06/01/24 17:47 Dose: 30 ml Documented By: COTNEO Melatonin (Melatonin 3 Mg Tablet) 6 mg PO BEDTIME PRN PRN Reason: Insomnia Last Admin: 05/30/24 19:25 Dose: 6 mg Documented By: VERA Olanzapine (Olanzapine 2.5 Mg Tablet) 2.5 mg PO BEDTIME [facility] Last Admin: 06/02/24 20:17 Dose: 2.5 mg Documented By: BECK Olanzapine (Olanzapine 2.5 Mg Tablet) 2.5 mg PO DAILY@1700 [facility] Last Admin: 06/02/24 17:14 Dose: 2.5 mg Documented By: BOOM Labs 05/23/24 08:03 05/23/24 08:03 Assessment and Plan (1) 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: Status: Acute Plan 78yo M with dementia, Parkinson disease, RBBB, HTN sent in from [facility] due to confusion, sent in [place] [facility] [place] on Section 12 on 05/03/24, was awaiting LTC placement in ED overflow then admitted to hospitalist service 05/12/24 to facilitate placement 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
[2024-06-03] MEDS: OLANZapine 2.5 MG TABLET PO ×2 (16:58→19:39)
[2024-06-03] MEDS: Enoxaparin Sodium 40 MG/0.4 ML SYRINGE SUBCUT (16:58)
[2024-06-03 19:21] VITALS: BP 115/59; PULSE 79; RESP 16; TEMP 36.6; O2SAT 99
[2024-06-03] MEDS: Donepezil HCl 5 MG TABLET PO (19:39)
[2024-06-04 03:11] VITALS: BP 116/62; PULSE 54; RESP 14; TEMP 36.6; O2SAT 97
[2024-06-04 07:51] VITALS: BP 138/73; PULSE 65; RESP 18; TEMP 36.1; O2SAT 99
[2024-06-04 08:27] VITALS: BP 138/73
[2024-06-04] MEDS: lisinopriL 5 MG TABLET PO (08:27)
--- NOTE | 2024-06-04 12:01 | P.PNIM_ITS ---
Subjective Subjective Date of Service: 06/04/24 Interval History: followed for placement. Review of Systems no acute complaints, tolerating diet, no behavioral issues, no acute events. no other c/o. Physical Exam 2 Vital Signs: Vital Signs: Last Vital Signs Temp 97 F 06/04/24 07:51 Pulse 65 06/04/24 07:51 Resp 18 06/04/24 07:51 BP 138/73 06/04/24 08:27 Pulse Ox 99 06/04/24 07:51 O2 Del Method Room Air 06/04/24 07:51 O2 Flow Rate 94 05/25/24 19:13 BMI result Body Mass Index 24.4 Gen: in no acute distress Lungs: clear to auscultation bilaterally Heart: regular rate and rhythm. Abd: soft, non-tender, non-distended Ext: no edema Skin: warm/well-perfused Neuro: alert, oriented to self. Psych: impaired insigh Objective Data Active Medications Acetaminophen (Acetaminophen 325 Mg Tablet) 650 mg PO Q4H PRN PRN Reason: Pain, Mild (Pain Scale 1-3) Last Admin: 05/30/24 19:25 Dose: 650 mg Documented By: VERA Calcium Carbonate (Calcium Carbonate 750 Mg Tab.Chew) 750 mg PO Q4H PRN PRN Reason: Heartburn Donepezil HCl (Donepezil Hcl 5 Mg Tablet) 5 mg PO BEDTIME [facility] Last Admin: 06/03/24 19:39 Dose: 5 mg Documented By: HUSSAIN Enoxaparin Sodium (Enoxaparin Sodium 40 Mg/0.4 Ml Syringe) 40 mg SUBCUT Q24H [facility] Last Admin: 06/03/24 16:58 Dose: 40 mg Documented By: HUSSAIN Lisinopril (Lisinopril 5 Mg Tablet) 5 mg PO DAILY [facility]; Protocol Last Admin: 06/04/24 08:27 Dose: 5 mg Documented By: TESSY Magnesium Hydroxide (Milk Of Magnesia 30 Ml Oral.Susp) 30 ml PO DAILY PRN PRN Reason: Constipation Last Admin: 06/01/24 17:47 Dose: 30 ml Documented By: COTEMA Melatonin (Melatonin 3 Mg Tablet) 6 mg PO BEDTIME PRN PRN Reason: Insomnia Last Admin: 05/30/24 19:25 Dose: 6 mg Documented By: VERA Olanzapine (Olanzapine 2.5 Mg Tablet) 2.5 mg PO BEDTIME [facility] Last Admin: 06/03/24 19:39 Dose: 2.5 mg Documented By: HUSSAIN Olanzapine (Olanzapine 2.5 Mg Tablet) 2.5 mg PO DAILY@1700 [facility] Last Admin: 06/03/24 16:58 Dose: 2.5 mg Documented By: HUSSAIN Labs 05/23/24 08:03 05/23/24 08:03 Assessment and Plan (1) 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: Status: Acute Plan 78yo M with dementia, Parkinson disease, RBBB, HTN sent in from [facility] due to confusion, sent in to [facility] ED on Section 12 on 05/03/24, was awaiting LTC placement in ED overflow then admitted to hospitalist service 05/12/24 to facilitate placement 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
[2024-06-04 16:02] VITALS: BP 129/77; PULSE 69; RESP 12; TEMP 36.2; O2SAT 98
[2024-06-04] MEDS: OLANZapine 2.5 MG TABLET PO ×2 (16:36→20:01)
[2024-06-04] MEDS: Enoxaparin Sodium 40 MG/0.4 ML SYRINGE SUBCUT (16:36)
[2024-06-04 18:56] VITALS: BP 114/57; PULSE 69; RESP 18; TEMP 36.6; O2SAT 97
[2024-06-04] MEDS: Donepezil HCl 5 MG TABLET PO (20:01)
[2024-06-05 04:00] VITALS: BP 121/57; PULSE 62; RESP 16; TEMP 36.3; O2SAT 97
[2024-06-05 07:25] VITALS: BP 155/72; PULSE 65; RESP 16; TEMP 36.1; O2SAT 98
[2024-06-05 08:16] VITALS: BP 155/72
[2024-06-05] MEDS: lisinopriL 5 MG TABLET PO (08:16)
--- NOTE | 2024-06-05 11:21 | P.PNIM_ITS ---
Subjective Subjective Date of Service: 06/05/24 Interval History: followed for placement Review of Systems no acute complaints, tolerating diet, no behavioral issues, no acute events. no other c/o. Physical Exam 2 Vital Signs: Vital Signs: Last Vital Signs Temp 97.0 F 06/05/24 07:25 Pulse 65 06/05/24 07:25 Resp 16 06/05/24 07:25 BP 155/72 H 06/05/24 08:16 Pulse Ox 98 06/05/24 07:25 O2 Del Method Room Air 06/05/24 07:25 O2 Flow Rate 94 05/25/24 19:13 BMI result Body Mass Index 24.4 Gen: in no acute distress Lungs: clear to auscultation bilaterally Heart: regular rate and rhythm. Abd: soft, non-tender, non-distended Ext: no edema Skin: warm/well-perfused Neuro: alert, oriented to self. Psych: impaired insigh Objective Data Active Medications Acetaminophen (Acetaminophen 325 Mg Tablet) 650 mg PO Q4H PRN PRN Reason: Pain, Mild (Pain Scale 1-3) Last Admin: 05/30/24 19:25 Dose: 650 mg Documented By: VERA Calcium Carbonate (Calcium Carbonate 750 Mg Tab.Chew) 750 mg PO Q4H PRN PRN Reason: Heartburn Donepezil HCl (Donepezil Hcl 5 Mg Tablet) 5 mg PO BEDTIME [facility] Last Admin: 06/04/24 20:01 Dose: 5 mg Documented By: JIM Enoxaparin Sodium (Enoxaparin Sodium 40 Mg/0.4 Ml Syringe) 40 mg SUBCUT Q24H [facility] Last Admin: 06/04/24 16:36 Dose: 40 mg Documented By: TESSY Lisinopril (Lisinopril 5 Mg Tablet) 5 mg PO DAILY [facility]; Protocol Last Admin: 06/05/24 08:16 Dose: 5 mg Documented By: TESSY Magnesium Hydroxide (Milk Of Magnesia 30 Ml Oral.Susp) 30 ml PO DAILY PRN PRN Reason: Constipation Last Admin: 06/01/24 17:47 Dose: 30 ml Documented By: COTEMA Melatonin (Melatonin 3 Mg Tablet) 6 mg PO BEDTIME PRN PRN Reason: Insomnia Last Admin: 05/30/24 19:25 Dose: 6 mg Documented By: VERA Olanzapine (Olanzapine 2.5 Mg Tablet) 2.5 mg PO BEDTIME [facility] Last Admin: 06/04/24 20:01 Dose: 2.5 mg Documented By: JIM Olanzapine (Olanzapine 2.5 Mg Tablet) 2.5 mg PO DAILY@1700 [facility] Last Admin: 06/04/24 16:36 Dose: 2.5 mg Documented By: MARCINM Labs 05/23/24 08:03 05/23/24 08:03 Assessment and Plan (1) 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: Status: Acute Plan 78yo M with dementia, Parkinson disease, RBBB, HTN sent in from [facility] due to confusion, sent in to [facility] ED on Section 12 on 05/03/24, was awaiting LTC placement in ED overflow then admitted to hospitalist service 05/12/24 to facilitate placement 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
[2024-06-05 15:06] VITALS: BP 138/60; PULSE 76; RESP 18; TEMP 36.3; O2SAT 99
[2024-06-05] MEDS: Enoxaparin Sodium 40 MG/0.4 ML SYRINGE SUBCUT (16:09)
[2024-06-05] MEDS: OLANZapine 2.5 MG TABLET PO ×2 (16:09→21:14)
[2024-06-05 19:14] VITALS: BP 133/63; PULSE 70; RESP 18; TEMP 36.8; O2SAT 98
[2024-06-05] MEDS: Donepezil HCl 5 MG TABLET PO (21:14)
[2024-06-06 03:22] VITALS: BP 123/76; PULSE 71; RESP 18; TEMP 36.1; O2SAT 97
[2024-06-06 07:32] VITALS: BP 141/66; PULSE 55; RESP 14; TEMP 36.3; O2SAT 99
[2024-06-06] MEDS: lisinopriL 5 MG TABLET PO (08:04)
--- NOTE | 2024-06-06 10:49 | HO.PM.IMPN ---
Subjective Subjective Date of Service: 06/06/24 Interval History: followed for placement Review of Systems no acute complaints, tolerating diet, no behavioral issues, no acute events. no other c/o. Physical Exam Vital Signs: Vital Signs: Last Vital Signs Temp 97.3 F 06/06/24 07:32 Pulse 55 06/06/24 07:32 Resp 14 06/06/24 07:32 BP 141/66 H 06/06/24 07:32 Pulse Ox 99 06/06/24 07:32 O2 Del Method Room Air 06/06/24 03:22 O2 Flow Rate 94 05/25/24 19:13 BMI result Body Mass Index 24.4 Gen: in no acute distress Lungs: clear to auscultation bilaterally Heart: regular rate and rhythm. Abd: soft, non-tender, non-distended Ext: no edema Skin: warm/well-perfused Neuro: alert, oriented to self. Psych: impaired insight Objective Data Active Medications Acetaminophen (Acetaminophen 325 Mg Tablet) 650 mg PO Q4H PRN PRN Reason: Pain, Mild (Pain Scale 1-3) Last Admin: 05/30/24 19:25 Dose: 650 mg Documented By: VERA Calcium Carbonate (Calcium Carbonate 750 Mg Tab.Chew) 750 mg PO Q4H PRN PRN Reason: Heartburn Donepezil HCl (Donepezil Hcl 5 Mg Tablet) 5 mg PO BEDTIME [facility] Last Admin: 06/05/24 21:14 Dose: 5 mg Documented By: ELMER Enoxaparin Sodium (Enoxaparin Sodium 40 Mg/0.4 Ml Syringe) 40 mg SUBCUT Q24H [facility] Last Admin: 06/05/24 16:09 Dose: 40 mg Documented By: TESSY Lisinopril (Lisinopril 5 Mg Tablet) 5 mg PO DAILY [facility]; Protocol Last Admin: 06/06/24 08:04 Dose: 5 mg Documented By: FIHS Magnesium Hydroxide (Milk Of Magnesia 30 Ml Oral.Susp) 30 ml PO DAILY PRN PRN Reason: Constipation Last Admin: 06/01/24 17:47 Dose: 30 ml Documented By: COTEMA Melatonin (Melatonin 3 Mg Tablet) 6 mg PO BEDTIME PRN PRN Reason: Insomnia Last Admin: 05/30/24 19:25 Dose: 6 mg Documented By: VERA Olanzapine (Olanzapine 2.5 Mg Tablet) 2.5 mg PO BEDTIME [facility] Last Admin: 06/05/24 21:14 Dose: 2.5 mg Documented By: ELMER Olanzapine (Olanzapine 2.5 Mg Tablet) 2.5 mg PO DAILY@1700 [facility] Last Admin: 06/05/24 16:09 Dose: 2.5 mg Documented By: TESSY Labs 05/23/24 08:03 05/23/24 08:03 Assessment and Plan (1) 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: Status: Acute Plan 78yo M with dementia, Parkinson disease, RBBB, HTN sent in from [facility] due to confusion, sent in to [facility] ED on Section 12 on 05/03/24, was awaiting LTC placement in ED overflow then admitted to hospitalist service 05/12/24 to facilitate placement 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
[2024-06-06 16:00] VITALS: BP 132/76; PULSE 65; RESP 14; TEMP 36.5; O2SAT 98
[2024-06-06] MEDS: OLANZapine 2.5 MG TABLET PO ×2 (17:02→20:00)
[2024-06-06] MEDS: Enoxaparin Sodium 40 MG/0.4 ML SYRINGE SUBCUT (17:02)
[2024-06-06 19:13] VITALS: BP 132/60; PULSE 74; RESP 17; TEMP 36.7; O2SAT 98
[2024-06-06] MEDS: Donepezil HCl 5 MG TABLET PO (20:01)
[2024-06-07 03:04] VITALS: BP 119/58; PULSE 60; RESP 16; TEMP 36.2; O2SAT 97
[2024-06-07] MEDS: Acetaminophen 325 MG TABLET 650 MG PO (04:35)
[2024-06-07 06:37] LABS: Hematocrit 40.1 % (42.0-52.0); Mean Corpuscular HGB Conc 34.9 g/dl (31.0-36.0); Mean Corpuscular Hemoglobin 31.1 pg (27.0-33.0); Mean Corpuscular Volume 89.1 fL (80.0-98.0); Mean Platelet Volume 9.2 fL (9.4-12.4); Platelet Count 205 X10*3/uL (160-400); Red Cell Distribution Width 13.4 % (11.0-16.0); White Blood Count 5.5 X10*3/uL (4.8-10.8)
[2024-06-07 06:54] LABS: Anion Gap 12 (12-20); Blood Urea Nitrogen 16 mg/dL (9-16); Calcium 9.7 mg/dL (8.4-10.2); Carbon Dioxide 26 mmol/L (22-29); Chloride 106 mmol/L (96-108); Creatinine Clr Calc Pharmacy 73.6; Estimated Glomerular Filt Rate > 60; Glucose Random 101 mg/dL (60-115); Potassium 3.5 mmol/L (3.3-5.1); Sodium 140 mmol/L (135-145)
[2024-06-07 07:56] VITALS: BP 131/96; PULSE 56; RESP 16; TEMP 36.6; O2SAT 99
--- NOTE | 2024-06-07 08:28 | HO.PM.IMPN ---
Subjective Subjective Date of Service: 06/07/24 Interval History: f/u on dementia and need for placement no new issues Review of Systems Physical Exam Vital Signs: Vital Signs: Last Vital Signs Temp 97.8 F 06/07/24 07:56 Pulse 56 06/07/24 07:56 Resp 16 06/07/24 07:56 BP 131/96 H 06/07/24 07:56 Pulse Ox 99 06/07/24 07:56 O2 Del Method Room Air 06/07/24 07:56 O2 Flow Rate 94 05/25/24 19:13 BMI result Body Mass Index 24.4 Gen: in no acute distress Lungs: clear to auscultation bilaterally Heart: regular rate and rhythm. Abd: soft, non-tender, non-distended Ext: no edema Skin: warm/well-perfused Neuro: alert, oriented to self. Psych: impaired insight Objective Data Active Medications Acetaminophen (Acetaminophen 325 Mg Tablet) 650 mg PO Q4H PRN PRN Reason: Pain, Mild (Pain Scale 1-3) Last Admin: 06/07/24 04:35 Dose: 650 mg Documented By: ELMER Calcium Carbonate (Calcium Carbonate 750 Mg Tab.Chew) 750 mg PO Q4H PRN PRN Reason: Heartburn Donepezil HCl (Donepezil Hcl 5 Mg Tablet) 5 mg PO BEDTIME [facility] Last Admin: 06/06/24 20:01 Dose: 5 mg Documented By: ELMER Enoxaparin Sodium (Enoxaparin Sodium 40 Mg/0.4 Ml Syringe) 40 mg SUBCUT Q24H [facility] Last Admin: 06/06/24 17:02 Dose: 40 mg Documented By: FISH Lisinopril (Lisinopril 5 Mg Tablet) 5 mg PO DAILY [facility]; Protocol Last Admin: 06/06/24 08:04 Dose: 5 mg Documented By: FISH Magnesium Hydroxide (Milk Of Magnesia 30 Ml Oral.Susp) 30 ml PO DAILY PRN PRN Reason: Constipation Last Admin: 06/01/24 17:47 Dose: 30 ml Documented By: COTEMA Melatonin (Melatonin 3 Mg Tablet) 6 mg PO BEDTIME PRN PRN Reason: Insomnia Last Admin: 05/30/24 19:25 Dose: 6 mg Documented By: LIZETTEQC Olanzapine (Olanzapine 2.5 Mg Tablet) 2.5 mg PO BEDTIME [facility] Last Admin: 06/06/24 20:00 Dose: 2.5 mg Documented By: ELMER Olanzapine (Olanzapine 2.5 Mg Tablet) 2.5 mg PO DAILY@1700 [facility] Last Admin: 06/06/24 17:02 Dose: 2.5 mg Documented By: FISH Labs 06/07/24 05:46 06/07/24 05:46 Labs: Laboratory Results - last 24 hr 06/07/24 05:46 MCV 89.1 MCH 31.1 MCHC 34.9 RDW 13.4 Plt Count 205 D MPV 9.2 L Absolute Nucleated RBC 0.000 Nucleated RBC % (auto) 0.0 Anion Gap 12 Estim Creat Clear Calc 73.6 Estimated GFR > 60 Random Glucose 101 Calcium 9.7 Assessment and Plan (1) 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: Status: Acute Plan 78yo M with dementia, Parkinson disease, RBBB, HTN sent in from [facility] due to confusion, sent in to [facility] ED on Section 12 on 05/03/24, was awaiting LTC placement in ED overflow then admitted to hospitalist service 05/12/24 to facilitate placement 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
[2024-06-07] MEDS: lisinopriL 5 MG TABLET PO (08:48)
[2024-06-07 15:52] VITALS: BP 103/62; PULSE 60; RESP 18; TEMP 36.7; O2SAT 97
[2024-06-07] MEDS: OLANZapine 2.5 MG TABLET PO ×2 (17:16→20:55)
[2024-06-07] MEDS: Enoxaparin Sodium 40 MG/0.4 ML SYRINGE SUBCUT (17:16)
[2024-06-07 19:10] VITALS: BP 120/67; PULSE 76; RESP 18; TEMP 36.6; O2SAT 97
[2024-06-07] MEDS: Donepezil HCl 5 MG TABLET PO (20:55)
[2024-06-08 03:07] VITALS: BP 111/56; PULSE 53; RESP 16; TEMP 36.4; O2SAT 96
[2024-06-08 06:48] VITALS: BP 134/60; PULSE 61; RESP 16; TEMP 36.6; O2SAT 95
--- NOTE | 2024-06-08 07:00 | P.PNIM_ITS ---
Subjective Subjective Date of Service: 06/09/24 Interval History: f/u on dementia and need for placement Seen and examined, this morning, awake alert, no new issues Review of Systems Physical Exam 2 Vital Signs: Vital Signs: Last Vital Signs Temp 98 F 06/08/24 06:48 Pulse 61 06/08/24 06:48 Resp 16 06/08/24 06:48 BP 134/60 06/08/24 06:48 Pulse Ox 95 06/08/24 06:48 O2 Del Method Room Air 06/08/24 06:48 O2 Flow Rate 94 05/25/24 19:13 BMI result Body Mass Index 24.4 Gen: in no acute distress Lungs: clear to auscultation bilaterally Heart: regular rate and rhythm. Abd: soft, non-tender, non-distended Ext: no edema Skin: warm/well-perfused Neuro: alert, oriented to self. Psych: impaired insight Objective Data Active Medications Acetaminophen (Acetaminophen 325 Mg Tablet) 650 mg PO Q4H PRN PRN Reason: Pain, Mild (Pain Scale 1-3) Last Admin: 06/07/24 04:35 Dose: 650 mg Documented By: ELMER Calcium Carbonate (Calcium Carbonate 750 Mg Tab.Chew) 750 mg PO Q4H PRN PRN Reason: Heartburn Donepezil HCl (Donepezil Hcl 5 Mg Tablet) 5 mg PO BEDTIME [facility] Last Admin: 06/07/24 20:55 Dose: 5 mg Documented By: EZIO Enoxaparin Sodium (Enoxaparin Sodium 40 Mg/0.4 Ml Syringe) 40 mg SUBCUT Q24H [facility] Last Admin: 06/07/24 17:16 Dose: 40 mg Documented By: JARETT Lisinopril (Lisinopril 5 Mg Tablet) 5 mg PO DAILY [facility]; Protocol Last Admin: 06/07/24 08:48 Dose: 5 mg Documented By: JARETT Magnesium Hydroxide (Milk Of Magnesia 30 Ml Oral.Susp) 30 ml PO DAILY PRN PRN Reason: Constipation Last Admin: 06/01/24 17:47 Dose: 30 ml Documented By: COTEMA Melatonin (Melatonin 3 Mg Tablet) 6 mg PO BEDTIME PRN PRN Reason: Insomnia Last Admin: 05/30/24 19:25 Dose: 6 mg Documented By: LIZETTEQC Olanzapine (Olanzapine 2.5 Mg Tablet) 2.5 mg PO BEDTIME [facility] Last Admin: 06/07/24 20:55 Dose: 2.5 mg Documented By: EZIO Olanzapine (Olanzapine 2.5 Mg Tablet) 2.5 mg PO DAILY@1700 [facility] Last Admin: 06/07/24 17:16 Dose: 2.5 mg Documented By: JARETT Labs 06/07/24 05:46 06/07/24 05:46 Assessment and Plan (1) 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: Status: Acute Plan 78yo M with dementia, Parkinson disease, RBBB, HTN sent in from [facility] due to confusion, sent in to [facility] ED on Section 12 on 05/03/24, was awaiting LTC placement in ED overflow then admitted to hospitalist service 05/12/24 to facilitate placement 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 need for inpt: Placement Quality Stroke Does the patient have a stroke diagnosis?: No VTE Prior VTE?: No VTE Risk Level:: Medical - moderate - high VTE Device Contraindication: Treatment Not Indicated VTE Drug Contraindication: N/A - Med Ordered
[2024-06-08 08:53] VITALS: BP 134/60
[2024-06-08] MEDS: lisinopriL 5 MG TABLET PO (08:53)
[2024-06-08 15:00] VITALS: BP 111/57; PULSE 66; RESP 18; TEMP 36.4; O2SAT 98
--- NOTE | 2024-06-08 15:02 | MHC.CM.PN ---
Spoke with patients conservator, Karin Butcher Esq. She stated that she has not received the official documents. She stated that she plans to assess the financials; which once the documents have been received. She will apply for if he is qualifies. DP LTC via S
[2024-06-08] MEDS: OLANZapine 2.5 MG TABLET PO ×2 (16:29→20:07)
[2024-06-08] MEDS: Milk of Magnesia 30 ML ORAL.SUSP PO (16:29)
[2024-06-08] MEDS: Enoxaparin Sodium 40 MG/0.4 ML SYRINGE SUBCUT (16:29)
[2024-06-08 19:01] VITALS: BP 137/70; PULSE 100; RESP 16; TEMP 36.3; O2SAT 93
[2024-06-08] MEDS: Melatonin 3 MG TABLET 6 MG PO (20:07)
[2024-06-08] MEDS: Donepezil HCl 5 MG TABLET PO (20:07)
[2024-06-09 03:36] VITALS: BP 132/59; PULSE 60; RESP 16; TEMP 36.2; O2SAT 98
[2024-06-09 07:33] VITALS: BP 117/59; PULSE 59; RESP 16; TEMP 36.6; O2SAT 98
--- NOTE | 2024-06-09 08:39 | HO.PM.IMPN ---
Subjective Subjective Date of Service: 06/09/24 Interval History: f/u on dementia and need for placement Seen and examined, this morning, awake alert, no behavior issues reported, calm cooperative Review of Systems Physical Exam Vital Signs: Vital Signs: Last Vital Signs Temp 97.8 F 06/09/24 07:33 Pulse 59 06/09/24 07:33 Resp 16 06/09/24 07:33 BP 117/59 L 06/09/24 07:33 Pulse Ox 98 06/09/24 07:33 O2 Del Method Room Air 06/09/24 07:33 O2 Flow Rate 94 05/25/24 19:13 BMI result Body Mass Index 24.4 Gen: in no acute distress Lungs: clear to auscultation bilaterally Heart: regular rate and rhythm. Abd: soft, non-tender, non-distended Ext: no edema Skin: warm/well-perfused Neuro: alert, oriented to self. Psych: impaired insight Objective Data Active Medications Acetaminophen (Acetaminophen 325 Mg Tablet) 650 mg PO Q4H PRN PRN Reason: Pain, Mild (Pain Scale 1-3) Last Admin: 06/07/24 04:35 Dose: 650 mg Documented By: ELMER Calcium Carbonate (Calcium Carbonate 750 Mg Tab.Chew) 750 mg PO Q4H PRN PRN Reason: Heartburn Donepezil HCl (Donepezil Hcl 5 Mg Tablet) 5 mg PO BEDTIME [facility] Last Admin: 06/08/24 20:07 Dose: 5 mg Documented By: VERA Enoxaparin Sodium (Enoxaparin Sodium 40 Mg/0.4 Ml Syringe) 40 mg SUBCUT Q24H [facility] Last Admin: 06/08/24 16:29 Dose: 40 mg Documented By: TESSY Lisinopril (Lisinopril 5 Mg Tablet) 5 mg PO DAILY [facility]; Protocol Last Admin: 06/08/24 08:53 Dose: 5 mg Documented By: TESSY Magnesium Hydroxide (Milk Of Magnesia 30 Ml Oral.Susp) 30 ml PO DAILY PRN PRN Reason: Constipation Last Admin: 06/08/24 16:29 Dose: 30 ml Documented By: TESSY Melatonin (Melatonin 3 Mg Tablet) 6 mg PO BEDTIME PRN PRN Reason: Insomnia Last Admin: 06/08/24 20:07 Dose: 6 mg Documented By: VERA Olanzapine (Olanzapine 2.5 Mg Tablet) 2.5 mg PO BEDTIME [facility] Last Admin: 06/08/24 20:07 Dose: 2.5 mg Documented By: VERA Olanzapine (Olanzapine 2.5 Mg Tablet) 2.5 mg PO DAILY@1700 [facility] Last Admin: 06/08/24 16:29 Dose: 2.5 mg Documented By: TESSY Labs 06/07/24 05:46 06/07/24 05:46 Assessment and Plan (1) 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: Status: Acute Plan 78yo M with dementia, Parkinson disease, RBBB, HTN sent from [facility] [place] Section 12 on 05/03/24 with confusion, was awaiting LTC placement in ED overflow with difficulty and so was admitted on 05/12/24 for placement 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
[2024-06-09 09:35] VITALS: BP 117/59
[2024-06-09] MEDS: lisinopriL 5 MG TABLET PO (09:35)
[2024-06-09 15:04] VITALS: BP 101/65; PULSE 97; RESP 18; TEMP 36.4; O2SAT 94
[2024-06-09] MEDS: Enoxaparin Sodium 40 MG/0.4 ML SYRINGE SUBCUT (16:08)
[2024-06-09] MEDS: OLANZapine 2.5 MG TABLET PO ×2 (16:08→20:09)
[2024-06-09 19:14] VITALS: BP 131/61; PULSE 74; RESP 18; TEMP 36.5; O2SAT 97
[2024-06-09] MEDS: Donepezil HCl 5 MG TABLET PO (20:09)
[2024-06-09] MEDS: Melatonin 3 MG TABLET 6 MG PO (20:09)
[2024-06-10 03:03] VITALS: BP 128/59; PULSE 59; RESP 16; TEMP 36; O2SAT 97
[2024-06-10 07:56] VITALS: BP 137/64; PULSE 70; RESP 18; TEMP 36.6; O2SAT 98
[2024-06-10] MEDS: lisinopriL 5 MG TABLET PO (08:30)
--- NOTE | 2024-06-10 11:24 | HO.PM.IMPN ---
Subjective Subjective Date of Service: 06/10/24 Interval History: f/u on dementia and need for placement No new issues Review of Systems Physical Exam Vital Signs: Vital Signs: Last Vital Signs Temp 98 F 06/10/24 07:56 Pulse 70 06/10/24 07:56 Resp 18 06/10/24 07:56 BP 137/64 06/10/24 07:56 Pulse Ox 98 06/10/24 07:56 O2 Del Method Room Air 06/10/24 07:56 O2 Flow Rate 94 05/25/24 19:13 BMI result Body Mass Index 24.4 Objective Data Active Medications Acetaminophen (Acetaminophen 325 Mg Tablet) 650 mg PO Q4H PRN PRN Reason: Pain, Mild (Pain Scale 1-3) Last Admin: 06/07/24 04:35 Dose: 650 mg Documented By: ELMER Calcium Carbonate (Calcium Carbonate 750 Mg Tab.Chew) 750 mg PO Q4H PRN PRN Reason: Heartburn Donepezil HCl (Donepezil Hcl 5 Mg Tablet) 5 mg PO BEDTIME [facility] Last Admin: 06/09/24 20:09 Dose: 5 mg Documented By: MARIAA Enoxaparin Sodium (Enoxaparin Sodium 40 Mg/0.4 Ml Syringe) 40 mg SUBCUT Q24H [facility] Last Admin: 06/09/24 16:08 Dose: 40 mg Documented By: TESSY Lisinopril (Lisinopril 5 Mg Tablet) 5 mg PO DAILY [facility]; Protocol Last Admin: 06/10/24 08:30 Dose: 5 mg Documented By: COTEMA Magnesium Hydroxide (Milk Of Magnesia 30 Ml Oral.Susp) 30 ml PO DAILY PRN PRN Reason: Constipation Last Admin: 06/08/24 16:29 Dose: 30 ml Documented By: TESSY Melatonin (Melatonin 3 Mg Tablet) 6 mg PO BEDTIME PRN PRN Reason: Insomnia Last Admin: 06/09/24 20:09 Dose: 6 mg Documented By: MARIAA Olanzapine (Olanzapine 2.5 Mg Tablet) 2.5 mg PO BEDTIME [facility] Last Admin: 06/09/24 20:09 Dose: 2.5 mg Documented By: MARIAA Olanzapine (Olanzapine 2.5 Mg Tablet) 2.5 mg PO DAILY@1700 [facility] Last Admin: 06/09/24 16:08 Dose: 2.5 mg Documented By: TESSY Labs 06/07/24 05:46 06/07/24 05:46 Assessment and Plan (1) 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: Status: Acute Plan 78yo M with dementia, Parkinson disease, RBBB, HTN sent from [facility] [place] [facility] [place] 12 on 05/03/24 with confusion, was awaiting LTC placement in ED overflow with difficulty and so was admitted on 05/12/24 for placement 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
--- NOTE | 2024-06-10 11:49 | MHC.CM.PN ---
PT AWAITING LTC PLACEMENT CONSERVATOR CURRENTLY COLLECTING DOCUMENTS TO ASSESS PTS FINANICAL MEANS AND APPLY FOR [employer]
[2024-06-10] MEDS: Acetaminophen 325 MG TABLET 650 MG PO (12:17)
[2024-06-10 15:52] VITALS: BP 112/59; PULSE 69; RESP 18; TEMP 36.1; O2SAT 99
[2024-06-10] MEDS: Enoxaparin Sodium 40 MG/0.4 ML SYRINGE SUBCUT (18:05)
[2024-06-10] MEDS: OLANZapine 2.5 MG TABLET PO ×2 (18:05→20:00)
[2024-06-10 19:15] VITALS: BP 121/62; PULSE 68; RESP 18; TEMP 36.3; O2SAT 97
[2024-06-10] MEDS: Donepezil HCl 5 MG TABLET PO (20:00)
[2024-06-11 03:33] VITALS: BP 116/60; PULSE 65; RESP 16; TEMP 36.2; O2SAT 98
[2024-06-11 07:02] VITALS: BP 126/62; PULSE 56; RESP 17; TEMP 36.6; O2SAT 98
[2024-06-11] MEDS: lisinopriL 5 MG TABLET PO (08:07)
--- NOTE | 2024-06-11 09:24 | HO.PM.IMPN ---
Subjective Subjective Date of Service: 06/11/24 Interval History: f/u on dementia and need for placement No new issues overnight, awake, alert, copperative Review of Systems Physical Exam Vital Signs: Vital Signs: Last Vital Signs Temp 98 F 06/11/24 07:02 Pulse 56 06/11/24 07:02 Resp 17 06/11/24 07:02 BP 126/62 06/11/24 07:02 Pulse Ox 98 06/11/24 07:02 O2 Del Method Room Air 06/11/24 07:02 O2 Flow Rate 94 05/25/24 19:13 BMI result Body Mass Index 24.4 Gen: in no acute distress Lungs: clear to auscultation bilaterally Heart: regular rate and rhythm. Abd: soft, non-tender, non-distended Ext: no edema Skin: warm/well-perfused Neuro: alert, oriented to self. Psych: impaired insight Objective Data Active Medications Acetaminophen (Acetaminophen 325 Mg Tablet) 650 mg PO Q4H PRN PRN Reason: Pain, Mild (Pain Scale 1-3) Last Admin: 06/10/24 12:17 Dose: 650 mg Documented By: COTEMA Calcium Carbonate (Calcium Carbonate 750 Mg Tab.Chew) 750 mg PO Q4H PRN PRN Reason: Heartburn Donepezil HCl (Donepezil Hcl 5 Mg Tablet) 5 mg PO BEDTIME [facility] Last Admin: 06/10/24 20:00 Dose: 5 mg Documented By: CARLA Enoxaparin Sodium (Enoxaparin Sodium 40 Mg/0.4 Ml Syringe) 40 mg SUBCUT Q24H [facility] Last Admin: 06/10/24 18:05 Dose: 40 mg Documented By: HUSSAIN Lisinopril (Lisinopril 5 Mg Tablet) 5 mg PO DAILY [facility]; Protocol Last Admin: 06/11/24 08:07 Dose: 5 mg Documented By: GRAZIC Magnesium Hydroxide (Milk Of Magnesia 30 Ml Oral.Susp) 30 ml PO DAILY PRN PRN Reason: Constipation Last Admin: 06/08/24 16:29 Dose: 30 ml Documented By: TESSY Melatonin (Melatonin 3 Mg Tablet) 6 mg PO BEDTIME PRN PRN Reason: Insomnia Last Admin: 06/09/24 20:09 Dose: 6 mg Documented By: MARIAA Olanzapine (Olanzapine 2.5 Mg Tablet) 2.5 mg PO BEDTIME [facility] Last Admin: 06/10/24 20:00 Dose: 2.5 mg Documented By: CARLA Olanzapine (Olanzapine 2.5 Mg Tablet) 2.5 mg PO DAILY@1700 [facility] Last Admin: 06/10/24 18:05 Dose: 2.5 mg Documented By: HUSSAIN Labs 06/07/24 05:46 06/07/24 05:46 Assessment and Plan (1) 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: Status: Acute Plan 78yo M with dementia, Parkinson disease, RBBB, HTN sent [place] [facility] [place] [facility] [place] on 05/03/24 with confusion, was awaiting LTC placement in ED overflow with difficulty and so was admitted on 05/12/24 for placement essentially no change in care 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
[2024-06-11 15:47] VITALS: BP 135/66; PULSE 62; RESP 18; TEMP 36.6; O2SAT 96
[2024-06-11] MEDS: Enoxaparin Sodium 40 MG/0.4 ML SYRINGE SUBCUT (17:08)
[2024-06-11] MEDS: OLANZapine 2.5 MG TABLET PO ×2 (17:08→19:12)
[2024-06-11] MEDS: Donepezil HCl 5 MG TABLET PO (19:12)
[2024-06-11 19:45] VITALS: BP 113/56; PULSE 75; RESP 18; TEMP 36.6; O2SAT 98
[2024-06-12 03:31] VITALS: BP 112/63; PULSE 58; RESP 18; TEMP 36.1; O2SAT 96
[2024-06-12 06:49] VITALS: BP 141/63; PULSE 59; RESP 16; TEMP 36.6; O2SAT 98
[2024-06-12] MEDS: lisinopriL 5 MG TABLET PO (08:55)
--- NOTE | 2024-06-12 09:33 | HO.PM.IMPN ---
Subjective Subjective Date of Service: 06/12/24 Interval History: f/u on dementia and need for placement No new issues reported, Review of Systems Physical Exam Vital Signs: Vital Signs: Last Vital Signs Temp 98 F 06/12/24 06:49 Pulse 59 06/12/24 06:49 Resp 16 06/12/24 06:49 BP 141/63 H 06/12/24 06:49 Pulse Ox 98 06/12/24 06:49 O2 Del Method Room Air 06/12/24 06:49 O2 Flow Rate 94 05/25/24 19:13 BMI result Body Mass Index 24.4 Gen: in no acute distress Lungs: clear to auscultation bilaterally Heart: regular rate and rhythm. Abd: soft, non-tender, non-distended Ext: no edema Skin: warm/well-perfused Neuro: alert, oriented to self. Psych: impaired insight Objective Data Active Medications Acetaminophen (Acetaminophen 325 Mg Tablet) 650 mg PO Q4H PRN PRN Reason: Pain, Mild (Pain Scale 1-3) Last Admin: 06/10/24 12:17 Dose: 650 mg Documented By: COTNEO Calcium Carbonate (Calcium Carbonate 750 Mg Tab.Chew) 750 mg PO Q4H PRN PRN Reason: Heartburn Donepezil HCl (Donepezil Hcl 5 Mg Tablet) 5 mg PO BEDTIME [facility] Last Admin: 06/11/24 19:12 Dose: 5 mg Documented By: HUSSAIN Enoxaparin Sodium (Enoxaparin Sodium 40 Mg/0.4 Ml Syringe) 40 mg SUBCUT Q24H [facility] Last Admin: 06/11/24 17:08 Dose: 40 mg Documented By: JARETT Lisinopril (Lisinopril 5 Mg Tablet) 5 mg PO DAILY [facility]; Protocol Last Admin: 06/12/24 08:55 Dose: 5 mg Documented By: JARETT Magnesium Hydroxide (Milk Of Magnesia 30 Ml Oral.Susp) 30 ml PO DAILY PRN PRN Reason: Constipation Last Admin: 06/08/24 16:29 Dose: 30 ml Documented By: TESSY Melatonin (Melatonin 3 Mg Tablet) 6 mg PO BEDTIME PRN PRN Reason: Insomnia Last Admin: 06/09/24 20:09 Dose: 6 mg Documented By: MARIAA Olanzapine (Olanzapine 2.5 Mg Tablet) 2.5 mg PO BEDTIME [facility] Last Admin: 06/11/24 19:12 Dose: 2.5 mg Documented By: HUSSAIN Olanzapine (Olanzapine 2.5 Mg Tablet) 2.5 mg PO DAILY@1700 [facility] Last Admin: 06/11/24 17:08 Dose: 2.5 mg Documented By: JARETT Labs 06/07/24 05:46 06/07/24 05:46 Assessment and Plan (1) 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: Status: Acute Plan 78yo M with dementia, Parkinson disease, RBBB, HTN sent from [facility] [place] [facility] [place] Section 12 on 05/03/24 with confusion, was awaiting LTC placement in ED overflow with difficulty and so was admitted on 05/12/24 for placement essentially no change in care 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
[2024-06-12 15:22] VITALS: BP 124/60; PULSE 68; RESP 20; TEMP 37; O2SAT 98
[2024-06-12] MEDS: Enoxaparin Sodium 40 MG/0.4 ML SYRINGE SUBCUT (17:00)
[2024-06-12] MEDS: OLANZapine 2.5 MG TABLET PO ×2 (17:00→20:08)
[2024-06-12 19:07] VITALS: BP 119/79; PULSE 72; RESP 20; TEMP 36.8; O2SAT 95
[2024-06-12] MEDS: Donepezil HCl 5 MG TABLET PO (20:08)
[2024-06-12 23:56] VITALS: BP 129/75; PULSE 68; RESP 18; TEMP 36.3; O2SAT 97
[2024-06-13] MEDS: lisinopriL 5 MG TABLET PO (06:54)
[2024-06-13 08:00] VITALS: BP 115/59; PULSE 75; RESP 18; TEMP 36.4; O2SAT 98
--- NOTE | 2024-06-13 10:11 | HO.PM.IMPN ---
Subjective Subjective Date of Service: 06/13/24 Interval History: f/u on dementia and need for placement no new issues, doing well Review of Systems Physical Exam Vital Signs: Vital Signs: Last Vital Signs Temp 97.4 F 06/12/24 23:56 Pulse 68 06/12/24 23:56 Resp 18 06/12/24 23:56 BP 129/75 06/12/24 23:56 Pulse Ox 97 06/12/24 23:56 O2 Del Method Room Air 06/12/24 23:56 O2 Flow Rate 94 05/25/24 19:13 BMI result Body Mass Index 24.4 Gen: in no acute distress Lungs: clear to auscultation bilaterally Heart: regular rate and rhythm. Abd: soft, non-tender, non-distended Ext: no edema Skin: warm/well-perfused Neuro: alert, oriented to self. Psych: impaired insight Objective Data Active Medications Acetaminophen (Acetaminophen 325 Mg Tablet) 650 mg PO Q4H PRN PRN Reason: Pain, Mild (Pain Scale 1-3) Last Admin: 06/10/24 12:17 Dose: 650 mg Documented By: COTNEO Calcium Carbonate (Calcium Carbonate 750 Mg Tab.Chew) 750 mg PO Q4H PRN PRN Reason: Heartburn Donepezil HCl (Donepezil Hcl 5 Mg Tablet) 5 mg PO BEDTIME [facility] Last Admin: 06/12/24 20:08 Dose: 5 mg Documented By: EZIO Enoxaparin Sodium (Enoxaparin Sodium 40 Mg/0.4 Ml Syringe) 40 mg SUBCUT Q24H [facility] Last Admin: 06/12/24 17:00 Dose: 40 mg Documented By: JARETT Lisinopril (Lisinopril 5 Mg Tablet) 5 mg PO DAILY [facility]; Protocol Last Admin: 06/13/24 06:54 Dose: 5 mg Documented By: HUSSAIN Magnesium Hydroxide (Milk Of Magnesia 30 Ml Oral.Susp) 30 ml PO DAILY PRN PRN Reason: Constipation Last Admin: 06/08/24 16:29 Dose: 30 ml Documented By: TESSY Melatonin (Melatonin 3 Mg Tablet) 6 mg PO BEDTIME PRN PRN Reason: Insomnia Last Admin: 06/09/24 20:09 Dose: 6 mg Documented By: MARIAA Olanzapine (Olanzapine 2.5 Mg Tablet) 2.5 mg PO BEDTIME [facility] Last Admin: 06/12/24 20:08 Dose: 2.5 mg Documented By: EZIO Olanzapine (Olanzapine 2.5 Mg Tablet) 2.5 mg PO DAILY@1700 [facility] Last Admin: 06/12/24 17:00 Dose: 2.5 mg Documented By: JARETT Labs 06/07/24 05:46 06/07/24 05:46 Assessment and Plan (1) 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: Status: Acute Plan 78yo M with dementia, Parkinson disease, RBBB, HTN sent from [facility] to 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
[2024-06-13 10:39] LABS: Hematocrit 45.2 % (42.0-52.0); Hemoglobin 15.6 g/dl (14.0-18.0); Mean Corpuscular HGB Conc 34.5 g/dl (31.0-36.0); Mean Corpuscular Hemoglobin 30.8 pg (27.0-33.0); Mean Corpuscular Volume 89.2 fL (80.0-98.0); Mean Platelet Volume 8.6 fL (9.4-12.4); Platelet Count 247 X10*3/uL (160-400); Red Blood Count 5.07 X10*6/uL (4.60-5.80); Red Cell Distribution Width 13.7 % (11.0-16.0); White Blood Count 7.4 X10*3/uL (4.8-10.8)
[2024-06-13 11:14] LABS: Anion Gap 12 (12-20); Blood Urea Nitrogen 12 mg/dL (9-16); Carbon Dioxide 29 mmol/L (22-29); Chloride 105 mmol/L (96-108); Creatinine Clr Calc Pharmacy 71.8; Estimated Glomerular Filt Rate > 60; Glucose Random 106 mg/dL (60-115); Magnesium 1.9 mg/dL (1.6-2.6); Potassium 3.9 mmol/L (3.3-5.1); Sodium 142 mmol/L (135-145)
[2024-06-13 15:21] VITALS: BP 125/61; PULSE 67; RESP 20; TEMP 36.5; O2SAT 98
[2024-06-13] MEDS: OLANZapine 2.5 MG TABLET PO ×2 (17:07→19:37)
[2024-06-13] MEDS: Enoxaparin Sodium 40 MG/0.4 ML SYRINGE SUBCUT (17:07)
[2024-06-13] MEDS: Acetaminophen 325 MG TABLET 650 MG PO (19:37)
[2024-06-13] MEDS: Melatonin 3 MG TABLET 6 MG PO (19:37)
[2024-06-13] MEDS: Donepezil HCl 5 MG TABLET PO (19:37)
[2024-06-13 20:00] VITALS: BP 115/70; PULSE 70; RESP 20; TEMP 36.3; O2SAT 97
[2024-06-14 03:09] VITALS: BP 101/58; PULSE 72; RESP 16; TEMP 36.1; O2SAT 96
[2024-06-14 07:20] VITALS: BP 111/56; PULSE 59; RESP 18; TEMP 36.6; O2SAT 95
[2024-06-14] MEDS: lisinopriL 5 MG TABLET PO (07:34)
--- NOTE | 2024-06-14 09:05 | HO.PM.IMPN ---
Subjective Subjective Date of Service: 06/14/24 Interval History: f/u on dementia and need for placement No new issues Review of Systems Physical Exam Vital Signs: Vital Signs: Last Vital Signs Temp 97.8 F 06/14/24 07:20 Pulse 59 06/14/24 07:20 Resp 18 06/14/24 07:20 BP 111/56 L 06/14/24 07:20 Pulse Ox 95 06/14/24 07:20 O2 Del Method Room Air 06/14/24 07:20 O2 Flow Rate 94 05/25/24 19:13 BMI result Body Mass Index 24.4 Gen: in no acute distress Lungs: clear to auscultation bilaterally Heart: regular rate and rhythm. Abd: soft, non-tender, non-distended Ext: no edema Skin: warm/well-perfused Neuro: alert, oriented to self. Psych: impaired insight Objective Data Active Medications Acetaminophen (Acetaminophen 325 Mg Tablet) 650 mg PO Q4H PRN PRN Reason: Pain, Mild (Pain Scale 1-3) Last Admin: 06/13/24 19:37 Dose: 650 mg Documented By: VERA Calcium Carbonate (Calcium Carbonate 750 Mg Tab.Chew) 750 mg PO Q4H PRN PRN Reason: Heartburn Donepezil HCl (Donepezil Hcl 5 Mg Tablet) 5 mg PO BEDTIME [facility] Last Admin: 06/13/24 19:37 Dose: 5 mg Documented By: VERA Enoxaparin Sodium (Enoxaparin Sodium 40 Mg/0.4 Ml Syringe) 40 mg SUBCUT Q24H [facility] Last Admin: 06/13/24 17:07 Dose: 40 mg Documented By: MIGUEL Lisinopril (Lisinopril 5 Mg Tablet) 5 mg PO DAILY [facility]; Protocol Last Admin: 06/14/24 07:34 Dose: 5 mg Documented By: FISH Magnesium Hydroxide (Milk Of Magnesia 30 Ml Oral.Susp) 30 ml PO DAILY PRN PRN Reason: Constipation Last Admin: 06/08/24 16:29 Dose: 30 ml Documented By: TESSY Melatonin (Melatonin 3 Mg Tablet) 6 mg PO BEDTIME PRN PRN Reason: Insomnia Last Admin: 06/13/24 19:37 Dose: 6 mg Documented By: VERA Olanzapine (Olanzapine 2.5 Mg Tablet) 2.5 mg PO BEDTIME [facility] Last Admin: 06/13/24 19:37 Dose: 2.5 mg Documented By: LIZETTEQC Olanzapine (Olanzapine 2.5 Mg Tablet) 2.5 mg PO DAILY@1700 [facility] Last Admin: 06/13/24 17:07 Dose: 2.5 mg Documented By: MIGUEL Labs 06/13/24 10:32 06/13/24 10:32 Labs: Laboratory Results - last 24 hr 06/13/24 10:32 MCV 89.2 MCH 30.8 MCHC 34.5 RDW 13.7 Plt Count 247 MPV 8.6 L Absolute Nucleated RBC 0.000 Nucleated RBC % (auto) 0.0 Anion Gap 12 Estim Creat Clear Calc 71.8 Estimated GFR > 60 Random Glucose 106 Calcium 10.0 Magnesium 1.9 Assessment and Plan (1) 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: Status: Acute Plan 78yo M with dementia, Parkinson disease, RBBB, HTN sent from [facility] to [facility] ED on Section 12 on 05/03/24 with confusion, was awaiting LTC placement in ED overflow with difficulty and so was admitted on 05/12/24 for placement essentially no change in care 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
[2024-06-14 15:16] VITALS: BP 117/56; PULSE 75; RESP 18; TEMP 36.9; O2SAT 99
[2024-06-14] MEDS: OLANZapine 2.5 MG TABLET PO ×2 (16:09→20:27)
[2024-06-14] MEDS: Enoxaparin Sodium 40 MG/0.4 ML SYRINGE SUBCUT (17:00)
[2024-06-14 19:19] VITALS: BP 103/55; PULSE 79; RESP 20; TEMP 36.9; O2SAT 97
[2024-06-14 19:22] VITALS: BP 152/78; PULSE 68; RESP 20; TEMP 36.7; O2SAT 99
[2024-06-14] MEDS: Melatonin 3 MG TABLET 6 MG PO (20:27)
[2024-06-14] MEDS: Donepezil HCl 5 MG TABLET PO (20:27)
[2024-06-15 03:10] VITALS: BP 100/57; PULSE 56; RESP 16; TEMP 36; O2SAT 96
[2024-06-15 07:37] VITALS: BP 100/62; PULSE 64; RESP 18; TEMP 36.6; O2SAT 98
[2024-06-15] MEDS: lisinopriL 5 MG TABLET PO (07:39)
--- NOTE | 2024-06-15 11:38 | P.PNIM_ITS ---
Subjective Subjective Date of Service: 06/15/24 Interval History: f/u on dementia and need for placement No new issues, cooperative Review of Systems Physical Exam 2 Vital Signs: Vital Signs: Last Vital Signs Temp 97.9 F 06/15/24 07:37 Pulse 64 06/15/24 07:37 Resp 18 06/15/24 07:37 BP 100/62 06/15/24 07:37 Pulse Ox 98 06/15/24 07:37 O2 Del Method Room Air 06/15/24 07:37 O2 Flow Rate 94 05/25/24 19:13 BMI result Body Mass Index 24.4 Gen: in no acute distress Lungs: clear to auscultation bilaterally Heart: regular rate and rhythm. Abd: soft, non-tender, non-distended Ext: no edema Skin: warm/well-perfused Neuro: alert, oriented to self. Psych: impaired insight Objective Data Active Medications Acetaminophen (Acetaminophen 325 Mg Tablet) 650 mg PO Q4H PRN PRN Reason: Pain, Mild (Pain Scale 1-3) Last Admin: 06/13/24 19:37 Dose: 650 mg Documented By: VERA Calcium Carbonate (Calcium Carbonate 750 Mg Tab.Chew) 750 mg PO Q4H PRN PRN Reason: Heartburn Donepezil HCl (Donepezil Hcl 5 Mg Tablet) 5 mg PO BEDTIME [facility] Last Admin: 06/14/24 20:27 Dose: 5 mg Documented By: CHELSEA Enoxaparin Sodium (Enoxaparin Sodium 40 Mg/0.4 Ml Syringe) 40 mg SUBCUT Q24H [facility] Last Admin: 06/14/24 17:00 Dose: 40 mg Documented By: FISH Lisinopril (Lisinopril 5 Mg Tablet) 5 mg PO DAILY [facility]; Protocol Last Admin: 06/15/24 07:39 Dose: 5 mg Documented By: FISH Magnesium Hydroxide (Milk Of Magnesia 30 Ml Oral.Susp) 30 ml PO DAILY PRN PRN Reason: Constipation Last Admin: 06/08/24 16:29 Dose: 30 ml Documented By: TESSY Melatonin (Melatonin 3 Mg Tablet) 6 mg PO BEDTIME PRN PRN Reason: Insomnia Last Admin: 06/14/24 20:27 Dose: 6 mg Documented By: CHELSEA Olanzapine (Olanzapine 2.5 Mg Tablet) 2.5 mg PO BEDTIME [facility] Last Admin: 06/14/24 20:27 Dose: 2.5 mg Documented By: CHELSEA Olanzapine (Olanzapine 2.5 Mg Tablet) 2.5 mg PO DAILY@1700 [facility] Last Admin: 06/14/24 16:09 Dose: 2.5 mg Documented By: FISH Labs 06/13/24 10:32 06/13/24 10:32 Assessment and Plan (1) 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: Status: Acute Plan 78yo M with dementia, Parkinson disease, RBBB, HTN sent from [facility] to [facility] ED on Section 12 on 05/03/24 with confusion, was awaiting LTC placement in ED overflow with difficulty and so was admitted on 05/12/24 for placement essentially no change in care 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
[2024-06-15 15:03] VITALS: BP 123/66; PULSE 73; RESP 18; TEMP 36.1; O2SAT 99
[2024-06-15] MEDS: Enoxaparin Sodium 40 MG/0.4 ML SYRINGE SUBCUT (17:00)
[2024-06-15] MEDS: OLANZapine 2.5 MG TABLET PO ×2 (17:00→19:21)
[2024-06-15 19:10] VITALS: BP 114/59; PULSE 79; RESP 18; TEMP 36.2; O2SAT 96
[2024-06-15] MEDS: Acetaminophen 325 MG TABLET 650 MG PO (19:20)
[2024-06-15] MEDS: Melatonin 3 MG TABLET 6 MG PO (19:20)
[2024-06-15] MEDS: Donepezil HCl 5 MG TABLET PO (19:20)
[2024-06-15] MEDS: Milk of Magnesia 30 ML ORAL.SUSP PO (21:18)
[2024-06-16 03:41] VITALS: BP 106/62; PULSE 56; RESP 16; TEMP 36; O2SAT 97
[2024-06-16 08:00] VITALS: BP 145/85; PULSE 62; RESP 18; TEMP 36.5; O2SAT 99
[2024-06-16] MEDS: lisinopriL 5 MG TABLET PO (09:50)
[2024-06-16 15:22] VITALS: BP 102/59; PULSE 65; RESP 12; TEMP 36.7; O2SAT 98
--- NOTE | 2024-06-16 16:19 | HO.PM.IMPN ---
Subjective Subjective Date of Service: 06/16/24 Interval History: Seen and examined this morning Follow-up for placement no overnight events Review of Systems Review of Systems: Yes all other systems are reviewed and are negative Constitutional Constitutional: Denies chills and Denies fever(s) Cardiovascular Cardiovascular: Denies chest pain Physical Exam Vital Signs: Vital Signs: Last Vital Signs Temp 98.1 F 06/16/24 15:22 Pulse 65 06/16/24 15:22 Resp 12 06/16/24 15:22 BP 102/59 L 06/16/24 15:22 Pulse Ox 98 06/16/24 15:22 O2 Del Method Room Air 06/16/24 15:22 O2 Flow Rate 94 05/25/24 19:13 BMI result Body Mass Index 24.4 Const: General: cooperative, comfortable, no acute distress, alert and awake Nutritional Appearance: average body habitus Orientation/consciousness: oriented to person Resp: Effort & Inspection: normal respiratory effort, able to speak in complete sentences, no respiratory distress and no use of accessory muscles GI: Palpation (GI): Soft to palpation Neuro: General: oriented to person Extrem: Other: LUE resting tremor Psych: Other: impair insight Objective Data Active Medications Acetaminophen (Acetaminophen 325 Mg Tablet) 650 mg PO Q4H PRN PRN Reason: Pain, Mild (Pain Scale 1-3) Last Admin: 06/15/24 19:20 Dose: 650 mg Documented By: VERA Calcium Carbonate (Calcium Carbonate 750 Mg Tab.Chew) 750 mg PO Q4H PRN PRN Reason: Heartburn Donepezil HCl (Donepezil Hcl 5 Mg Tablet) 5 mg PO BEDTIME [facility] Last Admin: 06/15/24 19:20 Dose: 5 mg Documented By: VERA Enoxaparin Sodium (Enoxaparin Sodium 40 Mg/0.4 Ml Syringe) 40 mg SUBCUT Q24H [facility] Last Admin: 06/15/24 17:00 Dose: 40 mg Documented By: FISH Lisinopril (Lisinopril 5 Mg Tablet) 5 mg PO DAILY [facility]; Protocol Last Admin: 06/16/24 09:50 Dose: 5 mg Documented By: SONA Magnesium Hydroxide (Milk Of Magnesia 30 Ml Oral.Susp) 30 ml PO DAILY PRN PRN Reason: Constipation Last Admin: 06/15/24 21:18 Dose: 30 ml Documented By: VERA Melatonin (Melatonin 3 Mg Tablet) 6 mg PO BEDTIME PRN PRN Reason: Insomnia Last Admin: 06/15/24 19:20 Dose: 6 mg Documented By: VERA Olanzapine (Olanzapine 2.5 Mg Tablet) 2.5 mg PO BEDTIME [facility] Last Admin: 06/15/24 19:21 Dose: 2.5 mg Documented By: VERA Olanzapine (Olanzapine 2.5 Mg Tablet) 2.5 mg PO DAILY@1700 [facility] Last Admin: 06/15/24 17:00 Dose: 2.5 mg Documented By: FISH Labs 06/13/24 10:32 06/13/24 10:32 Assessment and Plan (1) 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: Status: Acute Plan 78yo M with dementia, Parkinson disease, RBBB, HTN sent from [facility] to [facility] ED on Section 12 on 05/03/24 with confusion, was awaiting LTC placement in ED overflow with difficulty and so was admitted on 05/12/24 for placement 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
[2024-06-16] MEDS: Enoxaparin Sodium 40 MG/0.4 ML SYRINGE SUBCUT (18:43)
[2024-06-16] MEDS: OLANZapine 2.5 MG TABLET PO ×2 (18:44→19:45)
[2024-06-16 19:41] VITALS: BP 108/58; PULSE 73; RESP 20; TEMP 36.8; O2SAT 94
[2024-06-16] MEDS: Melatonin 3 MG TABLET 6 MG PO (19:45)
[2024-06-16] MEDS: Donepezil HCl 5 MG TABLET PO (19:45)
[2024-06-17 03:11] VITALS: BP 108/58; PULSE 63; RESP 18; TEMP 36.2; O2SAT 96
[2024-06-17] MEDS: lisinopriL 5 MG TABLET PO (07:44)
[2024-06-17 08:00] VITALS: BP 122/60; PULSE 72; RESP 18; TEMP 36.5; O2SAT 99
--- NOTE | 2024-06-17 13:04 | MHC.CM.PN ---
PT AWAITING LTC PLACEMENT CONSERVATOR CURRENTLY COLLECTING DOCUMENTS TO ASSESS PTS FINANCIAL MEANS AND [facility]Y [facility]
--- NOTE | 2024-06-17 15:24 | P.PNIM_ITS ---
Subjective Subjective Date of Service: 06/17/24 Interval History: Seen and examined this morning Follow-up for placement No overnight events documented Patient awake, alert, observed sitting up in bed eating breakfast He denies any specific complaints Review of Systems Review of Systems: Yes all other systems are reviewed and are negative Constitutional Constitutional: Denies chills and Denies fever(s) ENT Ears, Nose, Mouth, and Throat: Denies dizziness Cardiovascular Cardiovascular: Denies chest pain, Denies palpitations and Denies dyspnea Respiratory Respiratory: Denies cough and Denies dyspnea Neurologic Neurologic: Denies dizziness Endocrine Endocrine: Denies palpitations Physical Exam 2 Vital Signs: Vital Signs: Last Vital Signs Temp 97.7 F 06/17/24 08:00 Pulse 72 06/17/24 08:00 Resp 18 06/17/24 08:00 BP 122/60 06/17/24 08:00 Pulse Ox 99 06/17/24 08:00 O2 Del Method Room Air 06/17/24 08:00 O2 Flow Rate 94 05/25/24 19:13 BMI result Body Mass Index 24.4 Const: General: cooperative, comfortable, no acute distress, alert and awake Nutritional Appearance: average body habitus Orientation/consciousness: o riented to person Resp: Effort & Inspection: normal respiratory effort, able to speak in complete sentences, no respiratory distress and no use of accessory muscles GI: Palpation (GI): Soft to palpation Neuro: General: oriented to person Extrem: Other: LUE resting tremor Psych: Other: impair insight Objective Data Active Medications Acetaminophen (Acetaminophen 325 Mg Tablet) 650 mg PO Q4H PRN PRN Reason: Pain, Mild (Pain Scale 1-3) Last Admin: 06/15/24 19:20 Dose: 650 mg Documented By: VERA Calcium Carbonate (Calcium Carbonate 750 Mg Tab.Chew) 750 mg PO Q4H PRN PRN Reason: Heartburn Donepezil HCl (Donepezil Hcl 5 Mg Tablet) 5 mg PO BEDTIME [facility] Last Admin: 06/16/24 19:45 Dose: 5 mg Documented By: VERA Enoxaparin Sodium (Enoxaparin Sodium 40 Mg/0.4 Ml Syringe) 40 mg SUBCUT Q24H [facility] Last Admin: 06/16/24 18:43 Dose: 40 mg Documented By: SONA Lisinopril (Lisinopril 5 Mg Tablet) 5 mg PO DAILY [facility]; Protocol Last Admin: 06/17/24 07:44 Dose: 5 mg Documented By: HUSSAIN Magnesium Hydroxide (Milk Of Magnesia 30 Ml Oral.Susp) 30 ml PO DAILY PRN PRN Reason: Constipation Last Admin: 06/15/24 21:18 Dose: 30 ml Documented By: VERA Melatonin (Melatonin 3 Mg Tablet) 6 mg PO BEDTIME PRN PRN Reason: Insomnia Last Admin: 06/16/24 19:45 Dose: 6 mg Documented By: VERA Olanzapine (Olanzapine 2.5 Mg Tablet) 2.5 mg PO BEDTIME [facility] Last Admin: 06/16/24 19:45 Dose: 2.5 mg Documented By: VERA Olanzapine (Olanzapine 2.5 Mg Tablet) 2.5 mg PO DAILY@1700 [facility] Last Admin: 06/16/24 18:44 Dose: 2.5 mg Documented By: ROSELYNTRH Labs 06/13/24 10:32 06/13/24 10:32 Assessment and Plan (1) 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: Status: Acute Plan 78yo M with dementia, Parkinson disease, RBBB, HTN sent from [facility] to [facility] ED on Section 12 on 05/03/24 with confusion, was awaiting LTC placement in ED overflow with difficulty and so was admitted on 05/12/24 for placement 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
[2024-06-17 16:00] VITALS: BP 113/60; PULSE 76; RESP 14; TEMP 36.9; O2SAT 97
[2024-06-17] MEDS: OLANZapine 2.5 MG TABLET PO ×2 (16:40→21:00)
[2024-06-17] MEDS: Enoxaparin Sodium 40 MG/0.4 ML SYRINGE SUBCUT (18:17)
[2024-06-17 19:06] VITALS: BP 121/77; PULSE 92; RESP 16; TEMP 37.1; O2SAT 96
[2024-06-17] MEDS: Donepezil HCl 5 MG TABLET PO (20:59)
[2024-06-17] MEDS: Melatonin 3 MG TABLET 6 MG PO (21:00)
[2024-06-18 03:49] VITALS: BP 114/58; PULSE 59; RESP 14; TEMP 36.2; O2SAT 97
[2024-06-18 08:00] VITALS: BP 132/73; PULSE 63; RESP 18; TEMP 36.4; O2SAT 98
[2024-06-18] MEDS: lisinopriL 5 MG TABLET PO (10:06)
[2024-06-18] MEDS: Acetaminophen 325 MG TABLET 650 MG PO (10:07)
[2024-06-18 11:44] LABS: Glucose, Whole Blood 103 mg/dL (60-115)
--- NOTE | 2024-06-18 14:49 | HO.PM.IMPN ---
Subjective Subjective Date of Service: 06/18/24 Interval History: Seen and examined this morning Follow-up for placement No overnight events documented requested to be left alone, wants to rest Review of Systems Review of Systems: Yes all other systems are reviewed and are negative Constitutional Constitutional: Denies fever(s) Cardiovascular Cardiovascular: Denies chest pain and Denies dyspnea Respiratory Respiratory: Denies dyspnea Physical Exam Vital Signs: Vital Signs: Last Vital Signs Temp 97.6 F 06/18/24 08:00 Pulse 63 06/18/24 08:00 Resp 18 06/18/24 08:00 BP 132/73 06/18/24 08:00 Pulse Ox 98 06/18/24 08:00 O2 Del Method Room Air 06/18/24 08:00 O2 Flow Rate 94 05/25/24 19:13 BMI result Body Mass Index 24.4 Const: General: cooperative, comfortable, no acute distress, alert and awake Nutritional Appearance: average body habitus Orientation/consciousness: oriented to person Resp: Effort & Inspection: normal respiratory effort, able to speak in complete sentences, no respiratory distress and no use of accessory muscles GI: Palpation (GI): Soft to palpation Neuro: General: oriented to person Extrem: Other: LUE resting tremor Psych: Other: impair insight Objective Data Active Medications Acetaminophen (Acetaminophen 325 Mg Tablet) 650 mg PO Q4H PRN PRN Reason: Pain, Mild (Pain Scale 1-3) Last Admin: 06/18/24 10:07 Dose: 650 mg Documented By: CORNELIUS Calcium Carbonate (Calcium Carbonate 750 Mg Tab.Chew) 750 mg PO Q4H PRN PRN Reason: Heartburn Donepezil HCl (Donepezil Hcl 5 Mg Tablet) 5 mg PO BEDTIME [facility] Last Admin: 06/17/24 20:59 Dose: 5 mg Documented By: BECKIE Enoxaparin Sodium (Enoxaparin Sodium 40 Mg/0.4 Ml Syringe) 40 mg SUBCUT Q24H [facility] Last Admin: 06/17/24 18:17 Dose: 40 mg Documented By: JARETT Lisinopril (Lisinopril 5 Mg Tablet) 5 mg PO DAILY [facility]; Protocol Last Admin: 06/18/24 10:06 Dose: 5 mg Documented By: CORNELIUS Magnesium Hydroxide (Milk Of Magnesia 30 Ml Oral.Susp) 30 ml PO DAILY PRN PRN Reason: Constipation Last Admin: 06/15/24 21:18 Dose: 30 ml Documented By: VERA Melatonin (Melatonin 3 Mg Tablet) 6 mg PO BEDTIME PRN PRN Reason: Insomnia Last Admin: 06/17/24 21:00 Dose: 6 mg Documented By: BECKIE Olanzapine (Olanzapine 2.5 Mg Tablet) 2.5 mg PO BEDTIME [facility] Last Admin: 06/17/24 21:00 Dose: 2.5 mg Documented By: BECKIE Olanzapine (Olanzapine 2.5 Mg Tablet) 2.5 mg PO DAILY@1700 [facility] Last Admin: 06/17/24 16:40 Dose: 2.5 mg Documented By: NICKIC Labs 06/13/24 10:32 06/13/24 10:32 Labs: Laboratory Results - last 24 hr 06/18/24 11:37 POC Glucose 103 Assessment and Plan (1) 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: Status: Acute Plan 78yo M with dementia, Parkinson disease, RBBB, HTN sent from [facility] to 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
[2024-06-18 15:52] VITALS: BP 115/55; PULSE 54; RESP 12; TEMP 36.4; O2SAT 98
[2024-06-18] MEDS: OLANZapine 2.5 MG TABLET PO ×2 (18:23→20:38)
[2024-06-18] MEDS: Enoxaparin Sodium 40 MG/0.4 ML SYRINGE SUBCUT (18:23)
[2024-06-18 19:21] VITALS: BP 118/72; PULSE 71; RESP 18; TEMP 36.5; O2SAT 98
[2024-06-18] MEDS: Donepezil HCl 5 MG TABLET PO (20:38)
[2024-06-18] MEDS: Melatonin 3 MG TABLET 6 MG PO (20:38)
[2024-06-19 04:00] VITALS: BP 111/59; PULSE 54; RESP 16; TEMP 36.5; O2SAT 97
[2024-06-19 07:50] VITALS: BP 126/73; PULSE 83; RESP 16; TEMP 36; O2SAT 97
[2024-06-19] MEDS: lisinopriL 5 MG TABLET PO (08:45)
--- NOTE | 2024-06-19 11:44 | HO.PM.IMPN ---
Subjective Subjective Date of Service: 06/19/24 Interval History: Seen and examined this morning Follow-up for placement No overnight events documented Patient observed lying in bed comfortably, in no acute distress Denies any specific complaints this morning Review of Systems Review of Systems: Yes all other systems are reviewed and are negative Cardiovascular Cardiovascular: Denies chest pain and Denies dyspnea Respiratory Respiratory: Denies dyspnea Gastrointestinal Gastrointestinal: Denies abdominal pain Physical Exam Vital Signs: Vital Signs: Last Vital Signs Temp 96.8 F 06/19/24 07:50 Pulse 83 06/19/24 07:50 Resp 16 06/19/24 07:50 BP 126/73 06/19/24 07:50 Pulse Ox 97 06/19/24 07:50 O2 Del Method Room Air 06/19/24 07:50 O2 Flow Rate 94 05/25/24 19:13 BMI result Body Mass Index 24.4 Const: General: cooperative, comfortable, no acute distress, alert and awake Nutritional Appearance: average body habitus Orientation/consciousness: oriented to person Resp: Effort & Inspection: normal respiratory effort, able to speak in complete sentences, no respiratory distress and no use of accessory muscles GI: Palpation (GI): Soft to palpation Neuro: General: oriented to person Extrem: Other: LUE resting tremor Psych: Other: impaired insight Objective Data Active Medications Acetaminophen (Acetaminophen 325 Mg Tablet) 650 mg PO Q4H PRN PRN Reason: Pain, Mild (Pain Scale 1-3) Last Admin: 06/18/24 10:07 Dose: 650 mg Documented By: CORNELIUS Calcium Carbonate (Calcium Carbonate 750 Mg Tab.Chew) 750 mg PO Q4H PRN PRN Reason: Heartburn Donepezil HCl (Donepezil Hcl 5 Mg Tablet) 5 mg PO BEDTIME [facility] Last Admin: 06/18/24 20:38 Dose: 5 mg Documented By: BECKIE Enoxaparin Sodium (Enoxaparin Sodium 40 Mg/0.4 Ml Syringe) 40 mg SUBCUT Q24H [facility] Last Admin: 06/18/24 18:23 Dose: 40 mg Documented By: CORNELIUS Lisinopril (Lisinopril 5 Mg Tablet) 5 mg PO DAILY [facility]; Protocol Last Admin: 06/19/24 08:45 Dose: 5 mg Documented By: CORNELIUS Magnesium Hydroxide (Milk Of Magnesia 30 Ml Oral.Susp) 30 ml PO DAILY PRN PRN Reason: Constipation Last Admin: 06/15/24 21:18 Dose: 30 ml Documented By: VERA Melatonin (Melatonin 3 Mg Tablet) 6 mg PO BEDTIME PRN PRN Reason: Insomnia Last Admin: 06/18/24 20:38 Dose: 6 mg Documented By: BECKIE Olanzapine (Olanzapine 2.5 Mg Tablet) 2.5 mg PO BEDTIME [facility] Last Admin: 06/18/24 20:38 Dose: 2.5 mg Documented By: BCEKIE Olanzapine (Olanzapine 2.5 Mg Tablet) 2.5 mg PO DAILY@1700 [facility] Last Admin: 06/18/24 18:23 Dose: 2.5 mg Documented By: CORNELIUS Labs 06/13/24 10:32 06/13/24 10:32 Labs: Laboratory Results - last 24 hr 06/18/24 11:37 POC Glucose 103 Assessment and Plan (1) 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: Status: Acute Plan 78yo M with dementia, Parkinson disease, RBBB, HTN sent from [facility] [place] [facility] [place] Section 12 on 05/03/24 with confusion, was awaiting LTC placement in ED overflow with difficulty and so was admitted on 05/12/24 for placement 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
[2024-06-19 15:26] VITALS: BP 132/65; PULSE 61; RESP 16; TEMP 36.2; O2SAT 98
[2024-06-19] MEDS: Enoxaparin Sodium 40 MG/0.4 ML SYRINGE SUBCUT (18:04)
[2024-06-19] MEDS: OLANZapine 2.5 MG TABLET PO ×2 (18:04→20:08)
[2024-06-19 19:49] VITALS: BP 151/73; PULSE 71; RESP 18; TEMP 36.2; O2SAT 96
[2024-06-19] MEDS: Donepezil HCl 5 MG TABLET PO (20:08)
[2024-06-20 03:37] VITALS: BP 150/64; PULSE 67; RESP 20; TEMP 36.3; O2SAT 100
[2024-06-20 06:59] VITALS: BP 142/72; PULSE 68; RESP 17; TEMP 36.6; O2SAT 99
[2024-06-20 07:39] LABS: Hematocrit 41.7 % (42.0-52.0); Hemoglobin 14.1 g/dl (14.0-18.0); Mean Corpuscular HGB Conc 33.8 g/dl (31.0-36.0); Mean Corpuscular Hemoglobin 30.4 pg (27.0-33.0); Mean Corpuscular Volume 89.9 fL (80.0-98.0); Mean Platelet Volume 9.6 fL (9.4-12.4); Platelet Count 201 X10*3/uL (160-400); Red Blood Count 4.64 X10*6/uL (4.60-5.80); Red Cell Distribution Width 13.4 % (11.0-16.0); White Blood Count 4.6 X10*3/uL (4.8-10.8)
[2024-06-20 08:06] LABS: Anion Gap 13 (12-20); Blood Urea Nitrogen 13 mg/dL (9-16); Calcium 9.2 mg/dL (8.4-10.2); Carbon Dioxide 25 mmol/L (22-29); Chloride 106 mmol/L (96-108); Creatinine Clr Calc Pharmacy 77.5; Estimated Glomerular Filt Rate > 60; Glucose Random 82 mg/dL (60-115); Potassium 3.8 mmol/L (3.3-5.1); Sodium 140 mmol/L (135-145)
[2024-06-20] MEDS: lisinopriL 5 MG TABLET PO (09:24)
--- NOTE | 2024-06-20 10:48 | HO.PM.IMPN ---
Subjective Subjective Date of Service: 06/20/24 Interval History: Seen and examined this morning Follow-up for placement No overnight events documented Patient observed lying in bed comfortably, in no acute distress Denies any specific complaints this morning Review of Systems Review of Systems: Yes all other systems are reviewed and are negative Cardiovascular Cardiovascular: Denies chest pain and Denies dyspnea Respiratory Respiratory: Denies dyspnea Gastrointestinal Gastrointestinal: Denies abdominal pain Physical Exam Vital Signs: Vital Signs: Last Vital Signs Temp 98 F 06/20/24 06:59 Pulse 68 06/20/24 06:59 Resp 17 06/20/24 06:59 BP 142/72 H 06/20/24 06:59 Pulse Ox 99 06/20/24 06:59 O2 Del Method Room Air 06/20/24 06:59 O2 Flow Rate 94 05/25/24 19:13 BMI result Body Mass Index 24.4 Alert and confused LSCTA +bs Objective Data Active Medications Acetaminophen (Acetaminophen 325 Mg Tablet) 650 mg PO Q4H PRN PRN Reason: Pain, Mild (Pain Scale 1-3) Last Admin: 06/18/24 10:07 Dose: 650 mg Documented By: CORNELIUS Calcium Carbonate (Calcium Carbonate 750 Mg Tab.Chew) 750 mg PO Q4H PRN PRN Reason: Heartburn Donepezil HCl (Donepezil Hcl 5 Mg Tablet) 5 mg PO BEDTIME [facility] Last Admin: 06/19/24 20:08 Dose: 5 mg Documented By: HOWARD Enoxaparin Sodium (Enoxaparin Sodium 40 Mg/0.4 Ml Syringe) 40 mg SUBCUT Q24H [facility] Last Admin: 06/19/24 18:04 Dose: 40 mg Documented By: CORNELIUS Lisinopril (Lisinopril 5 Mg Tablet) 5 mg PO DAILY [facility]; Protocol Last Admin: 06/20/24 09:24 Dose: 5 mg Documented By: BOOM Magnesium Hydroxide (Milk Of Magnesia 30 Ml Oral.Susp) 30 ml PO DAILY PRN PRN Reason: Constipation Last Admin: 06/15/24 21:18 Dose: 30 ml Documented By: VERA Melatonin (Melatonin 3 Mg Tablet) 6 mg PO BEDTIME PRN PRN Reason: Insomnia Last Admin: 06/18/24 20:38 Dose: 6 mg Documented By: BECKIE Olanzapine (Olanzapine 2.5 Mg Tablet) 2.5 mg PO BEDTIME [facility] Last Admin: 06/19/24 20:08 Dose: 2.5 mg Documented By: HOWARD Olanzapine (Olanzapine 2.5 Mg Tablet) 2.5 mg PO DAILY@1700 [facility] Last Admin: 06/19/24 18:04 Dose: 2.5 mg Documented By: CORNELIUS Labs 06/20/24 05:40 06/20/24 05:40 Labs: Laboratory Results - last 24 hr 06/20/24 05:40 MCV 89.9 MCH 30.4 MCHC 33.8 RDW 13.4 Plt Count 201 MPV 9.6 Absolute Nucleated RBC 0.000 Nucleated RBC % (auto) 0.0 Anion Gap 13 Estim Creat Clear Calc 77.5 Estimated GFR > 60 Random Glucose 82 Calcium 9.2 D Assessment and Plan (1) 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: Status: Acute Plan 78yo M with dementia, Parkinson disease, RBBB, HTN sent from [facility] to [facility] [place] [place] ED on Section 12 on 05/03/24 with confusion, was awaiting LTC placement in ED overflow with difficulty and so was admitted on 05/12/24 for placement 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
[2024-06-20 10:53] LABS: Appearance Urine Clear; Color Urine Yellow; Glucose Urine UA Negative (Negative); Leukocyte Esterase Urine Negative (Negative); Nitrite Urine Negative (Negative); Urine Blood Negative (Negative); Urine Ketones Negative (Negative); Urine Protein Negative (Neg-Trace)
--- NOTE | 2024-06-20 13:43 | MHC.CM.PN ---
PT AWAITING LTC PLACEMENT CONSERVATOR CURRENTLY COLLECTING DOCUMENTS TO ASSESS PTS FINANCIAL MEANS AND [facility]
[2024-06-20 15:50] VITALS: BP 116/59; PULSE 70; RESP 14; TEMP 36.4; O2SAT 97
[2024-06-20] MEDS: OLANZapine 2.5 MG TABLET PO ×2 (17:12→19:38)
[2024-06-20] MEDS: Enoxaparin Sodium 40 MG/0.4 ML SYRINGE SUBCUT (17:13)
[2024-06-20] MEDS: Donepezil HCl 5 MG TABLET PO (19:38)
[2024-06-20 20:00] VITALS: BP 109/63; PULSE 79; RESP 18; TEMP 35.9; O2SAT 98
[2024-06-21 03:16] VITALS: BP 119/70; PULSE 62; RESP 16; TEMP 36; O2SAT 96
[2024-06-21 07:48] VITALS: BP 120/70; PULSE 83; RESP 16; TEMP 36.1; O2SAT 99
[2024-06-21] MEDS: lisinopriL 5 MG TABLET PO (09:05)
--- NOTE | 2024-06-21 10:11 | P.PNIM_ITS ---
Subjective Subjective Date of Service: 06/21/24 Interval History: Seen and examined this morning Follow-up for placement sitting in chair Denies any specific complaints this morning Review of Systems Review of Systems: Yes all other systems are reviewed and are negative Cardiovascular Cardiovascular: Denies chest pain and Denies dyspnea Respiratory Respiratory: Denies dyspnea Gastrointestinal Gastrointestinal: Denies abdominal pain Physical Exam 2 Vital Signs: Vital Signs: Last Vital Signs Temp 97.0 F 06/21/24 07:48 Pulse 83 06/21/24 07:48 Resp 16 06/21/24 07:48 BP 120/70 06/21/24 07:48 Pulse Ox 99 06/21/24 07:48 O2 Del Method Room Air 06/21/24 07:48 O2 Flow Rate 94 05/25/24 19:13 BMI result Body Mass Index 24.4 Alert, confused LCTA abd soft Objective Data Active Medications Acetaminophen (Acetaminophen 325 Mg Tablet) 650 mg PO Q4H PRN PRN Reason: Pain, Mild (Pain Scale 1-3) Last Admin: 06/18/24 10:07 Dose: 650 mg Documented By: CORNELIUS Calcium Carbonate (Calcium Carbonate 750 Mg Tab.Chew) 750 mg PO Q4H PRN PRN Reason: Heartburn Donepezil HCl (Donepezil Hcl 5 Mg Tablet) 5 mg PO BEDTIME [facility] Last Admin: 06/20/24 19:38 Dose: 5 mg Documented By: CARLA Enoxaparin Sodium (Enoxaparin Sodium 40 Mg/0.4 Ml Syringe) 40 mg SUBCUT Q24H [facility] Last Admin: 06/20/24 17:13 Dose: 40 mg Documented By: BOOM Lisinopril (Lisinopril 5 Mg Tablet) 5 mg PO DAILY [facility]; Protocol Last Admin: 06/21/24 09:05 Dose: 5 mg Documented By: FISH Magnesium Hydroxide (Milk Of Magnesia 30 Ml Oral.Susp) 30 ml PO DAILY PRN PRN Reason: Constipation Last Admin: 06/15/24 21:18 Dose: 30 ml Documented By: VERA Melatonin (Melatonin 3 Mg Tablet) 6 mg PO BEDTIME PRN PRN Reason: Insomnia Last Admin: 06/18/24 20:38 Dose: 6 mg Documented By: BECKIE Olanzapine (Olanzapine 2.5 Mg Tablet) 2.5 mg PO BEDTIME [facility] Last Admin: 06/20/24 19:38 Dose: 2.5 mg Documented By: CARLA Olanzapine (Olanzapine 2.5 Mg Tablet) 2.5 mg PO DAILY@1700 [facility] Last Admin: 06/20/24 17:12 Dose: 2.5 mg Documented By: BOOM Labs 06/20/24 05:40 06/20/24 05:40 Labs: Laboratory Results - last 24 hr 06/20/24 09:57 Urine Color Yellow Urine Appearance Clear Urine pH 6.0 Ur Specific [place] 1.010 Urine Protein Negative Urine Glucose (UA) Negative Urine Ketones Negative Urine Blood Negative Urine Nitrite Negative Ur Leukocyte Esterase Negative Assessment and Plan (1) 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: Status: Acute Plan 78yo M with dementia, Parkinson disease, RBBB, HTN sent from [facility] [place] [facility] [place] Section 12 on 05/03/24 with confusion, was awaiting LTC placement in ED overflow with difficulty and so was admitted on 05/12/24 for placement 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
--- NOTE | 2024-06-21 13:17 | MHC.CM.PN ---
EMR reviewed and per MD rounds pt is medically cleared for discharge, however pt remains hospitalized due to awaiting LTC placement.
[2024-06-21 15:42] VITALS: BP 122/72; PULSE 66; RESP 16; TEMP 36.3; O2SAT 96
[2024-06-21] MEDS: Enoxaparin Sodium 40 MG/0.4 ML SYRINGE SUBCUT (17:00)
[2024-06-21] MEDS: OLANZapine 2.5 MG TABLET PO ×2 (17:01→20:19)
[2024-06-21 19:10] VITALS: BP 105/60; PULSE 84; RESP 18; TEMP 36.7; O2SAT 98
[2024-06-21] MEDS: Donepezil HCl 5 MG TABLET PO (20:19)
[2024-06-21] MEDS: Melatonin 3 MG TABLET 6 MG PO (22:12)
[2024-06-21] MEDS: Milk of Magnesia 30 ML ORAL.SUSP PO (22:45)
[2024-06-22 03:21] VITALS: BP 117/58; PULSE 70; RESP 18; TEMP 36.6; O2SAT 97
[2024-06-22 08:00] VITALS: BP 169/86; PULSE 64; RESP 18; TEMP 36.1; O2SAT 99
--- NOTE | 2024-06-22 08:37 | P.PNIM_ITS ---
Subjective Subjective Date of Service: 06/22/24 Interval History: Seen and examined this morning Follow-up for placement sitting in chair Denies any specific complaints this morning Review of Systems Review of Systems: Yes all other systems are reviewed and are negative Cardiovascular Cardiovascular: Denies chest pain and Denies dyspnea Respiratory Respiratory: Denies dyspnea Gastrointestinal Gastrointestinal: Denies abdominal pain Physical Exam 2 Vital Signs: Vital Signs: Last Vital Signs Temp 97.9 F 06/22/24 03:21 Pulse 70 06/22/24 03:21 Resp 18 06/22/24 03:21 BP 117/58 L 06/22/24 03:21 Pulse Ox 97 06/22/24 03:21 O2 Del Method Room Air 06/22/24 03:21 O2 Flow Rate 94 05/25/24 19:13 BMI result Body Mass Index 24.4 Alert, confused LCTA soft abd Objective Data Active Medications Acetaminophen (Acetaminophen 325 Mg Tablet) 650 mg PO Q4H PRN PRN Reason: Pain, Mild (Pain Scale 1-3) Last Admin: 06/18/24 10:07 Dose: 650 mg Documented By: CORNELIUS Calcium Carbonate (Calcium Carbonate 750 Mg Tab.Chew) 750 mg PO Q4H PRN PRN Reason: Heartburn Donepezil HCl (Donepezil Hcl 5 Mg Tablet) 5 mg PO BEDTIME [facility] Last Admin: 06/21/24 20:19 Dose: 5 mg Documented By: CARLA Enoxaparin Sodium (Enoxaparin Sodium 40 Mg/0.4 Ml Syringe) 40 mg SUBCUT Q24H [facility] Last Admin: 06/21/24 17:00 Dose: 40 mg Documented By: LUCILLE Lisinopril (Lisinopril 5 Mg Tablet) 5 mg PO DAILY [facility]; Protocol Last Admin: 06/21/24 09:05 Dose: 5 mg Documented By: FISH Magnesium Hydroxide (Milk Of Magnesia 30 Ml Oral.Susp) 30 ml PO DAILY PRN PRN Reason: Constipation Last Admin: 06/21/24 22:45 Dose: 30 ml Documented By: CARLA Melatonin (Melatonin 3 Mg Tablet) 6 mg PO BEDTIME PRN PRN Reason: Insomnia Last Admin: 06/21/24 22:12 Dose: 6 mg Documented By: CARLA Olanzapine (Olanzapine 2.5 Mg Tablet) 2.5 mg PO BEDTIME [facility] Last Admin: 06/21/24 20:19 Dose: 2.5 mg Documented By: CARLA Olanzapine (Olanzapine 2.5 Mg Tablet) 2.5 mg PO DAILY@1700 [facility] Last Admin: 06/21/24 17:01 Dose: 2.5 mg Documented By: CHICHIB Labs 06/20/24 05:40 06/20/24 05:40 Assessment and Plan (1) 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: Status: Acute Plan 78yo M with dementia, Parkinson disease, RBBB, HTN sent from [facility] to [facility] [place] on Section 12 on 05/03/24 with confusion, was awaiting LTC placement in ED overflow with difficulty and so was admitted on 05/12/24 for placement 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
[2024-06-22] MEDS: lisinopriL 5 MG TABLET PO (09:29)
[2024-06-22 15:27] VITALS: BP 133/60; PULSE 87; RESP 18; TEMP 36.6; O2SAT 95
[2024-06-22] MEDS: OLANZapine 2.5 MG TABLET PO ×2 (17:45→20:54)
[2024-06-22] MEDS: Enoxaparin Sodium 40 MG/0.4 ML SYRINGE SUBCUT (17:45)
[2024-06-22 19:15] VITALS: BP 117/60; PULSE 70; RESP 18; TEMP 36.4; O2SAT 97
[2024-06-22] MEDS: Melatonin 3 MG TABLET 6 MG PO (20:54)
[2024-06-22] MEDS: Donepezil HCl 5 MG TABLET PO (20:54)
[2024-06-23 03:25] VITALS: BP 100/61; PULSE 71; RESP 18; TEMP 36.6; O2SAT 96
[2024-06-23 07:59] VITALS: BP 102/59; PULSE 54; RESP 18; TEMP 36.3; O2SAT 98
[2024-06-23] MEDS: lisinopriL 5 MG TABLET PO (08:33)
[2024-06-23 15:11] VITALS: BP 113/67; PULSE 75; RESP 18; TEMP 36.7; O2SAT 95
[2024-06-23] MEDS: OLANZapine 2.5 MG TABLET PO ×2 (16:32→21:45)
[2024-06-23] MEDS: Enoxaparin Sodium 40 MG/0.4 ML SYRINGE SUBCUT (16:32)
--- NOTE | 2024-06-23 16:40 | P.PNIM_ITS ---
Subjective Subjective Date of Service: 06/23/24 Interval History: Seen and examined this morning Follow-up for placement No overnight events documented Patient observed sitting up in chair, requesting to go back into bed. No other complaints Review of Systems Review of Systems: Yes all other systems are reviewed and are negative Constitutional Constitutional: Denies fever(s) Cardiovascular Cardiovascular: Denies chest pain and Denies dyspnea Respiratory Respiratory: Denies dyspnea Gastrointestinal Gastrointestinal: Denies abdominal pain Physical Exam 2 Vital Signs: Vital Signs: Last Vital Signs Temp 98.1 F 06/23/24 15:11 Pulse 75 06/23/24 15:11 Resp 18 06/23/24 15:11 BP 113/67 06/23/24 15:11 Pulse Ox 95 06/23/24 15:11 O2 Del Method Room Air 06/23/24 15:11 O2 Flow Rate 94 05/25/24 19:13 BMI result Body Mass Index 24.4 Const: General: cooperative, comfortable, no acute distress, alert and awake Nutritional Appearance: average body habitus Orientation/consciousness: o riented to person Resp: Effort & Inspection: normal respiratory effort, able to speak in complete sentences, no respiratory distress and no use of accessory muscles GI: Palpation (GI): Soft to palpation Neuro: General: oriented to person Extrem: Other: LUE resting tremor Psych: Other: impaired insight Objective Data Active Medications Acetaminophen (Acetaminophen 325 Mg Tablet) 650 mg PO Q4H PRN PRN Reason: Pain, Mild (Pain Scale 1-3) Last Admin: 06/18/24 10:07 Dose: 650 mg Documented By: CORNELIUS Calcium Carbonate (Calcium Carbonate 750 Mg Tab.Chew) 750 mg PO Q4H PRN PRN Reason: Heartburn Donepezil HCl (Donepezil Hcl 5 Mg Tablet) 5 mg PO BEDTIME [facility] Last Admin: 06/22/24 20:54 Dose: 5 mg Documented By: MAYITO Enoxaparin Sodium (Enoxaparin Sodium 40 Mg/0.4 Ml Syringe) 40 mg SUBCUT Q24H [facility] Last Admin: 06/23/24 16:32 Dose: 40 mg Documented By: GUANAKO Lisinopril (Lisinopril 5 Mg Tablet) 5 mg PO DAILY [facility]; Protocol Last Admin: 06/23/24 08:33 Dose: 5 mg Documented By: HO.DABA Magnesium Hydroxide (Milk Of Magnesia 30 Ml Oral.Susp) 30 ml PO DAILY PRN PRN Reason: Constipation Last Admin: 06/21/24 22:45 Dose: 30 ml Documented By: CARLA Melatonin (Melatonin 3 Mg Tablet) 6 mg PO BEDTIME PRN PRN Reason: Insomnia Last Admin: 06/22/24 20:54 Dose: 6 mg Documented By: MAYITO Olanzapine (Olanzapine 2.5 Mg Tablet) 2.5 mg PO BEDTIME [facility] Last Admin: 06/22/24 20:54 Dose: 2.5 mg Documented By: MAYITO Olanzapine (Olanzapine 2.5 Mg Tablet) 2.5 mg PO DAILY@1700 [facility] Last Admin: 06/23/24 16:32 Dose: 2.5 mg Documented By: GUANAKO Labs 06/20/24 05:40 06/20/24 05:40 Assessment and Plan (1) 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: Status: Acute Plan 78yo M with dementia, Parkinson disease, RBBB, HTN sent from [facility] to [facility] [place] on Section 12 on 05/03/24 with confusion, was awaiting LTC placement in ED overflow with difficulty and so was admitted on 05/12/24 for placement 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
[2024-06-23 19:07] VITALS: BP 102/52; PULSE 81; RESP 18; TEMP 36.3; O2SAT 93
[2024-06-23] MEDS: Melatonin 3 MG TABLET 6 MG PO (21:45)
[2024-06-23] MEDS: Donepezil HCl 5 MG TABLET PO (21:45)
[2024-06-24 03:36] VITALS: BP 104/55; PULSE 63; RESP 16; TEMP 36; O2SAT 96
[2024-06-24 08:04] VITALS: BP 108/57
[2024-06-24] MEDS: lisinopriL 5 MG TABLET PO (08:04)
[2024-06-24 08:06] VITALS: BP 108/57; PULSE 58; RESP 12; TEMP 36.1; O2SAT 98
--- NOTE | 2024-06-24 14:09 | MHC.CM.PN ---
EMR reviewed and per MD rounds pt is medically cleared for discharge, however pt remains hospitalized due to awaiting LTC placement, referrals out, no current bed offers.
--- NOTE | 2024-06-24 14:56 | HO.PM.IMPN ---
Subjective Subjective Date of Service: 06/24/24 Interval History: Seen and examined this morning Follow-up for placement No overnight events documented Patient observed lying in bed comfortably feels well, no complaints Review of Systems Review of Systems: Yes all other systems are reviewed and are negative Constitutional Constitutional: Denies chills and Denies fever(s) Cardiovascular Cardiovascular: Denies chest pain and Denies dyspnea Respiratory Respiratory: Denies cough and Denies dyspnea Gastrointestinal Gastrointestinal: Denies abdominal pain Physical Exam Vital Signs: Vital Signs: Last Vital Signs Temp 96.9 F 06/24/24 08:06 Pulse 58 06/24/24 08:06 Resp 12 06/24/24 08:06 BP 108/57 L 06/24/24 08:06 Pulse Ox 98 06/24/24 08:06 O2 Del Method Room Air 06/24/24 08:06 O2 Flow Rate 94 05/25/24 19:13 BMI result Body Mass Index 24.4 Const: General: cooperative, comfortable, no acute distress, alert and awake Nutritional Appearance: average body habitus Orientation/consciousness: oriented to person Resp: Effort & Inspection: normal respiratory effort, able to speak in complete sentences, no respiratory distress and no use of accessory muscles GI: Palpation (GI): Soft to palpation Neuro: General: oriented to person Extrem: Other: LUE resting tremor Psych: Other: impaired insight Objective Data Active Medications Acetaminophen (Acetaminophen 325 Mg Tablet) 650 mg PO Q4H PRN PRN Reason: Pain, Mild (Pain Scale 1-3) Last Admin: 06/18/24 10:07 Dose: 650 mg Documented By: CORNELIUS Calcium Carbonate (Calcium Carbonate 750 Mg Tab.Chew) 750 mg PO Q4H PRN PRN Reason: Heartburn Donepezil HCl (Donepezil Hcl 5 Mg Tablet) 5 mg PO BEDTIME [facility] Last Admin: 06/23/24 21:45 Dose: 5 mg Documented By: MAYITO Enoxaparin Sodium (Enoxaparin Sodium 40 Mg/0.4 Ml Syringe) 40 mg SUBCUT Q24H [facility] Last Admin: 06/23/24 16:32 Dose: 40 mg Documented By: DABGina Lisinopril (Lisinopril 5 Mg Tablet) 5 mg PO DAILY [facility]; Protocol Last Admin: 06/24/24 08:04 Dose: 5 mg Documented By: RADHA Magnesium Hydroxide (Milk Of Magnesia 30 Ml Oral.Susp) 30 ml PO DAILY PRN PRN Reason: Constipation Last Admin: 06/21/24 22:45 Dose: 30 ml Documented By: CARLA Melatonin (Melatonin 3 Mg Tablet) 6 mg PO BEDTIME PRN PRN Reason: Insomnia Last Admin: 06/23/24 21:45 Dose: 6 mg Documented By: MAYITO Olanzapine (Olanzapine 2.5 Mg Tablet) 2.5 mg PO BEDTIME [facility] Last Admin: 06/23/24 21:45 Dose: 2.5 mg Documented By: MAYITO Olanzapine (Olanzapine 2.5 Mg Tablet) 2.5 mg PO DAILY@1700 [facility] Last Admin: 06/23/24 16:32 Dose: 2.5 mg Documented By: BINDUA Labs 06/20/24 05:40 06/20/24 05:40 Assessment and Plan (1) 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: Status: Acute Plan 78yo M with dementia, Parkinson disease, RBBB, HTN sent from [facility] to [facility] ED on Section 12 on 05/03/24 with confusion, was awaiting LTC placement in ED overflow with difficulty and so was admitted on 05/12/24 for placement 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
[2024-06-24 15:37] VITALS: BP 133/60; PULSE 57; RESP 12; TEMP 37; O2SAT 99
[2024-06-24] MEDS: Acetaminophen 325 MG TABLET 650 MG PO (16:46)
[2024-06-24] MEDS: OLANZapine 2.5 MG TABLET PO ×2 (16:46→19:56)
[2024-06-24] MEDS: Enoxaparin Sodium 40 MG/0.4 ML SYRINGE SUBCUT (16:46)
[2024-06-24 19:37] VITALS: BP 139/71; PULSE 90; RESP 17; TEMP 36.1; O2SAT 98
[2024-06-24] MEDS: Donepezil HCl 5 MG TABLET PO (19:56)
[2024-06-25 04:00] VITALS: BP 140/66; PULSE 54; RESP 16; TEMP 36.2; O2SAT 99
[2024-06-25 07:53] VITALS: BP 159/75; PULSE 58; RESP 18; TEMP 36.5; O2SAT 99
[2024-06-25] MEDS: lisinopriL 5 MG TABLET PO (08:08)
--- NOTE | 2024-06-25 08:34 | P.PNIM_ITS ---
Subjective Subjective Date of Service: 06/25/24 Interval History: Seen and examined this morning Follow-up for placement No overnight events documented Patient observed lying in bed eating breakfast feels well, no complaints Review of Systems Review of Systems: Yes all other systems are reviewed and are negative Constitutional Constitutional: Denies chills and Denies fever(s) Cardiovascular Cardiovascular: Denies chest pain and Denies dyspnea Respiratory Respiratory: Denies cough and Denies dyspnea Gastrointestinal Gastrointestinal: Denies abdominal pain Physical Exam 2 Vital Signs: Vital Signs: Last Vital Signs Temp 97.7 F 06/25/24 07:53 Pulse 58 06/25/24 07:53 Resp 18 06/25/24 07:53 BP 159/75 H 06/25/24 07:53 Pulse Ox 99 06/25/24 07:53 O2 Del Method Room Air 06/25/24 07:53 O2 Flow Rate 94 05/25/24 19:13 BMI result Body Mass Index 24.4 alert and confused Objective Data Active Medications Acetaminophen (Acetaminophen 325 Mg Tablet) 650 mg PO Q4H PRN PRN Reason: Pain, Mild (Pain Scale 1-3) Last Admin: 06/24/24 16:46 Dose: 650 mg Documented By: ADALID Calcium Carbonate (Calcium Carbonate 750 Mg Tab.Chew) 750 mg PO Q4H PRN PRN Reason: Heartburn Donepezil HCl (Donepezil Hcl 5 Mg Tablet) 5 mg PO BEDTIME [facility] Last Admin: 06/24/24 19:56 Dose: 5 mg Documented By: CARLA Enoxaparin Sodium (Enoxaparin Sodium 40 Mg/0.4 Ml Syringe) 40 mg SUBCUT Q24H [facility] Last Admin: 06/24/24 16:46 Dose: 40 mg Documented By: ADALID Lisinopril (Lisinopril 5 Mg Tablet) 5 mg PO DAILY [facility]; Protocol Last Admin: 06/25/24 08:08 Dose: 5 mg Documented By: SOFFAGina Magnesium Hydroxide (Milk Of Magnesia 30 Ml Oral.Susp) 30 ml PO DAILY PRN PRN Reason: Constipation Last Admin: 06/21/24 22:45 Dose: 30 ml Documented By: CARLA Melatonin (Melatonin 3 Mg Tablet) 6 mg PO BEDTIME PRN PRN Reason: Insomnia Last Admin: 06/23/24 21:45 Dose: 6 mg Documented By: MAYITO Olanzapine (Olanzapine 2.5 Mg Tablet) 2.5 mg PO BEDTIME [facility] Last Admin: 06/24/24 19:56 Dose: 2.5 mg Documented By: CARLA Olanzapine (Olanzapine 2.5 Mg Tablet) 2.5 mg PO DAILY@1700 [facility] Last Admin: 06/24/24 16:46 Dose: 2.5 mg Documented By: ADALID Labs 06/20/24 05:40 06/20/24 05:40 Assessment and Plan (1) 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: Status: Acute Plan 78yo M with dementia, Parkinson disease, RBBB, HTN sent from [facility] [place] [facility] [place] Section 12 on 05/03/24 with confusion, was awaiting LTC placement in ED overflow with difficulty and so was admitted on 05/12/24 for placement 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
[2024-06-25 15:32] VITALS: BP 97/55; PULSE 58; RESP 18; TEMP 36.7; O2SAT 96
[2024-06-25] MEDS: Enoxaparin Sodium 40 MG/0.4 ML SYRINGE SUBCUT (16:59)
[2024-06-25] MEDS: OLANZapine 2.5 MG TABLET PO ×2 (16:59→20:13)
[2024-06-25 19:48] VITALS: BP 107/55; PULSE 67; RESP 18; TEMP 36.4; O2SAT 97
[2024-06-25] MEDS: Donepezil HCl 5 MG TABLET PO (20:13)
[2024-06-25] MEDS: Acetaminophen 325 MG TABLET 650 MG PO (20:13)
[2024-06-26 04:00] VITALS: BP 99/53; PULSE 51; RESP 16; TEMP 36.5; O2SAT 97
[2024-06-26 08:00] VITALS: BP 139/69; PULSE 55; RESP 18; TEMP 36.4; O2SAT 99
--- NOTE | 2024-06-26 09:57 | HO.PM.IMPN ---
Subjective Subjective Date of Service: 06/26/24 Interval History: Seen and examined this morning Follow-up for placement No overnight events documented Patient observed lying in bed eating breakfast feels well, no complaints Review of Systems Review of Systems: Yes all other systems are reviewed and are negative Constitutional Constitutional: Denies chills and Denies fever(s) Cardiovascular Cardiovascular: Denies chest pain and Denies dyspnea Respiratory Respiratory: Denies cough and Denies dyspnea Gastrointestinal Gastrointestinal: Denies abdominal pain Physical Exam Vital Signs: Vital Signs: Last Vital Signs Temp 97.5 F 06/26/24 08:00 Pulse 55 06/26/24 08:00 Resp 18 06/26/24 08:00 BP 139/69 06/26/24 08:00 Pulse Ox 99 06/26/24 08:00 O2 Del Method Room Air 06/26/24 08:00 O2 Flow Rate 94 05/25/24 19:13 BMI result Body Mass Index 24.4 Alert, confused Objective Data Active Medications Acetaminophen (Acetaminophen 325 Mg Tablet) 650 mg PO Q4H PRN PRN Reason: Pain, Mild (Pain Scale 1-3) Last Admin: 06/25/24 20:13 Dose: 650 mg Documented By: TIEN Calcium Carbonate (Calcium Carbonate 750 Mg Tab.Chew) 750 mg PO Q4H PRN PRN Reason: Heartburn Donepezil HCl (Donepezil Hcl 5 Mg Tablet) 5 mg PO BEDTIME [facility] Last Admin: 06/25/24 20:13 Dose: 5 mg Documented By: TIEN Enoxaparin Sodium (Enoxaparin Sodium 40 Mg/0.4 Ml Syringe) 40 mg SUBCUT Q24H [facility] Last Admin: 06/25/24 16:59 Dose: 40 mg Documented By: MICHELLE Lisinopril (Lisinopril 5 Mg Tablet) 5 mg PO DAILY [facility]; Protocol Last Admin: 06/25/24 08:08 Dose: 5 mg Documented By: MICHELLE Magnesium Hydroxide (Milk Of Magnesia 30 Ml Oral.Susp) 30 ml PO DAILY PRN PRN Reason: Constipation Last Admin: 06/21/24 22:45 Dose: 30 ml Documented By: CARLA Melatonin (Melatonin 3 Mg Tablet) 6 mg PO BEDTIME PRN PRN Reason: Insomnia Last Admin: 06/23/24 21:45 Dose: 6 mg Documented By: MAYITO Olanzapine (Olanzapine 2.5 Mg Tablet) 2.5 mg PO BEDTIME [facility] Last Admin: 06/25/24 20:13 Dose: 2.5 mg Documented By: ODRISM Olanzapine (Olanzapine 2.5 Mg Tablet) 2.5 mg PO DAILY@1700 [facility] Last Admin: 06/25/24 16:59 Dose: 2.5 mg Documented By: SOFFAA Labs 06/20/24 05:40 06/20/24 05:40 Assessment and Plan (1) 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: Status: Acute Plan 78yo M with dementia, Parkinson disease, RBBB, HTN sent from [facility] to [facility] ED on Section 12 on 05/03/24 with confusion, was awaiting LTC placement in ED overflow with difficulty and so was admitted on 05/12/24 for placement 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
[2024-06-26] MEDS: Acetaminophen 325 MG TABLET 650 MG PO ×2 (11:50→20:51)
[2024-06-26 15:45] VITALS: BP 125/60; PULSE 85; RESP 18; TEMP 36.4; O2SAT 98
[2024-06-26] MEDS: Enoxaparin Sodium 40 MG/0.4 ML SYRINGE SUBCUT (17:21)
[2024-06-26] MEDS: OLANZapine 2.5 MG TABLET PO ×2 (17:21→20:51)
[2024-06-26 19:34] VITALS: BP 110/62; PULSE 73; RESP 18; TEMP 36.3; O2SAT 95
[2024-06-26] MEDS: Donepezil HCl 5 MG TABLET PO (20:50)
[2024-06-26] MEDS: Melatonin 3 MG TABLET 6 MG PO (20:51)
[2024-06-27 03:20] VITALS: BP 130/70; PULSE 58; RESP 16; TEMP 36; O2SAT 96
[2024-06-27 07:32] VITALS: BP 123/58; PULSE 70; RESP 18; TEMP 36; O2SAT 94
--- NOTE | 2024-06-27 08:49 | HO.PM.IMPN ---
Subjective Subjective Date of Service: 06/27/24 Interval History: Seen and examined this morning Follow-up for placement No overnight events documented Patient observed lying in bed eating breakfast feels well, no complaints Review of Systems Review of Systems: Yes all other systems are reviewed and are negative Constitutional Constitutional: Denies chills and Denies fever(s) Cardiovascular Cardiovascular: Denies chest pain and Denies dyspnea Respiratory Respiratory: Denies cough and Denies dyspnea Gastrointestinal Gastrointestinal: Denies abdominal pain Physical Exam Vital Signs: Vital Signs: Last Vital Signs Temp 96.8 F 06/27/24 07:32 Pulse 70 06/27/24 07:32 Resp 18 06/27/24 07:32 BP 123/58 L 06/27/24 07:32 Pulse Ox 94 06/27/24 07:32 O2 Del Method Room Air 06/27/24 07:32 O2 Flow Rate 94 05/25/24 19:13 BMI result Body Mass Index 24.4 Alert and confused Objective Data Active Medications Acetaminophen (Acetaminophen 325 Mg Tablet) 650 mg PO Q4H PRN PRN Reason: Pain, Mild (Pain Scale 1-3) Last Admin: 06/26/24 20:51 Dose: 650 mg Documented By: GEOVANNY Calcium Carbonate (Calcium Carbonate 750 Mg Tab.Chew) 750 mg PO Q4H PRN PRN Reason: Heartburn Donepezil HCl (Donepezil Hcl 5 Mg Tablet) 5 mg PO BEDTIME [facility] Last Admin: 06/26/24 20:50 Dose: 5 mg Documented By: GEOVANNY Enoxaparin Sodium (Enoxaparin Sodium 40 Mg/0.4 Ml Syringe) 40 mg SUBCUT Q24H [facility] Last Admin: 06/26/24 17:21 Dose: 40 mg Documented By: CAROLYN Lisinopril (Lisinopril 5 Mg Tablet) 5 mg PO DAILY [facility]; Protocol Last Admin: 06/25/24 08:08 Dose: 5 mg Documented By: MICHELLE Magnesium Hydroxide (Milk Of Magnesia 30 Ml Oral.Susp) 30 ml PO DAILY PRN PRN Reason: Constipation Last Admin: 06/21/24 22:45 Dose: 30 ml Documented By: CARLA Melatonin (Melatonin 3 Mg Tablet) 6 mg PO BEDTIME PRN PRN Reason: Insomnia Last Admin: 06/26/24 20:51 Dose: 6 mg Documented By: GEOVANNY Olanzapine (Olanzapine 2.5 Mg Tablet) 2.5 mg PO BEDTIME [facility] Last Admin: 06/26/24 20:51 Dose: 2.5 mg Documented By: GEOVANNY Olanzapine (Olanzapine 2.5 Mg Tablet) 2.5 mg PO DAILY@1700 [facility] Last Admin: 06/26/24 17:21 Dose: 2.5 mg Documented By: CAROLYN Labs 06/20/24 05:40 06/20/24 05:40 Assessment and Plan (1) 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: Status: Acute Plan 78yo M with dementia, Parkinson disease, RBBB, HTN sent from [facility] [place] [facility] [place] Section 12 on 05/03/24 with confusion, was awaiting LTC placement in ED overflow with difficulty and so was admitted on 05/12/24 for placement 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
[2024-06-27] MEDS: Acetaminophen 325 MG TABLET 650 MG PO (10:49)
--- NOTE | 2024-06-27 11:29 | MHC.CM.PN ---
Patient continues to await LTC. AGUSTO spoke with conservator, Karin Butcher @ [phone]. Karin continues to work w/ HCP/Meka to gather financial documents for [employer] will. AGUSTO will continue to follow.
[2024-06-27 15:44] VITALS: BP 129/70; PULSE 63; RESP 18; TEMP 36.8; O2SAT 97
[2024-06-27] MEDS: OLANZapine 2.5 MG TABLET PO ×2 (16:32→21:08)
[2024-06-27] MEDS: Enoxaparin Sodium 40 MG/0.4 ML SYRINGE SUBCUT (17:09)
[2024-06-27 19:15] VITALS: BP 119/58; PULSE 67; RESP 18; TEMP 36.7; O2SAT 95
[2024-06-27] MEDS: Donepezil HCl 5 MG TABLET PO (21:08)
[2024-06-28 04:00] VITALS: BP 115/67; PULSE 68; RESP 16; TEMP 36.1; O2SAT 97
[2024-06-28] MEDS: Milk of Magnesia 30 ML ORAL.SUSP PO (07:24)
[2024-06-28 07:40] VITALS: BP 124/77; PULSE 74; RESP 16; TEMP 36.2; O2SAT 97
--- NOTE | 2024-06-28 07:40 | P.PNIM_ITS ---
Subjective Subjective Date of Service: 06/28/24 Interval History: Seen and examined this morning Follow-up for placement No overnight events documented feels well, no complaints Review of Systems Review of Systems: Yes all other systems are reviewed and are negative Constitutional Constitutional: Denies chills and Denies fever(s) Cardiovascular Cardiovascular: Denies chest pain and Denies dyspnea Respiratory Respiratory: Denies cough and Denies dyspnea Gastrointestinal Gastrointestinal: Denies abdominal pain Physical Exam 2 Vital Signs: Vital Signs: Last Vital Signs Temp 97.0 F 06/28/24 04:00 Pulse 68 06/28/24 04:00 Resp 16 06/28/24 04:00 BP 115/67 06/28/24 04:00 Pulse Ox 97 06/28/24 04:00 O2 Del Method Room Air 06/28/24 04:00 O2 Flow Rate 94 05/25/24 19:13 BMI result Body Mass Index 24.4 alert confused Objective Data Active Medications Acetaminophen (Acetaminophen 325 Mg Tablet) 650 mg PO Q4H PRN PRN Reason: Pain, Mild (Pain Scale 1-3) Last Admin: 06/27/24 10:49 Dose: 650 mg Documented By: TROY Calcium Carbonate (Calcium Carbonate 750 Mg Tab.Chew) 750 mg PO Q4H PRN PRN Reason: Heartburn Donepezil HCl (Donepezil Hcl 5 Mg Tablet) 5 mg PO BEDTIME [facility] Last Admin: 06/27/24 21:08 Dose: 5 mg Documented By: TROY Enoxaparin Sodium (Enoxaparin Sodium 40 Mg/0.4 Ml Syringe) 40 mg SUBCUT Q24H [facility] Last Admin: 06/27/24 17:09 Dose: 40 mg Documented By: TROY Lisinopril (Lisinopril 5 Mg Tablet) 5 mg PO DAILY [facility]; Protocol Last Admin: 06/25/24 08:08 Dose: 5 mg Documented By: SOFFAGina Magnesium Hydroxide (Milk Of Magnesia 30 Ml Oral.Susp) 30 ml PO DAILY PRN PRN Reason: Constipation Last Admin: 06/28/24 07:24 Dose: 30 ml Documented By: COTEMA Melatonin (Melatonin 3 Mg Tablet) 6 mg PO BEDTIME PRN PRN Reason: Insomnia Last Admin: 06/26/24 20:51 Dose: 6 mg Documented By: GEOVANNY Olanzapine (Olanzapine 2.5 Mg Tablet) 2.5 mg PO BEDTIME [facility] Last Admin: 06/27/24 21:08 Dose: 2.5 mg Documented By: TROY Olanzapine (Olanzapine 2.5 Mg Tablet) 2.5 mg PO DAILY@1700 [facility] Last Admin: 06/27/24 16:32 Dose: 2.5 mg Documented By: TROY Labs 06/28/24 08:45 06/28/24 08:45 Assessment and Plan (1) 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: Status: Acute Plan 78yo M with dementia, Parkinson disease, RBBB, HTN sent from [facility] [place] [facility] [place] on Section 12 on 05/03/24 with confusion, was awaiting LTC placement in ED overflow with difficulty and so was admitted on 05/12/24 for placement 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
[2024-06-28 09:23] LABS: Hematocrit 42.6 % (42.0-52.0); Hemoglobin 14.6 g/dl (14.0-18.0); Mean Corpuscular HGB Conc 34.3 g/dl (31.0-36.0); Mean Corpuscular Hemoglobin 30.5 pg (27.0-33.0); Mean Corpuscular Volume 88.9 fL (80.0-98.0); Mean Platelet Volume 8.9 fL (9.4-12.4); Platelet Count 252 X10*3/uL (160-400); Red Blood Count 4.79 X10*6/uL (4.60-5.80); Red Cell Distribution Width 13.9 % (11.0-16.0); White Blood Count 5.3 X10*3/uL (4.8-10.8)
[2024-06-28 09:40] LABS: Anion Gap 13 (12-20); Blood Urea Nitrogen 12 mg/dL (9-16); Calcium 9.7 mg/dL (8.4-10.2); Carbon Dioxide 27 mmol/L (22-29); Chloride 106 mmol/L (96-108); Creatinine Clr Calc Pharmacy 70.9; Estimated Glomerular Filt Rate > 60; Glucose Random 104 mg/dL (60-115); Potassium 3.7 mmol/L (3.3-5.1); Sodium 142 mmol/L (135-145)
[2024-06-28 15:31] VITALS: BP 126/68; PULSE 76; RESP 18; TEMP 36.8; O2SAT 96
[2024-06-28] MEDS: Enoxaparin Sodium 40 MG/0.4 ML SYRINGE SUBCUT (16:47)
[2024-06-28] MEDS: OLANZapine 2.5 MG TABLET PO ×2 (16:47→20:35)
[2024-06-28] MEDS: Acetaminophen 325 MG TABLET 650 MG PO (16:47)
[2024-06-28 19:35] VITALS: BP 106/57; PULSE 69; RESP 18; TEMP 36.7; O2SAT 96
[2024-06-28] MEDS: Melatonin 3 MG TABLET 6 MG PO (20:34)
[2024-06-28] MEDS: Donepezil HCl 5 MG TABLET PO (20:35)
[2024-06-29 04:00] VITALS: BP 102/55; PULSE 50; RESP 16; TEMP 36; O2SAT 98
[2024-06-29 07:39] VITALS: BP 121/66; PULSE 53; RESP 16; TEMP 36.3; O2SAT 98
[2024-06-29] MEDS: Acetaminophen 325 MG TABLET 650 MG PO (10:52)
--- NOTE | 2024-06-29 10:58 | MHC.CM.PN ---
Patient continues to await LTC payor/placement. CM will continue to follow.
--- NOTE | 2024-06-29 11:45 | HO.PM.IMPN ---
Subjective Subjective Date of Service: 06/29/24 Interval History: No acute issues overnight Review of Systems Denies chest pain Denies shortness of breath Denies fever chills Denies nausea vomiting diarrhea Physical Exam Vital Signs: Vital Signs: Last Vital Signs Temp 97.4 F 06/29/24 07:39 Pulse 53 06/29/24 07:39 Resp 16 06/29/24 07:39 BP 121/66 06/29/24 07:39 Pulse Ox 98 06/29/24 07:39 O2 Del Method Room Air 06/29/24 07:39 O2 Flow Rate 94 05/25/24 19:13 BMI result Body Mass Index 24.4 Const: Other: Awake alert no acute distress Resp: Other: Clear to auscultation bilaterally no rales rhonchi or wheezes Cardio: Other: No S4; positive S1-S2; no S3 murmurs rubs or gallops GI: Other: Soft nontender nondistended normoactive bowel sounds Extrem: Other: No edema bilaterally Objective Data Active Medications Acetaminophen (Acetaminophen 325 Mg Tablet) 650 mg PO Q4H PRN PRN Reason: Pain, Mild (Pain Scale 1-3) Last Admin: 06/29/24 10:52 Dose: 650 mg Documented By: ADALID Calcium Carbonate (Calcium Carbonate 750 Mg Tab.Chew) 750 mg PO Q4H PRN PRN Reason: Heartburn Donepezil HCl (Donepezil Hcl 5 Mg Tablet) 5 mg PO BEDTIME [facility] Last Admin: 06/28/24 20:35 Dose: 5 mg Documented By: EZIO Enoxaparin Sodium (Enoxaparin Sodium 40 Mg/0.4 Ml Syringe) 40 mg SUBCUT Q24H [facility] Last Admin: 06/28/24 16:47 Dose: 40 mg Documented By: COTEMA Lisinopril (Lisinopril 5 Mg Tablet) 5 mg PO DAILY [facility]; Protocol Last Admin: 06/25/24 08:08 Dose: 5 mg Documented By: SOFFAA Magnesium Hydroxide (Milk Of Magnesia 30 Ml Oral.Susp) 30 ml PO DAILY PRN PRN Reason: Constipation Last Admin: 06/28/24 07:24 Dose: 30 ml Documented By: COTEMA Melatonin (Melatonin 3 Mg Tablet) 6 mg PO BEDTIME PRN PRN Reason: Insomnia Last Admin: 06/28/24 20:34 Dose: 6 mg Documented By: EZIO Olanzapine (Olanzapine 2.5 Mg Tablet) 2.5 mg PO BEDTIME [facility] Last Admin: 06/28/24 20:35 Dose: 2.5 mg Documented By: EZIO Olanzapine (Olanzapine 2.5 Mg Tablet) 2.5 mg PO DAILY@1700 [facility] Last Admin: 06/28/24 16:47 Dose: 2.5 mg Documented By: ADALID Labs 06/28/24 08:45 06/28/24 08:45 Assessment and Plan (1) 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: Status: Acute Plan 78yo M with dementia, Parkinson disease, RBBB, HTN sent from [facility] to [facility] ED on Section 12 on 05/03/24 with confusion, was awaiting LTC placement in ED overflow with difficulty and so was admitted on 05/12/24 for placement 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
[2024-06-29 15:31] VITALS: BP 114/65; PULSE 61; RESP 16; TEMP 36.4; O2SAT 97
[2024-06-29] MEDS: OLANZapine 2.5 MG TABLET PO ×2 (17:56→20:12)
[2024-06-29] MEDS: Enoxaparin Sodium 40 MG/0.4 ML SYRINGE SUBCUT (17:57)
[2024-06-29 19:15] VITALS: BP 99/57; PULSE 64; RESP 20; TEMP 36.8; O2SAT 97
[2024-06-29] MEDS: Melatonin 3 MG TABLET 6 MG PO (20:12)
[2024-06-29] MEDS: Donepezil HCl 5 MG TABLET PO (20:12)
[2024-06-30 04:00] VITALS: BP 135/65; PULSE 55; RESP 18; TEMP 36.7; O2SAT 98
[2024-06-30 07:33] VITALS: BP 110/60; PULSE 58; RESP 14; TEMP 36.3; O2SAT 98
[2024-06-30 15:28] VITALS: BP 127/71; PULSE 68; RESP 18; TEMP 36.4; O2SAT 98
--- NOTE | 2024-06-30 16:18 | P.PNIM_ITS ---
Subjective Subjective Date of Service: 06/30/24 Interval History: Seen and examined this morning Follow-up for placement No overnight events No specific complaints this morning Review of Systems Review of Systems: Yes all other systems are reviewed and are negative Constitutional Constitutional: Denies fever(s) Cardiovascular Cardiovascular: Denies chest pain and Denies dyspnea Respiratory Respiratory: Denies dyspnea Physical Exam 2 Vital Signs: Vital Signs: Last Vital Signs Temp 97.5 F 06/30/24 15:28 Pulse 68 06/30/24 15:28 Resp 18 06/30/24 15:28 BP 127/71 06/30/24 15:28 Pulse Ox 98 06/30/24 15:28 O2 Del Method Room Air 06/30/24 15:28 O2 Flow Rate 94 05/25/24 19:13 BMI result Body Mass Index 24.4 Const: General: cooperative, comfortable, no acute distress, alert and awake Nutritional Appearance: average body habitus Orientation/consciousness: o riented to person Resp: Effort & Inspection: normal respiratory effort, able to speak in complete sentences, no respiratory distress and no use of accessory muscles GI: Palpation (GI): Soft to palpation Neuro: General: oriented to person Extrem: Other: LUE resting tremor Psych: Other: impaired insight Objective Data Active Medications Acetaminophen (Acetaminophen 325 Mg Tablet) 650 mg PO Q4H PRN PRN Reason: Pain, Mild (Pain Scale 1-3) Last Admin: 06/29/24 10:52 Dose: 650 mg Documented By: ADALID Calcium Carbonate (Calcium Carbonate 750 Mg Tab.Chew) 750 mg PO Q4H PRN PRN Reason: Heartburn Donepezil HCl (Donepezil Hcl 5 Mg Tablet) 5 mg PO BEDTIME [facility] Last Admin: 06/29/24 20:12 Dose: 5 mg Documented By: ELMER Enoxaparin Sodium (Enoxaparin Sodium 40 Mg/0.4 Ml Syringe) 40 mg SUBCUT Q24H [facility] Last Admin: 06/29/24 17:57 Dose: 40 mg Documented By: ADALID Lisinopril (Lisinopril 5 Mg Tablet) 5 mg PO DAILY [facility]; Protocol Last Admin: 06/25/24 08:08 Dose: 5 mg Documented By: SOFFAA Magnesium Hydroxide (Milk Of Magnesia 30 Ml Oral.Susp) 30 ml PO DAILY PRN PRN Reason: Constipation Last Admin: 06/28/24 07:24 Dose: 30 ml Documented By: COTNEO Melatonin (Melatonin 3 Mg Tablet) 6 mg PO BEDTIME PRN PRN Reason: Insomnia Last Admin: 06/29/24 20:12 Dose: 6 mg Documented By: ELMER Olanzapine (Olanzapine 2.5 Mg Tablet) 2.5 mg PO BEDTIME [facility] Last Admin: 06/29/24 20:12 Dose: 2.5 mg Documented By: ELMER Olanzapine (Olanzapine 2.5 Mg Tablet) 2.5 mg PO DAILY@1700 [facility] Last Admin: 06/29/24 17:56 Dose: 2.5 mg Documented By: ADALID Labs 06/28/24 08:45 06/28/24 08:45 Assessment and Plan (1) 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: Status: Acute Plan 78yo M with dementia, Parkinson disease, RBBB, HTN sent from [facility] to [facility] ED on Section 12 on 05/03/24 with confusion, was awaiting LTC placement in ED overflow with difficulty and so was admitted on 05/12/24 for placement 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
[2024-06-30] MEDS: OLANZapine 2.5 MG TABLET PO ×2 (17:41→20:14)
[2024-06-30] MEDS: Enoxaparin Sodium 40 MG/0.4 ML SYRINGE SUBCUT (17:42)
[2024-06-30 19:58] VITALS: BP 136/71; PULSE 68; RESP 18; TEMP 36.2; O2SAT 94
[2024-06-30] MEDS: Donepezil HCl 5 MG TABLET PO (20:14)
[2024-06-30] MEDS: Melatonin 3 MG TABLET 6 MG PO (20:14)
[2024-07-01 04:00] VITALS: BP 143/68; PULSE 99; RESP 18; TEMP 37; O2SAT 98
[2024-07-01 07:50] VITALS: BP 126/72; PULSE 65; RESP 16; TEMP 36.2; O2SAT 97
--- NOTE | 2024-07-01 08:52 | MHC.CM.PN ---
Patient awaiting LTC payor/placement. CM will continue to follow.
--- NOTE | 2024-07-01 10:45 | HO.PM.IMPN ---
Subjective Subjective Date of Service: 07/01/24 Interval History: Seen and examined this morning Follow-up for placement No overnight events No specific complaints this morning Observed sitting up in chair, eating breakfast Review of Systems Review of Systems: Yes all other systems are reviewed and are negative Constitutional Constitutional: Denies chills and Denies fever(s) Cardiovascular Cardiovascular: Denies chest pain, Denies palpitations and Denies dyspnea Respiratory Respiratory: Denies dyspnea Endocrine Endocrine: Denies palpitations Physical Exam Vital Signs: Vital Signs: Last Vital Signs Temp 97.2 F 07/01/24 07:50 Pulse 65 07/01/24 07:50 Resp 16 07/01/24 07:50 BP 126/72 07/01/24 07:50 Pulse Ox 97 07/01/24 07:50 O2 Del Method Room Air 07/01/24 07:50 O2 Flow Rate 94 05/25/24 19:13 BMI result Body Mass Index 24.4 Const: General: cooperative, comfortable, no acute distress, alert and awake Nutritional Appearance: average body habitus Orientation/consciousness: oriented to person Resp: Effort & Inspection: normal respiratory effort, able to speak in complete sentences, no respiratory distress and no use of accessory muscles GI: Palpation (GI): Soft to palpation Neuro: General: oriented to person Extrem: Other: LUE resting tremor Psych: Other: impaired insight Objective Data Active Medications Acetaminophen (Acetaminophen 325 Mg Tablet) 650 mg PO Q4H PRN PRN Reason: Pain, Mild (Pain Scale 1-3) Last Admin: 06/29/24 10:52 Dose: 650 mg Documented By: COTNEO Calcium Carbonate (Calcium Carbonate 750 Mg Tab.Chew) 750 mg PO Q4H PRN PRN Reason: Heartburn Donepezil HCl (Donepezil Hcl 5 Mg Tablet) 5 mg PO BEDTIME [facility] Last Admin: 06/30/24 20:14 Dose: 5 mg Documented By: HUSSAIN Enoxaparin Sodium (Enoxaparin Sodium 40 Mg/0.4 Ml Syringe) 40 mg SUBCUT Q24H [facility] Last Admin: 06/30/24 17:42 Dose: 40 mg Documented By: JARETT Lisinopril (Lisinopril 5 Mg Tablet) 5 mg PO DAILY [facility]; Protocol Last Admin: 06/25/24 08:08 Dose: 5 mg Documented By: MICHELLE Magnesium Hydroxide (Milk Of Magnesia 30 Ml Oral.Susp) 30 ml PO DAILY PRN PRN Reason: Constipation Last Admin: 06/28/24 07:24 Dose: 30 ml Documented By: COTEMA Melatonin (Melatonin 3 Mg Tablet) 6 mg PO BEDTIME PRN PRN Reason: Insomnia Last Admin: 06/30/24 20:14 Dose: 6 mg Documented By: HUSSAIN Olanzapine (Olanzapine 2.5 Mg Tablet) 2.5 mg PO BEDTIME [facility] Last Admin: 06/30/24 20:14 Dose: 2.5 mg Documented By: HUSSAIN Olanzapine (Olanzapine 2.5 Mg Tablet) 2.5 mg PO DAILY@1700 [facility] Last Admin: 06/30/24 17:41 Dose: 2.5 mg Documented By: GRAZIC Labs 06/28/24 08:45 06/28/24 08:45 Assessment and Plan (1) 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: Status: Acute Plan 78yo M with dementia, Parkinson disease, RBBB, HTN sent from [facility] to [facility] [place] ED on Section 12 on 05/03/24 with confusion, was awaiting LTC placement in ED overflow with difficulty and so was admitted on 05/12/24 for placement 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
[2024-07-01 15:39] VITALS: BP 115/57; PULSE 78; RESP 18; TEMP 36.8; O2SAT 97
[2024-07-01] MEDS: OLANZapine 2.5 MG TABLET PO ×2 (16:21→20:57)
[2024-07-01] MEDS: Enoxaparin Sodium 40 MG/0.4 ML SYRINGE SUBCUT (17:06)
[2024-07-01 19:15] VITALS: BP 110/61; PULSE 73; RESP 20; TEMP 36.4; O2SAT 95
[2024-07-01] MEDS: Donepezil HCl 5 MG TABLET PO (20:56)
[2024-07-02 03:36] VITALS: BP 105/61; PULSE 53; RESP 16; TEMP 36.2; O2SAT 97
[2024-07-02 07:42] VITALS: BP 102/56; PULSE 67; RESP 18; TEMP 36.5; O2SAT 97
--- NOTE | 2024-07-02 12:39 | P.PNIM_ITS ---
Subjective Subjective Date of Service: 07/02/24 Interval History: Seen and examined this morning Follow-up for placement No overnight events Patient observed sitting up in chair, eating breakfast, no specific complaints Review of Systems Review of Systems: Yes all other systems are reviewed and are negative Cardiovascular Cardiovascular: Denies chest pain Physical Exam 2 Vital Signs: Vital Signs: Last Vital Signs Temp 97.7 F 07/02/24 07:42 Pulse 67 07/02/24 07:42 Resp 18 07/02/24 07:42 BP 102/56 L 07/02/24 07:42 Pulse Ox 97 07/02/24 07:42 O2 Del Method Room Air 07/02/24 07:42 O2 Flow Rate 94 05/25/24 19:13 BMI result Body Mass Index 24.4 Const: General: cooperative, comfortable, no acute distress, alert and awake Nutritional Appearance: average body habitus Orientation/consciousness: o riented to person Resp: Effort & Inspection: normal respiratory effort, able to speak in complete sentences, no respiratory distress and no use of accessory muscles GI: Palpation (GI): Soft to palpation Neuro: General: oriented to person Extrem: Other: LUE resting tremor Psych: Other: impaired insight Objective Data Active Medications Acetaminophen (Acetaminophen 325 Mg Tablet) 650 mg PO Q4H PRN PRN Reason: Pain, Mild (Pain Scale 1-3) Last Admin: 06/29/24 10:52 Dose: 650 mg Documented By: COTNEO Calcium Carbonate (Calcium Carbonate 750 Mg Tab.Chew) 750 mg PO Q4H PRN PRN Reason: Heartburn Donepezil HCl (Donepezil Hcl 5 Mg Tablet) 5 mg PO BEDTIME [facility] Last Admin: 07/01/24 20:56 Dose: 5 mg Documented By: HOWARD Enoxaparin Sodium (Enoxaparin Sodium 40 Mg/0.4 Ml Syringe) 40 mg SUBCUT Q24H [facility] Last Admin: 07/01/24 17:06 Dose: 40 mg Documented By: GRAZSANIA Lisinopril (Lisinopril 5 Mg Tablet) 5 mg PO DAILY [facility]; Protocol Last Admin: 06/25/24 08:08 Dose: 5 mg Documented By: SOFFAGina Magnesium Hydroxide (Milk Of Magnesia 30 Ml Oral.Susp) 30 ml PO DAILY PRN PRN Reason: Constipation Last Admin: 06/28/24 07:24 Dose: 30 ml Documented By: COTNEO Melatonin (Melatonin 3 Mg Tablet) 6 mg PO BEDTIME PRN PRN Reason: Insomnia Last Admin: 06/30/24 20:14 Dose: 6 mg Documented By: HUSSAIN Olanzapine (Olanzapine 2.5 Mg Tablet) 2.5 mg PO BEDTIME [facility] Last Admin: 07/01/24 20:57 Dose: 2.5 mg Documented By: HOWARD Olanzapine (Olanzapine 2.5 Mg Tablet) 2.5 mg PO DAILY@1700 [facility] Last Admin: 07/01/24 16:21 Dose: 2.5 mg Documented By: GRAZIC Labs 06/28/24 08:45 06/28/24 08:45 Assessment and Plan (1) 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: Status: Acute Plan 78yo M with dementia, Parkinson disease, RBBB, HTN sent from [facility] to [facility] [place] on Section 12 on 05/03/24 with confusion, was awaiting LTC placement in ED overflow with difficulty and so was admitted on 05/12/24 for placement 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
[2024-07-02 15:24] VITALS: BP 135/80; PULSE 89; RESP 16; TEMP 36.6; O2SAT 96
[2024-07-02] MEDS: Milk of Magnesia 30 ML ORAL.SUSP PO (15:48)
[2024-07-02] MEDS: OLANZapine 2.5 MG TABLET PO ×2 (15:48→20:36)
[2024-07-02] MEDS: Acetaminophen 325 MG TABLET 650 MG PO (15:48)
[2024-07-02] MEDS: Enoxaparin Sodium 40 MG/0.4 ML SYRINGE SUBCUT (17:20)
[2024-07-02 19:43] VITALS: BP 124/73; PULSE 67; RESP 18; TEMP 36.9; O2SAT 98
[2024-07-02] MEDS: Donepezil HCl 5 MG TABLET PO (20:36)
[2024-07-03 03:16] VITALS: BP 109/69; PULSE 64; RESP 18; TEMP 36.3; O2SAT 96
[2024-07-03 07:41] VITALS: BP 113/55; PULSE 66; RESP 14; TEMP 36.2; O2SAT 97
--- NOTE | 2024-07-03 12:22 | HO.PM.IMPN ---
Subjective Subjective Date of Service: 07/03/24 Interval History: seen and examined this morning follow up for placement no overnight events awake alert, resting in bed this am Review of Systems Review of Systems: Yes all other systems are reviewed and are negative Cardiovascular Cardiovascular: Denies chest pain and Denies dyspnea Respiratory Respiratory: Denies dyspnea Gastrointestinal Gastrointestinal: Denies abdominal pain Physical Exam Vital Signs: Vital Signs: Last Vital Signs Temp 97.2 F 07/03/24 07:41 Pulse 66 07/03/24 07:41 Resp 14 07/03/24 07:41 BP 113/55 L 07/03/24 07:41 Pulse Ox 97 07/03/24 07:41 O2 Del Method Room Air 07/03/24 07:41 O2 Flow Rate 94 05/25/24 19:13 BMI result Body Mass Index 24.4 Const: General: cooperative, comfortable, no acute distress, alert and awake Nutritional Appearance: average body habitus Orientation/consciousness: oriented to person Resp: Effort & Inspection: normal respiratory effort, able to speak in complete sentences, no respiratory distress and no use of accessory muscles GI: Palpation (GI): Soft to palpation Neuro: General: oriented to person Extrem: Other: LUE resting tremor Psych: Other: impaired insight Objective Data Active Medications Acetaminophen (Acetaminophen 325 Mg Tablet) 650 mg PO Q4H PRN PRN Reason: Pain, Mild (Pain Scale 1-3) Last Admin: 07/02/24 15:48 Dose: 650 mg Documented By: ADALID Calcium Carbonate (Calcium Carbonate 750 Mg Tab.Chew) 750 mg PO Q4H PRN PRN Reason: Heartburn Docusate Sodium (Docusate Sodium 100 Mg Capsule) 100 mg PO BEDTIME [facility] Donepezil HCl (Donepezil Hcl 5 Mg Tablet) 5 mg PO BEDTIME [facility] Last Admin: 07/02/24 20:36 Dose: 5 mg Documented By: HEENEL Enoxaparin Sodium (Enoxaparin Sodium 40 Mg/0.4 Ml Syringe) 40 mg SUBCUT Q24H [facility] Last Admin: 07/02/24 17:20 Dose: 40 mg Documented By: ADALID Lisinopril (Lisinopril 5 Mg Tablet) 5 mg PO DAILY [facility]; Protocol Last Admin: 06/25/24 08:08 Dose: 5 mg Documented By: SOFFAA Magnesium Hydroxide (Milk Of Magnesia 30 Ml Oral.Susp) 30 ml PO DAILY PRN PRN Reason: Constipation Last Admin: 07/02/24 15:48 Dose: 30 ml Documented By: ADALID Melatonin (Melatonin 3 Mg Tablet) 6 mg PO BEDTIME PRN PRN Reason: Insomnia Last Admin: 06/30/24 20:14 Dose: 6 mg Documented By: HUSSAIN Olanzapine (Olanzapine 2.5 Mg Tablet) 2.5 mg PO BEDTIME [facility] Last Admin: 07/02/24 20:36 Dose: 2.5 mg Documented By: CHRISTELLE Olanzapine (Olanzapine 2.5 Mg Tablet) 2.5 mg PO DAILY@1700 [facility] Last Admin: 07/02/24 15:48 Dose: 2.5 mg Documented By: ADALID Labs 06/28/24 08:45 06/28/24 08:45 Assessment and Plan (1) 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: Status: Acute Plan 78yo M with dementia, Parkinson disease, RBBB, HTN sent from [facility] to [facility] ED on Section 12 on 05/03/24 with confusion, was awaiting LTC placement in ED overflow with difficulty and so was admitted on 05/12/24 for placement 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
[2024-07-03 16:02] VITALS: BP 129/72; PULSE 91; RESP 18; TEMP 36.1; O2SAT 98
[2024-07-03] MEDS: Enoxaparin Sodium 40 MG/0.4 ML SYRINGE SUBCUT (16:25)
[2024-07-03] MEDS: OLANZapine 2.5 MG TABLET PO ×2 (16:25→20:49)
[2024-07-03] MEDS: Acetaminophen 325 MG TABLET 650 MG PO (16:25)
[2024-07-03] MEDS: Milk of Magnesia 30 ML ORAL.SUSP PO (17:51)
[2024-07-03] MEDS: bisacodyL 10 MG SUPP.RECT PR (18:10)
[2024-07-03 20:00] VITALS: BP 124/65; PULSE 72; RESP 12; TEMP 36.1; O2SAT 97
[2024-07-03] MEDS: Donepezil HCl 5 MG TABLET PO (20:49)
[2024-07-03] MEDS: Docusate Sodium 100 MG CAPSULE PO (20:49)
--- NOTE | 2024-07-03 22:52 | PC.NURSE ---
Patient complaint of not being able to have BM. patient medicated per MAR. Still unable to have bm, pt given supp, small hard bm. pt resting comfortably now.
[2024-07-04 02:22] VITALS: BP 159/84; PULSE 75; RESP 16; TEMP 36.6; O2SAT 98
[2024-07-04 06:06] LABS: Hematocrit 39.7 % (42.0-52.0); Hemoglobin 13.6 g/dl (14.0-18.0); Mean Corpuscular HGB Conc 34.3 g/dl (31.0-36.0); Mean Corpuscular Hemoglobin 30.3 pg (27.0-33.0); Mean Corpuscular Volume 88.4 fL (80.0-98.0); Mean Platelet Volume 9.1 fL (9.4-12.4); Platelet Count 225 X10*3/uL (160-400); Red Blood Count 4.49 X10*6/uL (4.60-5.80); Red Cell Distribution Width 13.9 % (11.0-16.0)
[2024-07-04 06:21] LABS: Anion Gap 15 (12-20); Blood Urea Nitrogen 15 mg/dL (9-16); Calcium 9.3 mg/dL (8.4-10.2); Carbon Dioxide 25 mmol/L (22-29); Chloride 105 mmol/L (96-108); Creatinine Clr Calc Pharmacy 75.5; Estimated Glomerular Filt Rate > 60; Glucose Random 101 mg/dL (60-115); Potassium 3.7 mmol/L (3.3-5.1); Sodium 141 mmol/L (135-145)
[2024-07-04 06:57] VITALS: BP 142/70; PULSE 78; RESP 16; TEMP 36.6; O2SAT 98
--- NOTE | 2024-07-04 08:09 | HO.PM.IMPN ---
Subjective Subjective Date of Service: 07/04/24 Interval History: seen and examined this morning follow up for placement no overnight events awake alert, resting in chair this am, no complaints Review of Systems Review of Systems: Yes all other systems are reviewed and are negative Cardiovascular Cardiovascular: Denies chest pain and Denies dyspnea Respiratory Respiratory: Denies dyspnea Gastrointestinal Gastrointestinal: Denies abdominal pain Physical Exam Vital Signs: Vital Signs: Last Vital Signs Temp 98 F 07/04/24 06:57 Pulse 78 07/04/24 06:57 Resp 16 07/04/24 06:57 BP 142/70 H 07/04/24 06:57 Pulse Ox 98 07/04/24 06:57 O2 Del Method Room Air 07/04/24 06:57 O2 Flow Rate 94 05/25/24 19:13 BMI result Body Mass Index 24.4 Constitutional - Awake and Alert, No apparent distress Eyes - PERRLA, EOMI Cardiovascular - S1S2, RRR, No edema Respiratory - Normal lung expansion, Normal respiratory effort, No respiratory distress, CTA bilaterally Gastrointestinal - NT / ND; +BS; No rebound or guarding Extremities - no calf tenderness bilaterally, no swelling Skin - Warm/Dry Neurological - Alert & oriented to self pleasantly confused talking about going to [place] Psychological - Appropriate affect Objective Data Active Medications Acetaminophen (Acetaminophen 325 Mg Tablet) 650 mg PO Q4H PRN PRN Reason: Pain, Mild (Pain Scale 1-3) Last Admin: 07/03/24 16:25 Dose: 650 mg Documented By: COTEMA Calcium Carbonate (Calcium Carbonate 750 Mg Tab.Chew) 750 mg PO Q4H PRN PRN Reason: Heartburn Docusate Sodium (Docusate Sodium 100 Mg Capsule) 100 mg PO BEDTIME [facility] Last Admin: 07/03/24 20:49 Dose: 100 mg Documented By: COTEMA Donepezil HCl (Donepezil Hcl 5 Mg Tablet) 5 mg PO BEDTIME [facility] Last Admin: 07/03/24 20:49 Dose: 5 mg Documented By: COTEMA Enoxaparin Sodium (Enoxaparin Sodium 40 Mg/0.4 Ml Syringe) 40 mg SUBCUT Q24H [facility] Last Admin: 07/03/24 16:25 Dose: 40 mg Documented By: COTEMA Lisinopril (Lisinopril 5 Mg Tablet) 5 mg PO DAILY [facility]; Protocol Last Admin: 06/25/24 08:08 Dose: 5 mg Documented By: MICHELLE Magnesium Hydroxide (Milk Of Magnesia 30 Ml Oral.Susp) 30 ml PO DAILY PRN PRN Reason: Constipation Last Admin: 07/03/24 17:51 Dose: 30 ml Documented By: ADALID Melatonin (Melatonin 3 Mg Tablet) 6 mg PO BEDTIME PRN PRN Reason: Insomnia Last Admin: 06/30/24 20:14 Dose: 6 mg Documented By: HUSSAIN Olanzapine (Olanzapine 2.5 Mg Tablet) 2.5 mg PO BEDTIME [facility] Last Admin: 07/03/24 20:49 Dose: 2.5 mg Documented By: ADALID Olanzapine (Olanzapine 2.5 Mg Tablet) 2.5 mg PO DAILY@1700 [facility] Last Admin: 07/03/24 16:25 Dose: 2.5 mg Documented By: ADALID Labs 07/04/24 05:18 07/04/24 05:19 Labs: Laboratory Results - last 24 hr 07/04/24 07/04/24 05:18 05:19 MCV 88.4 MCH 30.3 MCHC 34.3 RDW 13.9 Plt Count 225 MPV 9.1 L Absolute Nucleated RBC 0.000 Nucleated RBC % (auto) 0.0 Anion Gap 15 Estim Creat Clear Calc 75.5 Estimated GFR > 60 Random Glucose 101 Calcium 9.3 Assessment and Plan (1) 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 Recheck 07/05 VTE ppx - LMWH OOB to chair daily, check labs weekly need for inpt: Placement Daily ambulation with staff Quality Stroke Does the patient have a stroke diagnosis?: No VTE Prior VTE?: No VTE Risk Level:: Medical - moderate - high VTE Device Contraindication: Treatment Not Indicated VTE Drug Contraindication: N/A - Med Ordered
--- NOTE | 2024-07-04 14:01 | MHC.CM.PN ---
Patient awaiting LTC payor/placement. CM will continue to follow.
[2024-07-04 15:40] VITALS: BP 134/78; PULSE 67; RESP 18; TEMP 36.3; O2SAT 98
[2024-07-04] MEDS: Enoxaparin Sodium 40 MG/0.4 ML SYRINGE SUBCUT (17:07)
[2024-07-04] MEDS: OLANZapine 2.5 MG TABLET PO ×2 (17:07→22:20)
[2024-07-04 19:24] VITALS: BP 123/64; PULSE 84; RESP 18; TEMP 36.4; O2SAT 97
[2024-07-04] MEDS: Donepezil HCl 5 MG TABLET PO (22:20)
[2024-07-04] MEDS: Docusate Sodium 100 MG CAPSULE PO (22:20)
[2024-07-04 23:28] VITALS: BP 145/76; PULSE 59; RESP 16; TEMP 36.1; O2SAT 98
--- NOTE | 2024-07-05 07:10 | HO.PM.IMPN ---
Subjective Subjective Date of Service: 07/05/24 Interval History: seen and examined this morning follow up for placement no overnight events awake alert, resting in chair this am, no complaints Review of Systems Review of Systems: Yes all other systems are reviewed and are negative Cardiovascular Cardiovascular: Denies chest pain and Denies dyspnea Respiratory Respiratory: Denies dyspnea Gastrointestinal Gastrointestinal: Denies abdominal pain Physical Exam Vital Signs: Vital Signs: Last Vital Signs Temp 97 F 07/04/24 23:28 Pulse 59 07/04/24 23:28 Resp 16 07/04/24 23:28 BP 145/76 H 07/04/24 23:28 Pulse Ox 98 07/04/24 23:28 O2 Del Method Room Air 07/04/24 23:28 O2 Flow Rate 94 05/25/24 19:13 BMI result Body Mass Index 24.4 Constitutional - Awake and Alert, No apparent distress Eyes - PERRLA, EOMI Cardiovascular - S1S2, RRR, No edema Respiratory - Normal lung expansion, Normal respiratory effort, No respiratory distress, CTA bilaterally Gastrointestinal - NT / ND; +BS; No rebound or guarding Extremities - no calf tenderness bilaterally, no swelling Skin - Warm/Dry Neurological - Alert & oriented to self pleasantly confused talking about going to [place] Psychological - Appropriate affect Objective Data Active Medications Acetaminophen (Acetaminophen 325 Mg Tablet) 650 mg PO Q4H PRN PRN Reason: Pain, Mild (Pain Scale 1-3) Last Admin: 07/03/24 16:25 Dose: 650 mg Documented By: COTNEO Calcium Carbonate (Calcium Carbonate 750 Mg Tab.Chew) 750 mg PO Q4H PRN PRN Reason: Heartburn Docusate Sodium (Docusate Sodium 100 Mg Capsule) 100 mg PO BEDTIME [facility] Last Admin: 07/04/24 22:20 Dose: 100 mg Documented By: ELMER Donepezil HCl (Donepezil Hcl 5 Mg Tablet) 5 mg PO BEDTIME [facility] Last Admin: 07/04/24 22:20 Dose: 5 mg Documented By: ELEMR Enoxaparin Sodium (Enoxaparin Sodium 40 Mg/0.4 Ml Syringe) 40 mg SUBCUT Q24H [facility] Last Admin: 07/04/24 17:07 Dose: 40 mg Documented By: BOOM Lisinopril (Lisinopril 5 Mg Tablet) 5 mg PO DAILY [facility]; Protocol Last Admin: 06/25/24 08:08 Dose: 5 mg Documented By: MICHELLE Magnesium Hydroxide (Milk Of Magnesia 30 Ml Oral.Susp) 30 ml PO DAILY PRN PRN Reason: Constipation Last Admin: 07/03/24 17:51 Dose: 30 ml Documented By: COTEMA Melatonin (Melatonin 3 Mg Tablet) 6 mg PO BEDTIME PRN PRN Reason: Insomnia Last Admin: 06/30/24 20:14 Dose: 6 mg Documented By: VENARACELI Olanzapine (Olanzapine 2.5 Mg Tablet) 2.5 mg PO BEDTIME [facility] Last Admin: 07/04/24 22:20 Dose: 2.5 mg Documented By: NATAL Olanzapine (Olanzapine 2.5 Mg Tablet) 2.5 mg PO DAILY@1700 [facility] Last Admin: 07/04/24 17:07 Dose: 2.5 mg Documented By: BOOM Labs 07/04/24 05:18 07/05/24 07:44 Assessment and Plan (1) 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: Status: Acute Plan 78yo M with dementia, Parkinson disease, RBBB, HTN [place] [facility] [place] [facility] [place] 12 on 05/03/24 with confusion, was awaiting LTC placement in ED overflow with difficulty and so was admitted on 05/12/24 for placement 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 Add remeron 7.5mg nightly, increase as needed continue olanzapine and donepezil HCP invoked ex- Meka Bunn [phone] labs 07/05 WNL HTN controlled on Lisinopril stable electrolytes on 07/05 VTE ppx - LMWH OOB to chair daily, check labs weekly need for inpt: Placement Daily ambulation with staff Quality Stroke Does the patient have a stroke diagnosis?: No VTE Prior VTE?: No VTE Risk Level:: Medical - moderate - high VTE Device Contraindication: Treatment Not Indicated VTE Drug Contraindication: N/A - Med Ordered
[2024-07-05 07:58] VITALS: BP 109/59; PULSE 54; RESP 18; TEMP 36.4; O2SAT 98
[2024-07-05 08:34] LABS: Anion Gap 12 (12-20); Blood Urea Nitrogen 12 mg/dL (9-16); Calcium 9.3 mg/dL (8.4-10.2); Carbon Dioxide 28 mmol/L (22-29); Chloride 105 mmol/L (96-108); Creatinine Clr Calc Pharmacy 77.5; Estimated Glomerular Filt Rate > 60; Glucose Random 100 mg/dL (60-115); Potassium 3.5 mmol/L (3.3-5.1); Sodium 141 mmol/L (135-145)
--- NOTE | 2024-07-05 13:00 | MHC.CM.PN ---
CM CALLED CONSERVATOR LUCY AT ([phone]) TO INQUIRE ABOUT STATUS OF FINANCIALS FOR [facility] AND SENSE OF URGENCY TO HAVE THIS COMPLETED SO LTC PLACEMENT CAN HAPPEN. AWAITING RETURN CALL.
[2024-07-05 16:00] VITALS: BP 143/74; PULSE 68; RESP 18; TEMP 36.4; O2SAT 99
[2024-07-05] MEDS: OLANZapine 2.5 MG TABLET PO ×2 (16:54→20:46)
[2024-07-05] MEDS: Enoxaparin Sodium 40 MG/0.4 ML SYRINGE SUBCUT (16:54)
[2024-07-05 19:17] VITALS: BP 119/57; PULSE 71; RESP 18; TEMP 36.4; O2SAT 98
[2024-07-05] MEDS: Mirtazapine 7.5 MG TABLET PO (20:46)
[2024-07-05] MEDS: Docusate Sodium 100 MG CAPSULE PO (20:46)
[2024-07-05] MEDS: Donepezil HCl 5 MG TABLET PO (20:46)
[2024-07-05] MEDS: Melatonin 3 MG TABLET 6 MG PO (20:46)
[2024-07-06 03:01] VITALS: BP 109/55; PULSE 55; RESP 17; TEMP 36.3; O2SAT 96
--- NOTE | 2024-07-06 07:37 | HO.PM.IMPN ---
Subjective Subjective Date of Service: 07/06/24 Physical Exam Vital Signs: Vital Signs: Last Vital Signs Temp 97.3 F 07/06/24 03:01 Pulse 55 07/06/24 03:01 Resp 17 07/06/24 03:01 BP 109/55 L 07/06/24 03:01 Pulse Ox 96 07/06/24 03:01 O2 Del Method Room Air 07/06/24 03:01 O2 Flow Rate 94 05/25/24 19:13 BMI result Body Mass Index 24.4 Objective Data Active Medications Acetaminophen (Acetaminophen 325 Mg Tablet) 650 mg PO Q4H PRN PRN Reason: Pain, Mild (Pain Scale 1-3) Last Admin: 07/03/24 16:25 Dose: 650 mg Documented By: ADALID Calcium Carbonate (Calcium Carbonate 750 Mg Tab.Chew) 750 mg PO Q4H PRN PRN Reason: Heartburn Docusate Sodium (Docusate Sodium 100 Mg Capsule) 100 mg PO BEDTIME [facility] Last Admin: 07/05/24 20:46 Dose: 100 mg Documented By: EZIO Donepezil HCl (Donepezil Hcl 5 Mg Tablet) 5 mg PO BEDTIME [facility] Last Admin: 07/05/24 20:46 Dose: 5 mg Documented By: EZIO Enoxaparin Sodium (Enoxaparin Sodium 40 Mg/0.4 Ml Syringe) 40 mg SUBCUT Q24H [facility] Last Admin: 07/05/24 16:54 Dose: 40 mg Documented By: FISH Lisinopril (Lisinopril 5 Mg Tablet) 5 mg PO DAILY [facility]; Protocol Last Admin: 06/25/24 08:08 Dose: 5 mg Documented By: MICHELLE Magnesium Hydroxide (Milk Of Magnesia 30 Ml Oral.Susp) 30 ml PO DAILY PRN PRN Reason: Constipation Last Admin: 07/03/24 17:51 Dose: 30 ml Documented By: ADALID Melatonin (Melatonin 3 Mg Tablet) 6 mg PO BEDTIME PRN PRN Reason: Insomnia Last Admin: 07/05/24 20:46 Dose: 6 mg Documented By: EZIO Mirtazapine (Mirtazapine 7.5 Mg Tablet) 7.5 mg PO BEDTIME [facility] Last Admin: 07/05/24 20:46 Dose: 7.5 mg Documented By: EZIO Olanzapine (Olanzapine 2.5 Mg Tablet) 2.5 mg PO BEDTIME [facility] Last Admin: 07/05/24 20:46 Dose: 2.5 mg Documented By: EZIO Olanzapine (Olanzapine 2.5 Mg Tablet) 2.5 mg PO DAILY@1700 [facility] Last Admin: 07/05/24 16:54 Dose: 2.5 mg Documented By: FISH Labs 07/04/24 05:18 07/05/24 07:44 Labs: Laboratory Results - last 24 hr 07/05/24 07:44 Anion Gap 12 Estim Creat Clear Calc 77.5 Estimated GFR > 60 Random Glucose 100 Calcium 9.3 Assessment and Plan (1) 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 remeron 7.5mg added nightly 07/05, increase as needed continue olanzapine and donepezil HCP invoked ex- Meka Bunn [phone] labs 07/05 WNL HTN controlled on Lisinopril stable electrolytes on 07/05 VTE ppx - LMWH OOB to chair daily, check labs weekly need for inpt: Placement Daily ambulation with staff Quality Stroke Does the patient have a stroke diagnosis?: No VTE Prior VTE?: No VTE Risk Level:: Medical - moderate - high VTE Device Contraindication: Treatment Not Indicated VTE Drug Contraindication: N/A - Med Ordered
[2024-07-06 08:00] VITALS: BP 133/72; PULSE 55; O2SAT 99
--- NOTE | 2024-07-06 08:30 | PC.NURSE ---
Pt with poor appetite, Provider notified. Question progression of neurological decline with disease process and loss of appetite. Provider to reach out to Conservator.
--- NOTE | 2024-07-06 13:02 | MHC.CM.PN ---
Patient awaiting LTC payor/placement. CM will continue to follow.
[2024-07-06 15:15] VITALS: BP 110/68; PULSE 63; RESP 18; TEMP 36.5; O2SAT 98
[2024-07-06] MEDS: OLANZapine 2.5 MG TABLET PO ×2 (16:54→20:52)
[2024-07-06] MEDS: Enoxaparin Sodium 40 MG/0.4 ML SYRINGE SUBCUT (16:54)
[2024-07-06 20:00] VITALS: BP 147/67; PULSE 70; RESP 14; TEMP 36.2; O2SAT 98
[2024-07-06] MEDS: Donepezil HCl 5 MG TABLET PO (20:52)
[2024-07-06] MEDS: Melatonin 3 MG TABLET 6 MG PO (20:52)
[2024-07-06] MEDS: Docusate Sodium 100 MG CAPSULE PO (20:52)
[2024-07-06] MEDS: Mirtazapine 7.5 MG TABLET PO (20:52)
[2024-07-07 03:58] VITALS: BP 150/71; PULSE 64; RESP 16; TEMP 36.2; O2SAT 97
[2024-07-07 08:00] VITALS: BP 133/69; PULSE 78; RESP 17; TEMP 36.2; O2SAT 98
--- NOTE | 2024-07-07 13:13 | MHC.CM.PN ---
Addendum entered by Lana Morris 07/07/24 15:48: [employer] [employer] RETURNED THIS CM CALL. PT HAS BEEN FOUND TO HAVE $28,000.00 IN PP FUNDS, WILL NEED TO SPEND DOWN BEFORE MH WILL APPROVE. REFERRALS EXPANDED IN [facility] AND CALLS PLACED TO 2 LOCAL FACILITIES TO DISCUSS POSSIBLE PLACEMENT. [facility] WILL LOOK AT BED MANAGEMENT 07/08 AND GET BACK TO US AND WAIT[facility]. Original Note: THIS CM PLACED ANOTHER CALL TO [employer] WITH REQUEST FOR UPDATE ON FINANCIALS/[facility]. MESSAGE LEFT, AWAITING RETURN CALL.
[2024-07-07 15:40] VITALS: BP 126/85; PULSE 71; RESP 18; TEMP 36.6; O2SAT 100
--- NOTE | 2024-07-07 16:42 | P.PNIM_ITS ---
Subjective Subjective Date of Service: 07/07/24 Interval History: seen and examined this morning follow up for placement no overnight events feeling well this am Review of Systems Review of Systems: Yes all other systems are reviewed and are negative Constitutional Constitutional: Denies chills and Denies fever(s) Cardiovascular Cardiovascular: Denies chest pain Physical Exam 2 Vital Signs: Vital Signs: Last Vital Signs Temp 97.9 F 07/07/24 15:40 Pulse 71 07/07/24 15:40 Resp 18 07/07/24 15:40 BP 126/85 07/07/24 15:40 Pulse Ox 100 07/07/24 15:40 O2 Del Method Room Air 07/07/24 15:40 O2 Flow Rate 94 05/25/24 19:13 BMI result Body Mass Index 24.4 Const: General: cooperative, comfortable, no acute distress, alert and awake Nutritional Appearance: average body habitus Orientation/consciousness: o riented to person Resp: Effort & Inspection: normal respiratory effort, able to speak in complete sentences, no respiratory distress and no use of accessory muscles GI: Palpation (GI): Soft to palpation Neuro: General: oriented to person Extrem: Other: LUE resting tremor Psych: Other: impaired insight Objective Data Active Medications Acetaminophen (Acetaminophen 325 Mg Tablet) 650 mg PO Q4H PRN PRN Reason: Pain, Mild (Pain Scale 1-3) Last Admin: 07/03/24 16:25 Dose: 650 mg Documented By: COTNEO Calcium Carbonate (Calcium Carbonate 750 Mg Tab.Chew) 750 mg PO Q4H PRN PRN Reason: Heartburn Docusate Sodium (Docusate Sodium 100 Mg Capsule) 100 mg PO BEDTIME [facility] Last Admin: 07/06/24 20:52 Dose: 100 mg Documented By: MAYITO Donepezil HCl (Donepezil Hcl 5 Mg Tablet) 5 mg PO BEDTIME [facility] Last Admin: 07/06/24 20:52 Dose: 5 mg Documented By: MAYITO Enoxaparin Sodium (Enoxaparin Sodium 40 Mg/0.4 Ml Syringe) 40 mg SUBCUT Q24H [facility] Last Admin: 07/06/24 16:54 Dose: 40 mg Documented By: FISH Lisinopril (Lisinopril 5 Mg Tablet) 5 mg PO DAILY [facility]; Protocol Last Admin: 06/25/24 08:08 Dose: 5 mg Documented By: MICHELLE Magnesium Hydroxide (Milk Of Magnesia 30 Ml Oral.Susp) 30 ml PO DAILY PRN PRN Reason: Constipation Last Admin: 07/03/24 17:51 Dose: 30 ml Documented By: COTEMA Melatonin (Melatonin 3 Mg Tablet) 6 mg PO BEDTIME PRN PRN Reason: Insomnia Last Admin: 07/06/24 20:52 Dose: 6 mg Documented By: MAYITO Mirtazapine (Mirtazapine 7.5 Mg Tablet) 7.5 mg PO BEDTIME [facility] Last Admin: 07/06/24 20:52 Dose: 7.5 mg Documented By: MAYITO Olanzapine (Olanzapine 2.5 Mg Tablet) 2.5 mg PO BEDTIME [facility] Last Admin: 07/06/24 20:52 Dose: 2.5 mg Documented By: MAYITO Olanzapine (Olanzapine 2.5 Mg Tablet) 2.5 mg PO DAILY@1700 [facility] Last Admin: 07/06/24 16:54 Dose: 2.5 mg Documented By: BRANDINLM Labs 07/04/24 05:18 07/05/24 07:44 Assessment and Plan (1) 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: Status: Acute Plan 78yo M with dementia, Parkinson disease, RBBB, HTN sent from [facility] to [facility] ED on Section 12 on 05/03/24 with confusion, was awaiting LTC placement in ED overflow with difficulty and so was admitted on 05/12/24 for placement 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 remeron 7.5mg added nightly 07/05, increase as needed continue olanzapine and donepezil HCP invoked ex- Meka Bunn [phone] labs 07/05 WNL HTN controlled on Lisinopril stable electrolytes on 07/05 VTE ppx - LMWH OOB to chair daily, check labs weekly need for inpt: Placement Daily ambulation with staff Quality Stroke Does the patient have a stroke diagnosis?: No VTE Prior VTE?: No VTE Risk Level:: Medical - moderate - high VTE Device Contraindication: Treatment Not Indicated VTE Drug Contraindication: N/A - Med Ordered
[2024-07-07] MEDS: Enoxaparin Sodium 40 MG/0.4 ML SYRINGE SUBCUT (17:11)
[2024-07-07] MEDS: OLANZapine 2.5 MG TABLET PO ×2 (17:12→18:55)
[2024-07-07] MEDS: Donepezil HCl 5 MG TABLET PO (18:55)
[2024-07-07] MEDS: Docusate Sodium 100 MG CAPSULE PO (18:55)
[2024-07-07] MEDS: Mirtazapine 7.5 MG TABLET PO (18:55)
[2024-07-07 19:46] VITALS: BP 141/70; PULSE 63; RESP 16; TEMP 36.4; O2SAT 98
[2024-07-08 04:00] VITALS: BP 153/69; PULSE 58; RESP 16; TEMP 36.1; O2SAT 99
[2024-07-08 08:00] VITALS: BP 123/80; PULSE 88; RESP 16; TEMP 36.4; O2SAT 96
[2024-07-08] MEDS: Milk of Magnesia 30 ML ORAL.SUSP PO (09:10)
[2024-07-08] MEDS: Acetaminophen 325 MG TABLET 650 MG PO (10:25)
--- NOTE | 2024-07-08 10:36 | MHC.CM.PN ---
Addendum entered by Nani Costa RN 07/08/24 11:29: [facility] reviewing and requested bank statements/medicaid will. AGUSTO DEXTER w/ the request for conservator Karin @ [phone]. Original Note: Patient awaiting LTC placement. No bed offers at this time. Rrivate funds available. Referral expanded. CM will continue to follow.
[2024-07-08 15:34] VITALS: BP 111/61; PULSE 67; RESP 16; TEMP 36.3; O2SAT 96
--- NOTE | 2024-07-08 16:13 | P.PNIM_ITS ---
Subjective Subjective Date of Service: 07/08/24 Interval History: seen and examined this morning follow up for placement no overnight events no specific complaints this morning Review of Systems Review of Systems: Yes all other systems are reviewed and are negative Constitutional Constitutional: Denies chills and Denies fever(s) Cardiovascular Cardiovascular: Denies chest pain and Denies dyspnea Respiratory Respiratory: Denies dyspnea Physical Exam 2 Vital Signs: Vital Signs: Last Vital Signs Temp 97.4 F 07/08/24 15:34 Pulse 67 07/08/24 15:34 Resp 16 07/08/24 15:34 BP 111/61 07/08/24 15:34 Pulse Ox 96 07/08/24 15:34 O2 Del Method Room Air 07/08/24 15:34 O2 Flow Rate 94 05/25/24 19:13 BMI result Body Mass Index 24.4 Const: General: cooperative, comfortable, no acute distress, alert and awake Nutritional Appearance: average body habitus Orientation/consciousness: o riented to person Resp: Effort & Inspection: normal respiratory effort, able to speak in complete sentences, no respiratory distress and no use of accessory muscles GI: Palpation (GI): Soft to palpation Neuro: General: oriented to person Extrem: Other: LUE resting tremor Psych: Other: impaired insight Objective Data Active Medications Acetaminophen (Acetaminophen 325 Mg Tablet) 650 mg PO Q4H PRN PRN Reason: Pain, Mild (Pain Scale 1-3) Last Admin: 07/08/24 10:25 Dose: 650 mg Documented By: COTNEO Calcium Carbonate (Calcium Carbonate 750 Mg Tab.Chew) 750 mg PO Q4H PRN PRN Reason: Heartburn Docusate Sodium (Docusate Sodium 100 Mg Capsule) 100 mg PO BEDTIME [facility] Last Admin: 07/07/24 18:55 Dose: 100 mg Documented By: HUSSAIN Donepezil HCl (Donepezil Hcl 5 Mg Tablet) 5 mg PO BEDTIME [facility] Last Admin: 07/07/24 18:55 Dose: 5 mg Documented By: HUSSAIN Enoxaparin Sodium (Enoxaparin Sodium 40 Mg/0.4 Ml Syringe) 40 mg SUBCUT Q24H [facility] Last Admin: 07/07/24 17:11 Dose: 40 mg Documented By: TESSY Lisinopril (Lisinopril 5 Mg Tablet) 5 mg PO DAILY [facility]; Protocol Last Admin: 06/25/24 08:08 Dose: 5 mg Documented By: MICHELLE Magnesium Hydroxide (Milk Of Magnesia 30 Ml Oral.Susp) 30 ml PO DAILY PRN PRN Reason: Constipation Last Admin: 07/08/24 09:10 Dose: 30 ml Documented By: ADALID Melatonin (Melatonin 3 Mg Tablet) 6 mg PO BEDTIME PRN PRN Reason: Insomnia Last Admin: 07/06/24 20:52 Dose: 6 mg Documented By: MAYITO Mirtazapine (Mirtazapine 7.5 Mg Tablet) 7.5 mg PO BEDTIME [facility] Last Admin: 07/07/24 18:55 Dose: 7.5 mg Documented By: HUSSAIN Olanzapine (Olanzapine 2.5 Mg Tablet) 2.5 mg PO BEDTIME [facility] Last Admin: 07/07/24 18:55 Dose: 2.5 mg Documented By: HUSSAIN Olanzapine (Olanzapine 2.5 Mg Tablet) 2.5 mg PO DAILY@1700 [facility] Last Admin: 07/07/24 17:12 Dose: 2.5 mg Documented By: MARCINM Polyethylene Glycol (Polyethylene Glycol 3350 17 Gm Powd.Pack) 17 gm PO DAILY [facility] Last Admin: 07/08/24 13:08 Dose: Not Given Documented By: ADALID Non-Admin Reason: pt had bm Labs 07/04/24 05:18 07/05/24 07:44 Assessment and Plan (1) 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: Status: Acute Plan 78yo M with dementia, Parkinson disease, RBBB, HTN sent from [facility] to [facility] ED on Section 12 on 05/03/24 with confusion, was awaiting LTC placement in ED overflow with difficulty and so was admitted on 05/12/24 for placement 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 remeron 7.5mg added nightly 07/05, increase as needed continue olanzapine and donepezil HCP invoked ex- Meka Bunn [phone] labs 07/05 WNL HTN controlled on Lisinopril stable electrolytes on 07/05 VTE ppx - LMWH OOB to chair daily, check labs weekly need for inpt: Placement Daily ambulation with staff Quality Stroke Does the patient have a stroke diagnosis?: No VTE Prior VTE?: No VTE Risk Level:: Medical - moderate - high VTE Device Contraindication: Treatment Not Indicated VTE Drug Contraindication: N/A - Med Ordered
[2024-07-08] MEDS: Enoxaparin Sodium 40 MG/0.4 ML SYRINGE SUBCUT (17:03)
[2024-07-08] MEDS: OLANZapine 2.5 MG TABLET PO ×2 (17:03→19:55)
[2024-07-08 19:15] VITALS: BP 120/68; PULSE 70; RESP 18; TEMP 36.2; O2SAT 96
[2024-07-08] MEDS: Mirtazapine 7.5 MG TABLET PO (19:55)
[2024-07-08] MEDS: Docusate Sodium 100 MG CAPSULE PO (19:55)
[2024-07-08] MEDS: Donepezil HCl 5 MG TABLET PO (19:55)
[2024-07-08] MEDS: Melatonin 3 MG TABLET 6 MG PO (22:15)
[2024-07-09 03:35] VITALS: BP 123/60; PULSE 54; RESP 18; TEMP 36.3; O2SAT 99
[2024-07-09] MEDS: polyethylene glycoL 3350 17 GM POWD.PACK PO (07:50)
[2024-07-09 08:00] VITALS: BP 123/61; PULSE 60; RESP 12; TEMP 36.4; O2SAT 93
--- NOTE | 2024-07-09 09:43 | HO.PM.IMPN ---
Subjective Subjective Date of Service: 07/09/24 Interval History: Seen and examined this morning Follow-up for placement No overnight events No specific complaints this morning Review of Systems Review of Systems: Yes all other systems are reviewed and are negative Constitutional Constitutional: Denies chills and Denies fever(s) Physical Exam Vital Signs: Vital Signs: Last Vital Signs Temp 97.5 F 07/09/24 08:00 Pulse 60 07/09/24 08:00 Resp 12 07/09/24 08:00 BP 123/61 07/09/24 08:00 Pulse Ox 93 07/09/24 08:00 O2 Del Method Room Air 07/09/24 08:00 O2 Flow Rate 94 05/25/24 19:13 BMI result Body Mass Index 24.4 Const: General: cooperative, comfortable, no acute distress, alert and awake Nutritional Appearance: average body habitus Orientation/consciousness: oriented to person Resp: Effort & Inspection: normal respiratory effort, able to speak in complete sentences, no respiratory distress and no use of accessory muscles GI: Palpation (GI): Soft to palpation Neuro: General: oriented to person Extrem: Other: LUE resting tremor Psych: Other: impaired insight Objective Data Active Medications Acetaminophen (Acetaminophen 325 Mg Tablet) 650 mg PO Q4H PRN PRN Reason: Pain, Mild (Pain Scale 1-3) Last Admin: 07/08/24 10:25 Dose: 650 mg Documented By: ADALID Calcium Carbonate (Calcium Carbonate 750 Mg Tab.Chew) 750 mg PO Q4H PRN PRN Reason: Heartburn Docusate Sodium (Docusate Sodium 100 Mg Capsule) 100 mg PO BEDTIME [facility] Last Admin: 07/08/24 19:55 Dose: 100 mg Documented By: MAYITO Donepezil HCl (Donepezil Hcl 5 Mg Tablet) 5 mg PO BEDTIME [facility] Last Admin: 07/08/24 19:55 Dose: 5 mg Documented By: MAYITO Enoxaparin Sodium (Enoxaparin Sodium 40 Mg/0.4 Ml Syringe) 40 mg SUBCUT Q24H [facility] Last Admin: 07/08/24 17:03 Dose: 40 mg Documented By: ADALID Lisinopril (Lisinopril 5 Mg Tablet) 5 mg PO DAILY [facility]; Protocol Last Admin: 06/25/24 08:08 Dose: 5 mg Documented By: MICHELLE Magnesium Hydroxide (Milk Of Magnesia 30 Ml Oral.Susp) 30 ml PO DAILY PRN PRN Reason: Constipation Last Admin: 07/08/24 09:10 Dose: 30 ml Documented By: ADALID Melatonin (Melatonin 3 Mg Tablet) 6 mg PO BEDTIME PRN PRN Reason: Insomnia Last Admin: 07/08/24 22:15 Dose: 6 mg Documented By: MAYITO Mirtazapine (Mirtazapine 7.5 Mg Tablet) 7.5 mg PO BEDTIME [facility] Last Admin: 07/08/24 19:55 Dose: 7.5 mg Documented By: MAYITO Olanzapine (Olanzapine 2.5 Mg Tablet) 2.5 mg PO BEDTIME [facility] Last Admin: 07/08/24 19:55 Dose: 2.5 mg Documented By: MAYITO Olanzapine (Olanzapine 2.5 Mg Tablet) 2.5 mg PO DAILY@1700 [facility] Last Admin: 07/08/24 17:03 Dose: 2.5 mg Documented By: ADALID Polyethylene Glycol (Polyethylene Glycol 3350 17 Gm Powd.Pack) 17 gm PO DAILY [facility] Last Admin: 07/09/24 07:50 Dose: 17 gm Documented By: BRANDINLM Labs 07/04/24 05:18 07/05/24 07:44 Assessment and Plan (1) 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 remeron 7.5mg added nightly 07/05, increase as needed continue olanzapine and donepezil HCP invoked ex- Meka Bunn [phone] labs 07/05 WNL HTN controlled on Lisinopril stable electrolytes on 07/05 VTE ppx - LMWH OOB to chair daily, check labs weekly need for inpt: Placement Daily ambulation with staff Quality Stroke Does the patient have a stroke diagnosis?: No VTE Prior VTE?: No VTE Risk Level:: Medical - moderate - high VTE Device Contraindication: Treatment Not Indicated VTE Drug Contraindication: N/A - Med Ordered
[2024-07-09 16:00] VITALS: BP 102/59; PULSE 66; RESP 20; TEMP 36.1; O2SAT 97
[2024-07-09] MEDS: OLANZapine 2.5 MG TABLET PO ×2 (16:59→21:35)
[2024-07-09] MEDS: Enoxaparin Sodium 40 MG/0.4 ML SYRINGE SUBCUT (17:00)
[2024-07-09 19:20] VITALS: BP 113/60; PULSE 68; RESP 18; TEMP 36.1; O2SAT 98
[2024-07-09] MEDS: Docusate Sodium 100 MG CAPSULE PO (21:35)
[2024-07-09] MEDS: Acetaminophen 325 MG TABLET 650 MG PO (21:35)
[2024-07-09] MEDS: Mirtazapine 7.5 MG TABLET PO (21:35)
[2024-07-09] MEDS: Donepezil HCl 5 MG TABLET PO (21:35)
[2024-07-10 03:28] VITALS: BP 109/61; PULSE 56; RESP 16; TEMP 36.3; O2SAT 97
[2024-07-10] MEDS: polyethylene glycoL 3350 17 GM POWD.PACK PO (07:50)
[2024-07-10 08:00] VITALS: BP 136/65; PULSE 56; RESP 17; TEMP 36.1; O2SAT 98
[2024-07-10] MEDS: Acetaminophen 325 MG TABLET 650 MG PO (09:25)
--- NOTE | 2024-07-10 11:39 | P.PNIM_ITS ---
Subjective Subjective Date of Service: 07/10/24 Interval History: Seen and examined this morning Follow-up for placement No overnight events No specific complaints this morning. Minimal PO intake Review of Systems Review of Systems: Yes all other systems are reviewed and are negative Constitutional Constitutional: Denies chills and Denies fever(s) Physical Exam 2 Vital Signs: Vital Signs: Last Vital Signs Temp 97.0 F 07/10/24 08:00 Pulse 56 07/10/24 08:00 Resp 17 07/10/24 08:00 BP 136/65 07/10/24 08:00 Pulse Ox 98 07/10/24 08:00 O2 Del Method Room Air 07/10/24 08:00 O2 Flow Rate 94 05/25/24 19:13 BMI result Body Mass Index 24.4 Constitutional - Awake and Alert, No apparent distress Eyes - PERRLA, EOMI Cardiovascular - S1S2, RRR, No edema Respiratory - Normal lung expansion, Normal respiratory effort, No respiratory distress, CTA bilaterally Gastrointestinal - mild diffuse abd ttp without guarding or rebound. ND; +BS Extremities - no calf tenderness bilaterally, no swelling Skin - Warm/Dry Neurological - movign all extremities Objective Data Active Medications Acetaminophen (Acetaminophen 325 Mg Tablet) 650 mg PO Q4H PRN PRN Reason: Pain, Mild (Pain Scale 1-3) Last Admin: 07/10/24 09:25 Dose: 650 mg Documented By: FISH Calcium Carbonate (Calcium Carbonate 750 Mg Tab.Chew) 750 mg PO Q4H PRN PRN Reason: Heartburn Docusate Sodium (Docusate Sodium 100 Mg Capsule) 100 mg PO BEDTIME [facility] Last Admin: 07/09/24 21:35 Dose: 100 mg Documented By: PRINCE Donepezil HCl (Donepezil Hcl 5 Mg Tablet) 5 mg PO BEDTIME [facility] Last Admin: 07/09/24 21:35 Dose: 5 mg Documented By: PRINCE Enoxaparin Sodium (Enoxaparin Sodium 40 Mg/0.4 Ml Syringe) 40 mg SUBCUT Q24H [facility] Last Admin: 07/09/24 17:00 Dose: 40 mg Documented By: FISH Lisinopril (Lisinopril 5 Mg Tablet) 5 mg PO DAILY [facility]; Protocol Last Admin: 06/25/24 08:08 Dose: 5 mg Documented By: MICHELLE Magnesium Hydroxide (Milk Of Magnesia 30 Ml Oral.Susp) 30 ml PO DAILY PRN PRN Reason: Constipation Last Admin: 07/08/24 09:10 Dose: 30 ml Documented By: COTEMA Melatonin (Melatonin 3 Mg Tablet) 6 mg PO BEDTIME PRN PRN Reason: Insomnia Last Admin: 07/08/24 22:15 Dose: 6 mg Documented By: LYSZ Mirtazapine (Mirtazapine 7.5 Mg Tablet) 7.5 mg PO BEDTIME [facility] Last Admin: 07/09/24 21:35 Dose: 7.5 mg Documented By: BROB Olanzapine (Olanzapine 2.5 Mg Tablet) 2.5 mg PO BEDTIME [facility] Last Admin: 07/09/24 21:35 Dose: 2.5 mg Documented By: BROShahbaz Olanzapine (Olanzapine 2.5 Mg Tablet) 2.5 mg PO DAILY@1700 [facility] Last Admin: 07/09/24 16:59 Dose: 2.5 mg Documented By: FISH Polyethylene Glycol (Polyethylene Glycol 3350 17 Gm Powd.Pack) 17 gm PO DAILY [facility] Last Admin: 07/10/24 07:50 Dose: 17 gm Documented By: FISH Labs 07/04/24 05:18 07/05/24 07:44 Assessment and Plan (1) 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: Status: Acute Plan 78yo M with dementia, Parkinson disease, RBBB, HTN sent from [facility] to [facility] ED on Section 12 on 05/03/24 with confusion, was awaiting LTC placement in ED overflow with difficulty and so was admitted on 05/12/24 for placement 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 continue olanzapine and donepezil HCP invoked ex- Meka Bunn [phone] labs 07/05 WNL FTT/Poor Po intake likely r/t above r/o infectious causes for decreased appetite- CBC, BMP, UA/UC, CXR, KUB Increase remeron to 15mg nightly, monitor PO intake HTN controlled on Lisinopril stable electrolytes on 07/05 VTE ppx - LMWH OOB to chair daily, check labs weekly need for inpt: Placement Daily ambulation with staff Quality Stroke Does the patient have a stroke diagnosis?: No VTE Prior VTE?: No VTE Risk Level:: Medical - moderate - high VTE Device Contraindication: Treatment Not Indicated VTE Drug Contraindication: N/A - Med Ordered
[2024-07-10 12:06] LABS: MANUAL DIFF FLAG NO
[2024-07-10 12:17] LABS: Anion Gap 13 (12-20); Blood Urea Nitrogen 12 mg/dL (9-16); Calcium 9.6 mg/dL (8.4-10.2); Carbon Dioxide 24 mmol/L (22-29); Chloride 108 mmol/L (96-108); Creatinine Clr Calc Pharmacy 77.5; Estimated Glomerular Filt Rate > 60; Glucose Random 100 mg/dL (60-115); Potassium 4.1 mmol/L (3.3-5.1); Sodium 141 mmol/L (135-145)
[2024-07-10 12:30] LABS: Basophils Absolute Auto 0.1 X10*3/uL (0.0-0.2); Basophils Percent Auto 1.2 % (0-2); Eosinophils Absolute Auto 0.1 X10*3/uL (0.0-0.4); Eosinophils Percent Auto 2.4 % (0-4); Hematocrit 43.7 % (42.0-52.0); Imm Gran Abs Auto 0.01 X10*3/uL (0.00-0.03); Imm Gran Pct Auto 0.2 % (0.0-0.4); Lymphocytes Absolute Auto 1.1 X10*3/uL (1.2-4.9); Lymphocytes Percent Auto 19.3 % (20-40); Mean Corpuscular HGB Conc 34.3 g/dl (31.0-36.0); Mean Corpuscular Hemoglobin 31.1 pg (27.0-33.0); Mean Corpuscular Volume 90.5 fL (80.0-98.0); Mean Platelet Volume 8.7 fL (9.4-12.4); Monocytes Absolute Auto 0.3 X10*3/uL (0.1-1.2); Monocytes Percent Auto 5.6 % (2-11); Neutrophils Absolute Auto 4.2 x10*3/uL (2.0-8.3); Neutrophils Percent Auto 71.3 % (45-73); Platelet Count 221 X10*3/uL (160-400); Red Blood Count 4.83 X10*6/uL (4.60-5.80); Red Cell Distribution Width 13.8 % (11.0-16.0); White Blood Count 5.9 X10*3/uL (4.8-10.8)
[2024-07-10 14:33] LABS: Appearance Urine Turbid; Color Urine Yellow; Glucose Urine UA Negative (Negative); Leukocyte Esterase Urine Negative (Negative); Nitrite Urine Negative (Negative); Specific Gravity - Urine 1.025 (1.005-1.025); Urine Blood Negative (Negative); Urine Ketones Negative (Negative); Urine Protein Negative (Neg-Trace)
[2024-07-10 15:24] VITALS: BP 94/51; PULSE 99; RESP 18; TEMP 36.6; O2SAT 98
[2024-07-10] MEDS: Enoxaparin Sodium 40 MG/0.4 ML SYRINGE SUBCUT (17:00)
[2024-07-10] MEDS: OLANZapine 2.5 MG TABLET PO ×2 (17:00→19:46)
[2024-07-10] MEDS: Docusate Sodium 100 MG CAPSULE PO (19:46)
[2024-07-10] MEDS: Donepezil HCl 5 MG TABLET PO (19:46)
[2024-07-10] MEDS: Mirtazapine 15 MG TABLET PO (19:46)
[2024-07-10 20:00] VITALS: BP 116/65; PULSE 78; RESP 16; TEMP 36.2; O2SAT 97
[2024-07-11 03:58] VITALS: BP 149/65; PULSE 69; RESP 16; TEMP 36.5; O2SAT 99
--- NOTE | 2024-07-11 08:23 | MHC.CM.PN ---
PT AWAITING LTC PLACEMENT [facility] IS REVIEWING AND HAS REQUESTED BANK STATEMENTS CM WILL FOLLOW UP WITH SNF AND CONSERVATOR TOMORROW
[2024-07-11 08:25] VITALS: BP 142/74; PULSE 80; RESP 16; TEMP 36.2; O2SAT 98
--- NOTE | 2024-07-11 10:00 | P.PNIM_ITS ---
Subjective Subjective Date of Service: 07/11/24 Interval History: No acute issues overnight Review of Systems Denies chest pain Denies shortness of breath Denies fever chills Denies nausea vomiting diarrhea Physical Exam 2 Vital Signs: Vital Signs: Last Vital Signs Temp 97.2 F 07/11/24 08:25 Pulse 80 07/11/24 08:25 Resp 16 07/11/24 08:25 BP 142/74 H 07/11/24 08:25 Pulse Ox 98 07/11/24 08:25 O2 Del Method Room Air 07/11/24 08:25 O2 Flow Rate 94 05/25/24 19:13 BMI result Body Mass Index 24.4 Const: Other: Awake alert no acute distress Resp: Other: Clear to auscultation bilaterally no rales rhonchi or wheezes Cardio: Other: No S4; positive S1-S2; no S3 murmurs rubs or gallops GI: Other: Soft nontender nondistended normoactive bowel sounds Extrem: Other: No edema bilaterally Objective Data Active Medications Acetaminophen (Acetaminophen 325 Mg Tablet) 650 mg PO Q4H PRN PRN Reason: Pain, Mild (Pain Scale 1-3) Last Admin: 07/10/24 09:25 Dose: 650 mg Documented By: FISH Calcium Carbonate (Calcium Carbonate 750 Mg Tab.Chew) 750 mg PO Q4H PRN PRN Reason: Heartburn Docusate Sodium (Docusate Sodium 100 Mg Capsule) 100 mg PO BEDTIME [facility] Last Admin: 07/10/24 19:46 Dose: 100 mg Documented By: BALAJI Donepezil HCl (Donepezil Hcl 5 Mg Tablet) 5 mg PO BEDTIME [facility] Last Admin: 07/10/24 19:46 Dose: 5 mg Documented By: BALAJI Enoxaparin Sodium (Enoxaparin Sodium 40 Mg/0.4 Ml Syringe) 40 mg SUBCUT Q24H [facility] Last Admin: 07/10/24 17:00 Dose: 40 mg Documented By: FISH Lisinopril (Lisinopril 5 Mg Tablet) 5 mg PO DAILY [facility]; Protocol Last Admin: 06/25/24 08:08 Dose: 5 mg Documented By: MICHELLE Magnesium Hydroxide (Milk Of Magnesia 30 Ml Oral.Susp) 30 ml PO DAILY PRN PRN Reason: Constipation Last Admin: 07/08/24 09:10 Dose: 30 ml Documented By: COTEMA Melatonin (Melatonin 3 Mg Tablet) 6 mg PO BEDTIME PRN PRN Reason: Insomnia Last Admin: 07/08/24 22:15 Dose: 6 mg Documented By: LYSTrice Mirtazapine (Mirtazapine 15 Mg Tablet) 15 mg PO BEDTIME [facility] Last Admin: 07/10/24 19:46 Dose: 15 mg Documented By: BALAJI Olanzapine (Olanzapine 2.5 Mg Tablet) 2.5 mg PO BEDTIME [facility] Last Admin: 07/10/24 19:46 Dose: 2.5 mg Documented By: BALAJI Olanzapine (Olanzapine 2.5 Mg Tablet) 2.5 mg PO DAILY@1700 [facility] Last Admin: 07/10/24 17:00 Dose: 2.5 mg Documented By: FISH Polyethylene Glycol (Polyethylene Glycol 3350 17 Gm Powd.Pack) 17 gm PO DAILY [facility] Last Admin: 07/10/24 07:50 Dose: 17 gm Documented By: FISH Labs 07/10/24 12:01 07/10/24 12:01 Labs: Laboratory Results - last 24 hr 07/10/24 07/10/24 12:01 13:27 MCV 90.5 MCH 31.1 MCHC 34.3 RDW 13.8 Plt Count 221 MPV 8.7 L Immature Gran % (Auto) 0.2 Neut % (Auto) 71.3 Lymph % (Auto) 19.3 L [place] % (Auto) 5.6 Eos % (Auto) 2.4 Baso % (Auto) 1.2 Lymph # (Auto) 1.1 L [place] # (Auto) 0.3 Eos # (Auto) 0.1 Baso # (Auto) 0.1 Abs Immat Gran (auto) 0.01 Absolute Neuts (auto) 4.2 Absolute Nucleated RBC 0.000 Nucleated RBC % (auto) 0.0 Anion Gap 13 Estim Creat Clear Calc 77.5 Estimated GFR > 60 Random Glucose 100 Calcium 9.6 Urine Color Yellow Urine Appearance Turbid Urine pH 7.0 Ur Specific [place] 1.025 Urine Protein Negative Urine Glucose (UA) Negative Urine Ketones Negative Urine Blood Negative Urine Nitrite Negative Ur Leukocyte Esterase Negative Assessment and Plan (1) 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: Status: Acute Plan 78yo M with dementia, Parkinson disease, RBBB, HTN sent from [facility] to [facility] ED on Section 12 on 05/03/24 with confusion, was awaiting LTC placement in ED overflow with difficulty and so was admitted on 05/12/24 for placement 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
[2024-07-11] MEDS: polyethylene glycoL 3350 17 GM POWD.PACK PO (10:02)
[2024-07-11 15:55] VITALS: BP 115/68; PULSE 75; RESP 16; TEMP 36; O2SAT 98
[2024-07-11] MEDS: OLANZapine 2.5 MG TABLET PO ×2 (17:26→20:41)
[2024-07-11] MEDS: Enoxaparin Sodium 40 MG/0.4 ML SYRINGE SUBCUT (17:26)
[2024-07-11 19:34] VITALS: BP 123/71; PULSE 79; RESP 16; TEMP 36.3; O2SAT 99
[2024-07-11] MEDS: Donepezil HCl 5 MG TABLET PO (20:41)
[2024-07-11] MEDS: Mirtazapine 15 MG TABLET PO (20:42)
[2024-07-11] MEDS: Docusate Sodium 100 MG CAPSULE PO (20:42)
[2024-07-12 03:23] VITALS: BP 142/55; PULSE 55; RESP 12; TEMP 36; O2SAT 98
[2024-07-12] MEDS: polyethylene glycoL 3350 17 GM POWD.PACK PO (09:33)
--- NOTE | 2024-07-12 10:40 | P.PNIM_ITS ---
Subjective Subjective Date of Service: 07/12/24 Interval History: No acute issues overnight Review of Systems Denies chest pain Denies shortness of breath Denies fever chills Denies nausea vomiting diarrhea Physical Exam 2 Vital Signs: Vital Signs: Last Vital Signs Temp 96.8 F 07/12/24 03:23 Pulse 55 07/12/24 03:23 Resp 12 07/12/24 03:23 BP 142/55 H 07/12/24 03:23 Pulse Ox 98 07/12/24 03:23 O2 Del Method Room Air 07/12/24 03:23 O2 Flow Rate 94 05/25/24 19:13 BMI result Body Mass Index 24.4 Const: Other: Awake alert no acute distress Resp: Other: Clear to auscultation bilaterally no rales rhonchi or wheezes Cardio: Other: No S4; positive S1-S2; no S3 murmurs rubs or gallops GI: Other: Soft nontender nondistended normoactive bowel sounds Extrem: Other: No edema bilaterally Objective Data Active Medications Acetaminophen (Acetaminophen 325 Mg Tablet) 650 mg PO Q4H PRN PRN Reason: Pain, Mild (Pain Scale 1-3) Last Admin: 07/10/24 09:25 Dose: 650 mg Documented By: FISH Calcium Carbonate (Calcium Carbonate 750 Mg Tab.Chew) 750 mg PO Q4H PRN PRN Reason: Heartburn Docusate Sodium (Docusate Sodium 100 Mg Capsule) 100 mg PO BEDTIME [facility] Last Admin: 07/11/24 20:42 Dose: 100 mg Documented By: LINNEA Donepezil HCl (Donepezil Hcl 5 Mg Tablet) 5 mg PO BEDTIME [facility] Last Admin: 07/11/24 20:41 Dose: 5 mg Documented By: LINNEA Enoxaparin Sodium (Enoxaparin Sodium 40 Mg/0.4 Ml Syringe) 40 mg SUBCUT Q24H [facility] Last Admin: 07/11/24 17:26 Dose: 40 mg Documented By: RANJIT Lisinopril (Lisinopril 5 Mg Tablet) 5 mg PO DAILY [facility]; Protocol Last Admin: 06/25/24 08:08 Dose: 5 mg Documented By: MICHELLE Magnesium Hydroxide (Milk Of Magnesia 30 Ml Oral.Susp) 30 ml PO DAILY PRN PRN Reason: Constipation Last Admin: 07/08/24 09:10 Dose: 30 ml Documented By: ADALID Melatonin (Melatonin 3 Mg Tablet) 6 mg PO BEDTIME PRN PRN Reason: Insomnia Last Admin: 07/08/24 22:15 Dose: 6 mg Documented By: MAYITO Mirtazapine (Mirtazapine 15 Mg Tablet) 15 mg PO BEDTIME [facility] Last Admin: 07/11/24 20:42 Dose: 15 mg Documented By: LINNEA Olanzapine (Olanzapine 2.5 Mg Tablet) 2.5 mg PO BEDTIME [facility] Last Admin: 07/11/24 20:41 Dose: 2.5 mg Documented By: LINNEA Olanzapine (Olanzapine 2.5 Mg Tablet) 2.5 mg PO DAILY@1700 [facility] Last Admin: 07/11/24 17:26 Dose: 2.5 mg Documented By: RANJIT Polyethylene Glycol (Polyethylene Glycol 3350 17 Gm Powd.Pack) 17 gm PO DAILY [facility] Last Admin: 07/12/24 09:33 Dose: 17 gm Documented By: LEIFM Labs 07/10/24 12:01 07/10/24 12:01 Assessment and Plan (1) 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: Status: Acute Plan 78yo M with dementia, Parkinson disease, RBBB, HTN sent from [facility] to [facility] ED on Section 12 on 05/03/24 with confusion, was awaiting LTC placement in ED overflow with difficulty and so was admitted on 05/12/24 for placement 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
[2024-07-12 10:50] VITALS: BP 116/62; PULSE 84; RESP 14; TEMP 36; O2SAT 97
[2024-07-12 15:43] VITALS: BP 115/70; PULSE 77; RESP 18; TEMP 36.5; O2SAT 98
[2024-07-12] MEDS: OLANZapine 2.5 MG TABLET PO ×2 (16:53→22:18)
[2024-07-12] MEDS: Enoxaparin Sodium 40 MG/0.4 ML SYRINGE SUBCUT (16:53)
[2024-07-12 20:00] VITALS: BP 144/67; PULSE 100; RESP 18; TEMP 36.3; O2SAT 96
[2024-07-12] MEDS: Docusate Sodium 100 MG CAPSULE PO (22:18)
[2024-07-12] MEDS: Mirtazapine 15 MG TABLET PO (22:18)
[2024-07-12] MEDS: Donepezil HCl 5 MG TABLET PO (22:18)
[2024-07-13 03:10] VITALS: BP 116/63; PULSE 62; RESP 16; TEMP 36.1; O2SAT 97
[2024-07-13 08:00] VITALS: BP 120/66; PULSE 66; RESP 18; TEMP 36.1; O2SAT 95
[2024-07-13] MEDS: polyethylene glycoL 3350 17 GM POWD.PACK PO (09:21)
--- NOTE | 2024-07-13 11:12 | P.PNIM_ITS ---
Subjective Subjective Date of Service: 07/13/24 Interval History: No acute issues. Awaiting placement Review of Systems Denies chest pain Denies shortness of breath Denies fever chills Denies nausea vomiting diarrhea Physical Exam 2 Vital Signs: Vital Signs: Last Vital Signs Temp 97.0 F 07/13/24 08:00 Pulse 66 07/13/24 08:00 Resp 18 07/13/24 08:00 BP 120/66 07/13/24 08:00 Pulse Ox 95 07/13/24 08:00 O2 Del Method Room Air 07/13/24 08:00 O2 Flow Rate 94 05/25/24 19:13 BMI result Body Mass Index 24.4 Const: Other: Awake alert no acute distress Resp: Other: Clear to auscultation bilaterally no rales rhonchi or wheezes Cardio: Other: No S4; positive S1-S2; no S3 murmurs rubs or gallops GI: Other: Soft nontender nondistended normoactive bowel sounds Extrem: Other: No edema bilaterally Objective Data Active Medications Acetaminophen (Acetaminophen 325 Mg Tablet) 650 mg PO Q4H PRN PRN Reason: Pain, Mild (Pain Scale 1-3) Last Admin: 07/10/24 09:25 Dose: 650 mg Documented By: FISH Calcium Carbonate (Calcium Carbonate 750 Mg Tab.Chew) 750 mg PO Q4H PRN PRN Reason: Heartburn Docusate Sodium (Docusate Sodium 100 Mg Capsule) 100 mg PO BEDTIME [facility] Last Admin: 07/12/24 22:18 Dose: 100 mg Documented By: LINNEA Donepezil HCl (Donepezil Hcl 5 Mg Tablet) 5 mg PO BEDTIME [facility] Last Admin: 07/12/24 22:18 Dose: 5 mg Documented By: LINNEA Enoxaparin Sodium (Enoxaparin Sodium 40 Mg/0.4 Ml Syringe) 40 mg SUBCUT Q24H [facility] Last Admin: 07/12/24 16:53 Dose: 40 mg Documented By: QUETA Lisinopril (Lisinopril 5 Mg Tablet) 5 mg PO DAILY [facility]; Protocol Last Admin: 06/25/24 08:08 Dose: 5 mg Documented By: MICHELLE Magnesium Hydroxide (Milk Of Magnesia 30 Ml Oral.Susp) 30 ml PO DAILY PRN PRN Reason: Constipation Last Admin: 07/08/24 09:10 Dose: 30 ml Documented By: ADALID Melatonin (Melatonin 3 Mg Tablet) 6 mg PO BEDTIME PRN PRN Reason: Insomnia Last Admin: 07/08/24 22:15 Dose: 6 mg Documented By: MAYITO Mirtazapine (Mirtazapine 15 Mg Tablet) 15 mg PO BEDTIME [facility] Last Admin: 07/12/24 22:18 Dose: 15 mg Documented By: LINNEA Olanzapine (Olanzapine 2.5 Mg Tablet) 2.5 mg PO BEDTIME [facility] Last Admin: 07/12/24 22:18 Dose: 2.5 mg Documented By: LINNEA Olanzapine (Olanzapine 2.5 Mg Tablet) 2.5 mg PO DAILY@1700 [facility] Last Admin: 07/12/24 16:53 Dose: 2.5 mg Documented By: QUETA Polyethylene Glycol (Polyethylene Glycol 3350 17 Gm Powd.Pack) 17 gm PO DAILY [facility] Last Admin: 07/13/24 09:21 Dose: 17 gm Documented By: QUETA Labs 07/10/24 12:01 07/10/24 12:01 Assessment and Plan (1) 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: Status: Acute Plan 78yo M with dementia, Parkinson disease, RBBB, HTN sent from [facility] to [facility] ED on Section 12 on 05/03/24 with confusion, was awaiting LTC placement in ED overflow with difficulty and so was admitted on 05/12/24 for placement 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
--- NOTE | 2024-07-13 13:06 | MHC.CM.PN ---
A VM was left for Conservator Karin Garcia. A request for financial info was made. [facility] has been given the contact info for the conservator. T/W instructed the SNF to contact Karin directly. CM will follow.
[2024-07-13 16:38] VITALS: BP 128/63; PULSE 86; RESP 18; TEMP 36.9; O2SAT 96
[2024-07-13] MEDS: Enoxaparin Sodium 40 MG/0.4 ML SYRINGE SUBCUT (17:07)
[2024-07-13] MEDS: OLANZapine 2.5 MG TABLET PO ×2 (17:07→21:02)
[2024-07-13 19:43] VITALS: BP 116/57; PULSE 74; RESP 16; TEMP 36.8; O2SAT 97
[2024-07-13] MEDS: Docusate Sodium 100 MG CAPSULE PO (21:02)
[2024-07-13] MEDS: Mirtazapine 15 MG TABLET PO (21:03)
[2024-07-13] MEDS: Donepezil HCl 5 MG TABLET PO (21:03)
[2024-07-14 03:24] VITALS: BP 135/70; PULSE 70; RESP 16; TEMP 36.3; O2SAT 96
[2024-07-14] MEDS: Milk of Magnesia 30 ML ORAL.SUSP PO (05:25)
[2024-07-14] MEDS: Acetaminophen 325 MG TABLET 650 MG PO ×2 (05:26→21:39)
[2024-07-14 07:05] VITALS: BP 142/74; PULSE 70; RESP 17; TEMP 36.6; O2SAT 96
[2024-07-14 08:00] VITALS: BP 141/75; PULSE 70; RESP 18; TEMP 36.7; O2SAT 96
[2024-07-14] MEDS: polyethylene glycoL 3350 17 GM POWD.PACK PO (10:25)
--- NOTE | 2024-07-14 16:22 | P.PNIM_ITS ---
Subjective Subjective Date of Service: 07/14/24 Interval History: Seen and examined this morning Follow-up for placement No overnight events No specific complaints this morning Review of Systems Review of Systems: Yes all other systems are reviewed and are negative Cardiovascular Cardiovascular: Denies chest pain Gastrointestinal Gastrointestinal: Denies abdominal pain Physical Exam 2 Vital Signs: Vital Signs: Last Vital Signs Temp 98.0 F 07/14/24 08:00 Pulse 70 07/14/24 08:00 Resp 18 07/14/24 08:00 BP 141/75 H 07/14/24 08:00 Pulse Ox 96 07/14/24 08:00 O2 Del Method Room Air 07/14/24 08:00 O2 Flow Rate 94 05/25/24 19:13 BMI result Body Mass Index 24.4 Const: General: cooperative, comfortable, no acute distress, alert and awake Nutritional Appearance: average body habitus Orientation/consciousness: o riented to person Resp: Effort & Inspection: normal respiratory effort, able to speak in complete sentences, no respiratory distress and no use of accessory muscles GI: Palpation (GI): Soft to palpation Neuro: General: oriented to person Extrem: Other: LUE resting tremor Psych: Other: impaired insight Objective Data Active Medications Acetaminophen (Acetaminophen 325 Mg Tablet) 650 mg PO Q4H PRN PRN Reason: Pain, Mild (Pain Scale 1-3) Last Admin: 07/14/24 05:26 Dose: 650 mg Documented By: COURTNEY Calcium Carbonate (Calcium Carbonate 750 Mg Tab.Chew) 750 mg PO Q4H PRN PRN Reason: Heartburn Docusate Sodium (Docusate Sodium 100 Mg Capsule) 100 mg PO BEDTIME [facility] Last Admin: 07/13/24 21:02 Dose: 100 mg Documented By: COURTNEY Donepezil HCl (Donepezil Hcl 5 Mg Tablet) 5 mg PO BEDTIME [facility] Last Admin: 07/13/24 21:03 Dose: 5 mg Documented By: COURTNEY Enoxaparin Sodium (Enoxaparin Sodium 40 Mg/0.4 Ml Syringe) 40 mg SUBCUT Q24H [facility] Last Admin: 07/13/24 17:07 Dose: 40 mg Documented By: QUETA Lisinopril (Lisinopril 5 Mg Tablet) 5 mg PO DAILY [facility]; Protocol Last Admin: 06/25/24 08:08 Dose: 5 mg Documented By: MICHELLE Magnesium Hydroxide (Milk Of Magnesia 30 Ml Oral.Susp) 30 ml PO DAILY PRN PRN Reason: Constipation Last Admin: 07/14/24 05:25 Dose: 30 ml Documented By: COURTNEY Melatonin (Melatonin 3 Mg Tablet) 6 mg PO BEDTIME PRN PRN Reason: Insomnia Last Admin: 07/08/24 22:15 Dose: 6 mg Documented By: MAYITO Mirtazapine (Mirtazapine 15 Mg Tablet) 15 mg PO BEDTIME [facility] Last Admin: 07/13/24 21:03 Dose: 15 mg Documented By: COURTNEY Olanzapine (Olanzapine 2.5 Mg Tablet) 2.5 mg PO BEDTIME [facility] Last Admin: 07/13/24 21:02 Dose: 2.5 mg Documented By: COURTNEY Olanzapine (Olanzapine 2.5 Mg Tablet) 2.5 mg PO DAILY@1700 [facility] Last Admin: 07/13/24 17:07 Dose: 2.5 mg Documented By: QUETA Polyethylene Glycol (Polyethylene Glycol 3350 17 Gm Powd.Pack) 17 gm PO DAILY [facility] Last Admin: 07/14/24 10:25 Dose: 17 gm Documented By: MARIBELLA Labs 07/10/24 12:01 07/10/24 12:01 Assessment and Plan (1) 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: Status: Acute Plan 78yo M with dementia, Parkinson disease, RBBB, HTN sent from [facility] to [facility] on Section 12 on 05/03/24 with confusion, was awaiting LTC placement in ED overflow with difficulty and so was admitted on 05/12/24 for placement 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 remeron 7.5mg added nightly 07/05, increase as needed continue olanzapine and donepezil HCP invoked ex- Meka Bunn [phone] labs 07/10 WNL HTN controlled on Lisinopril stable electrolytes on 07/10 FTT/Poor Po intake doesn't like the food, will eat if he has food he likes r/o infectious causes for decreased appetite- CBC, BMP, UA/UC, CXR, KUB- all negative Increase remeron to 15mg nightly, monitor PO intake VTE ppx - LMWH OOB to chair daily, check labs weekly need for inpt: Placement Daily ambulation with staff Quality Stroke Does the patient have a stroke diagnosis?: No VTE Prior VTE?: No VTE Risk Level:: Medical - moderate - high VTE Device Contraindication: Treatment Not Indicated VTE Drug Contraindication: N/A - Med Ordered
[2024-07-14 16:59] VITALS: BP 128/63; PULSE 82; RESP 18; TEMP 36.5; O2SAT 97
[2024-07-14] MEDS: OLANZapine 2.5 MG TABLET PO ×2 (17:10→21:40)
[2024-07-14] MEDS: Enoxaparin Sodium 40 MG/0.4 ML SYRINGE SUBCUT (17:11)
[2024-07-14 19:29] VITALS: BP 128/70; PULSE 73; RESP 18; TEMP 36.6; O2SAT 97
[2024-07-14] MEDS: Docusate Sodium 100 MG CAPSULE PO (21:39)
[2024-07-14] MEDS: Mirtazapine 15 MG TABLET PO (21:39)
[2024-07-14] MEDS: Donepezil HCl 5 MG TABLET PO (21:40)
[2024-07-15 04:00] VITALS: BP 103/69; PULSE 56; RESP 16; TEMP 37.1; O2SAT 96
[2024-07-15] MEDS: Milk of Magnesia 30 ML ORAL.SUSP PO (05:38)
[2024-07-15 07:04] VITALS: BP 110/58; PULSE 60; RESP 16; TEMP 36.6; O2SAT 96
[2024-07-15] MEDS: polyethylene glycoL 3350 17 GM POWD.PACK PO (10:58)
--- NOTE | 2024-07-15 11:27 | MHC.CM.PN ---
[facility] is following for discharge. Additional bank documentation has been requested by [facility] from the conservator. DP LTC via BLS. A spend down is necessary for [facility].
[2024-07-15 15:41] VITALS: BP 122/60; PULSE 64; RESP 18; TEMP 36.3; O2SAT 96
--- NOTE | 2024-07-15 16:46 | HO.PM.IMPN ---
Subjective Subjective Date of Service: 07/15/24 Interval History: seen and examined this morning follow up for placement no overnight events Review of Systems Review of Systems: Yes all other systems are reviewed and are negative Constitutional Constitutional: Denies fever(s) Cardiovascular Cardiovascular: Denies chest pain Gastrointestinal Gastrointestinal: Denies abdominal pain Physical Exam Vital Signs: Vital Signs: Last Vital Signs Temp 97.4 F 07/15/24 15:41 Pulse 64 07/15/24 15:41 Resp 18 07/15/24 15:41 BP 122/60 07/15/24 15:41 Pulse Ox 96 07/15/24 15:41 O2 Del Method Room Air 07/15/24 15:41 O2 Flow Rate 94 05/25/24 19:13 BMI result Body Mass Index 24.4 Const: General: cooperative, comfortable, no acute distress, alert and awake Nutritional Appearance: average body habitus Orientation/consciousness: oriented to person Resp: Effort & Inspection: normal respiratory effort, able to speak in complete sentences, no respiratory distress and no use of accessory muscles GI: Palpation (GI): Soft to palpation Neuro: General: oriented to person Extrem: Other: LUE resting tremor Psych: Other: impaired insight Objective Data Active Medications Acetaminophen (Acetaminophen 325 Mg Tablet) 650 mg PO Q4H PRN PRN Reason: Pain, Mild (Pain Scale 1-3) Last Admin: 07/14/24 21:39 Dose: 650 mg Documented By: COURTNEY Calcium Carbonate (Calcium Carbonate 750 Mg Tab.Chew) 750 mg PO Q4H PRN PRN Reason: Heartburn Docusate Sodium (Docusate Sodium 100 Mg Capsule) 100 mg PO BEDTIME [facility] Last Admin: 07/14/24 21:39 Dose: 100 mg Documented By: COURTNEY Donepezil HCl (Donepezil Hcl 5 Mg Tablet) 5 mg PO BEDTIME [facility] Last Admin: 07/14/24 21:40 Dose: 5 mg Documented By: COURTNEY Enoxaparin Sodium (Enoxaparin Sodium 40 Mg/0.4 Ml Syringe) 40 mg SUBCUT Q24H [facility] Last Admin: 07/14/24 17:11 Dose: 40 mg Documented By: JOELLEN Lisinopril (Lisinopril 5 Mg Tablet) 5 mg PO DAILY [facility]; Protocol Last Admin: 06/25/24 08:08 Dose: 5 mg Documented By: MICHELLE Magnesium Hydroxide (Milk Of Magnesia 30 Ml Oral.Susp) 30 ml PO DAILY PRN PRN Reason: Constipation Last Admin: 07/15/24 05:38 Dose: 30 ml Documented By: COURTNEY Melatonin (Melatonin 3 Mg Tablet) 6 mg PO BEDTIME PRN PRN Reason: Insomnia Last Admin: 07/08/24 22:15 Dose: 6 mg Documented By: MAYITO Mirtazapine (Mirtazapine 15 Mg Tablet) 15 mg PO BEDTIME [facility] Last Admin: 07/14/24 21:39 Dose: 15 mg Documented By: COURTNEY Olanzapine (Olanzapine 2.5 Mg Tablet) 2.5 mg PO BEDTIME [facility] Last Admin: 07/14/24 21:40 Dose: 2.5 mg Documented By: COURTNEY Olanzapine (Olanzapine 2.5 Mg Tablet) 2.5 mg PO DAILY@1700 [facility] Last Admin: 07/14/24 17:10 Dose: 2.5 mg Documented By: JOELLEN Polyethylene Glycol (Polyethylene Glycol 3350 17 Gm Powd.Pack) 17 gm PO DAILY [facility] Last Admin: 07/15/24 10:58 Dose: 17 gm Documented By: ARMSTRH Labs 07/10/24 12:01 07/10/24 12:01 Assessment and Plan (1) 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: Status: Acute Plan 78yo M with dementia, Parkinson disease, RBBB, HTN sent from [facility] to 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 doing well with meds continue olanzapine and donepezil HCP invoked ex- Meka Bunn [phone] labs 07/10 WNL FTT/Poor Po intake likely r/t above r/o infectious causes for decreased appetite- CBC, BMP, UA/UC, CXR, KUB - all negative Increase remeron to 15mg nightly, monitor PO intake HTN controlled off of Lisinopril stable electrolytes on 07/10 VTE ppx - LMWH OOB to chair daily, check labs weekly need for inpt: Placement Daily ambulation with staff Quality Stroke Does the patient have a stroke diagnosis?: No VTE Prior VTE?: No VTE Risk Level:: Medical - moderate - high VTE Device Contraindication: Treatment Not Indicated VTE Drug Contraindication: N/A - Med Ordered
[2024-07-15] MEDS: OLANZapine 2.5 MG TABLET PO ×2 (18:39→20:57)
[2024-07-15] MEDS: Enoxaparin Sodium 40 MG/0.4 ML SYRINGE SUBCUT (18:39)
[2024-07-15 19:42] VITALS: BP 100/55; PULSE 80; RESP 16; TEMP 36.6; O2SAT 97
[2024-07-15] MEDS: Donepezil HCl 5 MG TABLET PO (20:57)
[2024-07-15] MEDS: Docusate Sodium 100 MG CAPSULE PO (20:57)
[2024-07-15] MEDS: Mirtazapine 15 MG TABLET PO (20:57)
[2024-07-16 03:29] VITALS: BP 119/64; PULSE 59; RESP 16; TEMP 36.1; O2SAT 99
[2024-07-16 07:36] VITALS: BP 128/71; PULSE 75; RESP 16; TEMP 36.1; O2SAT 95
[2024-07-16] MEDS: Acetaminophen 325 MG TABLET 650 MG PO (08:57)
[2024-07-16] MEDS: polyethylene glycoL 3350 17 GM POWD.PACK PO (08:57)
--- NOTE | 2024-07-16 13:18 | P.PNIM_ITS ---
Subjective Subjective Date of Service: 07/16/24 Interval History: seen and examined this morning follow up for placement no overnight events Review of Systems Review of Systems: Yes all other systems are reviewed and are negative Constitutional Constitutional: Denies fever(s) ENT Ears, Nose, Mouth, and Throat: Denies dizziness Cardiovascular Cardiovascular: Denies dyspnea Respiratory Respiratory: Denies dyspnea Neurologic Neurologic: Denies dizziness Physical Exam 2 Vital Signs: Vital Signs: Last Vital Signs Temp 96.9 F 07/16/24 07:36 Pulse 75 07/16/24 07:36 Resp 16 07/16/24 07:36 BP 128/71 07/16/24 07:36 Pulse Ox 95 07/16/24 07:36 O2 Del Method Room Air 07/16/24 07:36 O2 Flow Rate 94 05/25/24 19:13 BMI result Body Mass Index 24.4 Const: General: cooperative, comfortable, no acute distress, alert and awake Nutritional Appearance: average body habitus Orientation/consciousness: o riented to person Resp: Effort & Inspection: normal respiratory effort, able to speak in complete sentences, no respiratory distress and no use of accessory muscles GI: Palpation (GI): Soft to palpation Neuro: General: oriented to person Extrem: Other: LUE resting tremor Psych: Other: impaired insight Objective Data Active Medications Acetaminophen (Acetaminophen 325 Mg Tablet) 650 mg PO Q4H PRN PRN Reason: Pain, Mild (Pain Scale 1-3) Last Admin: 07/16/24 08:57 Dose: 650 mg Documented By: TROY Calcium Carbonate (Calcium Carbonate 750 Mg Tab.Chew) 750 mg PO Q4H PRN PRN Reason: Heartburn Docusate Sodium (Docusate Sodium 100 Mg Capsule) 100 mg PO BEDTIME [facility] Last Admin: 07/15/24 20:57 Dose: 100 mg Documented By: LINNEA Donepezil HCl (Donepezil Hcl 5 Mg Tablet) 5 mg PO BEDTIME [facility] Last Admin: 07/15/24 20:57 Dose: 5 mg Documented By: LINNEA Enoxaparin Sodium (Enoxaparin Sodium 40 Mg/0.4 Ml Syringe) 40 mg SUBCUT Q24H [facility] Last Admin: 07/15/24 18:39 Dose: 40 mg Documented By: SONA Magnesium Hydroxide (Milk Of Magnesia 30 Ml Oral.Susp) 30 ml PO DAILY PRN PRN Reason: Constipation Last Admin: 07/15/24 05:38 Dose: 30 ml Documented By: RONNIEZADRAnu Melatonin (Melatonin 3 Mg Tablet) 6 mg PO BEDTIME PRN PRN Reason: Insomnia Last Admin: 07/08/24 22:15 Dose: 6 mg Documented By: MAYITO Mirtazapine (Mirtazapine 15 Mg Tablet) 15 mg PO BEDTIME [facility] Last Admin: 07/15/24 20:57 Dose: 15 mg Documented By: LINNEA Olanzapine (Olanzapine 2.5 Mg Tablet) 2.5 mg PO BEDTIME [facility] Last Admin: 07/15/24 20:57 Dose: 2.5 mg Documented By: LINNEA Olanzapine (Olanzapine 2.5 Mg Tablet) 2.5 mg PO DAILY@1700 [facility] Last Admin: 07/15/24 18:39 Dose: 2.5 mg Documented By: SONA Polyethylene Glycol (Polyethylene Glycol 3350 17 Gm Powd.Pack) 17 gm PO DAILY [facility] Last Admin: 07/16/24 08:57 Dose: 17 gm Documented By: TROY Labs 07/10/24 12:01 07/10/24 12:01 Assessment and Plan (1) 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: Status: Acute Plan 78yo M with dementia, Parkinson disease, RBBB, HTN sent from [facility] to [facility] on Section 12 on 05/03/24 with confusion, was awaiting LTC placement in ED overflow with difficulty and so was admitted on 05/12/24 for placement 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 doing well with meds continue olanzapine and donepezil HCP invoked ex- Meka Bunn [phone] labs 07/10 WNL FTT/Poor Po intake likely r/t above r/o infectious causes for decreased appetite- CBC, BMP, UA/UC, CXR, KUB - all negative Increase remeron to 15mg nightly, monitor PO intake HTN controlled off of Lisinopril stable electrolytes on 07/10 VTE ppx - LMWH OOB to chair daily, check labs periodically need for inpt: Placement Daily ambulation with staff Quality Stroke Does the patient have a stroke diagnosis?: No VTE Prior VTE?: No VTE Risk Level:: Medical - moderate - high VTE Device Contraindication: Treatment Not Indicated VTE Drug Contraindication: N/A - Med Ordered
[2024-07-16 15:13] VITALS: BP 115/66; PULSE 73; RESP 18; TEMP 36.4; O2SAT 95
[2024-07-16] MEDS: OLANZapine 2.5 MG TABLET PO ×2 (17:06→20:59)
[2024-07-16] MEDS: Enoxaparin Sodium 40 MG/0.4 ML SYRINGE SUBCUT (17:06)
[2024-07-16 19:14] VITALS: BP 126/77; PULSE 71; RESP 16; TEMP 36.2; O2SAT 97
[2024-07-16] MEDS: Docusate Sodium 100 MG CAPSULE PO (20:58)
[2024-07-16] MEDS: Mirtazapine 15 MG TABLET PO (20:59)
[2024-07-16] MEDS: Donepezil HCl 5 MG TABLET PO (20:59)
[2024-07-17 03:12] VITALS: BP 123/65; PULSE 52; RESP 16; TEMP 36; O2SAT 98
[2024-07-17 07:48] VITALS: BP 139/73; PULSE 58; RESP 16; TEMP 36.1; O2SAT 96
[2024-07-17] MEDS: polyethylene glycoL 3350 17 GM POWD.PACK PO (09:21)
[2024-07-17] MEDS: Acetaminophen 325 MG TABLET 650 MG PO (09:21)
--- NOTE | 2024-07-17 14:18 | HO.PM.IMPN ---
Subjective Subjective Date of Service: 07/17/24 Interval History: seen and examined this morning follow up for placement no overnight events no specific complaints, likes the fortified ice cream Review of Systems Review of Systems: Yes all other systems are reviewed and are negative Constitutional Constitutional: Denies chills and Denies fever(s) Cardiovascular Cardiovascular: Denies chest pain and Denies dyspnea Respiratory Respiratory: Denies dyspnea Gastrointestinal Gastrointestinal: Denies abdominal pain Physical Exam Vital Signs: Vital Signs: Last Vital Signs Temp 97.0 F 07/17/24 07:48 Pulse 58 07/17/24 07:48 Resp 16 07/17/24 07:48 BP 139/73 07/17/24 07:48 Pulse Ox 96 07/17/24 07:48 O2 Del Method Room Air 07/17/24 07:48 O2 Flow Rate 94 05/25/24 19:13 BMI result Body Mass Index 24.4 Const: General: cooperative, comfortable, no acute distress, alert and awake Nutritional Appearance: average body habitus Orientation/consciousness: oriented to person Resp: Effort & Inspection: normal respiratory effort, able to speak in complete sentences, no respiratory distress and no use of accessory muscles GI: Palpation (GI): Soft to palpation Neuro: General: oriented to person Extrem: Other: LUE resting tremor Psych: Other: impaired insight Objective Data Active Medications Acetaminophen (Acetaminophen 325 Mg Tablet) 650 mg PO Q4H PRN PRN Reason: Pain, Mild (Pain Scale 1-3) Last Admin: 07/17/24 09:21 Dose: 650 mg Documented By: TROY Calcium Carbonate (Calcium Carbonate 750 Mg Tab.Chew) 750 mg PO Q4H PRN PRN Reason: Heartburn Docusate Sodium (Docusate Sodium 100 Mg Capsule) 100 mg PO BEDTIME [facility] Last Admin: 07/16/24 20:58 Dose: 100 mg Documented By: BECKIE Donepezil HCl (Donepezil Hcl 5 Mg Tablet) 5 mg PO BEDTIME [facility] Last Admin: 07/16/24 20:59 Dose: 5 mg Documented By: BECKIE Enoxaparin Sodium (Enoxaparin Sodium 40 Mg/0.4 Ml Syringe) 40 mg SUBCUT Q24H [facility] Last Admin: 07/16/24 17:06 Dose: 40 mg Documented By: TROY Magnesium Hydroxide (Milk Of Magnesia 30 Ml Oral.Susp) 30 ml PO DAILY PRN PRN Reason: Constipation Last Admin: 07/15/24 05:38 Dose: 30 ml Documented By: SUSANA-HANNA Melatonin (Melatonin 3 Mg Tablet) 6 mg PO BEDTIME PRN PRN Reason: Insomnia Last Admin: 07/08/24 22:15 Dose: 6 mg Documented By: MAYITO Mirtazapine (Mirtazapine 15 Mg Tablet) 15 mg PO BEDTIME [facility] Last Admin: 07/16/24 20:59 Dose: 15 mg Documented By: BECKIE Olanzapine (Olanzapine 2.5 Mg Tablet) 2.5 mg PO BEDTIME [facility] Last Admin: 07/16/24 20:59 Dose: 2.5 mg Documented By: CASTPIA Olanzapine (Olanzapine 2.5 Mg Tablet) 2.5 mg PO DAILY@1700 [facility] Last Admin: 07/16/24 17:06 Dose: 2.5 mg Documented By: TROY Polyethylene Glycol (Polyethylene Glycol 3350 17 Gm Powd.Pack) 17 gm PO DAILY [facility] Last Admin: 07/17/24 09:21 Dose: 17 gm Documented By: TROY Labs 07/10/24 12:01 07/10/24 12:01 Assessment and Plan (1) 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: Status: Acute Plan 78yo M with dementia, Parkinson disease, RBBB, HTN sent from [facility] to [facility] ED on Section 12 on 05/03/24 with confusion, was awaiting LTC placement in ED overflow with difficulty and so was admitted on 05/12/24 for placement 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 doing well with meds continue olanzapine and donepezil HCP invoked ex- Meka Bunn [phone] labs 07/10 WNL FTT/Poor Po intake likely r/t above r/o infectious causes for decreased appetite- CBC, BMP, UA/UC, CXR, KUB - all negative Increase remeron to 15mg nightly, monitor PO intake HTN controlled off of Lisinopril stable electrolytes on 07/10 VTE ppx - LMWH OOB to chair daily, check labs periodically need for inpt: Placement Daily ambulation with staff Quality Stroke Does the patient have a stroke diagnosis?: No VTE Prior VTE?: No VTE Risk Level:: Medical - moderate - high VTE Device Contraindication: Treatment Not Indicated VTE Drug Contraindication: N/A - Med Ordered
[2024-07-17 15:21] VITALS: BP 132/66; PULSE 66; RESP 18; TEMP 36.4; O2SAT 99
[2024-07-17] MEDS: Enoxaparin Sodium 40 MG/0.4 ML SYRINGE SUBCUT (17:49)
[2024-07-17] MEDS: OLANZapine 2.5 MG TABLET PO ×2 (17:49→20:00)
[2024-07-17 19:39] VITALS: BP 112/73; PULSE 86; RESP 20; TEMP 36.4; O2SAT 93
[2024-07-17] MEDS: Mirtazapine 15 MG TABLET PO (20:00)
[2024-07-17] MEDS: Donepezil HCl 5 MG TABLET PO (20:00)
[2024-07-17] MEDS: Docusate Sodium 100 MG CAPSULE PO (20:00)
[2024-07-18 03:11] VITALS: BP 118/69; PULSE 69; RESP 16; TEMP 36.2; O2SAT 98
[2024-07-18 07:02] VITALS: BP 122/64; PULSE 68; RESP 17; TEMP 36.6; O2SAT 96
[2024-07-18] MEDS: polyethylene glycoL 3350 17 GM POWD.PACK PO (08:45)
--- NOTE | 2024-07-18 09:45 | HO.PM.IMPN ---
Subjective Subjective Date of Service: 07/18/24 Interval History: seen and examined this morning follow up for placement no overnight events no specific complaints, likes the fortified ice cream Review of Systems Review of Systems: Yes all other systems are reviewed and are negative Constitutional Constitutional: Denies chills and Denies fever(s) Cardiovascular Cardiovascular: Denies chest pain and Denies dyspnea Respiratory Respiratory: Denies dyspnea Gastrointestinal Gastrointestinal: Denies abdominal pain Physical Exam Vital Signs: Vital Signs: Last Vital Signs Temp 98 F 07/18/24 07:02 Pulse 68 07/18/24 07:02 Resp 17 07/18/24 07:02 BP 122/64 07/18/24 07:02 Pulse Ox 96 07/18/24 07:02 O2 Del Method Room Air 07/18/24 07:02 O2 Flow Rate 94 05/25/24 19:13 BMI result Body Mass Index 24.4 Appearing in no acute distress lung sounds are clear to auscultation heart regular rate rhythm, clear S1, S2 positive bowel sounds, abdomen is soft, nontender neuro patient is alert, confused Objective Data Active Medications Acetaminophen (Acetaminophen 325 Mg Tablet) 650 mg PO Q4H PRN PRN Reason: Pain, Mild (Pain Scale 1-3) Last Admin: 07/17/24 09:21 Dose: 650 mg Documented By: TROY Calcium Carbonate (Calcium Carbonate 750 Mg Tab.Chew) 750 mg PO Q4H PRN PRN Reason: Heartburn Docusate Sodium (Docusate Sodium 100 Mg Capsule) 100 mg PO BEDTIME [facility] Last Admin: 07/17/24 20:00 Dose: 100 mg Documented By: HOWARD Donepezil HCl (Donepezil Hcl 5 Mg Tablet) 5 mg PO BEDTIME [facility] Last Admin: 07/17/24 20:00 Dose: 5 mg Documented By: HOWARD Enoxaparin Sodium (Enoxaparin Sodium 40 Mg/0.4 Ml Syringe) 40 mg SUBCUT Q24H [facility] Last Admin: 07/17/24 17:49 Dose: 40 mg Documented By: TROY Magnesium Hydroxide (Milk Of Magnesia 30 Ml Oral.Susp) 30 ml PO DAILY PRN PRN Reason: Constipation Last Admin: 07/15/24 05:38 Dose: 30 ml Documented By: COURTNEY Melatonin (Melatonin 3 Mg Tablet) 6 mg PO BEDTIME PRN PRN Reason: Insomnia Last Admin: 07/08/24 22:15 Dose: 6 mg Documented By: MAYITO Mirtazapine (Mirtazapine 15 Mg Tablet) 15 mg PO BEDTIME [facility] Last Admin: 07/17/24 20:00 Dose: 15 mg Documented By: HOWARD Olanzapine (Olanzapine 2.5 Mg Tablet) 2.5 mg PO BEDTIME [facility] Last Admin: 07/17/24 20:00 Dose: 2.5 mg Documented By: HOWARD Olanzapine (Olanzapine 2.5 Mg Tablet) 2.5 mg PO DAILY@1700 [facility] Last Admin: 07/17/24 17:49 Dose: 2.5 mg Documented By: TROY Polyethylene Glycol (Polyethylene Glycol 3350 17 Gm Powd.Pack) 17 gm PO DAILY [facility] Last Admin: 07/18/24 08:45 Dose: 17 gm Documented By: SONA Labs 07/10/24 12:01 07/10/24 12:01 Assessment and Plan (1) 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: Status: Acute Plan 78yo M with dementia, Parkinson disease, RBBB, HTN sent from [facility] to [facility] ED on Section 12 on 05/03/24 with confusion, was awaiting LTC placement in ED overflow with difficulty and so was admitted on 05/12/24 for placement 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 Jeferson GARCÍA to chair daily, check labs periodically need for inpt: Placement Daily ambulation with staff Quality Stroke Does the patient have a stroke diagnosis?: No VTE Prior VTE?: No VTE Risk Level:: Medical - moderate - high VTE Device Contraindication: Treatment Not Indicated VTE Drug Contraindication: N/A - Med Ordered
[2024-07-18 15:45] VITALS: BP 142/72; PULSE 81; RESP 20; TEMP 36.2; O2SAT 98
--- NOTE | 2024-07-18 16:35 | MHC.CM.PN ---
EMR REVIEWED, PT AWAITING LTC PLACEMENT, [facility] FOLLOWING AND PT NEEDS SPEND DOWN FOR MH, CM WILL CONT TO FOLLOW DC NEEDS.
[2024-07-18] MEDS: OLANZapine 2.5 MG TABLET PO ×2 (18:21→20:07)
[2024-07-18] MEDS: Enoxaparin Sodium 40 MG/0.4 ML SYRINGE SUBCUT (18:21)
--- NOTE | 2024-07-18 18:26 | PC.NURSE ---
Pt alert and cooperative with care. continues to be pleasantly confused. ambulated in harrison x3 with walker and contact guard. took pills whole with minimal prompting. Pt denies complaint. Bed alarm and camera maintained for safety with pt less impulsive with preemptive rounding. plan of care progressing.
[2024-07-18 19:24] VITALS: BP 108/66; PULSE 80; RESP 17; TEMP 36.5; O2SAT 98
[2024-07-18] MEDS: Mirtazapine 15 MG TABLET PO (20:07)
[2024-07-18] MEDS: Donepezil HCl 5 MG TABLET PO (20:07)
[2024-07-18] MEDS: Docusate Sodium 100 MG CAPSULE PO (20:07)
[2024-07-19 03:14] VITALS: BP 117/60; PULSE 70; RESP 17; TEMP 36.5; O2SAT 97
[2024-07-19 07:04] VITALS: BP 138/90; PULSE 86; RESP 17; TEMP 36.6; O2SAT 97
[2024-07-19] MEDS: polyethylene glycoL 3350 17 GM POWD.PACK PO (07:09)
--- NOTE | 2024-07-19 08:11 | P.PNIM_ITS ---
Subjective Subjective Date of Service: 07/19/24 Interval History: seen and examined this morning follow up for placement no overnight events no specific complaints, likes the fortified ice cream Review of Systems Review of Systems: Yes all other systems are reviewed and are negative Constitutional Constitutional: Denies chills and Denies fever(s) Cardiovascular Cardiovascular: Denies chest pain and Denies dyspnea Respiratory Respiratory: Denies dyspnea Gastrointestinal Gastrointestinal: Denies abdominal pain Physical Exam 2 Vital Signs: Vital Signs: Last Vital Signs Temp 97.8 F 07/19/24 07:04 Pulse 86 07/19/24 07:04 Resp 17 07/19/24 07:04 BP 138/90 H 07/19/24 07:04 Pulse Ox 97 07/19/24 07:04 O2 Del Method Room Air 07/19/24 07:04 O2 Flow Rate 94 05/25/24 19:13 BMI result Body Mass Index 24.4 Appearing in no acute distress lung sounds are clear to auscultation heart regular rate rhythm, clear S1, S2 positive bowel sounds, abdomen is soft, nontender neuro patient is alert, confused Objective Data Active Medications Acetaminophen (Acetaminophen 325 Mg Tablet) 650 mg PO Q4H PRN PRN Reason: Pain, Mild (Pain Scale 1-3) Last Admin: 07/17/24 09:21 Dose: 650 mg Documented By: TROY Calcium Carbonate (Calcium Carbonate 750 Mg Tab.Chew) 750 mg PO Q4H PRN PRN Reason: Heartburn Docusate Sodium (Docusate Sodium 100 Mg Capsule) 100 mg PO BEDTIME [facility] Last Admin: 07/18/24 20:07 Dose: 100 mg Documented By: TIEN Donepezil HCl (Donepezil Hcl 5 Mg Tablet) 5 mg PO BEDTIME [facility] Last Admin: 07/18/24 20:07 Dose: 5 mg Documented By: TIEN Enoxaparin Sodium (Enoxaparin Sodium 40 Mg/0.4 Ml Syringe) 40 mg SUBCUT Q24H [facility] Last Admin: 07/18/24 18:21 Dose: 40 mg Documented By: SONA Magnesium Hydroxide (Milk Of Magnesia 30 Ml Oral.Susp) 30 ml PO DAILY PRN PRN Reason: Constipation Last Admin: 07/15/24 05:38 Dose: 30 ml Documented By: HO.N-ZADRT Melatonin (Melatonin 3 Mg Tablet) 6 mg PO BEDTIME PRN PRN Reason: Insomnia Last Admin: 07/08/24 22:15 Dose: 6 mg Documented By: MAYITO Mirtazapine (Mirtazapine 15 Mg Tablet) 15 mg PO BEDTIME [facility] Last Admin: 07/18/24 20:07 Dose: 15 mg Documented By: TIEN Olanzapine (Olanzapine 2.5 Mg Tablet) 2.5 mg PO BEDTIME [facility] Last Admin: 07/18/24 20:07 Dose: 2.5 mg Documented By: TIEN Olanzapine (Olanzapine 2.5 Mg Tablet) 2.5 mg PO DAILY@1700 [facility] Last Admin: 07/18/24 18:21 Dose: 2.5 mg Documented By: SONA Polyethylene Glycol (Polyethylene Glycol 3350 17 Gm Powd.Pack) 17 gm PO DAILY [facility] Last Admin: 07/19/24 07:09 Dose: 17 gm Documented By: BRANDINLM Labs 07/10/24 12:01 07/10/24 12:01 Assessment and Plan (1) 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: Status: Acute Plan 78yo M with dementia, Parkinson disease, RBBB, HTN sent from [facility] to [facility] ED on Section 12 on 05/03/24 with confusion, was awaiting LTC placement in ED overflow with difficulty and so was admitted on 05/12/24 for placement 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 Jeferson GARCÍA to chair daily, check labs periodically need for inpt: Placement Daily ambulation with staff Quality Stroke Does the patient have a stroke diagnosis?: No VTE Prior VTE?: No VTE Risk Level:: Medical - moderate - high VTE Device Contraindication: Treatment Not Indicated VTE Drug Contraindication: N/A - Med Ordered
--- NOTE | 2024-07-19 09:20 | PC.NURSE ---
Pt calm and cooperative with care, no behaviours noted. Per Baseline. Confused. Assist with 1 with ADLs.
--- NOTE | 2024-07-19 14:00 | MHC.CM.PN ---
Patient remains medically cleared awaiting LTC placement. [facility], [facility], and [facility] requesting additional financial information. This CM spoke w/ conservator who will request additional bank statements and start 20x200 will.
[2024-07-19 15:53] VITALS: BP 115/60; PULSE 71; RESP 12; TEMP 36.4; O2SAT 97
[2024-07-19] MEDS: OLANZapine 2.5 MG TABLET PO ×2 (17:01→21:15)
[2024-07-19] MEDS: Enoxaparin Sodium 40 MG/0.4 ML SYRINGE SUBCUT (17:01)
[2024-07-19 19:55] VITALS: BP 105/62; PULSE 65; RESP 16; TEMP 36.1; O2SAT 97
[2024-07-19] MEDS: Docusate Sodium 100 MG CAPSULE PO (21:14)
[2024-07-19] MEDS: Donepezil HCl 5 MG TABLET PO (21:14)
[2024-07-19] MEDS: Mirtazapine 15 MG TABLET PO (21:15)
--- NOTE | 2024-07-19 23:04 | PC.NURSE ---
Assumed care of patient at 19:00. Patient remains pleasantly confused, calm and cooperative. Med compliant. Denies pain or other complaints. Please see shift assessment, tasks in worklist, and MAR for full details. Bed alarm on, high falls safety measures in place. In room camera also continues for safety. Handoff report given to oncoming RN at 23:00.
[2024-07-20 03:39] VITALS: BP 120/70; PULSE 76; RESP 15; TEMP 36.1; O2SAT 94
--- NOTE | 2024-07-20 07:21 | P.PNIM_ITS ---
Subjective Subjective Date of Service: 07/20/24 Interval History: seen and examined this morning follow up for placement no overnight events no specific complaints, likes the fortified ice cream Review of Systems Review of Systems: Yes all other systems are reviewed and are negative Constitutional Constitutional: Denies chills and Denies fever(s) Cardiovascular Cardiovascular: Denies chest pain and Denies dyspnea Respiratory Respiratory: Denies dyspnea Gastrointestinal Gastrointestinal: Denies abdominal pain Physical Exam 2 Vital Signs: Vital Signs: Last Vital Signs Temp 96.9 F 07/20/24 03:39 Pulse 76 07/20/24 03:39 Resp 15 07/20/24 03:39 BP 120/70 07/20/24 03:39 Pulse Ox 94 07/20/24 03:39 O2 Del Method Room Air 07/20/24 03:39 O2 Flow Rate 94 05/25/24 19:13 BMI result Body Mass Index 24.4 alert and confused Objective Data Active Medications Acetaminophen (Acetaminophen 325 Mg Tablet) 650 mg PO Q4H PRN PRN Reason: Pain, Mild (Pain Scale 1-3) Last Admin: 07/17/24 09:21 Dose: 650 mg Documented By: TROY Calcium Carbonate (Calcium Carbonate 750 Mg Tab.Chew) 750 mg PO Q4H PRN PRN Reason: Heartburn Docusate Sodium (Docusate Sodium 100 Mg Capsule) 100 mg PO BEDTIME [facility] Last Admin: 07/19/24 21:14 Dose: 100 mg Documented By: PETE Donepezil HCl (Donepezil Hcl 5 Mg Tablet) 5 mg PO BEDTIME [facility] Last Admin: 07/19/24 21:14 Dose: 5 mg Documented By: PETE Enoxaparin Sodium (Enoxaparin Sodium 40 Mg/0.4 Ml Syringe) 40 mg SUBCUT Q24H [facility] Last Admin: 07/19/24 17:01 Dose: 40 mg Documented By: FISH Magnesium Hydroxide (Milk Of Magnesia 30 Ml Oral.Susp) 30 ml PO DAILY PRN PRN Reason: Constipation Last Admin: 07/15/24 05:38 Dose: 30 ml Documented By: COURTNEY Melatonin (Melatonin 3 Mg Tablet) 6 mg PO BEDTIME PRN PRN Reason: Insomnia Last Admin: 07/08/24 22:15 Dose: 6 mg Documented By: HO.LYSZ Mirtazapine (Mirtazapine 15 Mg Tablet) 15 mg PO BEDTIME [facility] Last Admin: 07/19/24 21:15 Dose: 15 mg Documented By: PETE Olanzapine (Olanzapine 2.5 Mg Tablet) 2.5 mg PO BEDTIME [facility] Last Admin: 07/19/24 21:15 Dose: 2.5 mg Documented By: PETE Olanzapine (Olanzapine 2.5 Mg Tablet) 2.5 mg PO DAILY@1700 [facility] Last Admin: 07/19/24 17:01 Dose: 2.5 mg Documented By: FISH Polyethylene Glycol (Polyethylene Glycol 3350 17 Gm Powd.Pack) 17 gm PO DAILY [facility] Last Admin: 07/19/24 07:09 Dose: 17 gm Documented By: FISH Labs 07/20/24 07:57 07/20/24 07:57 Assessment and Plan (1) 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: Status: Acute Plan 78yo M with dementia, Parkinson disease, RBBB, HTN sent from [facility] to [facility] ED on Section 12 on 05/03/24 with confusion, was awaiting LTC placement in ED overflow with difficulty and so was admitted on 05/12/24 for placement 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 Jeferson GARCÍA to chair daily, check labs periodically need for inpt: Placement Daily ambulation with staff Quality Stroke Does the patient have a stroke diagnosis?: No VTE Prior VTE?: No VTE Risk Level:: Medical - moderate - high VTE Device Contraindication: Treatment Not Indicated VTE Drug Contraindication: N/A - Med Ordered
[2024-07-20 07:37] VITALS: BP 131/67; PULSE 71; RESP 16; TEMP 36.6; O2SAT 97
[2024-07-20] MEDS: polyethylene glycoL 3350 17 GM POWD.PACK PO (07:54)
[2024-07-20 08:29] LABS: Hematocrit 44.8 % (42.0-52.0); Hemoglobin 15.4 g/dl (14.0-18.0); Mean Corpuscular HGB Conc 34.4 g/dl (31.0-36.0); Mean Corpuscular Hemoglobin 30.7 pg (27.0-33.0); Mean Corpuscular Volume 89.4 fL (80.0-98.0); Mean Platelet Volume 9.3 fL (9.4-12.4); Platelet Count 277 X10*3/uL (160-400); Red Blood Count 5.01 X10*6/uL (4.60-5.80); Red Cell Distribution Width 13.4 % (11.0-16.0); White Blood Count 7.3 X10*3/uL (4.8-10.8)
[2024-07-20 08:51] LABS: Anion Gap 12 (12-20); Blood Urea Nitrogen 12 mg/dL (9-16); Calcium 9.8 mg/dL (8.4-10.2); Carbon Dioxide 28 mmol/L (22-29); Chloride 106 mmol/L (96-108); Creatinine Clr Calc Pharmacy 69.2; Estimated Glomerular Filt Rate > 60; Glucose Random 100 mg/dL (60-115); Potassium 4.1 mmol/L (3.3-5.1); Sodium 142 mmol/L (135-145)
--- NOTE | 2024-07-20 12:51 | MHC.CM.PN ---
EMR REVIEWED AND PER MD ROUNDS, PT REMAINS MEDICALLY CLEARED. CM CALLED AND LEFT MESSAGE FOR [facility] TO REACH OUT TO [facility] [place] [facility] TO DISCUSS FINANCIALS. THEY ARE UNABLE TO ACCEPT UNTIL THIS HAPPENS THE MH JORJE HAS NOT BEEN COMPLETED. CM WILL AWAIT UPDATE AND F/U WITH [facility].
[2024-07-20 15:04] VITALS: BP 121/65; PULSE 55; RESP 18; TEMP 36.3; O2SAT 99
[2024-07-20] MEDS: OLANZapine 2.5 MG TABLET PO ×2 (16:58→19:23)
[2024-07-20] MEDS: Enoxaparin Sodium 40 MG/0.4 ML SYRINGE SUBCUT (17:00)
[2024-07-20] MEDS: Donepezil HCl 5 MG TABLET PO (19:23)
[2024-07-20] MEDS: Docusate Sodium 100 MG CAPSULE PO (19:23)
[2024-07-20] MEDS: Mirtazapine 15 MG TABLET PO (19:23)
[2024-07-20 19:45] VITALS: BP 100/62; PULSE 66; RESP 14; TEMP 36.1; O2SAT 96
[2024-07-21 03:41] VITALS: BP 95/51; PULSE 59; RESP 16; TEMP 36.2; O2SAT 95
[2024-07-21 04:29] VITALS: BP 132/64
[2024-07-21] MEDS: polyethylene glycoL 3350 17 GM POWD.PACK PO (08:37)
--- NOTE | 2024-07-21 08:57 | P.PNIM_ITS ---
Subjective Subjective Date of Service: 07/21/24 Interval History: seen and examined this morning follow up for placement no overnight events no specific complaints, likes the fortified ice cream Review of Systems Review of Systems: Yes all other systems are reviewed and are negative Constitutional Constitutional: Denies chills and Denies fever(s) Cardiovascular Cardiovascular: Denies chest pain and Denies dyspnea Respiratory Respiratory: Denies dyspnea Gastrointestinal Gastrointestinal: Denies abdominal pain Physical Exam 2 Vital Signs: Vital Signs: Last Vital Signs Temp 97.2 F 07/21/24 03:41 Pulse 59 07/21/24 03:41 Resp 16 07/21/24 03:41 BP 132/64 07/21/24 04:29 Pulse Ox 95 07/21/24 03:41 O2 Del Method Room Air 07/21/24 03:41 O2 Flow Rate 94 05/25/24 19:13 BMI result Body Mass Index 24.4 Appearing in no acute distress lung sounds are clear to auscultation heart regular rate rhythm, clear S1, S2 positive bowel sounds, abdomen is soft, nontender neuro patient is alert, confused Objective Data Active Medications Acetaminophen (Acetaminophen 325 Mg Tablet) 650 mg PO Q4H PRN PRN Reason: Pain, Mild (Pain Scale 1-3) Last Admin: 07/17/24 09:21 Dose: 650 mg Documented By: TROY Calcium Carbonate (Calcium Carbonate 750 Mg Tab.Chew) 750 mg PO Q4H PRN PRN Reason: Heartburn Docusate Sodium (Docusate Sodium 100 Mg Capsule) 100 mg PO BEDTIME [facility] Last Admin: 07/20/24 19:23 Dose: 100 mg Documented By: BALAJI Donepezil HCl (Donepezil Hcl 5 Mg Tablet) 5 mg PO BEDTIME [facility] Last Admin: 07/20/24 19:23 Dose: 5 mg Documented By: BALAJI Enoxaparin Sodium (Enoxaparin Sodium 40 Mg/0.4 Ml Syringe) 40 mg SUBCUT Q24H [facility] Last Admin: 07/20/24 17:00 Dose: 40 mg Documented By: FISH Magnesium Hydroxide (Milk Of Magnesia 30 Ml Oral.Susp) 30 ml PO DAILY PRN PRN Reason: Constipation Last Admin: 07/15/24 05:38 Dose: 30 ml Documented By: COURTNEY Melatonin (Melatonin 3 Mg Tablet) 6 mg PO BEDTIME PRN PRN Reason: Insomnia Last Admin: 07/08/24 22:15 Dose: 6 mg Documented By: MAYITO Mirtazapine (Mirtazapine 15 Mg Tablet) 15 mg PO BEDTIME [facility] Last Admin: 07/20/24 19:23 Dose: 15 mg Documented By: BALAJI Olanzapine (Olanzapine 2.5 Mg Tablet) 2.5 mg PO BEDTIME [facility] Last Admin: 07/20/24 19:23 Dose: 2.5 mg Documented By: BALAJI Olanzapine (Olanzapine 2.5 Mg Tablet) 2.5 mg PO DAILY@1700 [facility] Last Admin: 07/20/24 16:58 Dose: 2.5 mg Documented By: FISH Polyethylene Glycol (Polyethylene Glycol 3350 17 Gm Powd.Pack) 17 gm PO DAILY [facility] Last Admin: 07/21/24 08:37 Dose: 17 gm Documented By: MARCINM Labs 07/20/24 07:57 07/20/24 07:57 Assessment and Plan (1) 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: Status: Acute Plan 78yo M with dementia, Parkinson disease, RBBB, HTN sent from [facility] to [facility] ED on Section 12 on 05/03/24 with confusion, was awaiting LTC placement in ED overflow with difficulty and so was admitted on 05/12/24 for placement 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 Jeferson GARCÍA to chair daily, check labs periodically need for inpt: Placement Daily ambulation with staff Quality Stroke Does the patient have a stroke diagnosis?: No VTE Prior VTE?: No VTE Risk Level:: Medical - moderate - high VTE Device Contraindication: Treatment Not Indicated VTE Drug Contraindication: N/A - Med Ordered
[2024-07-21] MEDS: Acetaminophen 325 MG TABLET 650 MG PO (09:13)
--- NOTE | 2024-07-21 09:43 | MHC.CM.PN ---
CM spoke w/ conservator. She states she reached out to [employer] office several times w/ no response. Will re-attempt today. Expects to have [employer] will completed by early next week. [facility] will continue to follow.
[2024-07-21 16:37] VITALS: BP 123/68; PULSE 86; RESP 16; TEMP 36.1; O2SAT 96
[2024-07-21] MEDS: OLANZapine 2.5 MG TABLET PO ×2 (17:52→19:06)
[2024-07-21] MEDS: Enoxaparin Sodium 40 MG/0.4 ML SYRINGE SUBCUT (17:52)
[2024-07-21] MEDS: Donepezil HCl 5 MG TABLET PO (19:06)
[2024-07-21] MEDS: Docusate Sodium 100 MG CAPSULE PO (19:06)
[2024-07-21] MEDS: Mirtazapine 15 MG TABLET PO (19:06)
[2024-07-21 20:00] VITALS: BP 119/63; PULSE 98; RESP 16; TEMP 36.8; O2SAT 97
[2024-07-22 04:00] VITALS: BP 140/67; PULSE 60; RESP 18; TEMP 36.6; O2SAT 100
[2024-07-22] MEDS: polyethylene glycoL 3350 17 GM POWD.PACK PO (07:45)
[2024-07-22 08:17] VITALS: BP 121/75; PULSE 86; RESP 18; TEMP 36.6; O2SAT 97
--- NOTE | 2024-07-22 09:37 | PC.NURSE ---
Assumed care of Pt @ 0700. Pt alert and cooperative w care. However pleasantly confused. ambulates in harrison w walker and contact guard. Pt denies any complaints. Bed alarm and camera for safety. frequent rounding to access for pt needs. i.e bathroom, wlaks, etc..
--- NOTE | 2024-07-22 13:47 | P.PNIM_ITS ---
Subjective Subjective Date of Service: 07/22/24 Interval History: seen and examined this morning follow up for for placement No overnight events Review of Systems Review of Systems: Yes all other systems are reviewed and are negative Constitutional Constitutional: Denies fever(s) Cardiovascular Cardiovascular: Denies chest pain Gastrointestinal Gastrointestinal: Denies abdominal pain Physical Exam 2 Vital Signs: Vital Signs: Last Vital Signs Temp 97.8 F 07/22/24 08:17 Pulse 86 07/22/24 08:17 Resp 18 07/22/24 08:17 BP 121/75 07/22/24 08:17 Pulse Ox 97 07/22/24 08:17 O2 Del Method Room Air 07/22/24 08:17 O2 Flow Rate 94 05/25/24 19:13 BMI result Body Mass Index 24.4 Const: General: cooperative, comfortable, no acute distress, alert and awake Nutritional Appearance: average body habitus Orientation/consciousness: o riented to person Resp: Effort & Inspection: normal respiratory effort, able to speak in complete sentences, no respiratory distress and no use of accessory muscles GI: Palpation (GI): Soft to palpation Neuro: General: oriented to person Extrem: Other: LUE resting tremor Psych: Other: impaired insight Objective Data Active Medications Acetaminophen (Acetaminophen 325 Mg Tablet) 650 mg PO Q4H PRN PRN Reason: Pain, Mild (Pain Scale 1-3) Last Admin: 07/21/24 09:13 Dose: 650 mg Documented By: TESSY Calcium Carbonate (Calcium Carbonate 750 Mg Tab.Chew) 750 mg PO Q4H PRN PRN Reason: Heartburn Docusate Sodium (Docusate Sodium 100 Mg Capsule) 100 mg PO BEDTIME [facility] Last Admin: 07/21/24 19:06 Dose: 100 mg Documented By: HUSSAIN Donepezil HCl (Donepezil Hcl 5 Mg Tablet) 5 mg PO BEDTIME [facility] Last Admin: 07/21/24 19:06 Dose: 5 mg Documented By: HUSSAIN Enoxaparin Sodium (Enoxaparin Sodium 40 Mg/0.4 Ml Syringe) 40 mg SUBCUT Q24H [facility] Last Admin: 07/21/24 17:52 Dose: 40 mg Documented By: TESSY Magnesium Hydroxide (Milk Of Magnesia 30 Ml Oral.Susp) 30 ml PO DAILY PRN PRN Reason: Constipation Last Admin: 07/15/24 05:38 Dose: 30 ml Documented By: ROCIOT Melatonin (Melatonin 3 Mg Tablet) 6 mg PO BEDTIME PRN PRN Reason: Insomnia Last Admin: 07/08/24 22:15 Dose: 6 mg Documented By: MAYITO Mirtazapine (Mirtazapine 7.5 Mg Tablet) 7.5 mg PO BEDTIME [facility] Olanzapine (Olanzapine 2.5 Mg Tablet) 2.5 mg PO BEDTIME [facility] Last Admin: 07/21/24 19:06 Dose: 2.5 mg Documented By: HUSSAIN Olanzapine (Olanzapine 2.5 Mg Tablet) 2.5 mg PO DAILY@1700 [facility] Last Admin: 07/21/24 17:52 Dose: 2.5 mg Documented By: TESSY Polyethylene Glycol (Polyethylene Glycol 3350 17 Gm Powd.Pack) 17 gm PO DAILY [facility] Last Admin: 07/22/24 07:45 Dose: 17 gm Documented By: MKITZM Labs 07/20/24 07:57 07/20/24 07:57 Assessment and Plan (1) 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: Status: Acute Plan 78yo M with dementia, Parkinson disease, RBBB, HTN sent from [facility] [place] [facility] Section 12 on 05/03/24 with confusion, was awaiting LTC placement in ED overflow with difficulty and so was admitted on 05/12/24 for placement 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 Jeferson GARCÍA to chair daily, check labs periodically need for inpt: Placement Daily ambulation with staff Quality Stroke Does the patient have a stroke diagnosis?: No VTE Prior VTE?: No VTE Risk Level:: Medical - moderate - high VTE Device Contraindication: Treatment Not Indicated VTE Drug Contraindication: N/A - Med Ordered
--- NOTE | 2024-07-22 15:34 | MHC.CM.PN ---
PT AWAITING LTC PLACEMENT, ADRI[facility] CALLOWAY IS FOLLOWING UPDATES SENT, AWAITING RESPONSE
[2024-07-22 15:50] VITALS: BP 107/60; PULSE 70; RESP 12; TEMP 36; O2SAT 98
[2024-07-22] MEDS: Enoxaparin Sodium 40 MG/0.4 ML SYRINGE SUBCUT (17:17)
[2024-07-22] MEDS: OLANZapine 2.5 MG TABLET PO ×2 (17:17→21:27)
[2024-07-22] MEDS: Acetaminophen 325 MG TABLET 650 MG PO (18:07)
[2024-07-22 19:10] VITALS: BP 122/58; PULSE 74; RESP 16; TEMP 36.2; O2SAT 97
[2024-07-22] MEDS: Docusate Sodium 100 MG CAPSULE PO (21:27)
[2024-07-22] MEDS: Donepezil HCl 5 MG TABLET PO (21:27)
[2024-07-22] MEDS: Mirtazapine 7.5 MG TABLET PO (21:28)
[2024-07-23 03:21] VITALS: BP 127/60; PULSE 58; RESP 16; TEMP 36.3; O2SAT 98
[2024-07-23] MEDS: polyethylene glycoL 3350 17 GM POWD.PACK PO (08:04)
[2024-07-23 08:59] VITALS: BP 129/60; PULSE 71; RESP 16; TEMP 36; O2SAT 98
--- NOTE | 2024-07-23 09:49 | P.PNIM_ITS ---
Subjective Subjective Date of Service: 07/23/24 Interval History: seen and examined this morning follow up for for placement No overnight events Review of Systems Review of Systems: Yes all other systems are reviewed and are negative Constitutional Constitutional: Denies fever(s) Cardiovascular Cardiovascular: Denies chest pain Gastrointestinal Gastrointestinal: Denies abdominal pain Physical Exam 2 Vital Signs: Vital Signs: Last Vital Signs Temp 96.8 F 07/23/24 08:59 Pulse 71 07/23/24 08:59 Resp 16 07/23/24 08:59 BP 129/60 07/23/24 08:59 Pulse Ox 98 07/23/24 08:59 O2 Del Method Room Air 07/23/24 08:59 O2 Flow Rate 94 05/25/24 19:13 BMI result Body Mass Index 24.4 Appearing in no acute distress lung sounds are clear to auscultation heart regular rate rhythm, clear S1, S2 positive bowel sounds, abdomen is soft, nontender neuro patient is alert, confused Objective Data Active Medications Acetaminophen (Acetaminophen 325 Mg Tablet) 650 mg PO Q4H PRN PRN Reason: Pain, Mild (Pain Scale 1-3) Last Admin: 07/22/24 18:07 Dose: 650 mg Documented By: QUETA Calcium Carbonate (Calcium Carbonate 750 Mg Tab.Chew) 750 mg PO Q4H PRN PRN Reason: Heartburn Docusate Sodium (Docusate Sodium 100 Mg Capsule) 100 mg PO BEDTIME [facility] Last Admin: 07/22/24 21:27 Dose: 100 mg Documented By: BECK Donepezil HCl (Donepezil Hcl 5 Mg Tablet) 5 mg PO BEDTIME [facility] Last Admin: 07/22/24 21:27 Dose: 5 mg Documented By: BECK Enoxaparin Sodium (Enoxaparin Sodium 40 Mg/0.4 Ml Syringe) 40 mg SUBCUT Q24H [facility] Last Admin: 07/22/24 17:17 Dose: 40 mg Documented By: QUETA Magnesium Hydroxide (Milk Of Magnesia 30 Ml Oral.Susp) 30 ml PO DAILY PRN PRN Reason: Constipation Last Admin: 07/15/24 05:38 Dose: 30 ml Documented By: COURTNEY Melatonin (Melatonin 3 Mg Tablet) 6 mg PO BEDTIME PRN PRN Reason: Insomnia Last Admin: 07/08/24 22:15 Dose: 6 mg Documented By: MAYITO Mirtazapine (Mirtazapine 7.5 Mg Tablet) 7.5 mg PO BEDTIME [facility] Last Admin: 07/22/24 21:28 Dose: 7.5 mg Documented By: BECK Olanzapine (Olanzapine 2.5 Mg Tablet) 2.5 mg PO BEDTIME [facility] Last Admin: 07/22/24 21:27 Dose: 2.5 mg Documented By: BECK Olanzapine (Olanzapine 2.5 Mg Tablet) 2.5 mg PO DAILY@1700 [facility] Last Admin: 07/22/24 17:17 Dose: 2.5 mg Documented By: QUETA Polyethylene Glycol (Polyethylene Glycol 3350 17 Gm Powd.Pack) 17 gm PO DAILY [facility] Last Admin: 07/23/24 08:04 Dose: 17 gm Documented By: QUETA Labs 07/20/24 07:57 07/20/24 07:57 Assessment and Plan (1) 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: Status: Acute Plan 78yo M with dementia, Parkinson disease, RBBB, HTN sent from [facility] to [facility] ED on Section 12 on 05/03/24 with confusion, was awaiting LTC placement in ED overflow with difficulty and so was admitted on 05/12/24 for placement 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 Jakub GARCÍA to chair daily, check labs periodically need for inpt: Placement Daily ambulation with staff Quality Stroke Does the patient have a stroke diagnosis?: No VTE Prior VTE?: No VTE Risk Level:: Medical - moderate - high VTE Device Contraindication: Treatment Not Indicated VTE Drug Contraindication: N/A - Med Ordered
[2024-07-23 16:00] VITALS: BP 137/64; PULSE 69; RESP 18; TEMP 36.4; O2SAT 99
--- NOTE | 2024-07-23 16:04 | PC.NURSE ---
Pt calm and cooperative thoughout shift. Pt went on multiple walks in [place] w [facility] assit w [facility]. no c/o pain, pt awaiting placement.
[2024-07-23] MEDS: OLANZapine 2.5 MG TABLET PO ×2 (17:34→19:49)
[2024-07-23] MEDS: Enoxaparin Sodium 40 MG/0.4 ML SYRINGE SUBCUT (17:34)
[2024-07-23] MEDS: Docusate Sodium 100 MG CAPSULE PO (19:49)
[2024-07-23] MEDS: Donepezil HCl 5 MG TABLET PO (19:49)
[2024-07-23] MEDS: Mirtazapine 7.5 MG TABLET PO (19:49)
[2024-07-23 19:52] VITALS: BP 150/76; PULSE 71; RESP 18; TEMP 36.8; O2SAT 99
[2024-07-24 03:21] VITALS: BP 110/69; PULSE 69; RESP 18; TEMP 36.2; O2SAT 97
--- NOTE | 2024-07-24 07:22 | P.PNIM_ITS ---
Subjective Subjective Date of Service: 07/24/24 Interval History: seen and examined this morning follow up for for placement no change in medical status No overnight events Review of Systems Review of Systems: Yes all other systems are reviewed and are negative Constitutional Constitutional: Denies fever(s) Cardiovascular Cardiovascular: Denies chest pain Gastrointestinal Gastrointestinal: Denies abdominal pain Physical Exam 2 Vital Signs: Vital Signs: Last Vital Signs Temp 97.1 F 07/24/24 03:21 Pulse 69 07/24/24 03:21 Resp 18 07/24/24 03:21 BP 110/69 07/24/24 03:21 Pulse Ox 97 07/24/24 03:21 O2 Del Method Room Air 07/23/24 19:52 O2 Flow Rate 94 05/25/24 19:13 BMI result Body Mass Index 24.4 alert and confused Objective Data Active Medications Acetaminophen (Acetaminophen 325 Mg Tablet) 650 mg PO Q4H PRN PRN Reason: Pain, Mild (Pain Scale 1-3) Last Admin: 07/22/24 18:07 Dose: 650 mg Documented By: QUETA Calcium Carbonate (Calcium Carbonate 750 Mg Tab.Chew) 750 mg PO Q4H PRN PRN Reason: Heartburn Docusate Sodium (Docusate Sodium 100 Mg Capsule) 100 mg PO BEDTIME [facility] Last Admin: 07/23/24 19:49 Dose: 100 mg Documented By: BECK Comments: pt is awake now Donepezil HCl (Donepezil Hcl 5 Mg Tablet) 5 mg PO BEDTIME [facility] Last Admin: 07/23/24 19:49 Dose: 5 mg Documented By: BECK Enoxaparin Sodium (Enoxaparin Sodium 40 Mg/0.4 Ml Syringe) 40 mg SUBCUT Q24H [facility] Last Admin: 07/23/24 17:34 Dose: 40 mg Documented By: QUETA Magnesium Hydroxide (Milk Of Magnesia 30 Ml Oral.Susp) 30 ml PO DAILY PRN PRN Reason: Constipation Last Admin: 07/15/24 05:38 Dose: 30 ml Documented By: SUSANA-HANNA Melatonin (Melatonin 3 Mg Tablet) 6 mg PO BEDTIME PRN PRN Reason: Insomnia Last Admin: 07/08/24 22:15 Dose: 6 mg Documented By: MAYITO Mirtazapine (Mirtazapine 7.5 Mg Tablet) 7.5 mg PO BEDTIME [facility] Last Admin: 07/23/24 19:49 Dose: 7.5 mg Documented By: BECK Olanzapine (Olanzapine 2.5 Mg Tablet) 2.5 mg PO BEDTIME [facility] Last Admin: 07/23/24 19:49 Dose: 2.5 mg Documented By: BECK Olanzapine (Olanzapine 2.5 Mg Tablet) 2.5 mg PO DAILY@1700 [facility] Last Admin: 07/23/24 17:34 Dose: 2.5 mg Documented By: QUETA Polyethylene Glycol (Polyethylene Glycol 3350 17 Gm Powd.Pack) 17 gm PO DAILY [facility] Last Admin: 07/23/24 08:04 Dose: 17 gm Documented By: QUETA Labs 07/20/24 07:57 07/20/24 07:57 Assessment and Plan (1) 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: Status: Acute Plan 78yo M with dementia, Parkinson disease, RBBB, HTN sent from [facility] to [facility] ED on Section 12 on 05/03/24 with confusion, was awaiting LTC placement in ED overflow with difficulty and so was admitted on 05/12/24 for placement 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 Jakub GARCÍA to chair daily, check labs periodically need for inpt: Placement Daily ambulation with staff Quality Stroke Does the patient have a stroke diagnosis?: No VTE Prior VTE?: No VTE Risk Level:: Medical - moderate - high VTE Device Contraindication: Treatment Not Indicated VTE Drug Contraindication: N/A - Med Ordered
[2024-07-24] MEDS: polyethylene glycoL 3350 17 GM POWD.PACK PO (07:53)
[2024-07-24 08:00] VITALS: BP 131/69; PULSE 67; RESP 17; TEMP 36.3; O2SAT 99
--- NOTE | 2024-07-24 12:13 | PC.NURSE ---
pt doing well, calm and cooperative with care. Awaiting placement in SNF.
[2024-07-24 15:46] VITALS: BP 131/63; PULSE 85; RESP 17; TEMP 36.9; O2SAT 97
[2024-07-24] MEDS: Enoxaparin Sodium 40 MG/0.4 ML SYRINGE SUBCUT (17:05)
[2024-07-24] MEDS: OLANZapine 2.5 MG TABLET PO ×2 (17:05→19:24)
[2024-07-24] MEDS: Acetaminophen 325 MG TABLET 650 MG PO (19:23)
[2024-07-24] MEDS: Melatonin 3 MG TABLET 6 MG PO (19:24)
[2024-07-24] MEDS: Docusate Sodium 100 MG CAPSULE PO (19:24)
[2024-07-24] MEDS: Donepezil HCl 5 MG TABLET PO (19:24)
[2024-07-24] MEDS: Mirtazapine 7.5 MG TABLET PO (19:24)
[2024-07-24 19:32] VITALS: BP 132/75; PULSE 89; RESP 20; O2SAT 98
[2024-07-25 03:44] VITALS: BP 152/75; PULSE 80; RESP 18; TEMP 36.6; O2SAT 97
--- NOTE | 2024-07-25 07:20 | HO.PM.IMPN ---
Subjective Subjective Date of Service: 07/25/24 Interval History: seen and examined this morning follow up for for placement no change in medical status No overnight events Review of Systems Review of Systems: Yes all other systems are reviewed and are negative Constitutional Constitutional: Denies fever(s) Cardiovascular Cardiovascular: Denies chest pain Gastrointestinal Gastrointestinal: Denies abdominal pain Physical Exam Vital Signs: Vital Signs: Last Vital Signs Temp 97.9 F 07/25/24 03:44 Pulse 80 07/25/24 03:44 Resp 18 07/25/24 03:44 BP 152/75 H 07/25/24 03:44 Pulse Ox 97 07/25/24 03:44 O2 Del Method Room Air 07/25/24 03:44 O2 Flow Rate 94 05/25/24 19:13 BMI result Body Mass Index 24.4 Appearing in no acute distress lung sounds are clear to auscultation heart regular rate rhythm, clear S1, S2 positive bowel sounds, abdomen is soft, nontender neuro patient is alert, confused Objective Data Active Medications Acetaminophen (Acetaminophen 325 Mg Tablet) 650 mg PO Q4H PRN PRN Reason: Pain, Mild (Pain Scale 1-3) Last Admin: 07/24/24 19:23 Dose: 650 mg Documented By: EZIO Calcium Carbonate (Calcium Carbonate 750 Mg Tab.Chew) 750 mg PO Q4H PRN PRN Reason: Heartburn Docusate Sodium (Docusate Sodium 100 Mg Capsule) 100 mg PO BEDTIME [facility] Last Admin: 07/24/24 19:24 Dose: 100 mg Documented By: EZIO Donepezil HCl (Donepezil Hcl 5 Mg Tablet) 5 mg PO BEDTIME [facility] Last Admin: 07/24/24 19:24 Dose: 5 mg Documented By: EZIO Enoxaparin Sodium (Enoxaparin Sodium 40 Mg/0.4 Ml Syringe) 40 mg SUBCUT Q24H [facility] Last Admin: 07/24/24 17:05 Dose: 40 mg Documented By: FISH Magnesium Hydroxide (Milk Of Magnesia 30 Ml Oral.Susp) 30 ml PO DAILY PRN PRN Reason: Constipation Last Admin: 07/15/24 05:38 Dose: 30 ml Documented By: SUSANA-ZADRAnu Melatonin (Melatonin 3 Mg Tablet) 6 mg PO BEDTIME PRN PRN Reason: Insomnia Last Admin: 07/24/24 19:24 Dose: 6 mg Documented By: EZIO Mirtazapine (Mirtazapine 7.5 Mg Tablet) 7.5 mg PO BEDTIME [facility] Last Admin: 07/24/24 19:24 Dose: 7.5 mg Documented By: EZIO Olanzapine (Olanzapine 2.5 Mg Tablet) 2.5 mg PO BEDTIME [facility] Last Admin: 07/24/24 19:24 Dose: 2.5 mg Documented By: EZIO Olanzapine (Olanzapine 2.5 Mg Tablet) 2.5 mg PO DAILY@1700 [facility] Last Admin: 07/24/24 17:05 Dose: 2.5 mg Documented By: FISH Polyethylene Glycol (Polyethylene Glycol 3350 17 Gm Powd.Pack) 17 gm PO DAILY [facility] Last Admin: 07/24/24 07:53 Dose: 17 gm Documented By: FISH Labs 07/20/24 07:57 07/20/24 07:57 Assessment and Plan (1) 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: Status: Acute Plan 78yo M with dementia, Parkinson disease, RBBB, HTN sent from [facility] to [facility] ED on Section 12 on 05/03/24 with confusion, was awaiting LTC placement in ED overflow with difficulty and so was admitted on 05/12/24 for placement 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 Jakub GARCÍA to chair daily, check labs periodically need for inpt: Placement Daily ambulation with staff Quality Stroke Does the patient have a stroke diagnosis?: No VTE Prior VTE?: No VTE Risk Level:: Medical - moderate - high VTE Device Contraindication: Treatment Not Indicated VTE Drug Contraindication: N/A - Med Ordered
[2024-07-25 07:27] VITALS: BP 114/61; PULSE 57; RESP 16; TEMP 36.2; O2SAT 98
[2024-07-25] MEDS: polyethylene glycoL 3350 17 GM POWD.PACK PO (08:35)
--- NOTE | 2024-07-25 09:54 | HO.PM.IMPN ---
Subjective Subjective Date of Service: 07/25/24 Interval History: seen and examined this morning follow up for for placement no change in medical status No overnight events Review of Systems Review of Systems: Yes all other systems are reviewed and are negative Constitutional Constitutional: Denies fever(s) Cardiovascular Cardiovascular: Denies chest pain Gastrointestinal Gastrointestinal: Denies abdominal pain Physical Exam Vital Signs: Vital Signs: Last Vital Signs Temp 97.1 F 07/25/24 07:27 Pulse 57 07/25/24 07:27 Resp 16 07/25/24 07:27 BP 114/61 07/25/24 07:27 Pulse Ox 98 07/25/24 07:27 O2 Del Method Room Air 07/25/24 07:27 O2 Flow Rate 94 05/25/24 19:13 BMI result Body Mass Index 24.4 Appearing in no acute distress lung sounds are clear to auscultation heart regular rate rhythm, clear S1, S2 positive bowel sounds, abdomen is soft, nontender neuro patient is alert, confused Objective Data Active Medications Acetaminophen (Acetaminophen 325 Mg Tablet) 650 mg PO Q4H PRN PRN Reason: Pain, Mild (Pain Scale 1-3) Last Admin: 07/24/24 19:23 Dose: 650 mg Documented By: EZIO Calcium Carbonate (Calcium Carbonate 750 Mg Tab.Chew) 750 mg PO Q4H PRN PRN Reason: Heartburn Docusate Sodium (Docusate Sodium 100 Mg Capsule) 100 mg PO BEDTIME [facility] Last Admin: 07/24/24 19:24 Dose: 100 mg Documented By: EZIO Donepezil HCl (Donepezil Hcl 5 Mg Tablet) 5 mg PO BEDTIME [facility] Last Admin: 07/24/24 19:24 Dose: 5 mg Documented By: EZIO Enoxaparin Sodium (Enoxaparin Sodium 40 Mg/0.4 Ml Syringe) 40 mg SUBCUT Q24H [facility] Last Admin: 07/24/24 17:05 Dose: 40 mg Documented By: FISH Magnesium Hydroxide (Milk Of Magnesia 30 Ml Oral.Susp) 30 ml PO DAILY PRN PRN Reason: Constipation Last Admin: 07/15/24 05:38 Dose: 30 ml Documented By: SUSANA-HANNA Melatonin (Melatonin 3 Mg Tablet) 6 mg PO BEDTIME PRN PRN Reason: Insomnia Last Admin: 07/24/24 19:24 Dose: 6 mg Documented By: EZIO Mirtazapine (Mirtazapine 7.5 Mg Tablet) 7.5 mg PO BEDTIME [facility] Last Admin: 07/24/24 19:24 Dose: 7.5 mg Documented By: EZIO Olanzapine (Olanzapine 2.5 Mg Tablet) 2.5 mg PO BEDTIME [facility] Last Admin: 07/24/24 19:24 Dose: 2.5 mg Documented By: EZIO Olanzapine (Olanzapine 2.5 Mg Tablet) 2.5 mg PO DAILY@1700 [facility] Last Admin: 07/24/24 17:05 Dose: 2.5 mg Documented By: FISH Polyethylene Glycol (Polyethylene Glycol 3350 17 Gm Powd.Pack) 17 gm PO DAILY [facility] Last Admin: 07/25/24 08:35 Dose: 17 gm Documented By: MIGUEL Labs 07/20/24 07:57 07/20/24 07:57 Assessment and Plan (1) 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: Status: Acute Plan 78yo M with dementia, Parkinson disease, RBBB, HTN sent from [facility] to [facility] ED on Section 12 on 05/03/24 with confusion, was awaiting LTC placement in ED overflow with difficulty and so was admitted on 05/12/24 for placement 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 Jeferson GARCÍA to chair daily, check labs periodically need for inpt: Placement Daily ambulation with staff Quality Stroke Does the patient have a stroke diagnosis?: No VTE Prior VTE?: No VTE Risk Level:: Medical - moderate - high VTE Device Contraindication: Treatment Not Indicated VTE Drug Contraindication: N/A - Med Ordered
--- NOTE | 2024-07-25 14:05 | MHC.CM.PN ---
EMR REVIEWED AND PT REMAINS MEDICALLY CLEARED. [facility] HAS BEEN FOLLOWING BUT NO LONGER HAS A BED TO OFFER. CM WILL CONTINUE BROAD BED SEARCH FOR A LTC BED.
[2024-07-25 14:54] VITALS: BP 115/65; PULSE 98; RESP 18; TEMP 36.8; O2SAT 97
[2024-07-25] MEDS: Enoxaparin Sodium 40 MG/0.4 ML SYRINGE SUBCUT (18:08)
[2024-07-25] MEDS: OLANZapine 2.5 MG TABLET PO ×2 (18:08→21:47)
[2024-07-25 19:05] VITALS: BP 109/57; PULSE 69; RESP 18; TEMP 36.4; O2SAT 98
[2024-07-25] MEDS: Docusate Sodium 100 MG CAPSULE PO (21:47)
[2024-07-25] MEDS: Mirtazapine 7.5 MG TABLET PO (21:47)
[2024-07-25] MEDS: Donepezil HCl 5 MG TABLET PO (21:47)
[2024-07-25] MEDS: Melatonin 3 MG TABLET 6 MG PO (21:50)
[2024-07-26 02:58] VITALS: BP 119/59; PULSE 54; RESP 16; TEMP 36.2; O2SAT 98
--- NOTE | 2024-07-26 07:21 | P.PNIM_ITS ---
Subjective Subjective Date of Service: 07/26/24 Interval History: seen and examined this morning follow up for for placement no change in medical status No overnight events Review of Systems Review of Systems: Yes all other systems are reviewed and are negative Constitutional Constitutional: Denies fever(s) Cardiovascular Cardiovascular: Denies chest pain Gastrointestinal Gastrointestinal: Denies abdominal pain Physical Exam 2 Vital Signs: Vital Signs: Last Vital Signs Temp 97.1 F 07/26/24 02:58 Pulse 54 07/26/24 02:58 Resp 16 07/26/24 02:58 BP 119/59 L 07/26/24 02:58 Pulse Ox 98 07/26/24 02:58 O2 Del Method Room Air 07/26/24 02:58 O2 Flow Rate 94 05/25/24 19:13 BMI result Body Mass Index 24.4 alert and confused Objective Data Active Medications Acetaminophen (Acetaminophen 325 Mg Tablet) 650 mg PO Q4H PRN PRN Reason: Pain, Mild (Pain Scale 1-3) Last Admin: 07/24/24 19:23 Dose: 650 mg Documented By: EZIO Calcium Carbonate (Calcium Carbonate 750 Mg Tab.Chew) 750 mg PO Q4H PRN PRN Reason: Heartburn Docusate Sodium (Docusate Sodium 100 Mg Capsule) 100 mg PO BEDTIME [facility] Last Admin: 07/25/24 21:47 Dose: 100 mg Documented By: MAYITO Donepezil HCl (Donepezil Hcl 5 Mg Tablet) 5 mg PO BEDTIME [facility] Last Admin: 07/25/24 21:47 Dose: 5 mg Documented By: MAYITO Enoxaparin Sodium (Enoxaparin Sodium 40 Mg/0.4 Ml Syringe) 40 mg SUBCUT Q24H [facility] Last Admin: 07/25/24 18:08 Dose: 40 mg Documented By: PRINCE Magnesium Hydroxide (Milk Of Magnesia 30 Ml Oral.Susp) 30 ml PO DAILY PRN PRN Reason: Constipation Last Admin: 07/15/24 05:38 Dose: 30 ml Documented By: SUSANA-DAODRAnu Melatonin (Melatonin 3 Mg Tablet) 6 mg PO BEDTIME PRN PRN Reason: Insomnia Last Admin: 07/25/24 21:50 Dose: 6 mg Documented By: MAYITO Mirtazapine (Mirtazapine 7.5 Mg Tablet) 7.5 mg PO BEDTIME [facility] Last Admin: 07/25/24 21:47 Dose: 7.5 mg Documented By: MAYITO Olanzapine (Olanzapine 2.5 Mg Tablet) 2.5 mg PO BEDTIME [facility] Last Admin: 07/25/24 21:47 Dose: 2.5 mg Documented By: MAYITO Olanzapine (Olanzapine 2.5 Mg Tablet) 2.5 mg PO DAILY@1700 [facility] Last Admin: 07/25/24 18:08 Dose: 2.5 mg Documented By: DOBROB Polyethylene Glycol (Polyethylene Glycol 3350 17 Gm Powd.Pack) 17 gm PO DAILY [facility] Last Admin: 07/25/24 08:35 Dose: 17 gm Documented By: ALICEN Labs 07/20/24 07:57 07/20/24 07:57 Assessment and Plan (1) 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 Jeferson GARCÍA to chair daily, check labs periodically need for inpt: Placement Daily ambulation with staff Quality Stroke Does the patient have a stroke diagnosis?: No VTE Prior VTE?: No VTE Risk Level:: Medical - moderate - high VTE Device Contraindication: Treatment Not Indicated VTE Drug Contraindication: N/A - Med Ordered
[2024-07-26 08:00] VITALS: BP 123/60; PULSE 61; RESP 16; TEMP 36.2; O2SAT 98
[2024-07-26] MEDS: polyethylene glycoL 3350 17 GM POWD.PACK PO (08:28)
[2024-07-26 15:10] VITALS: BP 117/61; PULSE 61; RESP 15; TEMP 36.4; O2SAT 96
--- NOTE | 2024-07-26 15:29 | MHC.CM.PN ---
CM CONTINUES TO EXPAND REFERRALS IN [facility]. LIAISON FROM [facility] WILL BE ONSITE TO ASSESS 07/27. CM WILL CONTINUE TO FOLLOW FOR DC PLAN.
[2024-07-26] MEDS: OLANZapine 2.5 MG TABLET PO ×2 (17:01→20:17)
[2024-07-26] MEDS: Enoxaparin Sodium 40 MG/0.4 ML SYRINGE SUBCUT (17:01)
[2024-07-26 19:16] VITALS: BP 107/58; PULSE 63; RESP 17; TEMP 36.1; O2SAT 98
[2024-07-26] MEDS: Melatonin 3 MG TABLET 6 MG PO (20:17)
[2024-07-26] MEDS: Mirtazapine 7.5 MG TABLET PO (20:17)
[2024-07-26] MEDS: Donepezil HCl 5 MG TABLET PO (20:17)
[2024-07-26] MEDS: Docusate Sodium 100 MG CAPSULE PO (20:17)
[2024-07-27 03:41] VITALS: BP 144/65; PULSE 55; RESP 18; TEMP 36.1; O2SAT 99
--- NOTE | 2024-07-27 05:45 | PC.NURSE ---
Pt seen on bed alert and oriented to self, generalized tremors, pt is pleasant and follows command, denies any pain, doesn't ring [facility] for bathroom needs, pt attempts to stand up himself, bed alarm on, camera on, tolerated all due meds.
[2024-07-27 08:00] VITALS: BP 115/56; PULSE 68; RESP 18; TEMP 36.1; O2SAT 97
[2024-07-27] MEDS: polyethylene glycoL 3350 17 GM POWD.PACK PO (08:47)
--- NOTE | 2024-07-27 12:01 | P.PNIM_ITS ---
Subjective Subjective Date of Service: 07/27/24 Interval History: Being followed for placement. Offers no acute complaints eating breakfast, no acute events overnight. Review of Systems All other system reviewed and are negative. Physical Exam 2 Vital Signs: Vital Signs: Last Vital Signs Temp 97.0 F 07/27/24 08:00 Pulse 68 07/27/24 08:00 Resp 18 07/27/24 08:00 BP 115/56 L 07/27/24 08:00 Pulse Ox 97 07/27/24 08:00 O2 Del Method Room Air 07/27/24 08:00 O2 Flow Rate 94 05/25/24 19:13 BMI result Body Mass Index 24.4 Const: Other: Gen: in no acute distress Neck: No JVD Lungs: clear to auscultation bilaterally Heart: regular rate and rhythm, no murmurs Abd: soft, non-tender, non-distended Ext: no edema Skin: warm/well-perfused Neuro: alert, oriented to self. Psych: impaired insight Objective Data Active Medications Acetaminophen (Acetaminophen 325 Mg Tablet) 650 mg PO Q4H PRN PRN Reason: Pain, Mild (Pain Scale 1-3) Last Admin: 07/24/24 19:23 Dose: 650 mg Documented By: EZIO Calcium Carbonate (Calcium Carbonate 750 Mg Tab.Chew) 750 mg PO Q4H PRN PRN Reason: Heartburn Docusate Sodium (Docusate Sodium 100 Mg Capsule) 100 mg PO BEDTIME [facility] Last Admin: 07/26/24 20:17 Dose: 100 mg Documented By: BECKIE Donepezil HCl (Donepezil Hcl 5 Mg Tablet) 5 mg PO BEDTIME [facility] Last Admin: 07/26/24 20:17 Dose: 5 mg Documented By: BECKIE Enoxaparin Sodium (Enoxaparin Sodium 40 Mg/0.4 Ml Syringe) 40 mg SUBCUT Q24H [facility] Last Admin: 07/26/24 17:01 Dose: 40 mg Documented By: COTEMA Magnesium Hydroxide (Milk Of Magnesia 30 Ml Oral.Susp) 30 ml PO DAILY PRN PRN Reason: Constipation Last Admin: 07/15/24 05:38 Dose: 30 ml Documented By: N-ZADRT Melatonin (Melatonin 3 Mg Tablet) 6 mg PO BEDTIME PRN PRN Reason: Insomnia Last Admin: 07/26/24 20:17 Dose: 6 mg Documented By: BECKIE Mirtazapine (Mirtazapine 7.5 Mg Tablet) 7.5 mg PO BEDTIME [facility] Last Admin: 07/26/24 20:17 Dose: 7.5 mg Documented By: BECKIE Olanzapine (Olanzapine 2.5 Mg Tablet) 2.5 mg PO BEDTIME [facility] Last Admin: 07/26/24 20:17 Dose: 2.5 mg Documented By: BECKIE Olanzapine (Olanzapine 2.5 Mg Tablet) 2.5 mg PO DAILY@1700 [facility] Last Admin: 07/26/24 17:01 Dose: 2.5 mg Documented By: COTEMA Polyethylene Glycol (Polyethylene Glycol 3350 17 Gm Powd.Pack) 17 gm PO DAILY [facility] Last Admin: 07/27/24 08:47 Dose: 17 gm Documented By: MCGINNM Labs 07/20/24 07:57 07/20/24 07:57 Assessment and Plan (1) 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: Status: Acute Plan 78yo M with dementia, Parkinson disease, RBBB, HTN sent from [facility] to [facility] ED on Section 12 on 05/03/24 with confusion, was awaiting LTC placement in ED overflow with difficulty and so was admitted on 05/12/24 for placement 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
--- NOTE | 2024-07-27 13:00 | MHC.CM.PN ---
ALIA LIAISON CALLED AND MUST CHANGE HER ONSITE VISIT TO 07/28 TO SCREEN PT. CM WILL CONTINUE TO FOLLOW FOR PLAN.
[2024-07-27 15:19] VITALS: BP 112/60; PULSE 71; RESP 18; TEMP 36.2; O2SAT 97
[2024-07-27] MEDS: Enoxaparin Sodium 40 MG/0.4 ML SYRINGE SUBCUT (17:27)
[2024-07-27] MEDS: OLANZapine 2.5 MG TABLET PO ×2 (17:27→19:55)
[2024-07-27 19:05] VITALS: BP 113/69; PULSE 80; RESP 18; TEMP 36.5; O2SAT 97
[2024-07-27] MEDS: Donepezil HCl 5 MG TABLET PO (19:54)
[2024-07-27] MEDS: Docusate Sodium 100 MG CAPSULE PO (19:54)
[2024-07-27] MEDS: Mirtazapine 7.5 MG TABLET PO (19:54)
[2024-07-28 02:55] VITALS: BP 139/65; PULSE 57; RESP 16; TEMP 36.1; O2SAT 98
[2024-07-28 08:00] VITALS: BP 115/66; PULSE 62; RESP 18; TEMP 36.9; O2SAT 97
--- NOTE | 2024-07-28 13:00 | P.PNIM_ITS ---
Subjective Subjective Date of Service: 07/28/24 Interval History: Being followed for placement. Tolerating diet eating breakfast, had a brown mushy bowel movement this morning, no nausea, no vomiting or abdominal pain. Review of Systems All other system reviewed and are negative. Physical Exam 2 Vital Signs: Vital Signs: Last Vital Signs Temp 98.4 F 07/28/24 08:00 Pulse 62 07/28/24 08:00 Resp 18 07/28/24 08:00 BP 115/66 07/28/24 08:00 Pulse Ox 97 07/28/24 08:00 O2 Del Method Room Air 07/28/24 08:00 O2 Flow Rate 94 05/25/24 19:13 BMI result Body Mass Index 24.4 Const: Other: Gen: in no acute distress Neck: No JVD Lungs: clear to auscultation bilaterally Heart: regular rate and rhythm, no murmurs Abd: soft, non-tender, non-distended Ext: no edema Skin: warm/well-perfused Neuro: alert, oriented to self. Psych: impaired insight Objective Data Active Medications Acetaminophen (Acetaminophen 325 Mg Tablet) 650 mg PO Q4H PRN PRN Reason: Pain, Mild (Pain Scale 1-3) Last Admin: 07/24/24 19:23 Dose: 650 mg Documented By: EZIO Calcium Carbonate (Calcium Carbonate 750 Mg Tab.Chew) 750 mg PO Q4H PRN PRN Reason: Heartburn Docusate Sodium (Docusate Sodium 100 Mg Capsule) 100 mg PO BEDTIME [facility] Last Admin: 07/27/24 19:54 Dose: 100 mg Documented By: ELMER Donepezil HCl (Donepezil Hcl 5 Mg Tablet) 5 mg PO BEDTIME [facility] Last Admin: 07/27/24 19:54 Dose: 5 mg Documented By: ELMER Enoxaparin Sodium (Enoxaparin Sodium 40 Mg/0.4 Ml Syringe) 40 mg SUBCUT Q24H [facility] Last Admin: 07/27/24 17:27 Dose: 40 mg Documented By: TESSY Magnesium Hydroxide (Milk Of Magnesia 30 Ml Oral.Susp) 30 ml PO DAILY PRN PRN Reason: Constipation Last Admin: 07/15/24 05:38 Dose: 30 ml Documented By: COURTNEY Melatonin (Melatonin 3 Mg Tablet) 6 mg PO BEDTIME PRN PRN Reason: Insomnia Last Admin: 07/26/24 20:17 Dose: 6 mg Documented By: BECKIE Mirtazapine (Mirtazapine 7.5 Mg Tablet) 7.5 mg PO BEDTIME [facility] Last Admin: 07/27/24 19:54 Dose: 7.5 mg Documented By: ELMER Olanzapine (Olanzapine 2.5 Mg Tablet) 2.5 mg PO BEDTIME [facility] Last Admin: 07/27/24 19:55 Dose: 2.5 mg Documented By: ELMER Olanzapine (Olanzapine 2.5 Mg Tablet) 2.5 mg PO DAILY@1700 [facility] Last Admin: 07/27/24 17:27 Dose: 2.5 mg Documented By: TESSY Polyethylene Glycol (Polyethylene Glycol 3350 17 Gm Powd.Pack) 17 gm PO DAILY [facility] Last Admin: 07/28/24 12:50 Dose: Not Given Documented By: RANJIT Non-Admin Reason: Physician Approved Labs 07/20/24 07:57 07/20/24 07:57 Assessment and Plan (1) 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: Status: Acute Plan 78yo M with dementia, Parkinson disease, RBBB, HTN sent from [facility] to [facility] ED on Section 12 on 05/03/24 with confusion, was awaiting LTC placement in ED overflow with difficulty and so was admitted on 05/12/24 for placement 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
--- NOTE | 2024-07-28 14:42 | MHC.CM.PN ---
LIAISON FROM [facility] WAS IN TO SEE PT TO SCREEN, CLINICALLY ACCEPTED BUT WILL NEED TO CONFIRM FINANCES WITH PT'S CONSERVATOR BEFORE CAN FULLY ACCEPT. CM WILL AWAIT DECISION .
[2024-07-28 15:49] VITALS: BP 118/66; PULSE 79; RESP 16; TEMP 36.6; O2SAT 97
[2024-07-28] MEDS: OLANZapine 2.5 MG TABLET PO ×2 (17:29→21:21)
[2024-07-28] MEDS: Enoxaparin Sodium 40 MG/0.4 ML SYRINGE SUBCUT (17:29)
[2024-07-28 19:24] VITALS: BP 132/64; PULSE 88; RESP 16; TEMP 36.3; O2SAT 97
[2024-07-28] MEDS: Donepezil HCl 5 MG TABLET PO (21:21)
[2024-07-28] MEDS: Docusate Sodium 100 MG CAPSULE PO (21:21)
[2024-07-28] MEDS: Mirtazapine 7.5 MG TABLET PO (21:21)
[2024-07-28 23:33] VITALS: BP 114/62; PULSE 67; RESP 16; TEMP 36.5; O2SAT 95
[2024-07-29] MEDS: polyethylene glycoL 3350 17 GM POWD.PACK PO (07:26)
[2024-07-29 08:00] VITALS: BP 125/69; PULSE 65; RESP 16; TEMP 36.4; O2SAT 97
--- NOTE | 2024-07-29 11:36 | PC.NURSE ---
pt calm and cooperative with care today.
--- NOTE | 2024-07-29 12:22 | P.PNIM_ITS ---
Subjective Subjective Date of Service: 07/29/24 Interval History: Being followed for placement Patient wants to go to office this morning, refusing breakfast, offers no other complaints, no acute events overnight. Review of Systems All other system reviewed and negative. Physical Exam 2 Vital Signs: Vital Signs: Last Vital Signs Temp 97.5 F 07/29/24 08:00 Pulse 65 07/29/24 08:00 Resp 16 07/29/24 08:00 BP 125/69 07/29/24 08:00 Pulse Ox 97 07/29/24 08:00 O2 Del Method Room Air 07/29/24 08:00 O2 Flow Rate 94 05/25/24 19:13 BMI result Body Mass Index 24.4 Const: Other: Gen: in no acute distress Neck: No JVD Lungs: clear to auscultation bilaterally Heart: regular rate and rhythm, no murmurs Abd: soft, non-tender, non-distended Ext: no edema Skin: warm/well-perfused Neuro: alert, oriented to self. Psych: impaired insight Objective Data Active Medications Acetaminophen (Acetaminophen 325 Mg Tablet) 650 mg PO Q4H PRN PRN Reason: Pain, Mild (Pain Scale 1-3) Last Admin: 07/24/24 19:23 Dose: 650 mg Documented By: EZIO Calcium Carbonate (Calcium Carbonate 750 Mg Tab.Chew) 750 mg PO Q4H PRN PRN Reason: Heartburn Docusate Sodium (Docusate Sodium 100 Mg Capsule) 100 mg PO BEDTIME [facility] Last Admin: 07/28/24 21:21 Dose: 100 mg Documented By: ELMER Donepezil HCl (Donepezil Hcl 5 Mg Tablet) 5 mg PO BEDTIME [facility] Last Admin: 07/28/24 21:21 Dose: 5 mg Documented By: ELMER Enoxaparin Sodium (Enoxaparin Sodium 40 Mg/0.4 Ml Syringe) 40 mg SUBCUT Q24H [facility] Last Admin: 07/28/24 17:29 Dose: 40 mg Documented By: RANJIT Magnesium Hydroxide (Milk Of Magnesia 30 Ml Oral.Susp) 30 ml PO DAILY PRN PRN Reason: Constipation Last Admin: 07/15/24 05:38 Dose: 30 ml Documented By: COURTNEY Melatonin (Melatonin 3 Mg Tablet) 6 mg PO BEDTIME PRN PRN Reason: Insomnia Last Admin: 07/26/24 20:17 Dose: 6 mg Documented By: BECKIE Mirtazapine (Mirtazapine 7.5 Mg Tablet) 7.5 mg PO BEDTIME [facility] Last Admin: 07/28/24 21:21 Dose: 7.5 mg Documented By: ELMER Olanzapine (Olanzapine 2.5 Mg Tablet) 2.5 mg PO BEDTIME [facility] Last Admin: 07/28/24 21:21 Dose: 2.5 mg Documented By: ELMER Olanzapine (Olanzapine 2.5 Mg Tablet) 2.5 mg PO DAILY@1700 [facility] Last Admin: 07/28/24 17:29 Dose: 2.5 mg Documented By: RANJIT Polyethylene Glycol (Polyethylene Glycol 3350 17 Gm Powd.Pack) 17 gm PO DAILY [facility] Last Admin: 07/29/24 07:26 Dose: 17 gm Documented By: FISH Labs 07/20/24 07:57 07/20/24 07:57 Assessment and Plan (1) 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: Status: Acute Plan 78yo M with dementia, Parkinson disease, RBBB, HTN sent from [facility] to [facility] [place] on Section 12 on 05/03/24 with confusion, was awaiting LTC placement in ED overflow with difficulty and so was admitted on 05/12/24 for placement 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 HTN Stable,off of Lisinopril VTE ppx - LMWH OOB to chair daily, check labs periodically need for inpt: Placement Daily ambulation with staff Quality Stroke Does the patient have a stroke diagnosis?: No VTE Prior VTE?: No VTE Risk Level:: Medical - moderate - high VTE Device Contraindication: Treatment Not Indicated VTE Drug Contraindication: N/A - Med Ordered
--- NOTE | 2024-07-29 12:39 | MHC.CLN ---
NUTRITION ALERTED BY DINING SERVICE STAFF THAT PATIENT FREQUENTLY DOES NOT ACCEPT MAGIC CUP ICE CREAM. INTAKE AT MEALS VARIABLE, BUT USUALLY GREATER THAN 50%. SUPPLEMENT DISCONTINUED.
--- NOTE | 2024-07-29 13:51 | MHC.CM.PN ---
EMR REVIEWED AND PER MD ROUNDS, PT REMAINS MEDICALLY CLEARED FOR DC . [facility] ONCE THEY CONNECT WITH HIS CONSERVATOR REGARDING FINANCES.
[2024-07-29 15:10] VITALS: BP 110/63; PULSE 85; RESP 18; TEMP 36.9; O2SAT 98
[2024-07-29] MEDS: OLANZapine 2.5 MG TABLET PO ×2 (17:28→20:17)
[2024-07-29] MEDS: Enoxaparin Sodium 40 MG/0.4 ML SYRINGE SUBCUT (17:28)
[2024-07-29 19:43] VITALS: BP 120/68; PULSE 72; RESP 16; TEMP 36.9; O2SAT 98
[2024-07-29] MEDS: Mirtazapine 7.5 MG TABLET PO (20:16)
[2024-07-29] MEDS: Docusate Sodium 100 MG CAPSULE PO (20:17)
[2024-07-29] MEDS: Donepezil HCl 5 MG TABLET PO (20:17)
[2024-07-30 04:00] VITALS: BP 136/60; PULSE 55; RESP 16; TEMP 36.2; O2SAT 98
[2024-07-30 07:11] VITALS: BP 137/63; PULSE 52; RESP 16; TEMP 36.8; O2SAT 98
[2024-07-30] MEDS: polyethylene glycoL 3350 17 GM POWD.PACK PO (07:22)
--- NOTE | 2024-07-30 10:17 | HO.PM.IMPN ---
Subjective Subjective Date of Service: 07/30/24 Interval History: Being followed for placement. Sitting on chair, offers no acute complaints, no acute events overnight. Review of Systems All other system reviewed and are negative. Physical Exam Vital Signs: Vital Signs: Last Vital Signs Temp 98.3 F 07/30/24 07:11 Pulse 52 07/30/24 07:11 Resp 16 07/30/24 07:11 BP 137/63 07/30/24 07:11 Pulse Ox 98 07/30/24 07:11 O2 Del Method Room Air 07/30/24 07:11 O2 Flow Rate 94 05/25/24 19:13 BMI result Body Mass Index 24.4 Const: Other: Gen: in no acute distress Neck: No JVD Lungs: clear to auscultation bilaterally Heart: regular rate and rhythm, no murmurs Abd: soft, non-tender, non-distended Ext: no edema Skin: warm/well-perfused Neuro: alert, oriented to self. Psych: impaired insight Objective Data Active Medications Acetaminophen (Acetaminophen 325 Mg Tablet) 650 mg PO Q4H PRN PRN Reason: Pain, Mild (Pain Scale 1-3) Last Admin: 07/24/24 19:23 Dose: 650 mg Documented By: EZIO Calcium Carbonate (Calcium Carbonate 750 Mg Tab.Chew) 750 mg PO Q4H PRN PRN Reason: Heartburn Docusate Sodium (Docusate Sodium 100 Mg Capsule) 100 mg PO BEDTIME [facility] Last Admin: 07/29/24 20:17 Dose: 100 mg Documented By: HOWARD Donepezil HCl (Donepezil Hcl 5 Mg Tablet) 5 mg PO BEDTIME [facility] Last Admin: 07/29/24 20:17 Dose: 5 mg Documented By: HOWARD Enoxaparin Sodium (Enoxaparin Sodium 40 Mg/0.4 Ml Syringe) 40 mg SUBCUT Q24H [facility] Last Admin: 07/29/24 17:28 Dose: 40 mg Documented By: TROY Magnesium Hydroxide (Milk Of Magnesia 30 Ml Oral.Susp) 30 ml PO DAILY PRN PRN Reason: Constipation Last Admin: 07/15/24 05:38 Dose: 30 ml Documented By: SUSANA-ZADRAnu Melatonin (Melatonin 3 Mg Tablet) 6 mg PO BEDTIME PRN PRN Reason: Insomnia Last Admin: 07/26/24 20:17 Dose: 6 mg Documented By: BECKIE Mirtazapine (Mirtazapine 7.5 Mg Tablet) 7.5 mg PO BEDTIME [facility] Last Admin: 07/29/24 20:16 Dose: 7.5 mg Documented By: HOWARD Olanzapine (Olanzapine 2.5 Mg Tablet) 2.5 mg PO BEDTIME [facility] Last Admin: 07/29/24 20:17 Dose: 2.5 mg Documented By: HOWARD Olanzapine (Olanzapine 2.5 Mg Tablet) 2.5 mg PO DAILY@1700 [facility] Last Admin: 07/29/24 17:28 Dose: 2.5 mg Documented By: TROY Polyethylene Glycol (Polyethylene Glycol 3350 17 Gm Powd.Pack) 17 gm PO DAILY [facility] Last Admin: 07/30/24 07:22 Dose: 17 gm Documented By: BEIT Labs 07/20/24 07:57 07/20/24 07:57 Assessment and Plan (1) 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: Status: Acute Plan 78yo M with dementia, Parkinson disease, RBBB, HTN sent from 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 HTN Stable,off of Lisinopril VTE ppx - LMWH OOB to chair daily, check labs periodically need for inpt: Placement Daily ambulation with staff Quality Stroke Does the patient have a stroke diagnosis?: No VTE Prior VTE?: No VTE Risk Level:: Medical - moderate - high VTE Device Contraindication: Treatment Not Indicated VTE Drug Contraindication: N/A - Med Ordered
--- NOTE | 2024-07-30 11:00 | PC.NURSE ---
Patient calm and cooperative this am,forgets to call for assistance,tries to get out of bed by himself
[2024-07-30 15:27] VITALS: BP 137/78; PULSE 68; RESP 18; TEMP 36.3; O2SAT 99
[2024-07-30] MEDS: OLANZapine 2.5 MG TABLET PO ×3 (16:44→20:00)
[2024-07-30] MEDS: Enoxaparin Sodium 40 MG/0.4 ML SYRINGE SUBCUT (17:24)
[2024-07-30 18:59] VITALS: BP 140/73; PULSE 73; RESP 18; TEMP 36.9; O2SAT 99
[2024-07-30] MEDS: Mirtazapine 7.5 MG TABLET PO (20:00)
[2024-07-30] MEDS: Docusate Sodium 100 MG CAPSULE PO (20:00)
[2024-07-30] MEDS: Donepezil HCl 5 MG TABLET PO (20:01)
[2024-07-31 03:29] VITALS: BP 112/60; PULSE 62; RESP 16; TEMP 36.1; O2SAT 97
[2024-07-31] MEDS: polyethylene glycoL 3350 17 GM POWD.PACK PO (07:10)
--- NOTE | 2024-07-31 07:28 | PC.NURSE ---
PATIENT CALM,COOPERATIVE,ASKED FOR ASSISTANCE TO URINATE,ASKED FOR HIS DENTURES,SAID THANK YOU FOR EVERYTHING
[2024-07-31 07:29] VITALS: BP 145/67; PULSE 59; RESP 16; TEMP 36.6; O2SAT 99
--- NOTE | 2024-07-31 11:55 | HO.PM.IMPN ---
Subjective Subjective Date of Service: 07/31/24 Interval History: Being followed for placement. No acute events overnight, no behavioral issues, tolerating diet, last bowel movement 07/28, no nausea, no vomiting. Review of Systems Unable to obtain due to mental status. Physical Exam Vital Signs: Vital Signs: Last Vital Signs Temp 97.8 F 07/31/24 07:29 Pulse 59 07/31/24 07:29 Resp 16 07/31/24 07:29 BP 145/67 H 07/31/24 07:29 Pulse Ox 99 07/31/24 07:29 O2 Del Method Room Air 07/31/24 07:29 O2 Flow Rate 94 05/25/24 19:13 BMI result Body Mass Index 24.4 Const: Other: Gen: in no acute distress Neck: No JVD Lungs: clear to auscultation bilaterally Heart: regular rate and rhythm, no murmurs Abd: soft, non-tender, non-distended Ext: no edema Skin: warm/well-perfused Neuro: alert, oriented to self. Psych: impaired insight Objective Data Active Medications Acetaminophen (Acetaminophen 325 Mg Tablet) 650 mg PO Q4H PRN PRN Reason: Pain, Mild (Pain Scale 1-3) Last Admin: 07/24/24 19:23 Dose: 650 mg Documented By: EZIO Calcium Carbonate (Calcium Carbonate 750 Mg Tab.Chew) 750 mg PO Q4H PRN PRN Reason: Heartburn Docusate Sodium (Docusate Sodium 100 Mg Capsule) 100 mg PO BEDTIME [facility] Last Admin: 07/30/24 20:00 Dose: 100 mg Documented By: HOWARD Donepezil HCl (Donepezil Hcl 5 Mg Tablet) 5 mg PO BEDTIME [facility] Last Admin: 07/30/24 20:01 Dose: 5 mg Documented By: HOWARD Enoxaparin Sodium (Enoxaparin Sodium 40 Mg/0.4 Ml Syringe) 40 mg SUBCUT Q24H [facility] Last Admin: 07/30/24 17:24 Dose: 40 mg Documented By: CHRISTINA Magnesium Hydroxide (Milk Of Magnesia 30 Ml Oral.Susp) 30 ml PO DAILY PRN PRN Reason: Constipation Last Admin: 07/15/24 05:38 Dose: 30 ml Documented By: SUSANA-DAODRAnu Melatonin (Melatonin 3 Mg Tablet) 6 mg PO BEDTIME PRN PRN Reason: Insomnia Last Admin: 07/26/24 20:17 Dose: 6 mg Documented By: BECKIE Mirtazapine (Mirtazapine 7.5 Mg Tablet) 7.5 mg PO BEDTIME [facility] Last Admin: 07/30/24 20:00 Dose: 7.5 mg Documented By: HOWARD Olanzapine (Olanzapine 2.5 Mg Tablet) 2.5 mg PO BEDTIME [facility] Last Admin: 07/30/24 20:00 Dose: 2.5 mg Documented By: HOWARD Olanzapine (Olanzapine 2.5 Mg Tablet) 2.5 mg PO DAILY@1700 [facility] Last Admin: 07/30/24 16:48 Dose: 2.5 mg Documented By: CHRISTINA Polyethylene Glycol (Polyethylene Glycol 3350 17 Gm Powd.Pack) 17 gm PO DAILY [facility] Last Admin: 07/31/24 07:10 Dose: 17 gm Documented By: CHRISTINA Labs 07/20/24 07:57 07/20/24 07:57 Assessment and Plan (1) 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 HTN Stable,off of Lisinopril VTE ppx - LMWH OOB to chair daily, check labs periodically need for inpt: Placement Daily ambulation with staff Quality Stroke Does the patient have a stroke diagnosis?: No VTE Prior VTE?: No VTE Risk Level:: Medical - moderate - high VTE Device Contraindication: Treatment Not Indicated VTE Drug Contraindication: N/A - Med Ordered
[2024-07-31 15:20] VITALS: BP 114/56; PULSE 63; RESP 18; TEMP 37.1; O2SAT 98
[2024-07-31] MEDS: OLANZapine 2.5 MG TABLET PO ×3 (16:20→20:00)
[2024-07-31] MEDS: Enoxaparin Sodium 40 MG/0.4 ML SYRINGE SUBCUT (17:31)
[2024-07-31 19:56] VITALS: BP 133/61; PULSE 71; RESP 20; TEMP 36.2; O2SAT 100
[2024-07-31] MEDS: Mirtazapine 7.5 MG TABLET PO (20:00)
[2024-07-31] MEDS: Docusate Sodium 100 MG CAPSULE PO (20:00)
[2024-07-31] MEDS: Donepezil HCl 5 MG TABLET PO (20:00)
[2024-08-01] MEDS: Acetaminophen 325 MG TABLET 650 MG PO (00:27)
[2024-08-01] MEDS: Melatonin 3 MG TABLET 6 MG PO (00:27)
[2024-08-01 03:22] VITALS: BP 111/54; PULSE 96; RESP 20; TEMP 36.3; O2SAT 94
[2024-08-01 07:49] VITALS: BP 141/75; PULSE 83; RESP 16; TEMP 36.6; O2SAT 94
--- NOTE | 2024-08-01 08:07 | HO.PM.IMPN ---
Subjective Subjective Date of Service: 08/01/24 Interval History: Being followed for placement. No acute events overnight, no behavioral issues, tolerating diet, last bowel movement 07/28, no nausea, no vomiting. Review of Systems Unable to obtain due to mental status. Physical Exam Vital Signs: Vital Signs: Last Vital Signs Temp 97.8 F 08/01/24 07:49 Pulse 83 08/01/24 07:49 Resp 16 08/01/24 07:49 BP 141/75 H 08/01/24 07:49 Pulse Ox 94 08/01/24 07:49 O2 Del Method Room Air 08/01/24 07:49 O2 Flow Rate 94 05/25/24 19:13 BMI result Body Mass Index 24.4 Appearing in no acute distress lung sounds are clear to auscultation heart regular rate rhythm, clear S1, S2 positive bowel sounds, abdomen is soft, nontender neuro patient is alert, confused Objective Data Active Medications Acetaminophen (Acetaminophen 325 Mg Tablet) 650 mg PO Q4H PRN PRN Reason: Pain, Mild (Pain Scale 1-3) Last Admin: 08/01/24 00:27 Dose: 650 mg Documented By: ELMER Calcium Carbonate (Calcium Carbonate 750 Mg Tab.Chew) 750 mg PO Q4H PRN PRN Reason: Heartburn Docusate Sodium (Docusate Sodium 100 Mg Capsule) 100 mg PO BEDTIME [facility] Last Admin: 07/31/24 20:00 Dose: 100 mg Documented By: ELMER Donepezil HCl (Donepezil Hcl 5 Mg Tablet) 5 mg PO BEDTIME [facility] Last Admin: 07/31/24 20:00 Dose: 5 mg Documented By: ELMER Enoxaparin Sodium (Enoxaparin Sodium 40 Mg/0.4 Ml Syringe) 40 mg SUBCUT Q24H [facility] Last Admin: 07/31/24 17:31 Dose: 40 mg Documented By: CHRISTINA Magnesium Hydroxide (Milk Of Magnesia 30 Ml Oral.Susp) 30 ml PO DAILY PRN PRN Reason: Constipation Last Admin: 07/15/24 05:38 Dose: 30 ml Documented By: SUSANA-DAODRAnu Melatonin (Melatonin 3 Mg Tablet) 6 mg PO BEDTIME PRN PRN Reason: Insomnia Last Admin: 08/01/24 00:27 Dose: 6 mg Documented By: ELMER Mirtazapine (Mirtazapine 7.5 Mg Tablet) 7.5 mg PO BEDTIME [facility] Last Admin: 07/31/24 20:00 Dose: 7.5 mg Documented By: ELMER Olanzapine (Olanzapine 2.5 Mg Tablet) 2.5 mg PO BEDTIME [facility] Last Admin: 07/31/24 20:00 Dose: 2.5 mg Documented By: ELMER Olanzapine (Olanzapine 2.5 Mg Tablet) 2.5 mg PO DAILY@1700 [facility] Last Admin: 07/31/24 16:25 Dose: 2.5 mg Documented By: CHRISTINA Polyethylene Glycol (Polyethylene Glycol 3350 17 Gm Powd.Pack) 17 gm PO DAILY [facility] Last Admin: 07/31/24 07:10 Dose: 17 gm Documented By: CHRISTINA Labs 08/01/24 09:20 08/01/24 09:20 Assessment and Plan (1) 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 HTN Stable,off of Lisinopril VTE ppx - LMWH OOB to chair daily, check labs periodically need for inpt: Placement Daily ambulation with staff Quality Stroke Does the patient have a stroke diagnosis?: No VTE Prior VTE?: No VTE Risk Level:: Medical - moderate - high VTE Device Contraindication: Treatment Not Indicated VTE Drug Contraindication: N/A - Med Ordered
[2024-08-01 09:46] LABS: Hematocrit 48.8 % (42.0-52.0); Hemoglobin 15.9 g/dl (14.0-18.0); Mean Corpuscular HGB Conc 32.6 g/dl (31.0-36.0); Mean Corpuscular Hemoglobin 30.2 pg (27.0-33.0); Mean Corpuscular Volume 92.8 fL (80.0-98.0); Mean Platelet Volume 8.9 fL (9.4-12.4); Platelet Count 319 X10*3/uL (160-400); Red Blood Count 5.26 X10*6/uL (4.60-5.80); Red Cell Distribution Width 13.6 % (11.0-16.0); White Blood Count 5.5 X10*3/uL (4.8-10.8)
[2024-08-01 09:54] LABS: Anion Gap 11 (12-20); Blood Urea Nitrogen 10 mg/dL (9-16); Calcium 9.6 mg/dL (8.4-10.2); Carbon Dioxide 25 mmol/L (22-29); Chloride 108 mmol/L (96-108); Creatinine Clr Calc Pharmacy 77.5; Estimated Glomerular Filt Rate > 60; Glucose Random 98 mg/dL (60-115); Potassium 4.1 mmol/L (3.3-5.1); Sodium 140 mmol/L (135-145)
--- NOTE | 2024-08-01 13:36 | MHC.CM.PN ---
EMR REVIEWED AND PER MD ROUNDS, PT REMAINS MEDICALLY CLEARED. [facility] AWAITING FINANCIAL ACCEPTANCE. PROVIDER UPDATED AND MESSAGE SENT TO CENTER VIA [employer].
[2024-08-01 15:19] VITALS: BP 130/64; PULSE 66; RESP 17; TEMP 36.2; O2SAT 99
[2024-08-01] MEDS: Enoxaparin Sodium 40 MG/0.4 ML SYRINGE SUBCUT (17:15)
[2024-08-01] MEDS: OLANZapine 2.5 MG TABLET PO ×2 (17:15→20:40)
[2024-08-01 20:00] VITALS: BP 128/60; PULSE 64; RESP 18; TEMP 36.2; O2SAT 96
[2024-08-01] MEDS: Mirtazapine 7.5 MG TABLET PO (20:40)
[2024-08-01] MEDS: Donepezil HCl 5 MG TABLET PO (20:40)
[2024-08-01] MEDS: Docusate Sodium 100 MG CAPSULE PO (20:40)
[2024-08-02 03:04] VITALS: BP 134/67; PULSE 68; RESP 16; TEMP 36.1; O2SAT 99
--- NOTE | 2024-08-02 07:23 | P.PNIM_ITS ---
Subjective Subjective Date of Service: 08/02/24 Interval History: Being followed for placement. No acute events overnight, no behavioral issues, tolerating diet, last bowel movement 07/28, no nausea, no vomiting. Review of Systems Unable to obtain due to mental status. Physical Exam 2 Vital Signs: Vital Signs: Last Vital Signs Temp 96.9 F 08/02/24 03:04 Pulse 68 08/02/24 03:04 Resp 16 08/02/24 03:04 BP 134/67 08/02/24 03:04 Pulse Ox 99 08/02/24 03:04 O2 Del Method Room Air 08/02/24 03:04 O2 Flow Rate 94 05/25/24 19:13 BMI result Body Mass Index 24.4 alert and confused Objective Data Active Medications Acetaminophen (Acetaminophen 325 Mg Tablet) 650 mg PO Q4H PRN PRN Reason: Pain, Mild (Pain Scale 1-3) Last Admin: 08/01/24 00:27 Dose: 650 mg Documented By: ELMER Calcium Carbonate (Calcium Carbonate 750 Mg Tab.Chew) 750 mg PO Q4H PRN PRN Reason: Heartburn Docusate Sodium (Docusate Sodium 100 Mg Capsule) 100 mg PO BEDTIME RICKIE Last Admin: 08/01/24 20:40 Dose: 100 mg Documented By: ELMER Donepezil HCl (Donepezil Hcl 5 Mg Tablet) 5 mg PO BEDTIME RICKIE Last Admin: 08/01/24 20:40 Dose: 5 mg Documented By: ELMER Enoxaparin Sodium (Enoxaparin Sodium 40 Mg/0.4 Ml Syringe) 40 mg SUBCUT Q24H [facility] Last Admin: 08/01/24 17:15 Dose: 40 mg Documented By: RANJIT Magnesium Hydroxide (Milk Of Magnesia 30 Ml Oral.Susp) 30 ml PO DAILY PRN PRN Reason: Constipation Last Admin: 07/15/24 05:38 Dose: 30 ml Documented By: COURTNEY Melatonin (Melatonin 3 Mg Tablet) 6 mg PO BEDTIME PRN PRN Reason: Insomnia Last Admin: 08/01/24 00:27 Dose: 6 mg Documented By: ELMER Mirtazapine (Mirtazapine 7.5 Mg Tablet) 7.5 mg PO BEDTIME RICKIE Last Admin: 08/01/24 20:40 Dose: 7.5 mg Documented By: ELMER Olanzapine (Olanzapine 2.5 Mg Tablet) 2.5 mg PO BEDTIME [facility] Last Admin: 08/01/24 20:40 Dose: 2.5 mg Documented By: ELMER Olanzapine (Olanzapine 2.5 Mg Tablet) 2.5 mg PO DAILY@1700 [facility] Last Admin: 08/01/24 17:15 Dose: 2.5 mg Documented By: RANJIT Polyethylene Glycol (Polyethylene Glycol 3350 17 Gm Powd.Pack) 17 gm PO DAILY [facility] Last Admin: 08/01/24 09:38 Dose: Not Given Documented By: RANJIT Non-Admin Reason: Patient Refused Labs 08/01/24 09:20 08/01/24 09:20 Labs: Laboratory Results - last 24 hr 08/01/24 09:20 MCV 92.8 MCH 30.2 MCHC 32.6 RDW 13.6 Plt Count 319 MPV 8.9 L Absolute Nucleated RBC 0.000 Nucleated RBC % (auto) 0.0 Anion Gap 11 L Estim Creat Clear Calc 77.5 Estimated GFR > 60 Random Glucose 98 Calcium 9.6 Assessment and Plan (1) 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: Status: Acute Plan 78yo M with dementia, Parkinson disease, RBBB, HTN sent from [facility] to [facility] ED on Section 12 on 05/03/24 with confusion, was awaiting LTC placement in ED overflow with difficulty and so was admitted on 05/12/24 for placement 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 HTN Stable,off of Lisinopril VTE ppx - LMWH OOB to chair daily, check labs periodically need for inpt: Placement Daily ambulation with staff Quality Stroke Does the patient have a stroke diagnosis?: No VTE Prior VTE?: No VTE Risk Level:: Medical - moderate - high VTE Device Contraindication: Treatment Not Indicated VTE Drug Contraindication: N/A - Med Ordered
[2024-08-02 07:52] VITALS: BP 133/67; PULSE 55; RESP 14; TEMP 36.4; O2SAT 96
[2024-08-02] MEDS: polyethylene glycoL 3350 17 GM POWD.PACK PO (09:44)
[2024-08-02 15:17] VITALS: BP 116/63; PULSE 85; RESP 17; TEMP 36.2; O2SAT 98
[2024-08-02] MEDS: OLANZapine 2.5 MG TABLET PO ×2 (18:02→21:07)
[2024-08-02] MEDS: Enoxaparin Sodium 40 MG/0.4 ML SYRINGE SUBCUT (18:02)
[2024-08-02 20:00] VITALS: BP 140/74; PULSE 72; RESP 16; TEMP 36.2; O2SAT 93
[2024-08-02] MEDS: Mirtazapine 7.5 MG TABLET PO (21:07)
[2024-08-02] MEDS: Docusate Sodium 100 MG CAPSULE PO (21:07)
[2024-08-03 04:00] VITALS: BP 123/61; PULSE 52; RESP 16; TEMP 36.3; O2SAT 97
[2024-08-03 08:00] VITALS: BP 139/66; PULSE 59; RESP 18; TEMP 36.6; O2SAT 99
--- NOTE | 2024-08-03 10:50 | P.PNIM_ITS ---
Subjective Subjective Date of Service: 08/03/24 Interval History: Being followed for placement Offers no acute complaints, no behavioral issues noted, tolerating diet. Review of Systems Unable to obtain due to mental status although denies any complaints. Physical Exam 2 Vital Signs: Vital Signs: Last Vital Signs Temp 97.8 F 08/03/24 08:00 Pulse 59 08/03/24 08:00 Resp 18 08/03/24 08:00 BP 139/66 08/03/24 08:00 Pulse Ox 99 08/03/24 08:00 O2 Del Method Room Air 08/03/24 08:00 O2 Flow Rate 94 05/25/24 19:13 BMI result Body Mass Index 24.4 Const: Other: Gen: in no acute distress Neck: No JVD Lungs: clear to auscultation bilaterally Heart: regular rate and rhythm, no murmurs Abd: soft, non-tender, non-distended Ext: no edema Skin: warm/well-perfused Neuro: alert, oriented to self. Psych: impaired insight Objective Data Active Medications Acetaminophen (Acetaminophen 325 Mg Tablet) 650 mg PO Q4H PRN PRN Reason: Pain, Mild (Pain Scale 1-3) Last Admin: 08/01/24 00:27 Dose: 650 mg Documented By: ELMER Calcium Carbonate (Calcium Carbonate 750 Mg Tab.Chew) 750 mg PO Q4H PRN PRN Reason: Heartburn Docusate Sodium (Docusate Sodium 100 Mg Capsule) 100 mg PO BEDTIME [facility] Last Admin: 08/02/24 21:07 Dose: 100 mg Documented By: COURTNEY Enoxaparin Sodium (Enoxaparin Sodium 40 Mg/0.4 Ml Syringe) 40 mg SUBCUT Q24H [facility] Last Admin: 08/02/24 18:02 Dose: 40 mg Documented By: RANJIT Magnesium Hydroxide (Milk Of Magnesia 30 Ml Oral.Susp) 30 ml PO DAILY PRN PRN Reason: Constipation Last Admin: 07/15/24 05:38 Dose: 30 ml Documented By: COURTNEY Melatonin (Melatonin 3 Mg Tablet) 6 mg PO BEDTIME PRN PRN Reason: Insomnia Last Admin: 08/01/24 00:27 Dose: 6 mg Documented By: ELMER Mirtazapine (Mirtazapine 7.5 Mg Tablet) 7.5 mg PO BEDTIME [facility] Last Admin: 08/02/24 21:07 Dose: 7.5 mg Documented By: COURTNEY Olanzapine (Olanzapine 2.5 Mg Tablet) 2.5 mg PO BEDTIME [facility] Last Admin: 08/01/24 20:40 Dose: 2.5 mg Documented By: ELMER Olanzapine (Olanzapine 2.5 Mg Tablet) 2.5 mg PO DAILY@1700 [facility] Last Admin: 08/02/24 18:02 Dose: 2.5 mg Documented By: RANJIT Polyethylene Glycol (Polyethylene Glycol 3350 17 Gm Powd.Pack) 17 gm PO DAILY [facility] Last Admin: 08/02/24 09:44 Dose: 17 gm Documented By: RANJIT Labs 08/01/24 09:20 08/01/24 09:20 Assessment and Plan (1) 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 FTT/Poor Po intake r/t above remeron On MiraLax and Colace, hold stool softeners if noted to have diarrhea. HTN Stable,off of Lisinopril VTE ppx - LMWH OOB to chair daily, check labs periodically need for inpt: Placement Daily ambulation with staff Quality Stroke Does the patient have a stroke diagnosis?: No VTE Prior VTE?: No VTE Risk Level:: Medical - moderate - high VTE Device Contraindication: Treatment Not Indicated VTE Drug Contraindication: N/A - Med Ordered
--- NOTE | 2024-08-03 11:54 | MHC.CM.PN ---
CM SPOKE WITH [facility] ATTY LUCY CASTRO WHO STATES SHE HAS RECEIVED THE PVT BILL FROM [facility] AND WILL BE SENDING BACK TODAY. CM WILL AWAIT CLEARANCE FROM [facility] TO BOOK TRANSPORTATION. HCP TOYA LUA UPDATED AND FINAL IMM DELIVERED. HCP IS AGREEABLE TO PLAN. CM WILL CONTINUE TO AWAIT RESPONSE FROM CENTER.
[2024-08-03] MEDS: polyethylene glycoL 3350 17 GM POWD.PACK PO (12:30)
[2024-08-03 15:31] VITALS: BP 100/54; PULSE 64; RESP 16; TEMP 36.4; O2SAT 96
[2024-08-03] MEDS: OLANZapine 2.5 MG TABLET PO ×2 (16:19→19:35)
[2024-08-03] MEDS: Enoxaparin Sodium 40 MG/0.4 ML SYRINGE SUBCUT (17:17)
--- NOTE | 2024-08-03 18:41 | PC.NURSE ---
Patient calm and cooperative throughout shift, remains in behavioral control. Participates in ADLs with mild prompting and encouragement. Cooperative with care and medications. Ambulating with staff in hallway frequently. Patient forgetful at times and needs occasional redirection- accepts without issue. Uses call davis appropriately.
[2024-08-03 19:29] VITALS: BP 97/64; PULSE 86; RESP 18; TEMP 37; O2SAT 96
[2024-08-03] MEDS: Docusate Sodium 100 MG CAPSULE PO (19:35)
[2024-08-03] MEDS: Mirtazapine 7.5 MG TABLET PO (19:35)
[2024-08-04 04:00] VITALS: BP 147/72; PULSE 68; RESP 16; TEMP 36.5; O2SAT 97
[2024-08-04 07:33] VITALS: BP 126/60; PULSE 56; RESP 18; TEMP 36.2; O2SAT 98
[2024-08-04] MEDS: polyethylene glycoL 3350 17 GM POWD.PACK PO (08:53)
--- NOTE | 2024-08-04 12:45 | HO.PM.IMPN ---
Subjective Subjective Date of Service: 08/04/24 Interval History: Being followed for placement. No behavioral issues noted, tolerating diet. Review of Systems Unable to obtain due to mental status/denies any acute complaints. Physical Exam Vital Signs: Vital Signs: Last Vital Signs Temp 97.1 F 08/04/24 07:33 Pulse 56 08/04/24 07:33 Resp 18 08/04/24 07:33 BP 126/60 08/04/24 07:33 Pulse Ox 98 08/04/24 07:33 O2 Del Method Room Air 08/04/24 07:33 O2 Flow Rate 94 05/25/24 19:13 BMI result Body Mass Index 24.4 Const: Other: Gen: in no acute distress Neck: No JVD Lungs: clear to auscultation bilaterally Heart: regular rate and rhythm, no murmurs Abd: soft, non-tender, non-distended Ext: no edema Skin: warm/well-perfused Neuro: alert, oriented to self. Psych: impaired insight Objective Data Active Medications Acetaminophen (Acetaminophen 325 Mg Tablet) 650 mg PO Q4H PRN PRN Reason: Pain, Mild (Pain Scale 1-3) Last Admin: 08/01/24 00:27 Dose: 650 mg Documented By: ELMER Calcium Carbonate (Calcium Carbonate 750 Mg Tab.Chew) 750 mg PO Q4H PRN PRN Reason: Heartburn Docusate Sodium (Docusate Sodium 100 Mg Capsule) 100 mg PO BEDTIME [facility] Last Admin: 08/03/24 19:35 Dose: 100 mg Documented By: BALAJI Enoxaparin Sodium (Enoxaparin Sodium 40 Mg/0.4 Ml Syringe) 40 mg SUBCUT Q24H [facility] Last Admin: 08/03/24 17:17 Dose: 40 mg Documented By: CAROLYN Magnesium Hydroxide (Milk Of Magnesia 30 Ml Oral.Susp) 30 ml PO DAILY PRN PRN Reason: Constipation Last Admin: 07/15/24 05:38 Dose: 30 ml Documented By: COURTNEY Melatonin (Melatonin 3 Mg Tablet) 6 mg PO BEDTIME PRN PRN Reason: Insomnia Last Admin: 08/01/24 00:27 Dose: 6 mg Documented By: ELMER Mirtazapine (Mirtazapine 7.5 Mg Tablet) 7.5 mg PO BEDTIME [facility] Last Admin: 08/03/24 19:35 Dose: 7.5 mg Documented By: BALAJI Olanzapine (Olanzapine 2.5 Mg Tablet) 2.5 mg PO BEDTIME [facility] Last Admin: 08/01/24 20:40 Dose: 2.5 mg Documented By: ELMER Olanzapine (Olanzapine 2.5 Mg Tablet) 2.5 mg PO DAILY@1700 [facility] Last Admin: 08/03/24 16:19 Dose: 2.5 mg Documented By: CAROLYN Polyethylene Glycol (Polyethylene Glycol 3350 17 Gm Powd.Pack) 17 gm PO DAILY [facility] Last Admin: 08/04/24 08:53 Dose: 17 gm Documented By: ROBERTO Labs 08/01/24 09:20 08/01/24 09:20 Assessment and Plan (1) 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: Status: Acute Plan 78yo M with dementia, Parkinson disease, RBBB, HTN sent from [facility] to [facility] ED on Section 12 on 05/03/24 with confusion, was awaiting LTC placement in ED overflow with difficulty and so was admitted on 05/12/24 for placement 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 FTT/Poor Po intake r/t above remeron On MiraLax and Colace, hold stool softeners if noted to have diarrhea. HTN Stable,off of Lisinopril VTE ppx - LMWH OOB to chair daily, check labs periodically need for inpt: Placement Daily ambulation with staff Quality Stroke Does the patient have a stroke diagnosis?: No VTE Prior VTE?: No VTE Risk Level:: Medical - moderate - high VTE Device Contraindication: Treatment Not Indicated VTE Drug Contraindication: N/A - Med Ordered
[2024-08-04 15:00] VITALS: BP 127/68; PULSE 69; RESP 18; TEMP 36.6; O2SAT 96
--- NOTE | 2024-08-04 15:51 | MHC.CM.PN ---
PER DEE LIAISON, ATTY HAS MAILED CHECK FOR PAYMENT FOR ADMISSION. ON RECEIPT, THE CENTER WILL ALERT CM SO WE MAY SET UP TRANSPORT TO CENTER.
[2024-08-04] MEDS: OLANZapine 2.5 MG TABLET PO ×2 (17:06→19:40)
[2024-08-04] MEDS: Enoxaparin Sodium 40 MG/0.4 ML SYRINGE SUBCUT (17:06)
--- NOTE | 2024-08-04 17:25 | PC.NURSE ---
Patient calm and cooperative with care, able to make needs known. Pt participates in care with queues. Pt is able to ambulate with staff in hallway with standby assistance. Pt is forgetful at times and requires occasional redirection.
[2024-08-04 18:53] VITALS: BP 119/56; PULSE 64; RESP 18; TEMP 36.2; O2SAT 98
[2024-08-04] MEDS: Docusate Sodium 100 MG CAPSULE PO (19:40)
[2024-08-04] MEDS: Mirtazapine 7.5 MG TABLET PO (19:40)
[2024-08-04 23:24] VITALS: BP 121/64; PULSE 55; RESP 16; TEMP 37.2; O2SAT 97
[2024-08-05 07:42] VITALS: BP 149/71; PULSE 52; RESP 16; TEMP 36.3; O2SAT 99
[2024-08-05] MEDS: polyethylene glycoL 3350 17 GM POWD.PACK PO (08:13)
--- NOTE | 2024-08-05 12:52 | MHC.CM.PN ---
CM CONTINUES TO AWAIT [facility] TO RECEIVE CHECK FROM [facility] VIA MAIL FOR ADMISSION.
[2024-08-05 15:21] VITALS: BP 118/65; PULSE 73; RESP 16; TEMP 36.4; O2SAT 97
--- NOTE | 2024-08-05 16:11 | P.PNIM_ITS ---
Subjective Subjective Date of Service: 08/05/24 Interval History: seen and examined this morning follow up for placement no overnight events awake, alert, no complaints Review of Systems Review of Systems: Yes all other systems are reviewed and are negative Constitutional Constitutional: Denies chills and Denies fever(s) Physical Exam 2 Vital Signs: Vital Signs: Last Vital Signs Temp 97.6 F 08/05/24 15:21 Pulse 73 08/05/24 15:21 Resp 16 08/05/24 15:21 BP 118/65 08/05/24 15:21 Pulse Ox 97 08/05/24 15:21 O2 Del Method Room Air 08/05/24 15:21 O2 Flow Rate 94 05/25/24 19:13 BMI result Body Mass Index 24.4 Const: General: cooperative, comfortable, no acute distress, alert and awake Nutritional Appearance: average body habitus Orientation/consciousness: o riented to person Resp: Effort & Inspection: normal respiratory effort, able to speak in complete sentences, no respiratory distress and no use of accessory muscles GI: Palpation (GI): Soft to palpation Neuro: General: oriented to person Extrem: Other: LUE resting tremor Psych: Other: impaired insight Objective Data Active Medications Acetaminophen (Acetaminophen 325 Mg Tablet) 650 mg PO Q4H PRN PRN Reason: Pain, Mild (Pain Scale 1-3) Last Admin: 08/01/24 00:27 Dose: 650 mg Documented By: ELMER Calcium Carbonate (Calcium Carbonate 750 Mg Tab.Chew) 750 mg PO Q4H PRN PRN Reason: Heartburn Docusate Sodium (Docusate Sodium 100 Mg Capsule) 100 mg PO BEDTIME [facility] Last Admin: 08/04/24 19:40 Dose: 100 mg Documented By: BALAJI Enoxaparin Sodium (Enoxaparin Sodium 40 Mg/0.4 Ml Syringe) 40 mg SUBCUT Q24H [facility] Last Admin: 08/04/24 17:06 Dose: 40 mg Documented By: ROBERTO Magnesium Hydroxide (Milk Of Magnesia 30 Ml Oral.Susp) 30 ml PO DAILY PRN PRN Reason: Constipation Last Admin: 07/15/24 05:38 Dose: 30 ml Documented By: COURTNEY Melatonin (Melatonin 3 Mg Tablet) 6 mg PO BEDTIME PRN PRN Reason: Insomnia Last Admin: 08/01/24 00:27 Dose: 6 mg Documented By: ELMER Mirtazapine (Mirtazapine 7.5 Mg Tablet) 7.5 mg PO BEDTIME [facility] Last Admin: 08/04/24 19:40 Dose: 7.5 mg Documented By: BALAJI Olanzapine (Olanzapine 2.5 Mg Tablet) 2.5 mg PO BEDTIME [facility] Last Admin: 08/04/24 19:40 Dose: 2.5 mg Documented By: BALAJI Olanzapine (Olanzapine 2.5 Mg Tablet) 2.5 mg PO DAILY@1700 [facility] Last Admin: 08/04/24 17:06 Dose: 2.5 mg Documented By: ROBERTO Polyethylene Glycol (Polyethylene Glycol 3350 17 Gm Powd.Pack) 17 gm PO DAILY [facility] Last Admin: 08/05/24 08:13 Dose: 17 gm Documented By: ROBERTO Labs 08/01/24 09:20 08/01/24 09:20 Assessment and Plan (1) 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: Status: Acute Plan 78yo M with dementia, Parkinson disease, RBBB, HTN sent from [facility] to [facility] ED on Section 12 on 05/03/24 with confusion, was awaiting LTC placement in ED overflow with difficulty and so was admitted on 05/12/24 for placement 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 FTT/Poor Po intake r/t above remeron On MiraLax and Colace, hold stool softeners if noted to have diarrhea. HTN Stable,off of Lisinopril VTE ppx - LMWH OOB to chair daily, check labs periodically need for inpt: Placement Daily ambulation with staff Quality Stroke Does the patient have a stroke diagnosis?: No VTE Prior VTE?: No VTE Risk Level:: Medical - moderate - high VTE Device Contraindication: Treatment Not Indicated VTE Drug Contraindication: N/A - Med Ordered
[2024-08-05] MEDS: Enoxaparin Sodium 40 MG/0.4 ML SYRINGE SUBCUT (16:55)
[2024-08-05] MEDS: OLANZapine 2.5 MG TABLET PO ×2 (16:55→21:23)
--- NOTE | 2024-08-05 17:45 | HO.SKINPHOTO ---
Location: left buttock Left buttock ulcer. Previously documented as pimple . Wound care nurse consulted, foam dressing applied.
[2024-08-05 19:05] VITALS: BP 121/66; PULSE 83; RESP 20; TEMP 36.7; O2SAT 97
[2024-08-05] MEDS: Docusate Sodium 100 MG CAPSULE PO (21:23)
[2024-08-05] MEDS: Mirtazapine 7.5 MG TABLET PO (21:23)
[2024-08-06 03:02] VITALS: BP 121/60; PULSE 78; RESP 16; TEMP 36.3; O2SAT 94
--- NOTE | 2024-08-06 08:06 | P.PNIM_ITS ---
Subjective Subjective Date of Service: 08/06/24 Interval History: seen and examined this morning follow up for placement no overnight events awake, alert, no complaints Review of Systems Review of Systems: Yes all other systems are reviewed and are negative Constitutional Constitutional: Denies chills and Denies fever(s) Physical Exam 2 Vital Signs: Vital Signs: Last Vital Signs Temp 97.3 F 08/06/24 03:02 Pulse 78 08/06/24 03:02 Resp 16 08/06/24 03:02 BP 121/60 08/06/24 03:02 Pulse Ox 94 08/06/24 03:02 O2 Del Method Room Air 08/06/24 03:02 O2 Flow Rate 94 05/25/24 19:13 BMI result Body Mass Index 24.4 alert and confused Objective Data Active Medications Acetaminophen (Acetaminophen 325 Mg Tablet) 650 mg PO Q4H PRN PRN Reason: Pain, Mild (Pain Scale 1-3) Last Admin: 08/01/24 00:27 Dose: 650 mg Documented By: ELMER Calcium Carbonate (Calcium Carbonate 750 Mg Tab.Chew) 750 mg PO Q4H PRN PRN Reason: Heartburn Docusate Sodium (Docusate Sodium 100 Mg Capsule) 100 mg PO BEDTIME [facility] Last Admin: 08/05/24 21:23 Dose: 100 mg Documented By: COURTNEY Enoxaparin Sodium (Enoxaparin Sodium 40 Mg/0.4 Ml Syringe) 40 mg SUBCUT Q24H [facility] Last Admin: 08/05/24 16:55 Dose: 40 mg Documented By: COTEMA Magnesium Hydroxide (Milk Of Magnesia 30 Ml Oral.Susp) 30 ml PO DAILY PRN PRN Reason: Constipation Last Admin: 07/15/24 05:38 Dose: 30 ml Documented By: COURTNEY Melatonin (Melatonin 3 Mg Tablet) 6 mg PO BEDTIME PRN PRN Reason: Insomnia Last Admin: 08/01/24 00:27 Dose: 6 mg Documented By: ELMER Mirtazapine (Mirtazapine 7.5 Mg Tablet) 7.5 mg PO BEDTIME [facility] Last Admin: 08/05/24 21:23 Dose: 7.5 mg Documented By: COURTNEY Olanzapine (Olanzapine 2.5 Mg Tablet) 2.5 mg PO BEDTIME [facility] Last Admin: 08/05/24 21:23 Dose: 2.5 mg Documented By: COURTNEY Olanzapine (Olanzapine 2.5 Mg Tablet) 2.5 mg PO DAILY@1700 [facility] Last Admin: 08/05/24 16:55 Dose: 2.5 mg Documented By: COTEMA Polyethylene Glycol (Polyethylene Glycol 3350 17 Gm Powd.Pack) 17 gm PO DAILY [facility] Last Admin: 08/05/24 08:13 Dose: 17 gm Documented By: JERUSIA Labs 08/01/24 09:20 08/01/24 09:20 Assessment and Plan (1) 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: Status: Acute Plan 78yo M with dementia, Parkinson disease, RBBB, HTN sent from [facility] to [facility] ED on Section 12 on 05/03/24 with confusion, was awaiting LTC placement in ED overflow with difficulty and so was admitted on 05/12/24 for placement 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 FTT/Poor Po intake r/t above remeron On MiraLax and Colace, hold stool softeners if noted to have diarrhea. HTN Stable,off of Lisinopril VTE ppx - LMWH Attending Dr. Jakub GARCÍA to chair daily, check labs periodically need for inpt: Placement Daily ambulation with staff Quality Stroke Does the patient have a stroke diagnosis?: No VTE Prior VTE?: No VTE Risk Level:: Medical - moderate - high VTE Device Contraindication: Treatment Not Indicated VTE Drug Contraindication: N/A - Med Ordered
[2024-08-06] MEDS: polyethylene glycoL 3350 17 GM POWD.PACK PO (08:20)
[2024-08-06 10:26] VITALS: BP 110/60; PULSE 60; RESP 14; TEMP 36.4; O2SAT 97
[2024-08-06 15:19] VITALS: BP 101/59; PULSE 65; RESP 16; TEMP 36.4; O2SAT 98
[2024-08-06] MEDS: OLANZapine 2.5 MG TABLET PO ×2 (17:07→21:18)
[2024-08-06] MEDS: Enoxaparin Sodium 40 MG/0.4 ML SYRINGE SUBCUT (17:07)
[2024-08-06 19:26] VITALS: BP 100/60; PULSE 70; RESP 18; TEMP 36.5; O2SAT 98
[2024-08-06] MEDS: Acetaminophen 325 MG TABLET 650 MG PO (19:50)
[2024-08-06] MEDS: Docusate Sodium 100 MG CAPSULE PO (21:18)
[2024-08-06] MEDS: Mirtazapine 7.5 MG TABLET PO (21:18)
[2024-08-07 03:34] VITALS: BP 119/57; PULSE 71; RESP 18; TEMP 36.4; O2SAT 96
--- NOTE | 2024-08-07 07:17 | P.PNIM_ITS ---
Subjective Subjective Date of Service: 08/07/24 Interval History: seen and examined this morning follow up for placement no overnight events awake, alert, no complaints OOB to chair throughout the day Review of Systems Review of Systems: Yes all other systems are reviewed and are negative Constitutional Constitutional: Denies chills and Denies fever(s) Physical Exam 2 Vital Signs: Vital Signs: Last Vital Signs Temp 97.6 F 08/07/24 03:34 Pulse 71 08/07/24 03:34 Resp 18 08/07/24 03:34 BP 119/57 L 08/07/24 03:34 Pulse Ox 96 08/07/24 03:34 O2 Del Method Room Air 08/07/24 03:34 O2 Flow Rate 94 05/25/24 19:13 BMI result Body Mass Index 24.4 Alert and confused Objective Data Active Medications Acetaminophen (Acetaminophen 325 Mg Tablet) 650 mg PO Q4H PRN PRN Reason: Pain, Mild (Pain Scale 1-3) Last Admin: 08/06/24 19:50 Dose: 650 mg Documented By: COURTNEY Calcium Carbonate (Calcium Carbonate 750 Mg Tab.Chew) 750 mg PO Q4H PRN PRN Reason: Heartburn Docusate Sodium (Docusate Sodium 100 Mg Capsule) 100 mg PO BEDTIME [facility] Last Admin: 08/06/24 21:18 Dose: 100 mg Documented By: COURTNEY Enoxaparin Sodium (Enoxaparin Sodium 40 Mg/0.4 Ml Syringe) 40 mg SUBCUT Q24H [facility] Last Admin: 08/06/24 17:07 Dose: 40 mg Documented By: FISH Magnesium Hydroxide (Milk Of Magnesia 30 Ml Oral.Susp) 30 ml PO DAILY PRN PRN Reason: Constipation Last Admin: 07/15/24 05:38 Dose: 30 ml Documented By: COURTNEY Melatonin (Melatonin 3 Mg Tablet) 6 mg PO BEDTIME PRN PRN Reason: Insomnia Last Admin: 08/01/24 00:27 Dose: 6 mg Documented By: ELMER Mirtazapine (Mirtazapine 7.5 Mg Tablet) 7.5 mg PO BEDTIME [facility] Last Admin: 08/06/24 21:18 Dose: 7.5 mg Documented By: COURTNEY Olanzapine (Olanzapine 2.5 Mg Tablet) 2.5 mg PO BEDTIME [facility] Last Admin: 08/06/24 21:18 Dose: 2.5 mg Documented By: COURTNEY Olanzapine (Olanzapine 2.5 Mg Tablet) 2.5 mg PO DAILY@1700 [facility] Last Admin: 08/06/24 17:07 Dose: 2.5 mg Documented By: FISH Polyethylene Glycol (Polyethylene Glycol 3350 17 Gm Powd.Pack) 17 gm PO DAILY [facility] Last Admin: 08/06/24 08:20 Dose: 17 gm Documented By: FISH Labs 08/01/24 09:20 08/01/24 09:20 Assessment and Plan (1) 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 FTT/Poor Po intake r/t above remeron low dose at bedtime On MiraLax and Colace, hold stool softeners if noted to have diarrhea. HTN Stable off of Lisinopril VTE ppx - LMWH Attending Dr. Call need for inpt: Placement HCP invoked ex- Meka Bunn [phone] Quality Stroke Does the patient have a stroke diagnosis?: No VTE Prior VTE?: No VTE Risk Level:: Medical - moderate - high VTE Device Contraindication: Treatment Not Indicated VTE Drug Contraindication: N/A - Med Ordered
[2024-08-07] MEDS: polyethylene glycoL 3350 17 GM POWD.PACK PO (07:28)
[2024-08-07 08:00] VITALS: BP 140/70; PULSE 87; RESP 16; TEMP 36.8; O2SAT 98
[2024-08-07 15:27] VITALS: BP 120/72; PULSE 65; RESP 20; TEMP 36.8; O2SAT 96
[2024-08-07] MEDS: OLANZapine 2.5 MG TABLET PO ×2 (16:55→21:18)
[2024-08-07 19:42] VITALS: BP 130/70; PULSE 73; RESP 20; TEMP 36.9; O2SAT 97
[2024-08-07] MEDS: Docusate Sodium 100 MG CAPSULE PO (21:18)
[2024-08-07] MEDS: Acetaminophen 325 MG TABLET 650 MG PO (21:18)
[2024-08-07] MEDS: Mirtazapine 7.5 MG TABLET PO (21:18)
[2024-08-08] MEDS: Melatonin 3 MG TABLET 6 MG PO ×2 (01:31→20:01)
[2024-08-08 03:17] VITALS: BP 117/59; PULSE 55; RESP 18; TEMP 36.3; O2SAT 96
--- NOTE | 2024-08-08 07:16 | HO.PM.IMPN ---
Subjective Subjective Date of Service: 08/08/24 Interval History: seen and examined this morning follow up for placement no overnight events awake, alert, no complaints OOB to chair throughout the day Review of Systems Review of Systems: Yes all other systems are reviewed and are negative Constitutional Constitutional: Denies chills and Denies fever(s) Physical Exam Vital Signs: Vital Signs: Last Vital Signs Temp 97.3 F 08/08/24 03:17 Pulse 55 08/08/24 03:17 Resp 18 08/08/24 03:17 BP 117/59 L 08/08/24 03:17 Pulse Ox 96 08/08/24 03:17 O2 Del Method Room Air 08/08/24 03:17 O2 Flow Rate 94 05/25/24 19:13 BMI result Body Mass Index 24.4 alert and confused Objective Data Active Medications Acetaminophen (Acetaminophen 325 Mg Tablet) 650 mg PO Q4H PRN PRN Reason: Pain, Mild (Pain Scale 1-3) Last Admin: 08/07/24 21:18 Dose: 650 mg Documented By: COURTNEY Calcium Carbonate (Calcium Carbonate 750 Mg Tab.Chew) 750 mg PO Q4H PRN PRN Reason: Heartburn Docusate Sodium (Docusate Sodium 100 Mg Capsule) 100 mg PO BEDTIME RICKIE Last Admin: 08/07/24 21:18 Dose: 100 mg Documented By: COURTNEY Enoxaparin Sodium (Enoxaparin Sodium 40 Mg/0.4 Ml Syringe) 40 mg SUBCUT Q24H RICKIE Last Admin: 08/07/24 16:56 Dose: Not Given Documented By: FISH Non-Admin Reason: Patient Refused Magnesium Hydroxide (Milk Of Magnesia 30 Ml Oral.Susp) 30 ml PO DAILY PRN PRN Reason: Constipation Last Admin: 07/15/24 05:38 Dose: 30 ml Documented By: COURTNEY Melatonin (Melatonin 3 Mg Tablet) 6 mg PO BEDTIME PRN PRN Reason: Insomnia Last Admin: 08/08/24 01:31 Dose: 6 mg Documented By: COURTNEY Mirtazapine (Mirtazapine 7.5 Mg Tablet) 7.5 mg PO BEDTIME RICKIE Last Admin: 08/07/24 21:18 Dose: 7.5 mg Documented By: HO.N-ZADRT Olanzapine (Olanzapine 2.5 Mg Tablet) 2.5 mg PO BEDTIME [facility] Last Admin: 08/07/24 21:18 Dose: 2.5 mg Documented By: SUSANA-ZADRT Olanzapine (Olanzapine 2.5 Mg Tablet) 2.5 mg PO DAILY@1700 [facility] Last Admin: 08/07/24 16:55 Dose: 2.5 mg Documented By: FISH Polyethylene Glycol (Polyethylene Glycol 3350 17 Gm Powd.Pack) 17 gm PO DAILY [facility] Last Admin: 08/07/24 07:28 Dose: 17 gm Documented By: FISH Labs 08/01/24 09:20 08/01/24 09:20 Assessment and Plan (1) 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: Status: Acute Plan 78yo M with dementia, Parkinson disease, RBBB, HTN sent from [facility] to 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 FTT/Poor Po intake r/t above remeron low dose at bedtime On MiraLax and Colace, hold stool softeners if noted to have diarrhea. HTN Stable off of Lisinopril VTE ppx - LMWH Attending Dr. Call need for inpt: Placement HCP invoked ex- Meka Bunn [phone] Quality Stroke Does the patient have a stroke diagnosis?: No VTE Prior VTE?: No VTE Risk Level:: Medical - moderate - high VTE Device Contraindication: Treatment Not Indicated VTE Drug Contraindication: N/A - Med Ordered
[2024-08-08 07:50] VITALS: BP 118/59; PULSE 56; RESP 16; TEMP 36.2; O2SAT 99
[2024-08-08] MEDS: polyethylene glycoL 3350 17 GM POWD.PACK PO (07:59)
--- NOTE | 2024-08-08 12:41 | MHC.CM.PN ---
Addendum entered by Venita Dugan 08/09/24 10:33: [facility] has received the payment mailed for LTC by his conservator. They have received approval for the [facility]. Transportation is booked for 3-4pm garbage pick up man. Patients conservator and /hcp have been notified of the discharge. Original Note: IMM 08/08/24 Patient will discharge to [facility] once mailed payment is received by the SNF. Transport is set up for 4pm garbage pick up man. The trip will be cancelled if the payment is not received in the mail today. DP [facility] via BLS pending payment to SNF.
[2024-08-08 14:55] VITALS: BP 132/70; PULSE 71; RESP 18; TEMP 36.1; O2SAT 98
--- NOTE | 2024-08-08 15:49 | HO.WOUND ---
Wound Consult: Initial 78yr old?Male admitted to [facility] on 05/11/24 - See progress notes and H&P for detailed history.? Wound consult placed for Left buttock wound.? Patient agreeable to assessment and photo documentation.? Patient able to stand with assist and walker - foam dressing in place - removed revealing healing abrasion. No indication of pressure injury consistent with abrasion at this time and is currently healed. Recommend continue topical treatment with foam dressing to protect newly epithelialized tissue. Left Buttock Etiology: Resolving Abrasion Measurements: 0.2cm x 0.2cm x 0cm Wound Bed: intact at this time - newly epithelialized Drainage / Odor: None noted Edges: attached ? [place] wound: ? Hyperpigmented - intact No Induration, Fluctuance or Warmth noted Pain: mild tenderness reported Goals of Treatment: ? Continue to protect with foam dressing Recommendations: 1. Turn and Reposition every 2 hours and as needed for patient comfort.? Use pillows or wedges to support off loading positions. 2. Off Load all bony prominences with use of pillows and heel boots if needed.? Apply Preventative foams where needed. ? 3. Monitor for incontinence and moisture control, use barrier creams when needed for prevention and treatment. 4. Provide adequate and supplemental nutrition.? 5. Order low air loss mattress. 6. When applicable maintain blood glucose levels per Providers order. 7. Left Buttock - Cleanse with Ph balanced wipes, pat dry. Apply foam dressing and change every 5 days and PRN. Assess Q Shift. Waffle cushion when up to chair in place. Re-consult wound care Nurse for wound deterioration or wound changes.
[2024-08-08] MEDS: Enoxaparin Sodium 40 MG/0.4 ML SYRINGE SUBCUT (17:24)
[2024-08-08] MEDS: OLANZapine 2.5 MG TABLET PO ×2 (17:24→20:01)
[2024-08-08 18:54] VITALS: BP 106/60; PULSE 66; RESP 18; TEMP 37.1; O2SAT 97
[2024-08-08] MEDS: Acetaminophen 325 MG TABLET 650 MG PO (20:01)
[2024-08-08] MEDS: Docusate Sodium 100 MG CAPSULE PO (20:01)
[2024-08-08] MEDS: Mirtazapine 7.5 MG TABLET PO (20:01)
[2024-08-09 03:16] VITALS: BP 117/60; PULSE 56; RESP 18; TEMP 36.6; O2SAT 96
--- NOTE | 2024-08-09 07:21 | PM.DS ---
DS: Providers Provider Date of Service: 08/09/24 Date of admission: 05/11/24 17:32 Primary care physician: JSOR Baptiste Consults: 05/03/24 17:10 Consult to Case Management Stat Comment: Consult to Psychiatry Stat Consulting Provider: Echo Jacobs Reason for consultation: Capacity - hx of dementia Has provider been notified: Yes 05/13/24 09:05 Consult to Psychiatry Routine Consulting Provider: Psych Covering Reason for consultation: overnight was violent/running down halls/got IM Zyprexa 08/05/24 17:43 Consult to Wound Care Routine Reason for consultation: Left buttock ulcer DS: Diagnosis Discharge Diagnosis (1) 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: Status: Acute DS: Summary Hospital Course Hospital Course: History and physical as per admitting provider. 78-year-old male, with a history of dementia, Parkinson's disease, RBBB, hypertension presented [place] [facility] [place] EMS after presening to [facility] confused on section (he had refused transport) has been boarding in overflow while awaiting LTC placement and will be admitted to hospitalist service for social admit. On exam, the patient demonstrates tangential speech and flight of ideas, talking of cars and then playing hockey, not making much sense nor following commands consistently. He is not answering questions appropriately but does deny complaints. He is sitting in recliner watching television. There does not appear to be any acute medical concerns. On arrival on 05/03, hematology studies and chemistries unremarkable. UA unremarkable, CXR unremarkable except for low lung volumes and atelectasis. Head CT negative for acute intracranial abnormality, but shows chronic small vessel ischemic changes. Health care proxy (, Meka) has been invoked and patient needs conservator and LTC. 78-year-old man with Alzheimer's dementia and Parkinson's dementia admitted for failure to thrive. He was initially presented to [facility] on a section and has been boarding in the overflow unit while awaiting placement. He initially did not have any acute medical issues. But he demonstrated with tangential speech, flight of ideas. During the hospitalization he did not demonstrate any behavioral disturbances he has been able to ambulate to the bathroom with assistance, most day sitting up in a chair. His blood pressure has has been stable on lisinopril. He was started on Remeron full-dose for sleep but seemed to make him too lethargic therefore Remeron was decreased and that seems to be working for him he is also on MiraLax and Colace for stool softeners and can use as needed. For his dementia he has been on olanzapine and Aricept. And labs have been checked regularly and have been within acceptable limits. Time Attestation Discharge Coordination Time (in mins): 40 Quality: Safe Use of Opioids Does Pt have an Active Cancer Diagnosis on the Problem List?: No Quality: Stroke Does the patient have a stroke diagnosis?: No Physical Exam Vital Signs: Vital Signs: Last Vital Signs Temp 97.8 F 08/09/24 03:16 Pulse 56 08/09/24 03:16 Resp 18 08/09/24 03:16 BP 117/60 08/09/24 03:16 Pulse Ox 96 08/09/24 03:16 O2 Del Method Room Air 08/09/24 03:16 O2 Flow Rate 94 05/25/24 19:13 BMI result Body Mass Index 24.4 Appearing in no acute distress head is normocephalic atraumatic eyes pupils are PERRLA sclera is anicteric mouth throat mucous membranes are intact and moist neck is supple no lymphadenopathy, no JVD noted lung sounds are clear to auscultation heart regular rate rhythm, clear S1, S2 positive bowel sounds, abdomen is soft, nontender neuro patient is alert, confused DS: Data Data Completed and Pending Completed studies during hospitalization [Text1]: Procedures Reposition Left Upper Femur with Intramedullary Internal Fixation Device, Percutaneous Approach (07/09/23) Discharge Plan Discharge Anticipated Discharge Date/Time: 08/09/24 07:19 Patient Disposition: Xfer [facility] Discharge Diagnosis: Alzheimer's dementia Parkinson's dementia Failure to thrive Referrals: Declan Piedra, [facility] [Primary Care Provider] - 1 Week Discharge Medications: New olanzapine 2.5 mg Tablet 2.5 mg PO BEDTIME Qty: 30 0RF olanzapine 2.5 mg Tablet 2.5 mg PO DAILY@1700 Qty: 30 0RF mirtazapine 7.5 mg Tablet 7.5 mg PO BEDTIME Qty: 30 0RF Continued lisinopril 5 mg tablet 5 mg PO DAILY Qty: 90 1RF donepezil 5 mg tablet 5 mg PO BEDTIME Discharge Orders: Discharge Order (Routine); Ordered 08/09/24 Ordered By: Georgina Jacob Diet: Advance to usual diet Activity on Discharge: As tolerated Stand Alone Forms: Patient Portal Discharge page Print Language: Greenlandic Care Plan Goals: transfer to nursing facility Health Concerns: Alzheimer's dementia Parkinson's dementia Failure to thrive Plan of Treatment: Follow-up with primary care provider as needed Take all medications as prescribed Assessment: See discharge summary
[2024-08-09 07:37] VITALS: BP 109/55; PULSE 60; RESP 16; TEMP 36.8; O2SAT 99
[2024-08-09] MEDS: polyethylene glycoL 3350 17 GM POWD.PACK PO (08:13)
[2024-08-09] MEDS: OLANZapine 2.5 MG TABLET PO (16:26)
== END 2024-08-09 18:25 | DRG 57 ==
LOC: HO.ED 05-04 10:25 → HO.EDOVER 05-11 18:36 → HO.S3 05-11 20:09
PROVIDERS: Internal Medicine; Physician Assistant Medical; Admitting Provider Physician Assistant; Emergency Provider Emergency Medicine; PCP Nurse Practitioner Family; Visit Provider Nurse Practitioner Acute Care
DX: G30.9 Alzheimer's disease, unspecified (principal); F02.818 Dementia in other diseases classified elsewhere, unspecified severity, with other behavioral disturbance; I10 Essential (primary) hypertension; Z66 Do not resuscitate; G20.A1 Parkinson's disease without dyskinesia, without mention of fluctuations; R62.7 Adult failure to thrive; Z75.1 Person awaiting admission to adequate facility elsewhere; Z68.24 Body mass index [BMI] 24.0-24.9, adult; Z20.822 Contact with and (suspected) exposure to COVID-19; Z79.899 Other long term (current) drug therapy
CPT/HCPCS: 0241U; 36415; 70450; 71045; 72100; 74018; 80048; 80076; 80307; 81001; 81003; 82947; 83605; 83690; 83735; 84484; 85025; 85027; 85610; 85730; 87040; 93005; 97162; 99285; J1650; J2359

== ENCOUNTER → 2024-05-03 14:19 | Outpatient (BNV) | payer MEDICARE, SELFPAY | PROVIDERS: Emergency Provider Emergency Medicine; PCP Nurse Practitioner Family; Visit Provider Social Worker | DX: F03.90 Unspecified dementia, unspecified severity, without behavioral disturbance, psychotic disturbance, mood disturbance, and anxiety (principal) | CPT/HCPCS: 99222; 99285 ==

== ENCOUNTER → 2024-05-03 14:24 | Outpatient (BNV) | payer MEDICARE, SELFPAY | PROVIDERS: Emergency Provider Emergency Medicine; PCP Nurse Practitioner Family; Visit Provider Internal Medicine Cardiovascular Disease | DX: R94.31 Abnormal electrocardiogram [ECG] [EKG] (principal); R41.82 Altered mental status, unspecified | CPT/HCPCS: 93010 ==

== ENCOUNTER → 2024-05-11 17:32 | Outpatient (BNV) | payer MEDICARE, SELFPAY | PROVIDERS: Admitting Provider Physician Assistant; Emergency Provider Emergency Medicine; PCP Nurse Practitioner Family; Visit Provider Physician Assistant | DX: G30.9 Alzheimer's disease, unspecified (principal); F02.80 Dementia in other diseases classified elsewhere, unspecified severity, without behavioral disturbance, psychotic disturbance, mood disturbance, and anxiety | CPT/HCPCS: 99222; 99231; 99232; 99239; 99499 ==